=== PATIENT | female | born 1945 | race Caucasian/White ===

== ENCOUNTER 2019-12-20 15:28 | Outpatient (CLI) | payer MEDICARE, MEDICAID, SELFPAY ==
--- NOTE | ~2019-12-20 | MM_ITS ---
EXAMINATION: MM screening [facility] BI w michelle HISTORY: Screening mammogram TECHNIQUE: Craniocaudal and mediolateral oblique 3-D tomosynthesis images were obtained and synthetic 2-D images were generated. CAD analysis was submitted and interpreted. COMPARISON: 05/27/2016, 10/19/2014 BREAST PARENCHYMAL COMPOSITION: There are scattered areas of fibroglandular density. FINDINGS: Scattered benign-appearing calcifications are present. There is no evidence of suspicious m ass, calcification, or architectural distortion to suggest malignancy in either breast. There has bee n no suspicious interval change. IMPRESSION: 1. No mammographic evidence of malignancy. 2. Recommend routine screening mammography in one year. BI-RADS Category 2: Benign finding(s). Reviewed, dictated and finalized at location A. OR [employer]
== END 2019-12-20 15:29 | disposition home or self-care (01) ==
LOC: ANHIMG 15:38
DX: Z12.31 Encounter for screening mammogram for malignant neoplasm of breast (principal)
CPT/HCPCS: 77063; 77067

== ENCOUNTER 2020-06-29 12:50 | Outpatient (CLI) | payer MEDICARE, MEDICAID, SELFPAY ==
--- NOTE | ~2020-06-29 | XR_ITS ---
EXAMINATION: XR chest 2V DATE: 06/29/2020 13:16 INDICATION: Renal cell carcinoma. TECHNIQUE: Frontal and lateral views of the chest were obtained. COMPARISON: Chest 2 views 05/10/2019 FINDINGS: The chest demonstrates clear lungs without pneumonia, pleural effusion, or pneumothorax. Th e heart size is normal. IMPRESSION: 1. No evidence of metastatic disease. Reviewed, dictated and finalized at location B.
--- NOTE | ~2020-06-29 | CT_ITS ---
EXAMINATION: CT abdomen pelvis wo con DATE: 06/29/2020 13:23 INDICATION: Renal cell carcinoma TECHNIQUE: Computed tomography (CT) of the abdomen and pelvis was performed without intravenous contr ast. The dose-length product was 454.86 mGy-cm. Automated exposure control and iterative reconstructi on technique were employed. COMPARISON: CT dated 05/10/2019 FINDINGS: There is a calcified nodule right lower lobe consistent with chronic granulomatous disease. Otherwise, lung bases unremarkable. No significant pleural or pericardial effusion. Small hiatal her thomas. Heart size is normal. There is atherosclerosis. Stable 13 mm right adrenal nodule, consistent with adenoma. There are changes of partial right nephre ctomy. Stable left renal cyst. No renal stones or hydronephrosis. The liver, spleen, pancreas, left adrenal gland are unremarkable. Gallbladder is present. No lymphade nopathy. Small fat-containing umbilical hernia. Old healed right inferior pubic ramus fracture. Benig n bone islands of the femoral heads. Severe lumbar spondylosis. Grade 1 spondylolisthesis at L4-5. IMPRESSION: 1. No evidence for residual/recurrent or metastatic disease. Status post partial right nephrectomy. Reviewed, dictated and finalized at location A. IMPRESSION: 1. No evidence for residual/recurrent or metastatic disease. Status post partia l right nephrectomy.
== END 2020-06-29 12:51 | disposition home or self-care (01) ==
PROVIDERS: PCP Nurse Practitioner Family; Visit Provider Urology
DX: C64.9 Malignant neoplasm of unspecified kidney, except renal pelvis (principal); Z90.5 Acquired absence of kidney
CPT/HCPCS: 71046; 74176

== ENCOUNTER 2021-01-11 11:13 | Outpatient (CLI) | payer MEDICARE, MEDICAID, SELFPAY ==
[2021-01-11 11:55] LABS: Basophils Percent Auto 0.4 % (0.2-1.2); Eosinophils Absolute Auto 0.1 K/mm3 (0-0.3); Eosinophils Percent Auto 1.7 % (0-4.4); Hematocrit 34.9 % (37.0-47.0); Hemoglobin 11.4 g/dL (12.0-15.0); Immature Granulocyte Absolute 0.03 K/mm3 (0.00-0.031); Immature Granulocyte Percent A 0.4 % (0-0.5); Lymphocytes Absolute Auto 1.52 K/mm3 (0.9-3.2); Lymphocytes Percent Auto 21.8 % (18.3-44.2); Mean Corpuscular HGB Conc 32.7 g/dl (32-36); Mean Corpuscular Hemoglobin 29.2 pg (26-34); Mean Corpuscular Volume 89.5 fl (80-100); Mean Platelet Volume 9.7 fl (7.4-10.4); Monocytes Absolute Auto 0.4 K/mm3 (0.1-0.6); Monocytes Percent Auto 5.7 % (2.6-8.5); Neutrophils Absolute Auto 4.9 K/mm3 (1.3-6.7); Platelet Count Result 213 k/mm3 (150-375); Red Cell Distribution Width 12.9 % (11.5-14.5)
[2021-01-11 12:09] LABS: Potassium 4.2 mmol/L (3.4-5.0)
[2021-01-11 12:13] LABS: Alanine Aminotransferase 18 U/L (4-35); Albumin Level 4.3 g/dL (3.5-5.1); Alkaline Phosphatase 174 U/L (38-126); Anion Gap 8 mmol/L (8-16); Aspartate Amino Transferase 22 U/L (14-36); Bilirubin,Total 0.3 mg/dL (0.2-1.3); Blood Urea Nitrogen 21 mg/dL (7-17); Carbon Dioxide 26 mmol/L (22-30); Chloride 105 mmol/L (98-107); Cholesterol 190 mg/dL (0-200); Estimated Glomerular Filt Rate 49; Glucose 150 mg/dL (65-105); HDL Direct 51 mg/dL; Sodium 139 mmol/L (137-145); Triglycerides 289 mg/dL (<150)
[2021-01-11 12:21] LABS: LDL Cholesterol Direct 78 mg/dL
[2021-01-11 12:52] LABS: Thyroid Stimulating Hormone Reflex 0.525 uIU/mL (0.465-4.68)
== END 2021-01-11 11:14 | disposition home or self-care (01) ==
LOC: ANHLAB 11:20
PROVIDERS: PCP Nurse Practitioner Family; Visit Provider Nurse Practitioner Family
DX: E78.5 Hyperlipidemia, unspecified (principal); E03.9 Hypothyroidism, unspecified; E11.9 Type 2 diabetes mellitus without complications
CPT/HCPCS: 36415; 80053; 80061; 83036; 84443; 85025

== ENCOUNTER 2022-05-21 13:10 | Outpatient (CLI) | payer MEDICARE, MEDICAID, SELFPAY ==
[2022-05-21 14:02] LABS: Basophils Absolute Auto 0.1 K/mm3 (0.0-0.1); Basophils Percent Auto 0.8 % (0.2-1.2); Eosinophils Absolute Auto 0.1 K/mm3 (0-0.3); Eosinophils Percent Auto 1.6 % (0-4.4); Hematocrit 38.6 % (37.0-47.0); Hemoglobin 12.2 g/dL (12.0-15.0); Immature Granulocyte Absolute 0.03 K/mm3 (0.00-0.031); Immature Granulocyte Percent A 0.4 % (0-0.5); Lymphocytes Absolute Auto 1.91 K/mm3 (0.9-3.2); Mean Corpuscular HGB Conc 31.6 g/dl (32-36); Mean Corpuscular Hemoglobin 28.8 pg (26-34); Mean Platelet Volume 10.1 fl (7.4-10.4); Monocytes Absolute Auto 0.4 K/mm3 (0.1-0.6); Monocytes Percent Auto 5.5 % (2.6-8.5); Neutrophils Absolute Auto 5.1 K/mm3 (1.3-6.7); Neutrophils Percent Auto 66.7 % (45.5-73.1); Platelet Count Result 224 k/mm3 (150-375); Red Blood Count 4.24 M/mm3 (4.2-5.4); Red Cell Distribution Width 13.1 % (11.5-14.5); White Blood Count 7.6 K/mm3 (4.5-10.0)
[2022-05-21 14:13] LABS: Anion Gap 6 mmol/L (8-16); Blood Urea Nitrogen 18 mg/dL (7-17); Calcium 8.7 mg/dL (8.4-10.2); Carbon Dioxide 27 mmol/L (22-30); Chloride 102 mmol/L (98-107); Cholesterol 210 mg/dL (0-200); Estimated Glomerular Filt Rate 48; Glucose 188 mg/dL (65-110); HDL Direct 50 mg/dL; Potassium 3.9 mmol/L (3.4-5.0); Sodium 135 mmol/L (137-145); Triglycerides 255 mg/dL (<150)
[2022-05-21 14:25] LABS: Hemoglobin A1C 6.4 % (<5.7); LDL Cholesterol Direct 80 mg/dL
[2022-05-21 14:55] LABS: Creatinine Urine 284.4 mg/dL
[2022-05-21 15:00] LABS: MALB Creatinine Ratio 13.3 mg/g (0-30); Microalbumin Urine Random 37.9 mg/L (0-16.7)
== END 2022-05-21 13:11 | disposition home or self-care (01) ==
LOC: ANHLAB 13:15
PROVIDERS: PCP Nurse Practitioner Family; Visit Provider Nurse Practitioner Family
DX: E11.9 Type 2 diabetes mellitus without complications (principal); I10 Essential (primary) hypertension; Z79.899 Other long term (current) drug therapy; E03.9 Hypothyroidism, unspecified
CPT/HCPCS: 36415; 80048; 80061; 80156; 82043; 83036; 84443; 85025

== ENCOUNTER 2022-11-24 09:48 | Outpatient (CLI) | payer MEDICARE, MEDICAID, SELFPAY ==
[2022-11-24 10:46] LABS: Anion Gap 8 mmol/L (8-16); Blood Urea Nitrogen 15 mg/dL (7-17); Calcium 8.6 mg/dL (8.4-10.2); Carbon Dioxide 25 mmol/L (22-30); Chloride 104 mmol/L (98-107); Cholesterol 210 mg/dL (0-200); Estimated Glomerular Filt Rate 54; Glucose 156 mg/dL (65-110); HDL Direct 52 mg/dL; Sodium 137 mmol/L (137-145); Triglycerides 240 mg/dL (<150)
[2022-11-24 10:49] LABS: Basophils Percent Auto 0.6 % (0.2-1.2); Eosinophils Absolute Auto 0.1 K/mm3 (0-0.3); Eosinophils Percent Auto 1.9 % (0-4.4); Hematocrit 37.3 % (37.0-47.0); Hemoglobin 12.1 g/dL (12.0-15.0); Immature Granulocyte Absolute 0.03 K/mm3 (0.00-0.031); Immature Granulocyte Percent A 0.5 % (0-0.5); Lymphocytes Percent Auto 31.7 % (18.3-44.2); Mean Corpuscular HGB Conc 32.4 g/dl (32-36); Mean Corpuscular Hemoglobin 29.4 pg (26-34); Mean Corpuscular Volume 90.5 fl (80-100); Mean Platelet Volume 10.3 fl (7.4-10.4); Monocytes Absolute Auto 0.4 K/mm3 (0.1-0.6); Monocytes Percent Auto 6.8 % (2.6-8.5); Neutrophils Absolute Auto 3.7 K/mm3 (1.3-6.7); Neutrophils Percent Auto 58.5 % (45.5-73.1); Platelet Count Result 211 k/mm3 (150-375); Red Blood Count 4.12 M/mm3 (4.2-5.4); Red Cell Distribution Width 13.2 % (11.5-14.5); White Blood Count 6.3 K/mm3 (4.5-10.0)
[2022-11-24 10:57] LABS: LDL Cholesterol Direct 84 mg/dL
[2022-11-24 11:07] LABS: Hemoglobin A1C 6.5 % (<5.7)
[2022-11-24 11:21] LABS: Creatinine Urine 213.5 mg/dL
[2022-11-24 11:25] LABS: MALB Creatinine Ratio 6.3 mg/g (0-30); Microalbumin Urine Random 13.5 mg/L (0-16.7)
[2022-11-27 09:25] LABS: Carbamazepine Tegretol 9.1 mcg/mL (4.0-12.0)
== END 2022-11-24 09:49 | disposition home or self-care (01) ==
PROVIDERS: PCP Nurse Practitioner Family; Visit Provider Nurse Practitioner Family
DX: E11.9 Type 2 diabetes mellitus without complications (principal); E03.9 Hypothyroidism, unspecified; Z79.899 Other long term (current) drug therapy; I10 Essential (primary) hypertension
CPT/HCPCS: 36415; 80048; 80061; 80156; 82043; 83036; 84443; 85025

== ENCOUNTER 2023-02-14 11:28 | Outpatient (CLI) | payer MEDICARE, MEDICAID, SELFPAY ==
--- NOTE | ~2023-02-14 | MM_ITS ---
EXAMINATION: MM screening [facility] BI w michelle HISTORY: Screening mammogram TECHNIQUE: Craniocaudal and mediolateral oblique 3-D tomosynthesis images were obtained and synthetic 2-D images were generated. CAD analysis was submitted and interpreted. COMPARISON: December 20, 2019, May 27, 2016, October 19, 2014 bilateral screening mammogram examina tions BREAST PARENCHYMAL COMPOSITION: There are scattered areas of fibroglandular density. FINDINGS: There is no evidence of suspicious mass, calcification, or architectural distortion to sugg est malignancy in either breast. There has been no suspicious interval change. IMPRESSION: 1. No mammographic evidence of malignancy. 2. Recommend routine screening mammography in one year. BI-RADS Category 1: Negative Reviewed, dictated and finalized at location B.
== END 2023-02-14 11:29 | disposition home or self-care (01) ==
PROVIDERS: PCP Nurse Practitioner Family; Visit Provider Nurse Practitioner Family
DX: Z12.31 Encounter for screening mammogram for malignant neoplasm of breast (principal)
CPT/HCPCS: 77063; 77067

== ENCOUNTER 2023-06-22 13:56 | Outpatient (CLI) | payer MEDICARE, MEDICAID, SELFPAY ==
--- NOTE | ~2023-06-22 | XR_ITS ---
EXAMINATION:XR_[id number]_CR DATE: 06/22/2023 14:40 INDICATION: Neck pain TECHNIQUE: AP, lateral, and odontoid views of the cervical spine are provided. COMPARISON: None FINDINGS: Alignment is normal. The odontoid process is intact. No fracture is identified. There is se fan loss of intervertebral disc space height at C5-6. There is multilevel severe facet and uncoverte bral joint osteoarthritis. There appears to be mild vertebral body height loss at C6. Prevertebral so ft tissues are normal. IMPRESSION: 1. Severe cervical spondylosis with possible mild loss of vertebral body height at C6. Reviewed, dictated and finalized at location A.
--- NOTE | ~2023-06-22 | CT_ITS ---
EXAMINATION: CT brain wo con DATE: 06/22/2023 14:44 INDICATION: Seizure. Loss of consciousness. TECHNIQUE: Computed tomography (CT) of the head was performed without intravenous contrast. The mA wa s adjusted according to patient size. Iterative reconstruction technique was employed. The dose-lengt h product was 681.00 mGy-cm. COMPARISON: None FINDINGS: There is no intracranial hemorrhage, acute infarction, or abnormal intracranial mass lesion . There are scattered areas of low attenuation in the cerebral white matter. There is no intracranial hemorrhage, acute infarction, or abnormal intracranial mass lesion. The ventricles are normal in siz e. The paranasal sinuses are clear. There are likely changes of ocular lens replacement surgeries. Th e mastoid air cells are normal. IMPRESSION: 1. Mild nonspecific cerebral white matter disease, which likely represents chronic small vessel ische obi disease. Reviewed, dictated and finalized at location A. IMPRESSION: 1. 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
[2023-06-22 16:31] LABS: Basophils Absolute Auto 0.1 K/mm3 (0.0-0.1); Basophils Percent Auto 0.6 % (0.2-1.2); Eosinophils Absolute Auto 0.1 K/mm3 (0-0.3); Hematocrit 37.8 % (37.0-47.0); Immature Granulocyte Absolute 0.04 K/mm3 (0.00-0.031); Immature Granulocyte Percent A 0.5 % (0-0.5); Lymphocytes Absolute Auto 1.79 K/mm3 (0.9-3.2); Lymphocytes Percent Auto 22.4 % (18.3-44.2); Mean Corpuscular HGB Conc 31.7 g/dl (32-36); Mean Corpuscular Hemoglobin 29.4 pg (26-34); Mean Corpuscular Volume 92.6 fl (80-100); Mean Platelet Volume 11.2 fl (7.4-10.4); Monocytes Absolute Auto 0.5 K/mm3 (0.1-0.6); Monocytes Percent Auto 6.1 % (2.6-8.5); Neutrophils Absolute Auto 5.5 K/mm3 (1.3-6.7); Neutrophils Percent Auto 69.4 % (45.5-73.1); Platelet Count Result 187 k/mm3 (150-375); Red Blood Count 4.08 M/mm3 (4.2-5.4); Red Cell Distribution Width 13.1 % (11.5-14.5)
[2023-06-22 17:09] LABS: Alanine Aminotransferase 24 U/L (6-35); Albumin Level 4.4 g/dL (3.5-5.1); Alkaline Phosphatase 206 U/L (38-126); Anion Gap 8 mmol/L (8-16); Aspartate Amino Transferase 25 U/L (14-36); Bilirubin,Total 0.4 mg/dL (0.2-1.3); Blood Urea Nitrogen 15 mg/dL (7-17); Calcium 8.9 mg/dL (8.4-10.2); Carbon Dioxide 25 mmol/L (22-30); Chloride 101 mmol/L (98-107); Estimated Glomerular Filt Rate 54; Glucose 198 mg/dL (65-110); Potassium 4.7 mmol/L (3.4-5.0); Sodium 134 mmol/L (137-145)
[2023-06-26 15:39] LABS: Carbamazepine Tegretol 8.1 mcg/mL (4.0-12.0)
== END 2023-06-22 13:57 | disposition home or self-care (01) ==
PROVIDERS: PCP Nurse Practitioner Family; Visit Provider Nurse Practitioner Family
DX: G40.209 Localization-related (focal) (partial) symptomatic epilepsy and epileptic syndromes with complex partial seizures, not intractable, without status epilepticus (principal); S09.90XA Unspecified injury of head, initial encounter; X58.XXXA Exposure to other specified factors, initial encounter; M47.892 Other spondylosis, cervical region; R93.0 Abnormal findings on diagnostic imaging of skull and head, not elsewhere classified
CPT/HCPCS: 36415; 70450; 72040; 80053; 80156; 85025

== ENCOUNTER 2024-01-26 14:51 | Outpatient (CLI) | payer MEDICARE, MEDICAID, SELFPAY ==
--- NOTE | ~2024-01-26 | CT_ITS ---
EXAMINATION: CT abdomen pelvis wo con DATE: 01/26/2024 15:26 INDICATION: Left flank pain TECHNIQUE: Computed tomography (CT) of the abdomen and pelvis was performed without intravenous contr ast. The dose-length product (DLP) was 171.66 mGy-cm. Automated exposure control and iterative recons truction technique were employed. COMPARISON: 06/29/2020 FINDINGS: A calcified nodule in the medial right lower lobe is consistent with old granulomatous dise ase. Stones are present in the nondistended gallbladder. The liver, spleen, pancreas, and left adrena l gland are normal. There is a stable 1.3 cm low density mass of the right adrenal gland, consistent with an adenoma. Changes of right partial nephrectomy are noted. There is a 2 mm nonobstructing stone of the left kidney lower pole. Cysts of the left kidney measure up to 2.9 cm. There is calcified ath erosclerosis of the aorta and many of the other arteries. No pathologically enlarged abdominal or pel brian lymph nodes are identified. No free intraperitoneal gas or evidence of bowel obstruction. A large volume of colonic stool is present. There is severe lower lumbar spondylosis. There is a small umbil ical hernia containing fat. IMPRESSION: 1. No CT correlate for the patient's symptoms. Reviewed, dictated and finalized at location F.
== END 2024-01-26 14:52 | disposition home or self-care (01) ==
PROVIDERS: PCP Nurse Practitioner Family; Visit Provider Physician Assistant
DX: R10.9 Unspecified abdominal pain (principal)
CPT/HCPCS: 74176

== ENCOUNTER 2024-02-03 14:56 | Emergency (ER) | payer MEDICARE, MEDICAID, SELFPAY ==
[2024-02-03 15:32] VITALS: BP 170/69; PULSE 91; RESP 16; TEMP 36.3; O2SAT 97
--- NOTE | 2024-02-03 16:15 | ED.HEATRA ---
HPI - Head Injury General Chief complaint: Wound/Laceration Stated complaint: Facial pain Time Seen by Provider: 02/03/24 15:48 Source: patient, family (Sister) and RN notes reviewed Mode of arrival: ambulatory Limitations: no limitations History of Present Illness HPI Narrative: Patient presents today complaining right-sided facial pain and bruising. Patient had a seizure 2 nights ago that was unwitnessed. Believes she fell in her kitchen striking her face against the kitchen floor. She has of right-sided black eye, bruising to her forehead and mild residual headache. Denies vision changes, lightheadedness or dizziness, nausea vomiting, neck pain. Patient does have history of seizure disorder for which she takes Tegretol. Last seizure was 6-9 months ago. She has been taking aspirin for her pain at home. Related Data Home Medications Medication Instructions Recorded Confirmed atenolol 100 mg tablet mg 02/03/24 atorvastatin 40 mg tablet mg 02/03/24 carbamazepine 200 mg mg PO 02/03/24 capsule,extended release [id number] desvenlafaxine succinate 50 mg mg PO 02/03/24 tablet,extended release 24 hr esomeprazole magnesium 40 mg mg 02/03/24 capsule,delayed release famotidine 40 mg tablet mg 02/03/24 glimepiride 4 mg tablet mg 02/03/24 levothyroxine 100 mcg tablet mcg 02/03/24 lisinopril 40 mg tablet mg 02/03/24 mecobalamin (vitamin B12) 5,000 5,000 mcg PO DAILY 02/03/24 02/03/24 mcg chewable tablet topiramate 100 mg tablet mg 02/03/24 trazodone 50 mg tablet mg 02/03/24 Allergies Allergy/AdvReac Type Severity Reaction Status Date / Time benzonatate Allergy Severe DIFF Unverified 02/03/24 15:42 BREATHING honey Allergy Unknown Unknown Verified 02/03/24 15:42 latex Allergy Unknown Unknown Verified 02/03/24 15:42 milk Allergy Unknown Unknown Verified 02/03/24 15:42 peanut Allergy Unknown Unknown Verified 02/03/24 15:42 tree nut Allergy Unknown Unknown Verified 02/03/24 15:42 venom-honey bee Allergy Unknown ANAPHYLAXIS Verified 02/03/24 15:42 COCONUT Allergy Severe THROAT Uncoded 02/03/24 15:42 CLOSES HONEY,WOOL,ALL NUTS,MILK Allergy Severe VARYING Uncoded 02/03/24 15:42 DEGREES OF REACTIVITY Review of Systems Review of Systems: CONSTITUTIONAL: Denies body aches, fever, chills, or sweats. EYES: Denies visual changes, redness, or discharge. ENT: Denies rhinorrhea, congestion, sore throat, or otalgia. CARDIOVASCULAR: Denies chest pain, palpitations, or edema. RESPIRATORY: Denies cough or dyspnea. GASTROINTESTINAL: Denies abdominal pain, nausea, vomiting, or diarrhea. GENITOURINARY: Denies dysuria or hematuria. SKIN: Denies rash, itching, or wounds. MUSCULOSKELETAL: Denies back pain, joint pain, or myalgia.+ facial pain and bruising NEUROLOGIC: Denies numbness, tingling, or weakness.+ headache PSYCH: Denies depression or anxiety. [facility] Past Medical History Medical History (Updated 02/03/24 @ 16:46 by Yamileth Loredo, ALINING INSPECTOR, ) Seizure disorder Family History Family History Sibling Family history of lung cancer Grandparent Family history of malignant neoplasm of breast Exam Narrative: GENERAL: Well-appearing, well-nourished, and in no acute distress. HEAD: Normocephalic. Mild bruising to the right forehead without swelling. Tender to palpation. No deformity or crepitus noted. EYES: EOMI. PERRL. No nystagmus. Mild to moderate ecchymosis to the medial portion of the right orbit. Tenderness to the entire right orbit area. No crepitus. Patient denies feelings of pulling with eye movements. ENT: Mucous membranes pink and moist. Nares clear. No rhinorrhea. NECK: Normal AROM. Supple. No lymphadenopathy. CHEST: No respiratory distress. EXTREMITIES: Normal range of motion. No edema. SKIN: Warm, dry, no rash. Capillary refill normal. Normal skin turgor. NEURO: No focal deficits. Alert and oriented x3.
== END 2024-02-03 16:18 | disposition home or self-care (01) ==
PROVIDERS: Emergency Provider Nurse Practitioner; PCP Nurse Practitioner Family
DX: S00.83XA Contusion of other part of head, initial encounter (principal); S05.91XA Unspecified injury of right eye and orbit, initial encounter; W19.XXXA Unspecified fall, initial encounter; G40.909 Epilepsy, unspecified, not intractable, without status epilepticus
CPT/HCPCS: 99212; G0463

== ENCOUNTER 2024-02-09 14:11 | Outpatient (CLI) | payer MEDICARE, MEDICAID, SELFPAY ==
--- NOTE | ~2024-02-09 | CT_ITS ---
CT Facial Bones Clinical Indication: Contusion Technique: Contiguous axial scans were obtained through the facial bones followed by coronal and sagi ttal reconstructions. Dose reduction technique was used on this scan by utilizing automated exposure control and iterative reconstruction technique. The dose-length product (DLP) was 303.17 mGy-cm. Findings: No fractures are identified. The visualized paranasal sinuses are clear. Intraorbital soft tissues appear normal. Impression: No fracture identified. Reviewed, dictated and finalized at location . Impression: No fracture identified.
== END 2024-02-09 14:12 | disposition home or self-care (01) ==
LOC: ANHIMG 14:13
PROVIDERS: PCP Nurse Practitioner Family; Visit Provider Nurse Practitioner Family
DX: S00.83XA Contusion of other part of head, initial encounter (principal); X58.XXXA Exposure to other specified factors, initial encounter
CPT/HCPCS: 70486

== ENCOUNTER 2024-02-22 12:37 | Outpatient (CLI) | payer MEDICARE, MEDICAID, SELFPAY ==
[2024-02-22 14:21] LABS: Appearance Urine Clear (Clear); Bacteria Urine None Seen /hpf; Bilirubin Urine Negative (Negative); Blood Urine Negative (Negative); Color Urine Dark Yellow (Yellow); Glucose Urine UA Negative (Negative); Ketones Urine Trace mg/dL (Negative); Leukocyte Esterase Ur Negative LEU/UL (Negative); Nitrate Urine Negative (Negative); Non Pathogenic Casts 0-2; Protein Urine Trace mg/dL (Negative); RBC Urine 0-2 /hpf (0-2); Specific Grav Ur 1.025 (1.001-1.035); Squamous Epithelial Cell Urine Moderate /hpf (Few); WBC Urine 0-5 /hpf (0-3)
[2024-02-22 14:27] LABS: Alanine Aminotransferase 16 U/L (6-35); Albumin Level 4.7 g/dL (3.5-5.1); Alkaline Phosphatase 217 U/L (38-126); Anion Gap 9 mmol/L (4-12); Aspartate Amino Transferase 20 U/L (14-36); Bilirubin,Total 0.6 mg/dL (0.2-1.3); Blood Urea Nitrogen 14 mg/dL (7-17); Calcium 9.4 mg/dL (8.4-10.2); Carbon Dioxide 24 mmol/L (22-30); Chloride 111 mmol/L (98-107); Cholesterol 201 mg/dL (0-200); Estimated Glomerular Filt Rate 54; Glucose 166 mg/dL (65-110); HDL Direct 57 mg/dL; Potassium 4.4 mmol/L (3.4-5.0); Sodium 144 mmol/L (137-145); Triglycerides 221 mg/dL (<150)
[2024-02-22 14:32] LABS: Add Urine Microscopic? YES
[2024-02-22 14:38] LABS: LDL Cholesterol Direct 92 mg/dL
[2024-02-22 14:47] LABS: Creatinine Urine 271.9 mg/dL
[2024-02-22 14:51] LABS: MALB Creatinine Ratio 14.4 mg/g (0-30); Microalbumin Urine Random 39.1 mg/L (0-16.7)
[2024-02-22 15:43] LABS: Hemoglobin A1C 5.8 % (<5.7)
== END 2024-02-22 12:38 | disposition home or self-care (01) ==
PROVIDERS: PCP Nurse Practitioner Family; Visit Provider Nurse Practitioner Family
DX: R30.0 Dysuria (principal); E11.9 Type 2 diabetes mellitus without complications
CPT/HCPCS: 36415; 80053; 80061; 81001; 82043; 83036; 84443; 87086; 87088

== ENCOUNTER 2024-07-05 13:56 | Outpatient (CLI) | payer MEDICARE, MEDICAID, SELFPAY ==
--- NOTE | ~2024-07-05 | CT_ITS ---
EXAMINATION: CT brain wo con DATE: 07/05/2024 14:21 INDICATION: Closed head injury. TECHNIQUE: Computed tomography (CT) of the head was performed without intravenous contrast. The mA wa s adjusted according to patient size. Iterative reconstruction technique was employed. The dose-lengt h product was 605.33 mGy-cm. COMPARISON: Head CT 06/22/2023 FINDINGS: There is no intracranial hemorrhage, acute infarction, or abnormal intracranial mass lesion . There are scattered areas of low attenuation in the cerebral white matter. The ventricles are germaine l in size. There are likely changes of ocular lens replacement surgeries. There is mild mucosal thick ening in the ethmoid sinuses. The mastoid air cells are normal. IMPRESSION: 1. Stable mild nonspecific cerebral white matter disease, which likely represents chronic small vesse l ischemic disease. Reviewed, dictated and finalized at location A. IMPRESSION: 1. Stable mild nonspecific cerebral white matter disease, which likely represen ts chronic small vessel ischemic disease.
== END 2024-07-05 13:57 | disposition home or self-care (01) ==
PROVIDERS: PCP Nurse Practitioner Family; Visit Provider Nurse Practitioner Family
DX: Z87.828 Personal history of other (healed) physical injury and trauma (principal)
CPT/HCPCS: 70450

== ENCOUNTER 2025-02-02 09:27 | Emergency (ER) | payer MEDICARE, MEDICAID, SELFPAY ==
[2025-02-02] VITALS (25 sets, daily range): BP systolic 100–143; BP diastolic 62–74; PULSE 43–60; RESP 11–22; TEMP 36.4; O2SAT 92–100
--- NOTE | ~2025-02-02 | CT_ITS ---
EXAMINATION: CT abdomen pelvis wo con DATE: 02/02/2025 10:39 INDICATION: Abdominal pain, nausea, vomiting and diarrhea. TECHNIQUE: Computed tomography (CT) of the abdomen and pelvis was performed without intravenous contr ast. Automated exposure control and iterative reconstruction technique were employed. The dose-length product was 351.21 mGy-cm. COMPARISON: 02/02/2025 and 06/21/2018 FINDINGS: Calcified right lower lobe nodule. Heart size is normal. No pericardial or pleural effusion. Small sl iding-type hiatal hernia. Liver, spleen, pancreas and left adrenal gland are normal. 1.5 cm low-atten uation adrenal adenoma which remained unchanged since 06/21/2018. Subtle calcific density along the de pendent wall of the otherwise normal gallbladder likely representing minute gallstones. Stable appear ance of chronic postoperative changes at the upper pole the right kidney likely related to prior part ial right nephrectomy. 2.5 cm left renal cyst. 2 mm nonobstructing stone at a lower pole calyx of the left kidney. There are few diverticula along the sigmoid colon without adjacent from trace stranding to suggest diverticulitis. No bowel obstruction. The appendix is not visualized. No pericecal inflam matory change to suggest acute appendicitis. Bladder is normal. The uterus is not identified and has likely been surgically resected. No free intraperitoneal gas or fluid. No pathologically enlarged abd ominal or pelvic lymphadenopathy. Mild thoracolumbar levoscoliosis with severe lumbar and moderate th oracic spondylosis. IMPRESSION: 1. No acute intra-abdominal/pelvic process. 2. 2 mm nonobstructing left renal stone. 3. Tiny gallstones in the otherwise normal gallbladder. 4. Small sliding-type hiatal hernia. Reviewed, dictated and finalized at location A.
--- NOTE | ~2025-02-02 | CT_ITS ---
Non-contrast Head CT History: Seizure activity, status post fall COMPARISON: 07/05/2024 Technique: Axial non-contrast imaging of the brain was performed. Dose reduction technique was used on this scan by utilizing automated exposure control and iterative reconstruction technique. The dose -length product (DLP) was 605.33 mGy-cm. Findings: There is no evidence of intracranial hemorrhage, mass lesion, or acute infarct. Brain par enchyma appears normal. The ventricles and subarachnoid spaces are normal in size. The calvarium ap pears normal. The visualized paranasal sinuses and mastoid air cells are clear. Impression: No significant abnormality seen. Reviewed, dictated and finalized at location . Impression: No significant abnormality seen.
--- NOTE | ~2025-02-02 | XR_ITS ---
Clinical Indication: Seizure-like activity AP and lateral views of the chest: Comparison: 06/29/2020 Findings: The lungs are clear, without evidence of focal consolidation or pleural effusion. Cardiome diastinal silhouette is within normal limits. Bones and soft tissues are unremarkable. Impression: Clear lungs. Reviewed, dictated and finalized at [facility]. Impression: Clear lungs.
--- NOTE | 2025-02-02 09:29 | ECG_ITS ---
Test Date: 2025-02-02 09:40:04 Measurements Intervals [place] Rate: 46 P: 57 OK: 318 QRS: 7 QRSD: 109 T: 132 QT: 486 QTc: 426 Interpretive Statements SINUS BRADYCARDIA WITH SINUS ARRHYTHMIA WITH MARKED FIRST DEGREE AV BLOCK LEFT VENTRICULAR HYPERTROPHY AND ST-T CHANGE BORDERLINE ST-T WAVE ABNORMALITY- ANTEROLAT/INF LEADS BASELINE ARTIFACT- I, II, III, AVR, AVL, AVF, V1-V3 ABNORMAL ECG No previous ECG available for comparison Electronically Signed On 02-02-2025 09:42:39 CDT by Stanislav Gramajo D.O.
[2025-02-02 09:51] LABS: Basophils Percent Auto 0.4 % (0.2-1.2); Eosinophils Absolute Auto 0.1 K/mm3 (0-0.3); Eosinophils Percent Auto 1.5 % (0-4.4); Hematocrit 33.6 % (37.0-47.0); Hemoglobin 10.9 g/dL (12.0-15.0); Immature Granulocyte Absolute 0.02 K/mm3 (0.00-0.031); Immature Granulocyte Percent A 0.3 % (0-0.5); Lymphocytes Absolute Auto 1.94 K/mm3 (0.9-3.2); Lymphocytes Percent Auto 28.3 % (18.3-44.2); Mean Corpuscular HGB Conc 32.4 g/dl (32-36); Mean Corpuscular Hemoglobin 29.5 pg (26-34); Mean Corpuscular Volume 90.8 fl (80-100); Mean Platelet Volume 9.9 fl (7.4-10.4); Monocytes Absolute Auto 0.5 K/mm3 (0.1-0.6); Monocytes Percent Auto 6.9 % (2.6-8.5); Neutrophils Absolute Auto 4.3 K/mm3 (1.3-6.7); Neutrophils Percent Auto 62.6 % (45.5-73.1); Platelet Count Result 190 k/mm3 (150-375); Red Cell Distribution Width 12.7 % (11.5-14.5); White Blood Count 6.9 K/mm3 (4.5-10.0)
[2025-02-02 10:04] LABS: Lactic Acid Reflex 1.2 mmol/L (0.7-2.0)
--- NOTE | 2025-02-02 10:04 | ED.SEIZURE ---
HPI - Seizure General Chief Complaint: Seizure Stated Complaint: possible seizure on toilet Time Seen by Provider: 02/02/25 09:32 Source: patient and family Mode of arrival: EMS Limitations: no limitations History of Present Illness HPI Narrative: Patient is a 79-year-old female, with PMH of HTN, GERD, seizure disorder, who presents to the ED via EMS with concern for seizure like activity. Patient states she began feeling unwell this morning and developed nausea, vomiting, diarrhea. Went to the bathroom to have a bowel movement and at some point ended up on the floor. Family found patient on the floor and appeared to have some shaking activity. She notes patient's seizures are not typically tonic/clonic and patient is usually able to speak throughout the episodes. Denied tonic/clonic activity today. Family had difficulty getting the patient up off the ground due to weakness, at which point EMS was called. She she states this weakness is fairly typical of when she has seizures. Last had a seizure around 1 year ago. Is on carbamazepine and topiramate. Denies any missed doses. Patient reports feeling mildly nauseous currently, denies lightheadedness, dizziness, headache, vision changes, focal numbness or weakness, abdominal pain, cough, chest pain, shortness of breath. Patient sees Dr. Kebede with Neurology in [place]. Seizure History: Yes Related Data Home Medications ?Medication ?Instructions ?Recorded ?Confirmed ?Last Taken ?Type atenolol 100 mg tablet mg 02/03/24 Unknown History atorvastatin 40 mg tablet mg 02/03/24 Unknown History carbamazepine 200 mg mg PO 02/03/24 Unknown History capsule,extended release [id number] desvenlafaxine succinate 50 mg mg PO 02/03/24 Unknown History tablet,extended release 24 hr esomeprazole magnesium 40 mg mg 02/03/24 Unknown History capsule,delayed release famotidine 40 mg tablet mg 02/03/24 Unknown History glimepiride 4 mg tablet mg 02/03/24 Unknown History levothyroxine 100 mcg tablet mcg 02/03/24 Unknown History lisinopril 40 mg tablet mg 02/03/24 Unknown History mecobalamin (vitamin B12) 5,000 5,000 mcg PO DAILY 02/03/24 02/03/24 Unknown History mcg chewable tablet topiramate 100 mg tablet mg 02/03/24 Unknown History trazodone 50 mg tablet mg 02/03/24 Unknown History Allergies Allergy/AdvReac Type Severity Reaction Status Date / Time benzonatate Allergy Severe DIFF Verified 02/02/25 10:28 BREATHING coconut Allergy Severe Swelling Verified 02/02/25 10:28 of Lip/Tongue/Throat honey Allergy Unknown Unknown Verified 02/02/25 10:28 latex Allergy Unknown Unknown Verified 02/02/25 10:28 milk Allergy Unknown Unknown Verified 02/02/25 10:28 peanut Allergy Unknown Unknown Verified 02/02/25 10:28 tree nut Allergy Unknown Unknown Verified 02/02/25 10:28 venom-honey bee Allergy Unknown ANAPHYLAXIS Verified 02/02/25 10:28 Iodinated Contrast Media Allergy Rash Verified 02/02/25 10:28 HONEY,WOOL,ALL NUTS,MILK Allergy Severe VARYING Uncoded 02/02/25 10:28 DEGREES OF REACTIVITY Review of Systems Review of Systems: All systems reviewed & are unremarkable except as noted in HPI. All systems reviewed & are unremarkable except as noted in HPI and below PMFSH Past Medical History Medical History Seizure disorder Family History Family History Sibling Family history of lung cancer Grandparent Family history of malignant neoplasm of breast Exam Narrative: GENERAL: Elderly, non-toxic, in no acute distress. HEAD: Normocephalic, atraumatic. EYES: PERRL/EOMI, conjunctivae clear bilaterally. No nystagmus. NECK: Supple. No meningeal signs. RESPIRATORY: Airway patent, respirations nonlabored. Clear to auscultation bilaterally, no rales, rhonchi, wheezing. CARDIOVASCULAR: Regular rate and rhythm without murmurs, rubs, or gallops. Peripheral pulses 2+ and equal bilaterally. ABDOMINAL: Soft, no significant focal tenderness throughout abdomen. Normoactive BS. MUSCULOSKELETAL: Moves all extremities. No gross deformities. SKIN: Warm, dry, normal color. No rashes. NEURO: A&O X3. Speech clear. Follows commands. CN II-XII intact. Sensation grossly intact. No ataxic movements. Strength 5/5 in upper and lower extremities bilaterally. No pronator drift. Equal superintendent sales strength bilaterally. PSYCHIATRIC: Appropriate mood and affect. Normal interaction. Course Vital Signs Vital signs: Vital Signs Temperature 97.6 F 02/02/25 09:25 Pulse Rate 43 L 02/02/25 09:25 Respiratory Rate 16 02/02/25 09:25 Blood Pressure 122/67 02/02/25 09:25 Pulse Oximetry 95 02/02/25 09:25 Temperature 97.6 F 02/02/25 09:25 Pulse Rate 54 L 02/02/25 14:19 Respiratory Rate 18 02/02/25 14:19 Blood Pressure 124/73 02/02/25 14:19 Pulse Oximetry 99 02/02/25 14:19 Oxygen Delivery Room Air 02/02/25 10:41 MDM - Seizure MDM Narrative Medical decision making narrative: Patient presented to ED with possible seizure-like activity, nausea, vomiting, diarrhea. History of seizure disorder, on carbamazepine, topiramate. Compliant with medications. Vital signs are stable upon arrival. Patient was noted to be bradycardic into the mid 40s. She does not know if this is normal for her or not. She is on atenolol 100 mg daily. Denying any dizziness or lightheadedness currently. Patient given loading g of Keppra. Upon my evaluation, she is neurologically intact. I do not appreciate any focal deficits. She is alert oriented x4, able to provide all information. EKG showing sinus George, no significant ST changes. Baseline troponin is undetectable. Cbc without leukocytosis. Very mild anemia noted at 10.9, no recent records to compare to. Electrolytes are within normal range on CMP. Kidney function is stable. Lactic acid was within normal range at 1.2. Viral swabs negative. UA w/o evidence of infection. CT of the brain was obtained and unremarkable. Chest x-ray is clear. CT scan of abdomen/pelvis also without acute surgical findings. Overall workup is reassuring. Patient has been resting comfortably throughout ED stay. She has not had any further seizure-like activity or N/V. She states she feels at her baseline. Has been ambulatory in the ED without issue, no ongoing weakness. She is asymptomatic regarding bradycardia. She would like to go home at this time. I discussed that I have a call out to her neurologist to discuss symptoms and events of today, however have not heard back from the office. Patient reports that she has a follow-up appointment with him in 2 weeks. She would like to be discharged. She does not want to be admitted for any further workup. She feels comfortable going home with family. Again feels back to baseline. Discussed possibility of gastroenteritis. Discussed very strict return precautions. Patient in agreement with plan. Also advised close follow-up with PCP for bradycardia. Discharged in stable condition. Medical Records Attestation: I reviewed the patient's medical records. Lab Data Attestation: I reviewed the patient's lab results. 02/02/25 09:40 02/02/25 09:40 Labs: Lab Results 02/02/25 02/02/25 02/02/25 Range/Units 09:40 09:40 09:40 WBC 6.9 (4.5-10.0) K/mm3 RBC 3.70 L (4.2-5.4) M/mm3 Hgb 10.9 L (12.0-15.0) g/dL Hct 33.6 L (37.0-47.0) % MCV 90.8 (80-100) fl MCH 29.5 (26-34) pg MCHC 32.4 (32-36) g/dl RDW 12.7 (11.5-14.5) % Plt Count 190 (150-375) k/mm3 MPV 9.9 (7.4-10.4) fl Immature Gran % (Auto) 0.3 (0-0.5) % Neut % (Auto) 62.6 (45.5-73.1) % Lymph % (Auto) 28.3 (18.3-44.2) % [place] % (Auto) 6.9 (2.6-8.5) % Eos % (Auto) 1.5 (0-4.4) % Baso % (Auto) 0.4 (0.2-1.2) % Lymph # (Auto) 1.94 (0.9-3.2) K/mm3 [place] # (Auto) 0.5 (0.1-0.6) K/mm3 Eos # (Auto) 0.1 (0-0.3) K/mm3 Baso # (Auto) 0.0 (0.0-0.1) K/mm3 Abs Immat Gran (auto) 0.02 (0.00-0.031) K/mm3 Absolute Neuts (auto) 4.3 (1.3-6.7) K/mm3 Absolute Nucleated RBC 0.000 (0.0-0.012) K/mm3 Nucleated RBC % 0.0 (0.0-0.2) % Sodium Cancelled 135 L Potassium Cancelled 3.8 Chloride Cancelled Carbon Dioxide Anion Gap BUN Creatinine Estim Creat Clear Calc Estimated GFR Glucose Lactic Acid (0.7-2.0) mmol/L Calcium Magnesium (1.6-2.3) mg/dL Total Bilirubin AST ALT Alkaline Phosphatase Troponin I (0.000-0.034) ng/mL Total Protein Albumin Urine Color (Yellow) Urine Appearance (Clear) Urine pH (5.0-9.0) Ur Specific [place] (1.001-1.035) Urine Protein (Negative) mg/dL Urine Glucose (UA) (Negative) mg/dL Urine Ketones (Negative) mg/dL Ur Blood (Man) (Negative) Urine Nitrate (Negative) Urine Bilirubin (Negative) Urine Urobilinogen (<2.0) mg/dL Leukocyte Esterase Rfl (Negative) GIANLUCA/UL Influenza A (RT-PCR) (Negative) Influenza B (RT-PCR) (Negative) RSV (RT-PCR) (Negative) SARS-CoV-2 RNA (RT-PCR) (Negative) 02/02/25 02/02/25 02/02/25 Range/Units 09:40 09:40 09:40 WBC (4.5-10.0) K/mm3 RBC (4.2-5.4) M/mm3 Hgb (12.0-15.0) g/dL Hct (37.0-47.0) % MCV (80-100) fl MCH (26-34) pg MCHC (32-36) g/dl RDW (11.5-14.5) % Plt Count (150-375) k/mm3 MPV (7.4-10.4) fl Immature Gran % (Auto) (0-0.5) % Neut % (Auto) (45.5-73.1) % Lymph % (Auto) (18.3-44.2) % [place] % (Auto) (2.6-8.5) % Eos % (Auto) (0-4.4) % Baso % (Auto) (0.2-1.2) % Lymph # (Auto) (0.9-3.2) K/mm3 [place] # (Auto) (0.1-0.6) K/mm3 Eos # (Auto) (0-0.3) K/mm3 Baso # (Auto) (0.0-0.1) K/mm3 Abs Immat Gran (auto) (0.00-0.031) K/mm3 Absolute Neuts (auto) (1.3-6.7) K/mm3 Absolute Nucleated RBC (0.0-0.012) K/mm3 Nucleated RBC % (0.0-0.2) % Sodium Potassium Chloride 104 Carbon Dioxide Cancelled 22 Anion Gap Cancelled 9 BUN Cancelled Creatinine Estim Creat Clear Calc Estimated GFR Glucose Lactic Acid (0.7-2.0) mmol/L Calcium Magnesium (1.6-2.3) mg/dL Total Bilirubin AST ALT Alkaline Phosphatase Troponin I (0.000-0.034) ng/mL Total Protein Albumin Urine Color (Yellow) Urine Appearance (Clear) Urine pH (5.0-9.0) Ur Specific [place] (1.001-1.035) Urine Protein (Negative) mg/dL Urine Glucose (UA) (Negative) mg/dL Urine Ketones (Negative) mg/dL Ur Blood (Man) (Negative) Urine Nitrate (Negative) Urine Bilirubin (Negative) Urine Urobilinogen (<2.0) mg/dL Leukocyte Esterase Rfl (Negative) GIANLUCA/UL Influenza A (RT-PCR) (Negative) Influenza B (RT-PCR) (Negative) RSV (RT-PCR) (Negative) SARS-CoV-2 RNA (RT-PCR) (Negative) 02/02/25 02/02/25 02/02/25 Range/Units 09:40 09:40 09:40 WBC (4.5-10.0) K/mm3 RBC (4.2-5.4) M/mm3 Hgb (12.0-15.0) g/dL Hct (37.0-47.0) % MCV (80-100) fl MCH (26-34) pg MCHC (32-36) g/dl RDW (11.5-14.5) % Plt Count (150-375) k/mm3 MPV (7.4-10.4) fl Immature Gran % (Auto) (0-0.5) % Neut % (Auto) (45.5-73.1) % Lymph % (Auto) (18.3-44.2) % [place] % (Auto) (2.6-8.5) % Eos % (Auto) (0-4.4) % Baso % (Auto) (0.2-1.2) % Lymph # (Auto) (0.9-3.2) K/mm3 [place] # (Auto) (0.1-0.6) K/mm3 Eos # (Auto) (0-0.3) K/mm3 Baso # (Auto) (0.0-0.1) K/mm3 Abs Immat Gran (auto) (0.00-0.031) K/mm3 Absolute Neuts (auto) (1.3-6.7) K/mm3 Absolute Nucleated RBC (0.0-0.012) K/mm3 Nucleated RBC % (0.0-0.2) % Sodium Potassium Chloride Carbon Dioxide Anion Gap BUN 14 Creatinine Cancelled 0.86 Estim Creat Clear Calc Cancelled 41 Estimated GFR Cancelled Glucose Lactic Acid (0.7-2.0) mmol/L Calcium Magnesium (1.6-2.3) mg/dL Total Bilirubin AST ALT Alkaline Phosphatase Troponin I (0.000-0.034) ng/mL Total Protein Albumin Urine Color (Yellow) Urine Appearance (Clear) Urine pH (5.0-9.0) Ur Specific [place] (1.001-1.035) Urine Protein (Negative) mg/dL Urine Glucose (UA) (Negative) mg/dL Urine Ketones (Negative) mg/dL Ur Blood (Man) (Negative) Urine Nitrate (Negative) Urine Bilirubin (Negative) Urine Urobilinogen (<2.0) mg/dL Leukocyte Esterase Rfl (Negative) GIANLUCA/UL Influenza A (RT-PCR) (Negative) Influenza B (RT-PCR) (Negative) RSV (RT-PCR) (Negative) SARS-CoV-2 RNA (RT-PCR) (Negative) 02/02/25 02/02/25 02/02/25 Range/Units 09:40 09:40 09:40 WBC (4.5-10.0) K/mm3 RBC (4.2-5.4) M/mm3 Hgb (12.0-15.0) g/dL Hct (37.0-47.0) % MCV (80-100) fl MCH (26-34) pg MCHC (32-36) g/dl RDW (11.5-14.5) % Plt Count (150-375) k/mm3 MPV (7.4-10.4) fl Immature Gran % (Auto) (0-0.5) % Neut % (Auto) (45.5-73.1) % Lymph % (Auto) (18.3-44.2) % [place] % (Auto) (2.6-8.5) % Eos % (Auto) (0-4.4) % Baso % (Auto) (0.2-1.2) % Lymph # (Auto) (0.9-3.2) K/mm3 [place] # (Auto) (0.1-0.6) K/mm3 Eos # (Auto) (0-0.3) K/mm3 Baso # (Auto) (0.0-0.1) K/mm3 Abs Immat Gran (auto) (0.00-0.031) K/mm3 Absolute Neuts (auto) (1.3-6.7) K/mm3 Absolute Nucleated RBC (0.0-0.012) K/mm3 Nucleated RBC % (0.0-0.2) % Sodium Potassium Chloride Carbon Dioxide Anion Gap BUN Creatinine Estim Creat Clear Calc Estimated GFR > 60 Glucose Cancelled 216 H Lactic Acid 1.2 (0.7-2.0) mmol/L Calcium Cancelled 8.2 L Magnesium 2.0 (1.6-2.3) mg/dL Total Bilirubin Cancelled AST ALT Alkaline Phosphatase Troponin I (0.000-0.034) ng/mL Total Protein Albumin Urine Color (Yellow) Urine Appearance (Clear) Urine pH (5.0-9.0) Ur Specific [place] (1.001-1.035) Urine Protein (Negative) mg/dL Urine Glucose (UA) (Negative) mg/dL Urine Ketones (Negative) mg/dL Ur Blood (Man) (Negative) Urine Nitrate (Negative) Urine Bilirubin (Negative) Urine Urobilinogen (<2.0) mg/dL Leukocyte Esterase Rfl (Negative) GIANLUCA/UL Influenza A (RT-PCR) (Negative) Influenza B (RT-PCR) (Negative) RSV (RT-PCR) (Negative) SARS-CoV-2 RNA (RT-PCR) (Negative) 02/02/25 02/02/25 02/02/25 Range/Units 09:40 09:40 09:40 WBC (4.5-10.0) K/mm3 RBC (4.2-5.4) M/mm3 Hgb (12.0-15.0) g/dL Hct (37.0-47.0) % MCV (80-100) fl MCH (26-34) pg MCHC (32-36) g/dl RDW (11.5-14.5) % Plt Count (150-375) k/mm3 MPV (7.4-10.4) fl Immature Gran % (Auto) (0-0.5) % Neut % (Auto) (45.5-73.1) % Lymph % (Auto) (18.3-44.2) % [place] % (Auto) (2.6-8.5) % Eos % (Auto) (0-4.4) % Baso % (Auto) (0.2-1.2) % Lymph # (Auto) (0.9-3.2) K/mm3 [place] # (Auto) (0.1-0.6) K/mm3 Eos # (Auto) (0-0.3) K/mm3 Baso # (Auto) (0.0-0.1) K/mm3 Abs Immat Gran (auto) (0.00-0.031) K/mm3 Absolute Neuts (auto) (1.3-6.7) K/mm3 Absolute Nucleated RBC (0.0-0.012) K/mm3 Nucleated RBC % (0.0-0.2) % Sodium Potassium Chloride Carbon Dioxide Anion Gap BUN Creatinine Estim Creat Clear Calc Estimated GFR Glucose Lactic Acid (0.7-2.0) mmol/L Calcium Magnesium (1.6-2.3) mg/dL Total Bilirubin 0.4 AST Cancelled 18 ALT Cancelled 17 Alkaline Phosphatase Cancelled Troponin I (0.000-0.034) ng/mL Total Protein Albumin Urine Color (Yellow) Urine Appearance (Clear) Urine pH (5.0-9.0) Ur Specific [place] (1.001-1.035) Urine Protein (Negative) mg/dL Urine Glucose (UA) (Negative) mg/dL Urine Ketones (Negative) mg/dL Ur Blood (Man) (Negative) Urine Nitrate (Negative) Urine Bilirubin (Negative) Urine Urobilinogen (<2.0) mg/dL Leukocyte Esterase Rfl (Negative) GIANLUCA/UL Influenza A (RT-PCR) (Negative) Influenza B (RT-PCR) (Negative) RSV (RT-PCR) (Negative) SARS-CoV-2 RNA (RT-PCR) (Negative) 02/02/25 02/02/25 02/02/25 Range/Units 09:40 09:40 09:40 WBC (4.5-10.0) K/mm3 RBC (4.2-5.4) M/mm3 Hgb (12.0-15.0) g/dL Hct (37.0-47.0) % MCV (80-100) fl MCH (26-34) pg MCHC (32-36) g/dl RDW (11.5-14.5) % Plt Count (150-375) k/mm3 MPV (7.4-10.4) fl Immature Gran % (Auto) (0-0.5) % Neut % (Auto) (45.5-73.1) % Lymph % (Auto) (18.3-44.2) % [place] % (Auto) (2.6-8.5) % Eos % (Auto) (0-4.4) % Baso % (Auto) (0.2-1.2) % Lymph # (Auto) (0.9-3.2) K/mm3 [place] # (Auto) (0.1-0.6) K/mm3 Eos # (Auto) (0-0.3) K/mm3 Baso # (Auto) (0.0-0.1) K/mm3 Abs Immat Gran (auto) (0.00-0.031) K/mm3 Absolute Neuts (auto) (1.3-6.7) K/mm3 Absolute Nucleated RBC (0.0-0.012) K/mm3 Nucleated RBC % (0.0-0.2) % Sodium Potassium Chloride Carbon Dioxide Anion Gap BUN Creatinine Estim Creat Clear Calc Estimated GFR Glucose Lactic Acid (0.7-2.0) mmol/L Calcium Magnesium (1.6-2.3) mg/dL Total Bilirubin AST ALT Alkaline Phosphatase 189 H Troponin I < 0.012 (0.000-0.034) ng/mL Total Protein Cancelled 6.0 L Albumin Cancelled 3.9 Urine Color (Yellow) Urine Appearance (Clear) Urine pH (5.0-9.0) Ur Specific [place] (1.001-1.035) Urine Protein (Negative) mg/dL Urine Glucose (UA) (Negative) mg/dL Urine Ketones (Negative) mg/dL Ur Blood (Man) (Negative) Urine Nitrate (Negative) Urine Bilirubin (Negative) Urine Urobilinogen (<2.0) mg/dL Leukocyte Esterase Rfl (Negative) GIANLUCA/UL Influenza A (RT-PCR) (Negative) Influenza B (RT-PCR) (Negative) RSV (RT-PCR) (Negative) SARS-CoV-2 RNA (RT-PCR) (Negative) 02/02/25 02/02/25 Range/Units 10:42 12:00 WBC (4.5-10.0) K/mm3 RBC (4.2-5.4) M/mm3 Hgb (12.0-15.0) g/dL Hct (37.0-47.0) % MCV (80-100) fl MCH (26-34) pg MCHC (32-36) g/dl RDW (11.5-14.5) % Plt Count (150-375) k/mm3 MPV (7.4-10.4) fl Immature Gran % (Auto) (0-0.5) % Neut % (Auto) (45.5-73.1) % Lymph % (Auto) (18.3-44.2) % [place] % (Auto) (2.6-8.5) % Eos % (Auto) (0-4.4) % Baso % (Auto) (0.2-1.2) % Lymph # (Auto) (0.9-3.2) K/mm3 [place] # (Auto) (0.1-0.6) K/mm3 Eos # (Auto) (0-0.3) K/mm3 Baso # (Auto) (0.0-0.1) K/mm3 Abs Immat Gran (auto) (0.00-0.031) K/mm3 Absolute Neuts (auto) (1.3-6.7) K/mm3 Absolute Nucleated RBC (0.0-0.012) K/mm3 Nucleated RBC % (0.0-0.2) % Sodium Potassium Chloride Carbon Dioxide Anion Gap BUN Creatinine Estim Creat Clear Calc Estimated GFR Glucose Lactic Acid (0.7-2.0) mmol/L Calcium Magnesium (1.6-2.3) mg/dL Total Bilirubin AST ALT Alkaline Phosphatase Troponin I (0.000-0.034) ng/mL Total Protein Albumin Urine Color Yellow (Yellow) Urine Appearance Clear (Clear) Urine pH 7.0 (5.0-9.0) Ur Specific [place] 1.013 (1.001-1.035) Urine Protein Negative (Negative) mg/dL Urine Glucose (UA) Trace H (Negative) mg/dL Urine Ketones Negative (Negative) mg/dL Ur Blood (Man) Negative (Negative) Urine Nitrate Negative (Negative) Urine Bilirubin Negative (Negative) Urine Urobilinogen 0.2 (<2.0) mg/dL Leukocyte Esterase Rfl Negative (Negative) GIANLUCA/UL Influenza A (RT-PCR) Negative (Negative) Influenza B (RT-PCR) Negative (Negative) RSV (RT-PCR) Negative (Negative) SARS-CoV-2 RNA (RT-PCR) Negative (Negative) Imaging Data Attestation: I personally reviewed and interpreted this imaging study as follows: Radiologist's impression: ITS Impressions Chest X-Ray 02/02/25 09:52 Impression: Clear lungs. Head CT 02/02/25 10:39 Impression: No significant abnormality seen. Abdomen/Pelvis CT 02/02/25 10:53 IMPRESSION: 1. No acute intra-abdominal/pelvic process. 2. 2 mm nonobstructing left renal stone. 3. Tiny gallstones in the otherwise normal gallbladder. 4. Small sliding-type hiatal hernia. ECG Data EKG #1: Attestation: I personally reviewed and interpreted this ECG as follows: ECG completion date: 02/02/25 ECG completion time: 09:40 EKG Interpretation: bradycardia (46), sinus rhythm (With sinus arrhythmia and first-degree AV block), non-specific ST changes and other (Baseline artifact) Discharge Plan Discharge Clinical Impression: Breakthrough seizure, Bradycardia, Gastroenteritis Patient Disposition: Home, Self-Care Condition: Stable Instructions: Antibiotic Form, Gastroenteritis (ED), Bradycardia (ED), Recurrent Seizures in Adults (ED) Additional Instructions: Continue home medications as prescribed. Follow-up closely with your primary care doctor and neurologist for further evaluation. Your heart rate was noted to be slightly low today. Follow-up closely with your PCP for this. Continue to monitor heart rate at home. Utilize zofran as needed for further nausea. Increase fluid intake. Recommend electrolyte rich fluids, gatorade, pedialyte, body armour. Recommend clear liquids or bland diet until symptoms improve, such as bananas, rice, applesauce, toast, or crackers. Return to the ED if you experience worsening or severe symptoms, recurrent seizure-like activity, severe dizziness or lightheadedness, passing out, chest pain, shortness of breath, unable to keep down food or drink, severe pain, fevers, rectal bleeding, vomiting blood, or any other symptoms of concern. Patient Language: Citizen Of [place] Prescriptions: New ondansetron 4 mg tablet,disintegrating 4 mg PO Q8H PRN (Reason: nausea and vomiting) Qty: 10 0RF No Action atorvastatin 40 mg tablet trazodone 50 mg tablet atenolol 100 mg tablet famotidine 40 mg tablet levothyroxine 100 mcg tablet esomeprazole magnesium 40 mg capsule,delayed release(DR/EC) glimepiride 4 mg tablet lisinopril 40 mg tablet topiramate 100 mg tablet carbamazepine 200 mg capsule, ER multiphase 12 hr PO desvenlafaxine succinate 50 mg tablet extended release 24 hr PO mecobalamin (vitamin B12) 5,000 mcg Tablet,Chewable 5,000 mcg PO DAILY Follow-up/Referrals: Michael,Moni Warner APN [Primary Care Provider] - Time of Disposition: 13:47
--- OUTSIDE RECORDS SUMMARY | 2025-02-02 10:09 | XMS_ITS | Encounter Summary ---
Author Organization [facility] Address [address] [place] [address] Phone Care Team Providers Care Press Assistant And Feeder Name Role Phone Ronnie Kebede MD Unavailable [phone] Moni Rodriguez APRN, CNP Primary Care Provider [phone] Reason for Visit * Reason Comments Medication Refill Encounter Details Date Type Department Care Team (Late Contact Info) Description 11/15/2020 Refill [facility] Neurology [facility] [address] [facility] [place] [id number] Ronnie Kebede MD [address] [place] [address] Medication Refill Social History Tobacco Use Types Packs/Day Years Used Date Smoking Tobacco: Never Smokeless Tobacco: Never Alcohol Use Standard Drinks/Week Comments No 0 (1 standard drink = 0.6 oz pur e alcohol) Hasn't in a long time Comments No Sex and Gender Information Value Date Recorded Sex Assigned at Not on file Legal Sex Female 11:10 PM CDT Gender Identity Not on file Sexual Orientation Not on file documented as of this encounter Plan of Treatment Upcoming Encounters Date Type Department Care Team (Late Contact Info) Description 02/16/2025 2:15 PM CDT Office Visit [facility] Neurology [facility] [address] [place] [phone] Ronnie Kebede MD [address] [place] [address] documented as of this encounter Visit Diagnoses Diagnosis Partial symptomatic epilepsy with complex partial seizures, not intractable, without status epilepticus documented in this encounter Care Teams Press Assistant And Feeder Relationship Specialty Start Date End Date Moni Rodriguez APRN, CNP [address] [place] [address] PCP - General Family Medicine 05/06/17 Ronnie Kebede MD [address] [place] [phone] Consulting Physician Neurology 05/06/17 documented as of this encounter
--- OUTSIDE RECORDS SUMMARY | 2025-02-02 10:09 | XMS_ITS | Clinical Summary ---
Author Organization [facility] [employer] Address [address] [place] [address] Care Team Providers Care Varnish Inspector Name Role Phone Unavailable Primary Care Provider Unavailabl e Source Comments [facility] [employer],non-owned Affiliates and Associated Physician Practices is amultiple site organization consisting of ambulatory clinics and hospital sitesin [place], [place], [place] and [place]. This disclosure is being madepursuant to the Care Everywhere program and may not contain all information available regarding this patient. Last updated 18.[facility] [employer] Allergies Active Allergy Reactions Criticality Noted Date Comments Adhesive Sensitivity Swelling Medium 10/15/2011 Benzonatate 01/15/2012 Per outside records Topiramate 01/15/2012 Per outside records Medications Be aware that medications may not be up to date on this document. Always verify current medications with the patient. No known medications Active Problems Problem Noted Date Diagnosed Date Vitamin D deficiency 11/20/2011 Osteopenia 11/19/2011 Overview (01/15/2012): Tscore -2.2 11/18/11, -2.0 09/10 Pernicious anemia 11/19/2011 EDMAR (obstructive sleep apnea) on CPAP (Dr. Concepcion Chavira) 10/15/2011 IBS (irritable bowel syndrome) 10/15/2011 Physical exam 10/15/11 10/15/2011 Insomnia 10/15/2011 Chronic headaches 10/15/2011 Overview (10/15/2011): Dr. Joyce Anxiety 10/15/2011 Overview (10/15/2011): Advised see psych-- on very high dose valium GERD (gastroesophageal reflux disease) Overview (10/15/2011): hiatal hernia Concussion Seizures Overview (10/15/2011): Dr. Crystal Osei [facility]. Onset after concussion Hypothyroid Hyperlipidemia DM (diabetes mellitus) HTN (hypertension) Fibromyalgia GI bleed Colon polyps Overview (01/15/2012): Col. 07/18/10: 1 polyp, diverticulosis, internal hemorrhoids- next col 5 y Immunizations Name Administration Dates Next Due PNEUMOCOCCAL PPSV23 09/02/2011 Family History Medical History Relation Name Comments Cancer Brother 3 Cancer Mother colon CA Relation Name Status Comments Brother 1 brain and lung CA Brother 2 lung CA Brother 3 Father SD Mother SD Social History Tobacco Use Types Packs/Day Years Used Date Smoking Tobacco: Never Smokeless Tobacco: Never Alcohol Use Standard Drinks/Week Comments No 0 (1 standard drink = 0.6 oz pur e alcohol) Sex and Gender Information Value Date Recorded Sex Assigned at Not on file Gender Identity Not on file Sexual Orientation Not on file Last Filed Vital Signs Vital Sign Reading Time Taken Comments Blood Pressure 130/80 02/24/2012 10:27 AM CDT Pulse 86 02/24/2012 10:27 AM CDT Temperature 37.1 C (98.8 F) 11/19/2011 12:56 PM MACHINE FORMER Respiratory Rate - - Oxygen Saturation - - Inhaled Oxygen Concentration - - Weight 64.4 kg (142 lb) 02/24/2012 10:27 AM CDT Height 162.6 cm (5' 4 ) 02/24/2012 10:27 AM CDT Body Mass Index 24.37 02/24/2012 10:27 AM CDT Plan of Treatment Health Maintenance Due Date Last Done Comments MEDICARE AWV 12 MONTHS 1945 HEPATITIS C SCREENING 08/07/1964 DTAP/TDAP/TD VACCINES (1 - Tdap) 1965 DIABETES-STATIN 1986 ZOSTER VACCINE (1 of 2) 1996 DIABETES RETINOPATHY SCREENING 02/24/2012 DIABETES-FOOT EXAM WITH MONOFILAMENT 02/24/2012 DIABETES-HGB A1C 08/25/2012 02/24/2012, 11/18/2011 PNEUMOCOCCAL VACCINE 50+ (2 of 2 - PCV) 09/02/2012 09/02/2011 DIABETES-SERUM CREATININE 11/18/2012 11/18/2011 Respiratory Syncytial Virus (RSV) Vaccine Pt: or over 60 yrs (1 - 1-dose 75+ series) 2021 COVID-19 VACCINE (2023-2 5 season) 2024 INFLUENZA VACCINE (#1) 2024 DEPRESSION SCREENING 11/02/2024 DIABETES - URINE PROTEIN SCREENING 11/02/2024 11/18/2011 BONE DENSITY TESTING Completed 11/18/2011, 11/18/2011 HEPATITIS B VACCINE Aged Out No longe r eligible based on patient's age to complete this topic HIB VACCINE Aged Out No longer eligi ble based on patient's age to complete this topic HPV VACCINE Aged Out No longer eligi ble based on patient's age to complete this topic MENINGOCOCCAL (Group B) VACCINE SHARED DECISION-MAKING Aged Out No longer eligible based on patient's age to complete this topic MENINGOCOCCAL GROUPS A/C/Y/W VACCINE Aged Out No longer eligible b ased on patient's age to complete this topic Procedures Procedure Name Priority Date/Time Associated Diagnosis Comments HEMOGLOBIN A1C Routine 02/24/2012 11:02 AM CDT DM (diabetes mellitus) DEXA BONE DENSITY 2 SITES Routine 11/18/2011 6:48 PM MACHINE FORMER Asymptomatic postmenopausal status (age-related) (natural) MICROALBUMIN URINE RANDOM Routine 11/18/2011 12:11 PM MACHINE FORMER DM (diabetes mellitus) COMPREHENSIVE METABOLIC PANEL Routine 11/18/2011 12:09 PM MACHINE FORMER Hyperlipidemia DM (diabetes mellitus) from Last 3 Months or Most Recently Relevant to Health Maintenance Results * (ABNORMAL) HEMOGLOBIN A1C (02/24/2012 11:02 AM CDT) Hemoglobin A1c 6.0(H) 4.8 - 5.6 % [facility] INSURANCE BILL Comment: . Increased risk for diabetes: 5.7 - 6.4 Diabetes: >6.4 Glycemic control for adults with diabetes: <7.0 Blood specimen (specimen) BLOOD SPECIMEN / Unknown 02/24/2012 11:02 AM CDT 02/24/2012 6:15 PM CDT Narrative Resulting Agency Comment [facility] [place] [id number] [facility] [id number] Nahomi Mcginnis MD LAB - CHEMISTRY RAJATNarayan MAHONEY [facility] INSURANCE BILL * DEXA BONE DENSITY 2 SITES (11/18/2011 6:48 PM MACHINE FORMER) Anatomical Region Laterality Modality Other Narrative 11/18/2011 6:48 PM MACHINE FORMER Jeremi Chauhan MD 11/18/2011 6:48 PM [facility] Medical group BONE DENSITY REPORT Pt. Name: Catrachita Rosa Gender: female : 1945 Test Date: 11/18/2011 Referring Physician: Nahomi Mcginnis MD Technologist: MALKA Montenegro A Central DXA was performed today using a [employer] QDR Discovery C horse riding coach or instructor. The images and data have been scanned. Images are of good technical quality. Areas studied: Spine -2.1; Lt. Hip -0.9; Rt. Hip -1.1; Lt. Fem Nec -1.9; Rt.Fem Nec -2.2; (with site T scores) Official T-score: --> -2.2 Interpretation: Low Bone Density (Osteopenia) Comments: Osteoporosis may be diagnosed in postmenopausal women and in men age 50 and older if the T-score of the lumbar spine, total hip or femoral neck is -2.5 or less. In certain circumstances the 33% radius may be utilized. A fragility fracture, regardless of T-score, should be considered diagnostic of osteoporosis (provided other causes of the fracture have been excluded). Recommendations: In general postmenopausal women should have a daily intake of 1,200 to 1,500 mg of calcium a day, and 800 IU of Vitamin D a day. A decision about when to add prescription therapy requires clinical correlation and may vary for any given individual patient. Fracture risk approximately doubles for every 1 SD decrease in BMD. The 2008 NOF suggests postmenopausal women and men age 50 and older presenting with the following should be considered for treatment: 1) A hip or vertebral (clinical or morphometric) fracture 2) Other prior fractures and low bone mass (T-score between -1 and -2.5 at the femoral neck, total hip or spine) 3) T-score < -2.5 at the femoral neck, total hip or spine after appropriate evaluation to exclude secondary causes 4) Low bone mass (T-score between -1.0 and -2.5 at the femoral neck, total hip or spine) and secondary causes associated with high risk of fracture (such as glucocorticoid use or total immobilization) 5) Low bone mass (T-score between -1.0 and -2.5 at the femoral neck, total hip or spine) and 10 year probability of hip fracture > 3% or a 10 year probability of any major osteoporosis-related fracture > 20% based on the [place] adapted WHO algorithm (available at www.shef.ac.uk/FRAX) 6) The FRAX analysis is not intended for use to monitor therapy, but rather to assist in the decision of whether to initiate therapy. Jeremi Chauhan MD 11/18/2011 6:48 PM Jeremi Chauhan MD Physician and Certified Clinical Test Engine Operator Procedure Note Elo Asher - 11/18/2011 4:08 PM CST [facility] Medical group BONE DENSITY REPORT Pt. Name: Catrachita Rosa Gender: female : 1945 Test Date: 11/18/2011 Referring Physician: Nahomi Mcginnis MD Technologist: MALKA Montenegro A Central DXA was performed today using a [employer] QDR Discovery C horse riding coach or instructor.The images and data have been scanned. Images are of good technicalquality. Areas studied: Spine -2.1; Lt. Hip -0.9; Rt. Hip-1.1; Lt. Fem Nec -1.9; Rt.Fem Nec -2.2; (with site T scores) Official T-score: --> -2.2 Interpretation: Low Bone Density (Osteopenia) Comments: Osteoporosis may be diagnosed in postmenopausal women and in men age 50and older if the T-score of the lumbar spine, total hip or femoral neck is-2.5 or less. In certain circumstances the 33% radius may be utilized. Afragility fracture, regardless of T-score, should be considered diagnosticof osteoporosis (provided other causes of the fracture have beenexcluded). Recommendations: In general postmenopausal women should have a dailyintake of 1,200 to 1,500 mg of calcium a day, and 800 IU of Vitamin D aday. A decision about when to add prescription therapy requires clinicalcorrelation and may vary for any given individual patient. Fracture riskapproximately doubles for every 1 SD decrease in BMD. The 2008 NOFsuggests postmenopausal women and men age 50 and older presenting with thefollowing should be considered for treatment: 1) A hip or vertebral (clinical or morphometric) fracture 2) Other prior fractures and low bone mass (T-score between -1 and -2.5 atthe femoral neck, total hip or spine) 3) T-score < -2.5 at the femoral neck, total hip or spine afterappropriate evaluation to exclude secondary causes 4) Low bone mass (T-score between -1.0 and -2.5 at the femoral neck,total hip or spine) and secondary causes associated with high risk offracture (such as glucocorticoid use or total immobilization) 5) Low bone mass (T-score between -1.0 and -2.5 at the femoral neck, totalhip or spine) and 10 year probability of hip fracture > 3% or a 10 yearprobability of any major osteoporosis-related fracture > 20% based on theU.S. adapted WHO algorithm (available at www.shef.ac.uk/FRAX) 6) The FRAX analysis is not intended for use to monitor therapy, butrather to assist in the decision of whether to initiate therapy. Jeremi Chauhan MD 11/18/2011 6:48 PM Jeremi Chauhan MD Physician and Certified Clinical Test Engine Operator Nahomi Mcginnis MD DEXA ORDERABLES * MICROALBUMIN URINE RANDOM (11/18/2011 12:11 PM MACHINE FORMER) Microalbumin Random Urine 10.4 0.0 - 17.0 ug/mL [facility] INSURANCE BILL URINE / Unknown 11/18/2011 1 2:11 PM MACHINE FORMER 11/18/2011 5:48 PM MACHINE FORMER Narrative Resulting Agency Comment [facility] [id number] Nahomi Mcginnis MD LAB - URINE CHEMISTR Y ORDERABLES [facility] INSURANCE BILL * (ABNORMAL) COMPREHENSIVE METABOLIC PANEL (11/18/2011 12:09 PM MACHINE FORMER) Glucose 100(H) 65 - 99 mg/dL [facility] INSURANCE BILL BUN 16 8 - 27 mg/dL [facility] INSURANCE BILL Creatinine 0.89 0.57 - 1.00 mg/dL [facility] INSURANCE BILL eGFR by MDRD 68 >59 mL/min/1.7 3 [facility] INSURANCE BILL eGFR by MDRD 79 >59 mL/min/1.7 3 [facility] INSURANCE BILL Comment: Note: A persistent eGFR <60 mL/min/1.73 m2 (3 months or more) may indicate chronic kidney disease. An eGFR >59 mL/min/1.73 m2 with an elevated urine protein also may indicate chronic kidney disease. Calculated using CKD-EPI formula. BUN/Creatinine Ratio 18 11 - 26 [facility] INSURANCE BILL Sodium 142 134 - 144 mmol/L [facility] INSURANCE BILL Comment:Please note refere nce interval change Potassium 4.0 3.5 - 5.2 mmol/L [facility] INSURANCE BILL Chloride 100 97 - 108 mmol/L [facility] INSURANCE BILL CO2 27 20 - 32 mmol/L [facility] INSURANCE BILL Calcium 9.5 8.6 - 10.2 mg/dL [facility] INSURANCE BILL Protein Total 6.9 6.0 - 8.5 g/dL [facility] INSURANCE BILL Albumin 4.6 3.6 - 4.8 g/dL [facility] INSURANCE BILL Globulin Total 2.3 1.5 - 4.5 g/dL [facility] INSURANCE BILL Albumin/Globulin Ratio 2.0 1.1 - 2.5 [facility] INSURANCE BILL Bilirubin Total 0.3 0.0 - 1.2 mg/dL [facility] INSURANCE BILL Alkaline Phosphatase 64 25 - 165 IU/L [facility] INSURANCE BILL AST 21 0 - 40 IU/L [facility] INSURANCE BILL ALT 19 0 - 40 IU/L [facility] INSURANCE BILL Blood specimen (specimen) BLOOD SPECIMEN / Unknown 11/18/2011 12:09 PM MACHINE FORMER 11/18/2011 5:58 PM MACHINE FORMER Narrative Resulting Agency Comment [facility] [address] [id number] Nahomi Mcginnis MD LAB - CHEMISTRY SCOTT MAHONEY [facility] INSURANCE BILL from Last 3 Months or Most Recently Relevant to Health Maintenance
--- OUTSIDE RECORDS SUMMARY | 2025-02-02 10:09 | XMS_ITS | Encounter Summary ---
Author Organization [facility] Address [address] [place] [address] Phone Care Team Providers Care Inspector Eyeglass Frames Name Role Phone Ronnie Kebede MD Unavailable [phone] Moni Rodriguez APRN, CNP Primary Care Provider [phone] Reason for Visit * Reason Comments Medication Refill Encounter Details Date Type Department Care Team (Late st Contact Info) Description 08/01/2023 Refill [facility] - Neurology - [place] [address] [place] [address] Ronnie Kebede MD [address] [place] [address] Medication Refill Social History Tobacco [...] on file documented as of this encounter Miscellaneous Notes * Telephone Encounter - Peg Brandt RN - 08/03/2023 8:14 AM CDT Medication failed the protocol, provider to review and approve the medication order if appropriate. Requested Prescriptions Pending Prescriptions Disp Refills Topiramate 50 MG Tablet [Pharmacy Med Name: TOPIRAMATE 50 MG TABLET] 180 Tablet 1 Sig: TAKE 1 TABLET BY MOUTH TWICE A DAY Not Delegated - Anticonvulsants Excluding Benzodiazepines Protocol Failed - 08/01/2023 8:04 AM Failed - This refill cannot be delegated Passed - Visit with relevant provider in past 12 months or upcoming 90 days Recent Visits No visits were found meeting these conditions. Showing recent visits within past 365 days and meeting all other requirements Future Appointments Date Type Provider Dept 08/10/23 Appointment [facility] Show[facility] future appointments within next 90 days and meeting all other requirements documented in this encounter Plan of Treatment Upcoming Encounters Date Type Department Care Team (Late st Contact Info) Description 02/16/2025 2:15 PM CDT [facility] [address] [place] [address] Ronnie Kebede MD [address] [place] [address] documented as of this encounter Visit Diagnoses Not on filedocumented in this encounter Care Teams Inspector Eyeglass Frames Relationship Specialty Start Date End Date Moni Rodriguez APRN, CNP [address] [place], [place] [id number] PCP - General Family Medicine 05/06/17 Ronnie Kebede MD [address] [place] [address] Consulting Physician Neurology 05/06/17 documented as of this encounter
--- OUTSIDE RECORDS SUMMARY | 2025-02-02 10:09 | XMS_ITS | Encounter Summary ---
Author Organization [facility] Address [address] [place] [address] Phone Care Team Providers Care Home Agent Name Role Phone Ronnie Kebede MD Unavailable [phone] Moni Rodriguez APRN, CNP Primary Care Provider [phone] Reason for Visit * Reason Comments Medication Refill Encounter Details Date Type Department Care Team (Late st Contact Info) Description 10/29/2023 Refill [facility] - Neurology - [place] [address] [place] [address] Ronnie Kebede MD [address] [place] [address] Medication Refill Social History Tobacco [...] Telephone Encounter - Peg Brandt RN - 10/29/2023 12:16 PM CST Medication failed the protocol, provider to review and approve the medication order if appropriate. Requested Prescriptions Pending Prescriptions Disp Refills carBAMazepine (CARBATROL) 200 MG CAPSULE SR 12 HR [Pharmacy Med Name: CARBAMAZEPINE ER 200 MG CAP] 180 Capsule 1 Sig: TAKE 1 CAPSULE BY MOUTH TWICE A DAY Not Delegated - Anticonvulsants Excluding Benzodiazepines Protocol Failed - 10/29/2023 12:52 AM Failed - This refill cannot be delegated Passed - Visit with relevant provider in past 12 months or upcoming 90 days Recent Visits Date Type Provider Dept 08/10/23 Office Visit Ronnie Kebede MD [facility] [place] [facility] Showing recent visits within past 365 days and meeting all other requirements Future Appointments Date Type Provider Dept 12/10/23 Appointment Ronnie Kebede MD [facility] [place] Showing future appointments within next 90 days and meeting all other requirements PING AND RECEIVING WEIGHER documented in this encounter Plan of Treatment Upcoming Encounters Date Type Department Care Team (Late st Contact Info) Description 02/16/2025 2:15 PM CDT [facility] [address] [place] [address] Ronnie Kebede MD [address] [place] [address] documented as of this encounter Visit Diagnoses Diagnosis Partial symptomatic epilepsy with complex partial seizures, not intractable, without status epilepticus documented in this encounter Care Teams Home Agent Relationship Specialty Start Date End Date Moni Rodriguez APRN, CNP [address] [place] [address] PCP - General Family Medicine 05/06/17 Ronnie Kebede MD [address] [place] [address] Consulting Physician Neurology 05/06/17 documented as of this encounter
--- OUTSIDE RECORDS SUMMARY | 2025-02-02 10:09 | XMS_ITS | Encounter Summary ---
Author Organization [facility] Address [address] [place] [address] Phone Care Team Providers Care Inspection Manager Name Role Phone Ronnie Kebede MD Unavailable [phone] Moni Rodriguez APRN, CNP Primary Care Provider [phone] Reason for Visit * Reason Comments Medication Refill Encounter Details Date Type Department Care Team (Late Contact Info) Description [facility] [address] [place] [phone] Ronnie Kebede MD [address] [place] [address] Medication Refill Social History Tobacco [...] Description 02/16/2025 2:15 PM CDT Office Visit [facility] [address] [place] [address] Ronnie Kebede MD [address] [place] [address] documented as of this encounter Visit Diagnoses Not on filedocumented in this encounter Care Teams Inspection Manager Relationship Specialty Start Date End Date Moni Rodriguez APRN, CNP [address] [place] [address] PCP - General Family Medicine 05/06/17 Ronnie Kebede MD [address] [place] [address] Consulting Physician Neurology 05/06/17 documented as of this encounter
--- OUTSIDE RECORDS SUMMARY | 2025-02-02 10:09 | XMS_ITS | Encounter Summary ---
Author Organization [facility] Address [address] [place] [address] Phone Care Team Providers Care Electrician Wiring Name Role Phone Ronnie Kebede MD Unavailable [phone] Moni Rodriguez APRN, CNP Primary Care Provider [phone] Reason for Visit * Reason Comments Medication Refill Encounter Details Date Type Department Care Team (Late Contact Info) Description [facility] [address] [place] [phone] Ronnie Kebede MD [address] [place] [address] Medication Refill Social History Tobacco [...] Description 02/16/2025 2:15 PM CDT Office Visit [facility] [address] [place] [address] Ronnie Kebede MD [address] [place] [address] documented as of this encounter Visit Diagnoses Not on filedocumented in this encounter Care Teams Electrician Wiring Relationship Specialty Start Date End Date Moni Rodriguez APRN, CNP [address] [place] [address] PCP - General Family Medicine 05/06/17 Ronnie Kebede MD [address] [place] [address] Consulting Physician Neurology 05/06/17 documented as of this encounter
--- OUTSIDE RECORDS SUMMARY | 2025-02-02 10:09 | XMS_ITS | Encounter Summary ---
Author Organization [facility] Address [address] [place] [address] Phone Care Team Providers Care Bilingual Medical Receptionist Name Role Phone Ronnie Kebede MD Unavailable [phone] Moni Rodriguez APRN, INSURANCE ADMINISTRATIVE ASSISTANT Primary Care Provider [phone] Reason for Visit * Reason Comments Medication Refill Encounter Details Date Type Department Care Team (Late Contact Info) Description 03/04/2021 Refill [facility] Neu[facility] [address] [facility] [place] [address] Geovanna Kelly APRN, SETTER HELPER [address] [place] [address] Medication Refill Social History Tobacco Use Types [...] Description 02/16/2025 2:15 PM CDT Office Visit [facility] Neurology [facility] [address] [place] [address] Ronnie Kebede MD [address] [place] [address] documented as of this encounter Visit Diagnoses Diagnosis Partial symptomatic epilepsy with complex partial seizures, not intractable, without status epilepticus documented in this encounter Care Teams Bilingual Medical Receptionist Relationship Specialty Start Date End Date Moni Rodriguez APRN, CNP [address] [place] [address] PCP - General Family Medicine 05/06/17 Ronnie Kebede MD [address] [place] [address] Consulting Physician Neurology 05/06/17 documented as of this encounter
--- OUTSIDE RECORDS SUMMARY | 2025-02-02 10:09 | XMS_ITS | Encounter Summary ---
Author Organization [facility] Address [address] [place] [address] Phone Care Team Providers Care Machine Bander And Cellophaner Name Role Phone Ronnie Kebede MD Unavailable [phone] Moni Rodriguez APRN, CNP Primary Care Provider [phone] Reason for Visit * Reason Comments Medication Refill Encounter Details Date Type Department Care Team (Late Contact Info) Description 11/22/2021 [facility]ill [facility] [address] [place] [phone] Ronnie Kebede MD [address] [place] [address] Medication Refill Social History Tobacco [...] Description 02/16/2025 2:15 PM CDT Office Visit [facility] [address] [place] [address] Ronnie Kebede MD [address] [place] [address] documented as of this encounter Visit Diagnoses Not on filedocumented in this encounter Care Teams Machine Bander And Cellophaner Relationship Specialty Start Date End Date Moni Rodriguez APRN, CNP [address] [place] [address] PCP - General Family Medicine 05/06/17 Ronnie Kebede MD [address] [place] [address] Consulting Physician Neurology 05/06/17 documented as of this encounter
--- OUTSIDE RECORDS SUMMARY | 2025-02-02 10:09 | XMS_ITS | CONTINUITY OF CARE DOCUMENT ---
Author Name anup hebert Address Unknown Organization [facility] Address [address] [place] [address] [address] [place] [address] Phone [phone] Care Team Providers Care Guide Visitor Name Role Phone Bentley MOODY, Min Unavailable [phone] INSURANCE PROVIDERS Payer name Policy type / Coverage type Christine red alliance party ID [place] Medicare [id number]
--- OUTSIDE RECORDS SUMMARY | 2025-02-02 10:09 | XMS_ITS | Encounter Summary ---
Author Organization [facility] Address [address] [place] [address] Phone Care Team Providers Care Core Layer Machine Operator Name Role Phone Ronnie Kebede MD Unavailable [phone] Moni Rodriguez APRN, CNP Primary Care Provider [phone] Reason for Visit * Reason Comments Medication Refill Encounter Details Date Type Department Care Team (Late Contact Info) Description 10/23/2020 Refill [facility] #1 [facility] [place] [address] Ronnie Kebede MD [address]2 [place] [address] Medication Refill Social History Tobacco [...] Description 02/16/2025 2:15 PM CDT Office Visit [facility] Neurology [facility] #2 [place] [address] Ronnie Kebede MD [address]2 [place] [address] documented as of this encounter Visit Diagnoses Not on filedocumented in this encounter Care Teams Core Layer Machine Operator Relationship Specialty Start Date End Date Moni Rodriguez APRN, CNP [address] [place] [address] PCP - General Family Medicine 05/06/17 Ronnie Kebede MD #2 [place] [address] Consulting Physician Neurology 05/06/17 documented as of this encounter
--- OUTSIDE RECORDS SUMMARY | 2025-02-02 10:09 | XMS_ITS | Encounter Summary ---
Author Organization [facility] Address [address] [place] [address] Phone Care Team Providers Care Electrolysis Engineer Name Role Phone Ronnie Kebede MD Unavailable [phone] Moni Rodriguez APRN, CNP Primary Care Provider [phone] Reason for Visit * Reason Comments Medication Refill Encounter Details Date Type Department Care Team (Late Contact Info) Description 02/27/2021 Refill [facility] Neurology [facility] #1 [facility] [place] [address] Ronnie Kebede MD [address]2 [place] [address] Medication Refill Social History Tobacco [...] 02/16/2025 2:15 PM CDT Office Visit [facility] Neurology [facility] #2 [place] [address] Ronnie Kebede MD [address] [place] [address] documented as of this encounter Visit Diagnoses Not on filedocumented in this encounter Care Teams Electrolysis Engineer Relationship Specialty Start Date End Date Moni Rodriguez APRN, CNP [address] [place] [address] PCP - General Family Medicine 05/06/17 Ronnie Kebede MD [address]2 [place] [address] Consulting Physician Neurology 05/06/17 documented as of this encounter
--- OUTSIDE RECORDS SUMMARY | 2025-02-02 10:09 | XMS_ITS | Encounter Summary ---
Author Organization [facility] Address [address] [place] [address] Phone Care Team Providers Care Oracle R12 Developer Name Role Phone Ronnie Kebede MD Unavailable [phone] Moni Rodriguez APRN, COMMERCIAL COLLECTIONS DRIVER Primary Care Provider [phone] Reason for Visit * Reason Comments Medication Refill Encounter Details Date Type Department Care Team (Late Contact Info) Description 10/28/2021 Refill [facility] #2 [place] [address] Geovanna Kelly APRN, WIRELINE OPERATOR #2 [place] [address] Medication Refill Social History Tobacco Use Types [...] Description 02/16/2025 2:15 PM CDT Office Visit [facility] Neurology [facility] #2 [place] [address] Ronnie Kebede MD #2 [place] [address] documented as of this encounter Visit Diagnoses Not on filedocumented in this encounter Care Teams Oracle R12 Developer Relationship Specialty Start Date End Date Moni Rodriguez APRN, CNP [address] [place] [address] PCP - General Family Medicine 05/06/17 Ronnie Kebede MD [address]2 [place] [address] Consulting Physician Neurology 05/06/17 documented as of this encounter
--- OUTSIDE RECORDS SUMMARY | 2025-02-02 10:09 | XMS_ITS | Encounter Summary ---
Author Organization [facility] Address [address] [place] [address] Phone Care Team Providers Care Counsel Name Role Phone Ronnie Kebede MD Unavailable [phone] Moni Rodriguez APRN, CNP Primary Care Provider [phone] Reason for Visit * Reason Comments Medication Refill Encounter Details Date Type Department Care Team (Late st Contact Info) Description 02/02/2023 [facility]ill [facility] [place] #2 [place] [address] Ronnie Kebede MD [address]2 [place] [address] Medication Refill Social History Tobacco [...] Telephone Encounter - Peg Brandt RN - 02/03/2023 8:05 AM CDT Medication failed the protocol, provider to review and approve the medication order if appropriate. Requested Prescriptions Pending Prescriptions Disp Refills Topiramate 50 MG Tablet [Pharmacy Med Name: TOPIRAMATE 50 MG TABLET] 180 Tablet 1 Sig: TAKE 1 TABLET BY MOUTH TWICE A DAY Not Delegated - Anticonvulsants Excluding Benzodiazepines Protocol Failed - 02/02/2023 9:46 PM Failed - This refill cannot be delegated Passed - Visit with relevant provider in past 12 months or upcoming 90 days Recent Visits Date Type Provider Dept 07/17/22 Office Visit Ronnie Kebede [facility] Showing recent visits within past 365 days and meeting all other requirements Future Appointments No visits were found meeting these conditions. Showing future appointments within next 90 days and meeting all other requirements documented in this encounter Plan of Treatment Upcoming Encounters Date Type Department Care Team (Late st Contact Info) Description 02/16/2025 2:15 PM CDT [facility] [address] [place] [address] Ronnie Kebede MD [address] [place] [address] documented as of this encounter Visit Diagnoses Not on filedocumented in this encounter Care Teams Counsel Relationship Specialty Start Date End Date Moni Rodriguez APRN, CNP [address] [place], [place] [id number] PCP - General Family Medicine 05/06/17 Ronnie Kebede MD [address] [place] [address] Consulting Physician Neurology 05/06/17 documented as of this encounter
--- OUTSIDE RECORDS SUMMARY | 2025-02-02 10:09 | XMS_ITS | Encounter Summary ---
Author Organization [facility] Address [address] [place] [address] Phone Care Team Providers Care Wine Steward Name Role Phone Ronnie Kebede MD Unavailable [phone] Moni Rodriguez APRN, PATTERN RULER Primary Care Provider [phone] Reason for Visit * Reason Comments Medication Refill Encounter Details Date Type Department Care Team (Late Contact Info) Description 02/06/2021 Refill [facility] Neurology [facility] #1 [facility] [place] [address] Geovanna Kelly APRN, [place] LINE ATTENDANT #2 [place] [address] Medication Refill Social History Tobacco Use Types [...] Description 02/16/2025 2:15 PM CDT Office Visit [facility] #2 [place] [address] Ronnie Kebede MD [address] [place] [address] documented as of this encounter Visit Diagnoses Diagnosis Partial symptomatic epilepsy with complex partial seizures, not intractable, without status epilepticus documented in this encounter Care Teams Wine Steward Relationship Specialty Start Date End Date Moni Rodriguez APRN, CNP [address] [place] [address] PCP - General Family Medicine 05/06/17 Ronnie Kebede MD [address] [place] [address] Consulting Physician Neurology 05/06/17 documented as of this encounter
--- OUTSIDE RECORDS SUMMARY | 2025-02-02 10:09 | XMS_ITS | Encounter Summary ---
Author Organization [facility] Address [address] [place] [address] Phone Care Team Providers Care Tab Cutting Machine Operator Name Role Phone Ronnie Kebede MD Unavailable [phone] Moni Rodriguez APRN, CNP Primary Care Provider [phone] Reason for Visit * Reason Comments Medication Refill Encounter Details Date Type Department Care Team (Late Contact Info) Description 02/06/2021 Refill [facility] #1 [facility] [place] [address] Ronnie Kebede MD #2 [place] [address] Medication Refill Social History Tobacco [...] Description 02/16/2025 2:15 PM CDT Office Visit [facility] Neurology [facility] #2 [place] [address] Ronnie Kebede MD [address]2 [place] [address] documented as of this encounter Visit Diagnoses Not on filedocumented in this encounter Care Teams Tab Cutting Machine Operator Relationship Specialty Start Date End Date Moni Rodriguez APRN, CNP [address] [place] [address] PCP - General Family Medicine 05/06/17 Ronnie Kebede MD [address]2 [place] [address] Consulting Physician Neurology 05/06/17 documented as of this encounter
--- OUTSIDE RECORDS SUMMARY | 2025-02-02 10:09 | XMS_ITS | Encounter Summary ---
Author Organization [facility] Address [address] [place] [address] Phone Care Team Providers Care Napper Runner Name Role Phone Ronnie Kebede MD Unavailable [phone] Moni Rodriguez APRN, CNP Primary Care Provider [phone] Reason for Visit * Reason Comments Medication Refill Encounter Details Date Type Department Care Team (Late st Contact Info) Description 02/21/2024 Refill [facility] - [place] #2 [place] [address] Ronnie Kebede MD #2 [place] [address] Medication Refill Social History Tobacco [...] Telephone Encounter - Peg Brandt RN - 02/22/2024 8:44 AM CDT Medication failed the protocol, provider to review and approve the medication order if appropriate. Requested Prescriptions Pending Prescriptions Disp Refills topiramate (TOPAMAX) 100 MG Tablet [Pharmacy Med Name: TOPIRAMATE 100 MG TABLET] 180 Tablet 1 Sig: TAKE 1 TABLET BY MOUTH TWICE A DAY Not Delegated - Anticonvulsants Excluding Benzodiazepines Protocol Failed - 02/21/2024 12:51 PM Failed - This refill cannot be delegated Passed - Visit with relevant provider in past 12 months or upcoming 90 days Recent Visits Date Type Provider Dept 12/10/23 Office Visit Ronnie Kebede MD [facility] Neurology [facility] 08/10/23 Office Visit Ronnie Kebede MD [facility] Neurology [facility] Showing recent visits within past 365 days and meeting all other requirements Future Appointments No visits were found meeting these conditions. Showing future appointments within next 90 days and meeting all other requirements documented in this encounter Plan of Treatment Upcoming Encounters Date Type Department Care Team (Late st Contact Info) Description 02/16/2025 2:15 PM CDT Office Visit [facility] #2 [place] [address] Ronnie Kebede MD #[address] [place] [address] documented as of this encounter Visit Diagnoses Not on filedocumented in this encounter Care Teams Napper Runner Relationship Specialty Start Date End Date Moni Rodriguez APRN, CNP [address] [place], [place] [id number] PCP - General Family Medicine 05/06/17 Ronnie Kebede MD #2 [place] [address] Consulting Physician Neurology 05/06/17 documented as of this encounter
--- OUTSIDE RECORDS SUMMARY | 2025-02-02 10:09 | XMS_ITS | Encounter Summary ---
Author Organization [facility] Address [address] [place] [address] Phone Care Team Providers Care Spout Worker Name Role Phone Ronnie Kebede MD Unavailable Moni Rodriguez APRN, CNP Primary Care Provider [phone] Reason for Visit * Reason Comments Medication Refill Encounter Details Date Type Department Care Team (Late Contact Info) Description 12/12/2022 Refill [facility] #2 [place] [address] Ronnie Kebede MD #2 [place] [address] Medication Refill Social History Tobacco [...] Description 02/16/2025 2:15 PM CDT Office Visit [facility] #2 [place] [address] Ronnie Kebede MD #2 [place] [address] documented as of this encounter Visit Diagnoses Not on filedocumented in this encounter Care Teams Spout Worker Relationship Specialty Start Date End Date Moni Rodriguez APRN, CNP [address] [place] [address] PCP - General Family Medicine 05/06/17 Ronnie Kebede MD [address] [place] [address] Consulting Physician Neurology 05/06/17 documented as of this encounter
--- OUTSIDE RECORDS SUMMARY | 2025-02-02 10:09 | XMS_ITS | Clinical Summary ---
Author Organization [facility] Address #[address] [facility] [place] [address] Phone Care Team Providers Care Appointment Specialist Name Role Phone Ronnie Kebede MD Unavailable [phone] Moni Rodriguez APRN, MAGNETIC PROSPECTING SUPERVISOR Primary Care Provider [phone] Allergies Active Allergy Reactions Criticality Noted Date Comments Adhesive Tape Anaphylaxis Medium 10/15/2011 Bee Venom Anaphylaxis 07/16/2017 Benzonatate Unknown 01/15/2012 Per outside records Coconut (Cocos Nucifera) Anaphylaxis 07/16/2017 Swelling and itching Iodine Swelling Medium 04/28/2017 Metoprolol Other (see Comments) Medications atenolol (TENORMIN) 100 MG Tablet take 1 tablet (100MG) by ORAL route every day 0 Active Desvenlafaxine Succinate 50 MG TABLET SR 24 HR 50 mg. 0 Active esomeprazole (NexIUM) 40 MG CAPSULE DELAYED RELEASE take 1 capsule (40MG) by ORAL route every day 0 Active glimepiride (AMARYL) 4 MG Tablet take 1 tablet (4MG) by ORAL route every day 0 Active hydroCHLOROthiaz apolonia 50 MG Tablet take 1 tablet (50MG) by ORAL route every day 0 Active levothyroxine (SYNTHROID) 150 MCG Tablet take 1 tablet (150MCG) by ORAL route every day 0 Active traZODone (DESYREL) 100 MG Tablet 50 mg. 3 07/28/201 7 Active lisinopril (PRINIVIL, ZESTRIL) 10 MG Tablet Take 40 mg by mouth daily. Active atorvastatin (LIPITOR) 40 MG Tablet Take 40 mg by mouth daily. Active Cyanocobalamin (VITAMIN B 12 PO) Take by mouth. Active aspirin EC 81 MG Tablet Delayed Response Take 81 mg by mouth daily. Active SUMAtriptan (IMITREX) 25 MG Tablet TAKE 1 TAB BY MOUTH ONCE NEEDED FOR MIGRAINE FOR UP TO 1 DOSE. USE DIRECTED. MAY REPEAT DOSE IN 2 HOURS IF HEADACHE RECURS. 9 Tablet 3 3 Active famotidine (PEPCID) 40 MG Tablet Take 40 mg by mouth daily. Active Apoaequorin (PREVAGEN PO) Take by mouth. Active carBAMazepine (CARBATROL) 200 MG CAPSULE SR 12 HRIndications:Pa rtial symptomatic epilepsy with complex partial seizures, not intractable, without status epilepticus TAKE 1 CAPSULE BY MOUTH TWICE A DAY 180 Capsule 1 4 Active Topiramate 50 MG TabletIndication s:Partial symptomatic epilepsy with complex partial seizures, not intractable, without status epilepticus TAKE 1 TABLET BY MOUTH TWICE A DAY 180 Tablet 1 5 Active Active Problems Problem Noted Date Diagnosed Date Partial symptomatic epilepsy with complex partial seizures, not intractable, without status epilepticus 04/29/2019 Encounters Date Type Department Care Team Description 12/04/2024 Refill [facility] #2 [place] [address] Ronnie Kebede MD Medication Refill from Last 3 Months Immunizations Immunization Administration Dates Next Due Covid-19, Mrna, Lnp-s, PF, 1 00 mcg/0.5 mL Dose (Moderna) 01/11/2021,12/14/2020 Influenza, High-dose, Quadrivalent 07/02/2022 Influenza, Quadrivalent, Adjuvanted 08/14/2023 Influenza, high-dose, trivalent, PF 09/09/2024 Family History Medical History Relation Name Comments Stroke Mother Diabetes Paternal Aunt Relation Name Status Comments Mother Paternal Aunt Social History Tobacco Use Types Packs/Day Years Used Date Smoking Tobacco: Never Smokeless Tobacco: Never Tobacco Cessation:Counseling Given: Not Answered Alcohol Use Standard Drinks/Week Comments No 0 [...] Sign Reading Time Taken Comments Blood Pressure 130/70 08/05/2024 2:00 PM CDT Pulse 64 08/05/2024 2:00 PM CDT Temperature 36.8 C (98.2 F) 08/05/2024 2:00 PM CDT Respiratory Rate 18 08/05/2024 2:00 PM CDT Oxygen Saturation 96% 08/05/2024 2:00 PM CDT Inhaled Oxygen Concentration - - Weight 64 kg (141 lb) 08/05/2024 2:00 PM CDT Height 154.9 cm (5' 1 ) 08/05/2024 2:00 PM CDT Body Mass Index 26.64 08/05/2024 2:00 PM CDT Plan of Treatment Upcoming Encounters Date Type Department Care Team (Late st Contact Info) Description 02/16/2025 2:15 PM CDT Office Visit [facility] #2 [place] [address] Ronnie Kebede MD #2 [place] [address] Health Maintenance Due Date Last Done Comments DEXA Bone Density 1945 Hepatitis C Virus (HCV) Screening 1945 Zoster Immunization (1 of 2) 1996 SARS-COV-2 Immunization ( season) 2025 09/09/2024, 08/14/2023, 07/24/2022, Additional history exists Colonoscopy High Risk Discontinued 11/23/2013 Colonoscopy Discontinued 11/23/2013 Colorectal Cancer Screening Discontinued DTaP/Tdap/Td Immunization Discontinued 01/14/2016 TdaP Immunization Completed 01/14/2016 Pneumococcal Immunization (50+ years) Completed 05/14/2022, 01/14/2016, 11/17/2013, Additional history exists Pneumococcal Immunization Combined Discontinued 05/14/2022, 01/14/2016, 11/17/2013, Additional history exists Influenza Immunization Completed 4, 08/14/2023, 07/02/2022, Additional history exists Respiratory Syncytial Virus (RSV) Immunization (Adult) Completed 11/14/2024 Cologuard Discontinued Hepatitis B Immunization Aged Out No longer eligible based on patient's age to complete this topic Immunochemical Fecal Occult Blood Discontinued Meningococcal Immunization (ACWY) Aged Out No longer eligible based on patient's age to complete this topic Rotavirus Immunization Aged Out No lo nger eligible based on patient's age to complete this topic Procedures Procedure Name Priority Date/Time Associated Diagnosis Comments COLONOSCOPY Routine 11/23/2013 from Last 3 Months or Most Recently Relevant to Health Maintenance Results * COLONOSCOPY (11/23/2013) Aguila Parekh MD PROCEDURE/MINOR SURGICAL ORDERAB LES Final Result from Last 3 Months or Most Recently Relevant to Health Maintenance Insurance MEDICAID [place] MEDICARE Care Teams Appointment Specialist Relationship Specialty Start Date End Date Moni Rodriguez APRN, MAGNETIC PROSPECTING SUPERVISOR [address] [place] [address] PCP - General Family Medicine 05/06/17 Ronnie Kebede MD #2 [place] [address] Consulting Physician Neurology 05/06/17
--- OUTSIDE RECORDS SUMMARY | 2025-02-02 10:09 | XMS_ITS | Encounter Summary ---
Author Organization [facility] Address [address] [place] [address] Phone Care Team Providers Care Sr. Pricing Analyst Name Role Phone Ronnie Kebede MD Unavailable [phone] Moni Rodriguez APRN, CNP Primary Care Provider [phone] Reason for Visit * Reason Comments Medication Refill Encounter Details Date Type Department Care Team (Late Contact Info) Description 01/12/2021 Refill [facility] Neurology [facility] #1 [facility] [place] [address] Ronnie Kebede MD #2 [place] [address] Medication Refill Social History Tobacco [...] 2:15 PM CDT Office Visit [facility] Neurology [facility] #2 [place] [address] Ronnie Kebede MD #2 [place] [address] documented as of this encounter Visit Diagnoses Diagnosis Partial symptomatic epilepsy with complex partial seizures, not intractable, without status epilepticus documented in this encounter Care Teams Sr. Pricing Analyst Relationship Specialty Start Date End Date Moni Rodriguez APRN, CNP [address] [place] [address] PCP - General Family Medicine 05/06/17 Ronnie Kebede MD #2 [place] [address] Consulting Physician Neurology 05/06/17 documented as of this encounter
--- OUTSIDE RECORDS SUMMARY | 2025-02-02 10:09 | XMS_ITS | Encounter Summary ---
Author Organization [facility] Address [address] [place] [address] Phone Care Team Providers Care Seed Yeast Operator Name Role Phone Ronnie Kebede MD Unavailable [phone] Moni Rodriguez APRN, CNP Primary Care Provider [phone] Reason for Visit * Reason Comments Medication Refill Encounter Details Date Type Department Care Team (Late st Contact Info) Description 10/12/2020 [facility]ill [facility] [place] #1 [facility] [place] [address] Ronnie Kebede MD #2 [place] [address] Medication Refill Social History Tobacco [...] encounter Miscellaneous Notes * Telephone Encounter - Ivy Vides RN - 10/12/2020 1:30 PM CST Requested Prescriptions Pending Prescriptions Disp Refills ??? topiramate (TOPAMAX) 25 MG Tablet 60 Tab 3 Sig: Take 1 Tab by mouth daily. Refused Prescriptions Disp Refills ??? Topiramate 50 MG Tablet [Pharmacy Med Name: TOPIRAMATE 50 MG TABLET] 60 Tab 3 Sig: TAKE 1 TABLET BY MOUTH TWICE A DAY Refused By: IVY VIDES Reason for Refusal: Other TESTER documented in this encounter Plan of Treatment Upcoming Encounters Date Type Department Care Team (Late st Contact Info) Description 02/16/2025 2:15 PM CDT [facility] #2 [place] [address] Ronnie Kebede MD #2 [place] [address] documented as of this encounter Visit Diagnoses Diagnosis Partial symptomatic epilepsy with complex partial seizures, not intractable, without status epilepticus documented in this encounter Care Teams Seed Yeast Operator Relationship Specialty Start Date End Date Moni Rodriguez APRN, DIAMOND [address] [place] [address] PCP - General Family Medicine 05/06/17 Ronnie Kebede MD #2 [place] [address] Consulting Physician Neurology 05/06/17 documented as of this encounter
--- OUTSIDE RECORDS SUMMARY | 2025-02-02 10:09 | XMS_ITS | Encounter Summary ---
Author Organization [facility] Address [address] [place] [address] Phone Care Team Providers Care Industrial Roof Plumber Name Role Phone Ronnie Kebede MD Unavailable [phone] Moni Rodriguez APRN, CNP Primary Care Provider [phone] Reason for Visit * Reason Comments Medication Refill Encounter Details Date Type Department Care Team (Late Contact Info) Description 03/09/2020 Refill [facility] Neurology [facility] #1 [facility] [place] [address] Ronnie Kebede MD #2 [place] [address] Medication Refill Social History Tobacco [...] Description 02/16/2025 2:15 PM CDT Office Visit [facility] Neurology [facility] #2 [place] [address] Ronnie Kebede MD #2 [place] [address] documented as of this encounter Visit Diagnoses Not on filedocumented in this encounter Care Teams Industrial Roof Plumber Relationship Specialty Start Date End Date Moni Rodriguez APRN, CNP [address] [place] [address] PCP - General Family Medicine 05/06/17 Ronnie Kebede MD #2 [place] [address] Consulting Physician Neurology 05/06/17 documented as of this encounter
--- OUTSIDE RECORDS SUMMARY | 2025-02-02 10:09 | XMS_ITS | Encounter Summary ---
Author Organization [facility] Address [address] [place] [address] Phone Care Team Providers Care Wood Furniture Assembler Name Role Phone Ronnie Kebede MD Unavailable [phone] Moni Rodriguez APRN, CNP Primary Care Provider [phone] Reason for Visit * Reason Comments Medication Refill Encounter Details Date Type Department Care Team (Late Contact Info) Description 04/07/2020 Refill [facility] Neurology [facility] #1 [facility] [place] [address] Ronnie Kebede MD #2 [place] [address] Medication Refill Social History Tobacco [...] 02/16/2025 2:15 PM CDT Office Visit [facility] Neurology [facility] #2 [place] [address] Ronnie Kebede MD #2 [place] [address] documented as of this encounter Visit Diagnoses Not on filedocumented in this encounter Care Teams Wood Furniture Assembler Relationship Specialty Start Date End Date Moni Rodriguez APRN, CNP [address] [place] [address] PCP - General Family Medicine 05/06/17 Ronnie Kebede MD #2 [place] [address] Consulting Physician Neurology 05/06/17 documented as of this encounter
[2025-02-02 10:13] LABS: Alanine Aminotransferase 17 U/L (6-35); Albumin Level 3.9 g/dL (3.5-5.1); Alkaline Phosphatase 189 U/L (38-126); Anion Gap 9 mmol/L (4-12); Aspartate Amino Transferase 18 U/L (14-36); Bilirubin,Total 0.4 mg/dL (0.2-1.3); Blood Urea Nitrogen 14 mg/dL (7-17); Carbon Dioxide 22 mmol/L (22-30); Chloride 104 mmol/L (98-107); Estimated CRCL calculation 41 ml/min; Estimated Glomerular Filt Rate > 60; Potassium 3.8 mmol/L (3.4-5.0); Sodium 135 mmol/L (137-145)
[2025-02-02 10:14] LABS: Calcium 8.2 mg/dL (8.4-10.2); Glucose 216 mg/dL (65-110)
[2025-02-02 10:22] LABS: Troponin I < 0.012 ng/mL (0.000-0.034)
[2025-02-02] MEDS: SODIUM CHLORIDE 0.9% IV 1,000 ML 999 ML IV CONT (10:41)
[2025-02-02] MEDS: levETIRAcetam 1000MG/NACL100ML 1,000 MG/100 ML BAG 400 MG IVPB (10:41)
[2025-02-02] MEDS: ONDANSETRON INJ 4 MG/2 ML VIAL IV PUSH (10:41)
[2025-02-02 11:23] LABS: Influenza A QL RT-PCR Negative (Negative); Influenza B QL RT-PCR Negative (Negative); RSV RNA, RT-PCR Negative (Negative); SARS-CoV-2 RNA PCR Negative (Negative)
[2025-02-02 12:05] LABS: Add Urine Microscopic? NO; Appearance Urine Clear (Clear); Bilirubin Urine Negative (Negative); Blood Urine Negative (Negative); Color Urine Yellow (Yellow); Glucose Urine UA Trace mg/dL (Negative); Ketones Urine Negative (Negative); Leukocyte Esterase Ur Negative LEU/UL (Negative); Nitrate Urine Negative (Negative); Protein Urine Negative (Negative); Specific Grav Ur 1.013 (1.001-1.035); Urobilinogen Urine 0.2 mg/dL (<2.0)
== END 2025-02-02 14:15 | disposition home or self-care (01) ==
PROVIDERS: Emergency Medicine; Emergency Provider Physician Assistant; PCP Nurse Practitioner Family
DX: G40.909 Epilepsy, unspecified, not intractable, without status epilepticus (principal); R00.1 Bradycardia, unspecified; K52.9 Noninfective gastroenteritis and colitis, unspecified; I10 Essential (primary) hypertension; Z20.822 Contact with and (suspected) exposure to COVID-19
CPT/HCPCS: 36415; 70450; 71046; 74176; 80053; 81003; 83605; 83735; 84484; 85025; 87637; 93005; 96365; 96375; 99284; J1953; J2405; J7030

== ENCOUNTER 2025-03-08 12:28 | Outpatient (CLI) | payer MEDICARE, MEDICAID, SELFPAY ==
--- OUTSIDE RECORDS SUMMARY | 2025-03-08 12:36 | XMS_ITS | Clinical Summary ---
Author Organization [facility] Address [address] [place] [address] Care Team Providers Care Counter Dish Carrier Name Role Phone Unavailable Primary Care Provider Unavailabl e Source Comments [facility],non-owned Affiliates and Associated Physician Practices is amultiple site organization consisting of ambulatory clinics and hospital sitesin [place], [place], [place] and [place]. This disclosure is being madepursuant to the Care Everywhere program and may not contain all information available regarding this patient. Last updated 18.[facility] Allergies Active Allergy Reactions Criticality Noted Date Comments Adhesive Sensitivity Swelling Medium 10/15/2011 Benzonatate 01/15/2012 Per outside records Topiramate 01/15/2012 Per outside records Medications * Be aware that medications may not be up to date on this document. Alwaysverify current medications with the patient. No known [...] Concussion Seizures Overview (10/15/2011): Dr. Crystal Osei [facility]. Onset after concussion Hypothyroid Hyperlipidemia DM (diabetes mellitus) HTN (hypertension) Fibromyalgia GI bleed Colon polyps Overview (01/15/2012): Col. 07/18/10: 1 polyp, diverticulosis, internal hemorrhoids- next col 5 y Immunizations Immunization Administration Dates Next Due PNEUMOCOCCAL PPSV23 09/02/2011 Family History Medical History Relation Name Comments Cancer Brother 3 Cancer Mother colon CA Relation Name Status Comments Brother 1 brain and lung CA Brother 2 lung CA Brother 3 Father LA Mother LA Social History Tobacco Use Types Packs/Day Years Used Date Smoking Tobacco: Never Smokeless Tobacco: Never Alcohol Use Standard Drinks/Week Comments No 0 (1 standard drink = 0.6 oz pur e alcohol) Comments No Sex and Gender Information Value Date Recorded Sex Assigned at Not on file Legal Sex Female 12:51 PM COOK HOUSE SUPERVISOR Gender Identity Not on file Sexual Orientation Not on file Last Filed Vital Signs Vital Sign Reading Time Taken Comments Blood Pressure 130/80 02/24/2012 10:27 AM CDT Pulse 86 02/24/2012 10:27 AM CDT Temperature 37.1 C (98.8 F) 11/19/2011 12:56 PM COOK HOUSE SUPERVISOR Respiratory Rate - - Oxygen Saturation - - Inhaled Oxygen Concentration - - Weight 64.4 kg (142 lb) 02/24/2012 10:27 AM CDT Height 162.6 cm (5' 4 ) 02/24/2012 10:27 AM CDT Body Mass Index 24.37 02/24/2012 10:27 AM CDT Plan of Treatment Health Maintenance Due Date Last Done Comments HEPATITIS C SCREENING 08/07/1963 DTAP/TDAP/TD VACCINES (1 - Tdap) 1965 DIABETES-STATIN 1986 ZOSTER VACCINE (1 of 2) 1996 DIABETES-FOOT EXAM WITH MONOFILAMENT 02/24/2012 DIABETES-HGB A1C 08/25/2012 02/24/2012, 11/18/2011 PNEUMOCOCCAL VACCINE 50+ (2 of 2 - PCV) 09/02/2012 09/02/2011 DIABETES-SERUM CREATININE 11/18/2012 11/18/2011 Respiratory Syncytial Virus (RSV) Vaccine Pt: or over 60 yrs (1 - 1-dose 75+ series) 2021 COVID-19 VACCINE (2023-2 5 season) 2024 DEPRESSION SCREENING 11/02/2024 DIABETES - URINE PROTEIN SCREENING 11/02/2024 11/18/2011 INFLUENZA VACCINE (Season Ended) 2025 BONE DENSITY TESTING Completed 11/18/2011, 11/18/2011 HEPATITIS [...] DENSITY 2 SITES Routine 11/18/2011 6:48 PM COOK HOUSE SUPERVISOR Asymptomatic postmenopausal status (age-related) (natural) MICROALBUMIN URINE RANDOM Routine 11/18/2011 12:11 PM COOK HOUSE SUPERVISOR DM (diabetes mellitus) COMPREHENSIVE METABOLIC PANEL Routine 11/18/2011 12:09 PM COOK HOUSE SUPERVISOR Hyperlipidemia DM (diabetes mellitus) from Last 3 [...] PM CDT Narrative Resulting Agency Comment [facility] [place] [address] [facility] [phone] us Nahomi Mcginnis MD LAB - CHEMISTRY ORDERABLES Final Result [facility] INSURANCE BILL [address] [place] [address] * DEXA BONE DENSITY 2 SITES (11/18/2011 6:48 PM COOK HOUSE SUPERVISOR) Anatomical Region Laterality Modality Other Narrative 11/18/2011 6:48 PM COOK HOUSE SUPERVISOR Jeremi Chauhan MD 11/18/2011 6:48 PM [facility] Medical group BONE DENSITY REPORT Pt. Name: Catrachita Rosa Gender: female : 1945 Test Date: 11/18/2011 Referring Physician: Nahomi Mcginnis MD Technologist: MALKA Montenegro A Central DXA was performed today using a [employer] C animal daycare provider. The images and data have been scanned. [...] Jeremi Chauhan MD Physician and Certified Clinical Poultry Trimmer Procedure Note Elo Asher - 11/18/2011 4:08 PM CST [facility] Medical group BONE DENSITY REPORT Pt. Name: Catrachita Rosa Gender: female : 1945 Test Date: 11/18/2011 Referring Physician: Nahomi Mcginnis MD Technologist: MALKA Montenegro A Central DXA was performed today using a [employer] Discovery C animal daycare provider.The images and data have been scanned. Images [...] Jeremi Chauhan MD Physician and Certified Clinical Poultry Trimmer Nahomi Mcginnis MD DEXA ORDERABLES Final Result * MICROALBUMIN URINE RANDOM (11/18/2011 12:11 PM COOK HOUSE SUPERVISOR) Microalbumin Random Urine 10.4 0.0 - 17.0 ug/mL [facility] INSURANCE BILL URINE / Unknown 11/18/2011 1 2:11 PM COOK HOUSE SUPERVISOR 11/18/2011 5:48 PM COOK HOUSE SUPERVISOR Narrative Resulting Agency Comment [facility] [address] [phone] Nahomi Mcginnis MD LAB - URINE CHEMISTRY ORDERABLES Final Result [facility] INSURANCE BILL [address] [place] [address] * (ABNORMAL) COMPREHENSIVE METABOLIC PANEL (11/18/2011 12:09 PM COOK HOUSE SUPERVISOR) Glucose 100(H) 65 - 99 mg/dL [facility] [...] BLOOD SPECIMEN / Unknown 11/18/2011 12:09 PM COOK HOUSE SUPERVISOR 11/18/2011 5:58 PM COOK HOUSE SUPERVISOR Narrative Resulting Agency Comment [facility] [place] [address] [facility] [phone] us Nahomi Mcginnis MD LAB - CHEMISTRY ORDERABLES Final Result [facility] INSURANCE BILL [address] [place] [address] from Last 3 Months or Most Recently Relevant to Health Maintenance Insurance MEDICAID - OUT OF STATE MEDICARE
--- OUTSIDE RECORDS SUMMARY | 2025-03-08 12:37 | XMS_ITS | Encounter Summary ---
Author Organization [facility] Address [address] [place] [address] Phone Care Team Providers Care Apartment Coordinator Name Role Phone Ronnie Kebede MD Unavailable [phone] Moni Rodriguez APRN, CNP Primary Care Provider [phone] Reason for Visit * Reason Comments Medication Refill Encounter Details Date Type Department Care Team (Late Contact Info) Description 10/23/2020 Refill [facility] - [place] #1 [facility] [address] Ronnie Kebede MD #2 [place] [address] Medication Refill Social History Tobacco [...] Department Care Team (Late Contact Info) Description 03/28/2025 2:30 PM CDT EEG [facility] 2 [place] [address] Ronnie Kebede MD #2 [place] [address] Discharge Disposition: Discharged to home or Selfcare 05/19/2025 2:00 PM CDT Office Visit [facility] - Neurology [facility] #2 [place] [address] Ronnie Kebede MD #2 [place] [address] documented as of this encounter Visit Diagnoses Not on filedocumented in this encounter Care Teams Apartment Coordinator Relationship Specialty Start Date End Date Moni Rodriguez APRN, DIAMOND [address] [place] [address] PCP - General Family Medicine 05/06/17 Ronnie Kebede MD #2 [place] [address] Consulting Physician Neurology 05/06/17 documented as of this encounter
--- OUTSIDE RECORDS SUMMARY | 2025-03-08 12:37 | XMS_ITS | Encounter Summary ---
Author Organization [facility] Address [address] [place] [address] Phone Care Team Providers Care Barrel Stave Inspector Name Role Phone Ronnie Kebede MD Unavailable [phone] Moni Rodriguez APRN, CNP Primary Care Provider [phone] Reason for Visit * Reason Comments Medication Refill Encounter Details Date Type Department Care Team (Late Contact Info) Description 05/11/2021 [facility] #2 [place] [address] Ronnie Kebede MD #2 [place] [address] Medication Refill Social History Tobacco [...] Info) Description 03/28/2025 2:30 PM CDT [facility] 2 [place] [address] Ronnie Kebede MD #2 [place] [address] Discharge Disposition: Discharged to home or Selfcare 05/19/2025 2:00 PM CDT Office Visit [facility] Neurology [facility] #2 [place] [address] Ronnie Kebede MD #2 [place] [address] documented as of this encounter Visit Diagnoses Not on filedocumented in this encounter Care Teams Barrel Stave Inspector Relationship Specialty Start Date End Date Moni Rodriguez APRN, DIAMOND [address] [place] [address] PCP - General Family Medicine 05/06/17 Ronnie Kebede MD #2 [place] [address] Consulting Physician Neurology 05/06/17 documented as of this encounter
--- OUTSIDE RECORDS SUMMARY | 2025-03-08 12:37 | XMS_ITS | Encounter Summary ---
Author Organization [facility] Address [address] [place] [address] Phone Care Team Providers Care Window Unit Air Conditioning Mechanic Name Role Phone Ronnie Kebede MD Unavailable [phone] Moni Rodriguez APRN, EMS EDUCATOR Primary Care Provider [phone] Reason for Visit * Reason Comments Medication Refill Encounter Details Date Type Department Care Team (Late Contact Info) Description 03/04/2021 Refill [facility] - [place] #1 [facility] [place] [address] Geovanna Kelly APRN, SONOSCOPE OPERATOR #2 [place] [address] Medication Refill Social History Tobacco Use Types [...] Description 03/28/2025 2:30 PM CDT EEG [facility] 2 [place] [address] Ronnie Kebede MD #2 [place] [address] Discharge Disposition: Discharged to home or Selfcare 05/19/2025 2:00 PM CDT Office Visit [facility] Neurology [facility] #2 [place] [address] Ronnie Kebede MD #2 [place] [address] documented as of this encounter Visit Diagnoses Diagnosis Partial symptomatic epilepsy with complex partial seizures, not intractable, without status epilepticus documented in this encounter Care Teams Window Unit Air Conditioning Mechanic Relationship Specialty Start Date End Date Moni Rodriguez APRN, CNP [address] [place] [address] PCP - General Family Medicine 05/06/17 Ronnie Kebede MD #2 [place] [address] Consulting Physician Neurology 05/06/17 documented as of this encounter
--- OUTSIDE RECORDS SUMMARY | 2025-03-08 12:37 | XMS_ITS | Encounter Summary ---
Author Organization [facility] Address [address] [place] [address] Phone Care Team Providers Care Windows Architect Name Role Phone Ronnie Kebede MD Unavailable [phone] Moni Rodriguez APRN, CNP Primary Care Provider [phone] Reason for Visit * Reason Comments Medication Refill Encounter Details Date Type Department Care Team (Late Contact Info) Description 03/09/2020 Refill [facility] - [place] #1 [facility] [place] [address] Ronnie Kebede MD #2 [place] [address] Medication Refill Social History Tobacco [...] Description 03/28/2025 2:30 PM CDT EEG [facility] 2 [place] [address] Ronnie Kebede MD #2 [place] [address] Discharge Disposition: Discharged to home or Selfcare 05/19/2025 2:00 PM CDT Office Visit [facility]rology [facility] #2 [place] [address] Ronnie Kebede MD #2 [place] [address] documented as of this encounter Visit Diagnoses Not on filedocumented in this encounter Care Teams Windows Architect Relationship Specialty Start Date End Date Moni Rodriguez APRN, DIAMOND [address] [place] [address] PCP - General Family Medicine 05/06/17 Ronnie Kebede MD #2 [place] [address] Consulting Physician Neurology 05/06/17 documented as of this encounter
--- OUTSIDE RECORDS SUMMARY | 2025-03-08 12:37 | XMS_ITS | Encounter Summary ---
Author Organization [facility] Address [address] [place] [address] Phone Care Team Providers Care Marketing Project Lead Name Role Phone Ronnie Kebede MD Unavailable [phone] Moni Rodriguez APRN, CNP Primary Care Provider [phone] Reason for Visit * Reason Comments Medication Refill Encounter Details Date Type Department Care Team (Late st Contact Info) Description 02/02/2023 [facility]ill [facility] - [place] #2 [place] [address] Ronnie Kebede MD #2 [place] [address] Medication Refill Social History Tobacco [...] Dept 07/17/22 Office Visit Ronnie Kebede MD [facility] Neurology [facility] Showing recent visits within past 365 days and meeting all other requirements Future Appointments No visits were found meeting these conditions. Showing future appointments within next 90 days and meeting all other requirements documented in this encounter Plan of Treatment Upcoming Encounters Date Type Department Care Team (Late st Contact Info) Description 03/28/2025 2:30 PM CDT EEG [facility] 2 [place] [address] Ronnie Kebede MD #2 [place] [address] Discharge Disposition: Discharged to home or Selfcare 05/19/2025 2:00 PM CDT Office Visit [facility] #2 [place] [address] Ronnie Kebede MD #2 [place] [address] documented as of this encounter Visit Diagnoses Not on filedocumented in this encounter Care Teams Marketing Project Lead Relationship Specialty Start Date End Date Moni Rodriguez APRN, CNP [address] [place] [address] PCP - General Family Medicine 05/06/17 Ronnie Kebede MD #2 [place] [address] Consulting Physician Neurology 05/06/17 documented as of this encounter
--- OUTSIDE RECORDS SUMMARY | 2025-03-08 12:37 | XMS_ITS | Encounter Summary ---
Author Organization [facility] Address [address] [place] [address] Phone Care Team Providers Care Medical Billing Associate Name Role Phone Ronnie Kebede MD Unavailable [phone] Moni Rodriguez APRN, CNP Primary Care Provider [phone] Reason for Visit * Reason Comments Medication Refill Encounter Details Date Type Department Care Team (Late Contact Info) Description 11/15/2020 Refill [facility] - [place] #1 [facility] [place] [address] Ronnie Kebede MD #2 [place] [address] Medication Refill Social History Tobacco [...] PM CDT EEG [facility] 2 [place] [address] Ronnie Kebede MD #2 [place] [address] Discharge Disposition: Discharged to home or Selfcare 05/19/2025 2:00 PM CDT Office Visit [facility] Neurology [facility] #2 [place] [address] Ronnie Kebede MD #2 [place] [address] documented as of this encounter Visit Diagnoses Diagnosis Partial symptomatic epilepsy with complex partial seizures, not intractable, without status epilepticus documented in this encounter Care Teams Medical Billing Associate Relationship Specialty Start Date End Date Moni Rodriguez APRN, CNP [address] [place] [address] PCP - General Family Medicine 05/06/17 Ronnie Kebede MD #2 [place] [address] Consulting Physician Neurology 05/06/17 documented as of this encounter
--- OUTSIDE RECORDS SUMMARY | 2025-03-08 12:37 | XMS_ITS | Encounter Summary ---
Author Organization [facility] Address [address] [place] [address] Phone Care Team Providers Care Newswriter Name Role Phone Ronnie Kebede MD Unavailable [phone] Moni Rodriguez APRN, CNP Primary Care Provider [phone] Reason for Visit * Reason Comments Medication Refill Encounter Details Date Type Department Care Team (Late st Contact Info) Description 10/12/2020 Refill [facility] - [place] #1 [facility] [place] [address] Ronnie Kebede MD #2 [place] [address] Medication Refill Social History Tobacco [...] By: IVY VIDES Reason for Refusal: Other [place] EVENT ASSISTANT documented in this encounter Plan of Treatment Upcoming Encounters Date Type Department Care Team (Late st Contact Info) Description 03/28/2025 2:30 PM CDT [facility] 2 [place] [address] Ronnie Kebede MD #2 [place] [address] Discharge Disposition: Discharged to home or Selfcare 05/19/2025 2:00 PM CDT Office Visit [facility] - Neurology [facility] #2 [place] [address] Ronnie Kebede MD #2 [place] [address] documented as of this encounter Visit Diagnoses Diagnosis Partial symptomatic epilepsy with complex partial seizures, not intractable, without status epilepticus documented in this encounter Care Teams Newswriter Relationship Specialty Start Date End Date Moni Rodriguez APRN, DIAMOND [address] [place] [address] PCP - General Family Medicine 05/06/17 Ronnie Kebede MD #2 [place] [address] Consulting Physician Neurology 05/06/17 documented as of this encounter
--- OUTSIDE RECORDS SUMMARY | 2025-03-08 12:37 | XMS_ITS | Encounter Summary ---
Author Organization [facility] Address [address] [place] [address] Phone Care Team Providers Care Comb Fixer Name Role Phone Ronnie Kebede MD Unavailable [phone] Moni Rodriguez APRN, CNP Primary Care Provider [phone] Reason for Visit * Reason Comments Medication Refill Encounter Details Date Type Department Care Team (Late st Contact Info) Description 10/29/2023 Refill [facility]rology - [place] #2 [place] [address] Ronnie Kebede MD #2 [place] [address] Medication Refill Social History Tobacco [...] Dept 08/10/23 Office Visit Ronnie Kebede MD [facility] Neurology [facility] Showing recent visits within past 365 days and meeting all other requirements Future Appointments Date Type Provider Dept 12/10/23 Appointment Ronnie Kebede MD [facility] Neurology [facility] Showing future appointments within next 90 days and meeting all other requirements ANALYST documented in this encounter Plan of Treatment Upcoming Encounters Date Type Department Care Team (Late st Contact Info) Description 03/28/2025 2:30 PM CDT [facility] [place] [address] Ronnie Kebede MD #2 [place] [address] Discharge Disposition: Discharged to home or Selfcare 05/19/2025 2:00 PM CDT [facility] [place] [address] Ronnie Kebede MD #2 [place] [address] documented as of this encounter Visit Diagnoses Diagnosis Partial symptomatic epilepsy with complex partial seizures, not intractable, without status epilepticus documented in this encounter Care Teams Comb Fixer Relationship Specialty Start Date End Date Moni Rodriguez APRN, DIAMOND [address] [place] [address] PCP - General Family Medicine 05/06/17 Ronnie Kebede MD [address]2 [place] [address] Consulting Physician Neurology 05/06/17 documented as of this encounter
--- OUTSIDE RECORDS SUMMARY | 2025-03-08 12:37 | XMS_ITS | Encounter Summary ---
Author Organization [facility] Address [address] [place] [address] Phone Care Team Providers Care Compensation Agent Name Role Phone Ronnie Kebede MD Unavailable [phone] Moni Rodriguez APRN, CNP Primary Care Provider [phone] Reason for Visit * Reason Comments Medication Refill Encounter Details Date Type Department Care Team (Late st Contact Info) Description 02/21/2024 Refill [facility] - [facility]rology - [place] [address]2 [place] [address] Ronnie Kebede MD #2 [place] [address] Medication Refill Social History Tobacco [...] Dept 12/10/23 Office Visit Ronnie Kebede MD [facility] Neurology [facility] 08/10/23 Office Visit Ronnie Kebede MD [facility] Neurology [facility] Showing recent visits within past 365 days and meeting all other requirements Future Appointments No visits were found meeting these conditions. Showing future appointments within next 90 days and meeting all other requirements documented in this encounter Plan of Treatment Upcoming Encounters Date Type Department Care Team (Late st Contact Info) Description 03/28/2025 2:30 PM CD[facility] 2 [place] [address] Ronnie Kebede MD [address] [place] [address] Discharge Disposition: Discharged to home or Selfcare 05/19/2025 2:00 PM CDT Office Visit [facility] - Neurology [facility] #2 [place] [address] Ronnie Kebede MD [address] [place] [address] documented as of this encounter Visit Diagnoses Not on filedocumented in this encounter Care Teams Compensation Agent Relationship Specialty Start Date End Date Moni Rodriguez APRN, DIAMOND [address] [place] [address] PCP - General Family Medicine 05/06/17 Ronnie Kebede MD [address] [place] [address] Consulting Physician Neurology 05/06/17 documented as of this encounter
--- OUTSIDE RECORDS SUMMARY | 2025-03-08 12:37 | XMS_ITS | Encounter Summary ---
Author Organization [facility] Address [address] [place] [address] Phone Care Team Providers Care Director Communications Name Role Phone Ronnie Kebede MD Unavailable [phone] Moni Rodriguez APRN, CNP Primary Care Provider [phone] Reason for Visit * Reason Comments Medication Refill Encounter Details Date Type Department Care Team (Late Contact Info) Description 03/[facility]2022 [facility] #2 [place] [address] Ronnie Kebede MD [address]2 [place] [address] Medication Refill Social History Tobacco [...] Info) Description 03/28/2025 2:30 PM CD[facility] 2 [place] [address] Ronnie Kebede MD [address]2 [place] [address] Discharge Disposition: Discharged to home or Selfcare 05/19/2025 2:00 PM CDT Office Visit [facility] - Neurology [facility] #2 [place] [address] Ronnie Kebede MD [address] [place] [address] documented as of this encounter Visit Diagnoses Not on filedocumented in this encounter Care Teams Director Communications Relationship Specialty Start Date End Date Moni Rodriguez APRN, DIAMOND [address] [place] [address] PCP - General Family Medicine 05/06/17 Ronnie Kebede MD [address]2 [place] [address] Consulting Physician Neurology 05/06/17 documented as of this encounter
--- OUTSIDE RECORDS SUMMARY | 2025-03-08 12:37 | XMS_ITS | CONTINUITY OF CARE DOCUMENT ---
Author Name anup hebert Address Unknown Organization [facility] Address [id number] [place] [address] [address] [place] [address] Phone [phone] Care Team Providers Care Environmental Health And Safety Manager Name Role Phone Bentley MOODY, Min Unavailable [phone] INSURANCE PROVIDERS Payer name Policy type / Coverage type Sharon red republican ID [place] Medicare [id number]
--- OUTSIDE RECORDS SUMMARY | 2025-03-08 12:37 | XMS_ITS | Encounter Summary ---
Author Organization [facility] Address [address] [place] [address] Phone Care Team Providers Care Hot Strip Mill Inspector Name Role Phone Ronnie Kebede MD Unavailable [phone] Moni Rodriguez APRN, CNP Primary Care Provider [phone] Reason for Visit * Reason Comments Medication Refill Encounter Details Date Type Department Care Team (Late Contact Info) Description 02/06/2021 Refill [facility] - [place] #1 [facility] [place] [address] Ronnie Kebeed MD #2 [place] [address] Medication Refill Social History Tobacco [...] 03/28/2025 2:30 PM CDT EEG [facility] 2 [place] [address] Ronnie Kebede MD #[address] [place] [address] Discharge Disposition: Discharged to home or Selfcare 05/19/2025 2:00 PM CDT Office Visit [facility] - Neurology [facility] #2 [place] [address] Ronnie Kebede MD [address] [place] [address] documented as of this encounter Visit Diagnoses Not on filedocumented in this encounter Care Teams Hot Strip Mill Inspector Relationship Specialty Start Date End Date Moni Rodriguez APRN, DIAMOND [address] [place] [address] PCP - General Family Medicine 05/06/17 Ronnie Kebede MD [address] [place] [address] Consulting Physician Neurology 05/06/17 documented as of this encounter
--- OUTSIDE RECORDS SUMMARY | 2025-03-08 12:37 | XMS_ITS | Encounter Summary ---
Author Organization [facility] Address [address] [place] [address] Phone Care Team Providers Care Tunnel Form Placing Supervisor Name Role Phone Ronnie Kebede MD Unavailable [phone] Moni Rodriguez APRN, CNP Primary Care Provider [phone] Reason for Visit * Reason Comments Medication Refill Encounter Details Date Type Department Care Team (Late Contact Info) Description 12/12/2022 [facility] #2 [place] [address] Ronnie Kebede MD #2 [place] [address] Medication Refill Social History Tobacco [...] Info) Description 03/28/2025 2:30 PM CDT [facility] 2 [place] [address] Ronnie Kebede MD #[address] [place] [address] Discharge Disposition: Discharged to home or Selfcare 05/19/2025 2:00 PM CDT Office Visit [facility] - Neurology [facility] #[address] [place] [address] Ronnie Kebede MD [address]2 [place] [address] documented as of this encounter Visit Diagnoses Not on filedocumented in this encounter Care Teams Tunnel Form Placing Supervisor Relationship Specialty Start Date End Date Moni Rodriguez APRN, DIAMOND [address] [place] [address] PCP - General Family Medicine 05/06/17 Ronnie Kebede MD [address] [place] [address] Consulting Physician Neurology 05/06/17 documented as of this encounter
--- OUTSIDE RECORDS SUMMARY | 2025-03-08 12:37 | XMS_ITS | Encounter Summary ---
Author Organization [facility] Address [address] [place] [address] Phone Care Team Providers Care Boring Mill Set Up Operator Name Role Phone Ronnie Kebede MD Unavailable Moni Rodriguez APRN, CNP Primary Care Provider [phone] Reason for Visit * Reason Comments Medication Refill Encounter Details Date Type Department Care Team (Late Contact Info) Description 01/12/2021 Refill [facility] - Neurology - [place] #1 [facility] [place] [address] Ronnie Kebede MD #2 [place] [address] Medication Refill Social History Tobacco [...] 03/28/2025 2:30 PM CDT EEG [facility] 2 [place] [address] Ronnie Kebede MD #2 [place] [address] Discharge Disposition: Discharged to home or Selfcare 05/19/2025 2:00 PM CDT Office Visit [facility] - Neurology [facility] #2 [place] [address] Ronnie Kebede MD #2 [place] [address] documented as of this encounter Visit Diagnoses Diagnosis Partial symptomatic epilepsy with complex partial seizures, not intractable, without status epilepticus documented in this encounter Care Teams Boring Mill Set Up Operator Relationship Specialty Start Date End Date Moni Rodriguez APRN, CNP [address] [place] [address] PCP - General Family Medicine 05/06/17 Ronnie Kebede MD #2 [place] [address] Consulting Physician Neurology 05/06/17 documented as of this encounter
--- OUTSIDE RECORDS SUMMARY | 2025-03-08 12:37 | XMS_ITS | Encounter Summary ---
Author Organization [facility] Address [address] [place] [address] Phone Care Team Providers Care Sole Rougher Name Role Phone Ronnie Kebede MD Unavailable [phone] Moni Rodriguez APRN, COMPLAINT CLERK Primary Care Provider [phone] Reason for Visit * Reason Comments Medication Refill Encounter Details Date Type Department Care Team (Late Contact Info) Description [facility] #2 [place] [address] Geovanna Kelly APRN, PATIENT SERVICES CLERK #2 [place] [address] Medication Refill Social History Tobacco Use Types [...] Info) Description 03/28/2025 2:30 PM CDT [facility] 2 [place] [address] Ronnie Kebede MD #2 [place] [address] Discharge Disposition: Discharged to home or Selfcare 05/19/2025 2:00 PM CDT Office Visit [facility] - Neurology [facility] #2 [place] [address] Ronnie Kebede MD #2 [place] [address] documented as of this encounter Visit Diagnoses Not on filedocumented in this encounter Care Teams Sole Rougher Relationship Specialty Start Date End Date Moni Rodriguez APRN, DIAMOND [address] [place] [address] PCP - General Family Medicine 05/06/17 Ronnie Kebede MD #2 [place] [address] Consulting Physician Neurology 05/06/17 documented as of this encounter
--- OUTSIDE RECORDS SUMMARY | 2025-03-08 12:37 | XMS_ITS | Encounter Summary ---
Author Organization [facility] Address [address] [place] [address] Phone Care Team Providers Care Disability Specialist Name Role Phone Ronnie Kebede MD Unavailable Moni Rodriguez APRN, COMMERCIAL FIELD INSPECTOR Primary Care Provider [phone] Reason for Visit * Reason Comments Medication Refill Encounter Details Date Type Department Care Team (Late Contact Info) Description 02/06/2021 Refill [facility] - Neurology - [place] #1 [place] [address] Geovanna Kelly APRN, NICU RN #2 [place] [address] Medication Refill Social History Tobacco Use Types [...] 03/28/2025 2:30 PM CDT EEG [facility] 2 [place] [address] Ronnie Kebede MD #2 [place] [address] Discharge Disposition: Discharged to home or Selfcare 05/19/2025 2:00 PM CDT Office Visit [facility] - Neurology [facility] #2 [place] [address] Ronnie Kebede MD #2 [place] [address] documented as of this encounter Visit Diagnoses Diagnosis Partial symptomatic epilepsy with complex partial seizures, not intractable, without status epilepticus documented in this encounter Care Teams Disability Specialist Relationship Specialty Start Date End Date Moni Rodriguez APRN, CNP [address] [place] [address] PCP - General Family Medicine 05/06/17 Ronnie Kebede MD #2 [place] [address] Consulting Physician Neurology 05/06/17 documented as of this encounter
--- OUTSIDE RECORDS SUMMARY | 2025-03-08 12:37 | XMS_ITS | Encounter Summary ---
Author Organization [facility] Address [address] [place] [address] Phone Care Team Providers Care Manager Intensive Care Name Role Phone Ronnie Kebede MD Unavailable [phone] Moni Rodriguez APRN, CNP Primary Care Provider [phone] Reason for Visit * Reason Comments Medication Refill Encounter Details Date Type Department Care Team (Late st Contact Info) Description 08/01/2023 Refill [facility] - Neurology - [place] #2 [place] [address] Ronnie Kebede MD #2 [place] [address] Medication Refill Social History Tobacco [...] Provider Dept 08/10/23 Appointment Ronnie Kebede MD [facility] Showing future appointments within next 90 days and meeting all other requirements documented in this encounter Plan of Treatment Upcoming Encounters Date Type Department Care Team (Late st Contact Info) Description 03/28/2025 2:30 PM CDT EEG [facility] 2 [place] [address] Ronnie Kebede MD #2 [place] [address] Discharge Disposition: Discharged to home or Selfcare 05/19/2025 2:00 PM CDT Office Visit [facility] Neurology [facility] #2 [place] [address] Ronnie Kebede MD #2 [place] [address] documented as of this encounter Visit Diagnoses Not on filedocumented in this encounter Care Teams Manager Intensive Care Relationship Specialty Start Date End Date Moni Rodriguez APRN, CNP [address] [place] [address] PCP - General Family Medicine 05/06/17 Ronnie Kebede MD #2 [place] [address] Consulting Physician Neurology 05/06/17 documented as of this encounter
--- OUTSIDE RECORDS SUMMARY | 2025-03-08 12:37 | XMS_ITS | Clinical Summary ---
Author Organization [facility] Address #1 [facility] [place] [address] Phone Care Team Providers Care Notcher Name Role Phone Ronnie Kebede MD Unavailable [phone] Moni Rodriguez APRN, [employer] SAL[employer] Primary Care Provider [phone] Allergies Active Allergy Reactions Criticality Noted Date Comments Adhesive Tape Anaphylaxis Medium 10/15/2011 Bee Venom Anaphylaxis 07/16/2017 Benzonatate Unknown 01/15/2012 Per outside records Coconut (Cocos Nucifera) Anaphylaxis 07/16/2017 Swelling and itching Iodine Swelling Medium 04/28/2017 Metoprolol Other (see Comments) Medications atenolol (TENORMIN) 100 MG Tablet 50 mg. 0 Active Desvenlafaxine Succinate 50 MG TABLET SR 24 HR 50 mg. 0 Active esomeprazole (NexIUM) 40 MG CAPSULE DELAYED RELEASE take 1 capsule (40MG) by ORAL route every day 0 Active glimepiride (AMARYL) 4 MG Tablet take 1 tablet (4MG) by ORAL route every day 0 Active hydroCHLOROthia zide 50 MG Tablet take 1 tablet (50MG) by ORAL route every day 0 Active levothyroxine (SYNTHROID) 150 MCG Tablet take 1 tablet (150MCG) by ORAL route every day 0 Active traZODone (DESYREL) 100 MG Tablet 50 mg. 3 7 Active lisinopril (PRINIVIL, ZESTRIL) 10 MG [...] carBAMazepine (CARBATROL) 200 MG CAPSULE SR 12 HRIndications:P artial symptomatic epilepsy with complex partial seizures, not intractable, without status epilepticus TAKE 1 CAPSULE BY MOUTH TWICE A DAY 180 Capsule 1 4 Active ondansetron (Zofran) 4 MG Tablet Take 4 mg by mouth every 8 hours as needed. Active levETIRAcetam (KEPPRA) 500 MG Tablet Take 1 Tablet by mouth 2 times daily. 60 Tablet 5 Active Midazolam (Nayzilam) 5 MG/0.1ML SolutionIndicat ions:Partial symptomatic epilepsy with complex partial seizures, not intractable, without status epilepticus 5 mg by Nasal route as needed for Other (prolonged seizure or clusters of seizures). 1 Each 5 Active Topiramate 50 MG TabletIndicatio ns:Partial symptomatic epilepsy with complex partial seizures, not intractable, without status epilepticus TAKE 1 TABLET BY MOUTH TWICE A DAY 180 Tablet 1 5 02/17/20 25 Discontinue d(Med List Clean Up) topiramate (TOPAMAX) 25 MG Tablet Take 1 Tablet by mouth 2 times daily for 5 days, THEN 1 Tablet daily for 5 days. Then stop 15 Tablet 5 02/27/20 25 Active Problems Problem Noted Date Diagnosed Date Partial symptomatic epilepsy with complex partial seizures, not intractable, without status epilepticus 04/29/2019 Encounters Date Type Department Care Team Description 02/22/2025 Telephone [facility] - Neurology [facility] #2 [place] [address] Ronnie Kebede MD 02/20/2025 Telephone [facility] Neurology [facility] #[address] [place] [address] Ronnie Kebede MD 02/20/2025 [facility] [place] [address] Ronnie Kebede MD 02/17/2025 Telephone [facility] [place] [address] Ronnie Kebede MD 02/16/2025 2:15 PM CDT Office Visit [facility] #2 [place] [address] Ronnie Kebede MD Partial symptomatic epilepsy with complex partial seizures, not intractable, without status epilepticus (Primary Dx) Discharge Disposition: Discharged to home or Selfcare 02/16/2025 Travel 02/06/2025 Telephone [facility] #[address] [place] [address] Ronnie Kebede MD from Last 3 Months Immunizations Immunization Administration [...] Sign Reading Time Taken Comments Blood Pressure 160/82 02/16/2025 2:08 PM CDT Pulse 60 02/16/2025 2:08 PM CDT Temperature 36.4 C (97.6 F) 02/16/2025 2:08 PM CDT Respiratory Rate 17 02/16/2025 2:08 PM CDT Oxygen Saturation 97% 02/16/2025 2:08 PM CDT Inhaled Oxygen Concentration - - Weight 64.5 kg (142 lb 3.2 oz) 02/16/2025 2:08 P M CDT Height 154.9 cm (5' 1 ) 02/16/2025 2:08 PM CDT Body Mass Index 26.87 02/16/2025 2:08 PM CDT Plan of Treatment Upcoming Encounters Date Type Department Care Team (Late st Contact Info) Description 03/28/2025 2:30 PM CDT EEG [facility] 2 [place] [address] Ronnie Kebede MD #2 [place] [address] Discharge Disposition: Discharged to home or Selfcare 05/19/2025 2:00 PM CDT Office Visit [facility] - Neurology [facility] #[address] [place] [address] Ronnie Kebede MD #2 [place] [address] Health Maintenance Due Date Last Done Comments [...] 11/17/2013, Additional history exists Influenza Immunization Completed , 08/14/2023, 07/02/2022, Additional history exists Respiratory Syncytial Virus (RSV) Immunization (Adult) Completed 11/14/2024 Cologuard Discontinued Hepatitis B Immunization Aged Out No longer eligible based on patient's age to complete this topic Human Papillomavirus (HPV) Immunization Aged Out No longer eligible based [...] to Health Maintenance Insurance MEDICAID [place] [employer] Care Teams Notcher Relationship Specialty Start Date End Date Rodriguez, ELEN Monten[place], SOLAR/RENEWABLE ENERGY SALES [address] [place] [address] PCP - General Family Medicine 05/06/17 Ronnie Kebede MD #2 [place] [address] Consulting Physician Neurology 05/06/17
--- OUTSIDE RECORDS SUMMARY | 2025-03-08 12:37 | XMS_ITS | Encounter Summary ---
Author Organization [facility] Address [address] [place] [address] Phone Care Team Providers Care Dust Collector Attendant Name Role Phone Ronnie Kebede MD Unavailable [phone] Moni Rodriguez APRN, CNP Primary Care Provider [phone] Reason for Visit * Reason Comments Medication Refill Encounter Details Date Type Department Care Team (Late Contact Info) Description 02/27/2021 Refill [facility] Neurology - [place] #1 [place] [address] Ronnie Kebede MD #2 [place] [address] Medication Refill Social History Tobacco [...] 03/28/2025 2:30 PM CDT EEG [facility] 2 [place] [address] Ronnie Kebede MD #2 [place] [address] Discharge Disposition: Discharged to home or Selfcare 05/19/2025 2:00 PM CDT [facility] #2 [place] [address] Ronnie Kebede MD #2 [place] [address] documented as of this encounter Visit Diagnoses Not on filedocumented in this encounter Care Teams Dust Collector Attendant Relationship Specialty Start Date End Date Moni Rodriguez APRN, DIAMOND [address] [place] [address] PCP - General Family Medicine 05/06/17 Ronnie Kebede MD #2 [place] [address] Consulting Physician Neurology 05/06/17 documented as of this encounter
--- OUTSIDE RECORDS SUMMARY | 2025-03-08 12:37 | XMS_ITS | Encounter Summary ---
Author Organization [facility] Address [address] [place] [address] Phone Care Team Providers Care Buyer Grain Name Role Phone Ronnie Kebede MD Unavailable [phone] Moni Rodriguez APRN, CNP Primary Care Provider [phone] Reason for Visit * Reason Comments Medication Refill Encounter Details Date Type Department Care Team (Late Contact Info) Description 04/07/2020 [facility]ill [facility] - [place] #1 [facility] [place] [address] Ronnie Kebede MD #2 [place] [address] Medication Refill Social History Tobacco [...] [facility] 2 [place] [address] Ronnie Kebede MD #2 [place] [address] Discharge Disposition: Discharged to home or Selfcare 05/19/2025 2:00 PM CDT Office Visit [facility] - [facility]rology [facility] #2 [place] [address] Ronnie Kebede MD #2 [place] [address] documented as of this encounter Visit Diagnoses Not on filedocumented in this encounter Care Teams Buyer Grain Relationship Specialty Start Date End Date Moni Rodriguez APRN, DIAMOND [address] [place] [address] PCP - General Family Medicine 05/06/17 Ronnie Kebede MD #2 [place] [address] Consulting Physician Neurology 05/06/17 documented as of this encounter
--- OUTSIDE RECORDS SUMMARY | 2025-03-08 12:37 | XMS_ITS | Encounter Summary ---
Author Organization [facility] Address [address] [place] [address] Phone Care Team Providers Care Journey Lineman Name Role Phone Ronnie Kebede MD Unavailable [phone] Moni Rodriguez APRN, CNP Primary Care Provider [phone] Reason for Visit * Reason Comments Medication Refill Encounter Details Date Type Department Care Team (Late Contact Info) Description [facility] #2 [place] [address] Ronnie Kebede MD #2 [place] [address] Medication Refill Social History Tobacco [...] Info) Description 03/28/2025 2:30 PM CDT [facility] 2 [place] [address] Ronnie Kebede MD #2 [place] [address] Discharge Disposition: Discharged to home or Selfcare 05/19/2025 2:00 PM CDT Office Visit [facility] - [facility]rology [facility] #2 [place] [address] Ronnie Kebede MD #2 [place] [address] documented as of this encounter Visit Diagnoses Not on filedocumented in this encounter Care Teams Journey Lineman Relationship Specialty Start Date End Date Moni Rodriguez APRN, DIAMOND [address] [place] [address] PCP - General Family Medicine 05/06/17 Ronnie Kebede MD #2 [place] [address] Consulting Physician Neurology 05/06/17 documented as of this encounter
[2025-03-08 13:46] LABS: Basophils Percent Auto 0.6 % (0.2-1.2); Eosinophils Absolute Auto 0.1 K/mm3 (0-0.3); Eosinophils Percent Auto 1.1 % (0-4.4); Hemoglobin 11.9 g/dL (12.0-15.0); Immature Granulocyte Absolute 0.03 K/mm3 (0.00-0.031); Immature Granulocyte Percent A 0.4 % (0-0.5); Lymphocytes Absolute Auto 1.14 K/mm3 (0.9-3.2); Lymphocytes Percent Auto 15.8 % (18.3-44.2); Mean Corpuscular HGB Conc 31.3 g/dl (32-36); Mean Corpuscular Hemoglobin 29.2 pg (26-34); Mean Corpuscular Volume 93.1 fl (80-100); Mean Platelet Volume 10.4 fl (7.4-10.4); Monocytes Absolute Auto 0.4 K/mm3 (0.1-0.6); Neutrophils Absolute Auto 5.5 K/mm3 (1.3-6.7); Neutrophils Percent Auto 76.1 % (45.5-73.1); Platelet Count Result 201 k/mm3 (150-375); Red Blood Count 4.08 M/mm3 (4.2-5.4); Red Cell Distribution Width 13.1 % (11.5-14.5); White Blood Count 7.2 K/mm3 (4.5-10.0)
[2025-03-08 14:02] LABS: Alanine Aminotransferase 24 U/L (6-35); Albumin Level 4.5 g/dL (3.5-5.1); Alkaline Phosphatase 225 U/L (38-126); Anion Gap 11 mmol/L (4-12); Aspartate Amino Transferase 22 U/L (14-36); Bilirubin,Total 0.4 mg/dL (0.2-1.3); Blood Urea Nitrogen 16 mg/dL (7-17); Calcium 8.8 mg/dL (8.4-10.2); Carbon Dioxide 28 mmol/L (22-30); Chloride 97 mmol/L (98-107); Cholesterol 212 mg/dL (0-200); Estimated Glomerular Filt Rate > 60; Glucose 213 mg/dL (65-110); HDL Direct 71 mg/dL; Potassium 4.2 mmol/L (3.4-5.0); Sodium 136 mmol/L (137-145); Triglycerides 203 mg/dL (<150)
[2025-03-08 14:13] LABS: LDL Cholesterol Direct 88 mg/dL
[2025-03-08 14:21] LABS: Creatinine Urine 129.4 mg/dL
[2025-03-08 14:26] LABS: Microalbumin Urine Random 16.8 mg/L (0-16.7)
[2025-03-08 18:00] LABS: Hemoglobin A1C 6.5 % (<5.7)
[2025-03-10 07:24] LABS: Levetiracetam Keppra 27.8 mcg/mL (6.0-46.0)
== END 2025-03-08 12:29 | disposition home or self-care (01) ==
LOC: ANHLAB 12:33
PROVIDERS: PCP Nurse Practitioner Family; Visit Provider Nurse Practitioner Family
DX: G40.909 Epilepsy, unspecified, not intractable, without status epilepticus (principal); I10 Essential (primary) hypertension; E78.5 Hyperlipidemia, unspecified; E03.9 Hypothyroidism, unspecified; E11.9 Type 2 diabetes mellitus without complications
CPT/HCPCS: 36415; 80053; 80061; 80177; 82043; 83036; 84443; 85025

== ENCOUNTER 2025-03-13 12:45 | Emergency (ER) | payer MEDICARE, MEDICAID, SELFPAY ==
[2025-03-13] VITALS (7 sets, daily range): BP systolic 165–198; BP diastolic 87–93; PULSE 62–76; RESP 16–22; TEMP 37; O2SAT 97–100
--- OUTSIDE RECORDS SUMMARY | 2025-03-13 12:47 | XMS_ITS | Encounter Summary ---
Author Organization [facility] Address [address] [place] [address] Phone Care Team Providers Care Radiation Control Health Physicist Name Role Phone Ronnie Kebede MD Unavailable Moni Rodriguez APRN, CNP Primary Care Provider [phone] Reason for Visit * Reason Comments Medication Refill Encounter Details Date Type Department Care Team (Late Contact Info) Description 04/07/2020 Refill [facility] - [place] #1 [facility] [place] [address] Ronnie Kebede MD #2 [place] [address] Medication Refill Social History Tobacco [...] 03/28/2025 2:30 PM CDT EEG [facility] 2 [place] [address] Ronnie Kebede MD #2 [place] [address] Discharge Disposition: Discharged to home or Selfcare 05/19/2025 2:00 PM CDT Office Visit [facility] - [facility]rology [facility] #2 [place] [address] Ronnie Kebede MD #2 [place] [address] documented as of this encounter Visit Diagnoses Not on filedocumented in this encounter Care Teams Radiation Control Health Physicist Relationship Specialty Start Date End Date Moni Rodriguez APRN, DIAMOND [address] [place] [address] PCP - General Family Medicine 05/06/17 Ronnie Kebede MD #2 [place] [address] Consulting Physician Neurology 05/06/17 documented as of this encounter
--- OUTSIDE RECORDS SUMMARY | 2025-03-13 12:47 | XMS_ITS | Clinical Summary ---
Author Organization [facility] Address [address] [place] [place] [address] Care Team Providers Care Learning Disabilities Specialist Name Role Phone Unavailable Primary Care Provider Unavailabl e Source Comments [facility],non-owned Affiliates and Associated Physician Practices is amultiple site organization consisting of ambulatory clinics and hospital sitesin [place], [place], [place] and [place]. This disclosure is being madepursuant to the Care Everywhere program and may not contain all information available regarding this patient. Last updated 18.[facility] Allergies Active Allergy Reactions Criticality Noted Date [...] Concussion Seizures Overview (10/15/2011): Dr. Crystal Osei [facility]. Onset after concussion Hypothyroid Hyperlipidemia DM (diabetes [...] Brother 2 lung CA Brother 3 Father PR Mother PR Social History Tobacco Use Types Packs/Day Years Used Date Smoking Tobacco: Never Smokeless Tobacco: Never Alcohol Use Standard Drinks/Week Comments No 0 (1 standard drink = 0.6 oz pur e alcohol) Comments No Sex and Gender Information Value Date Recorded Sex Assigned at Not on file Legal Sex Female 12:51 PM CLIENT LIAISON Gender Identity Not on file Sexual Orientation Not on file Last Filed Vital Signs Vital Sign Reading Time Taken Comments Blood Pressure 130/80 02/24/2012 10:27 AM CDT Pulse 86 02/24/2012 10:27 AM CDT Temperature 37.1 C (98.8 F) 11/19/2011 12:56 PM CLIENT LIAISON Respiratory Rate - - Oxygen Saturation - [...] DENSITY 2 SITES Routine 11/18/2011 6:48 PM CLIENT LIAISON Asymptomatic postmenopausal status (age-related) (natural) MICROALBUMIN URINE RANDOM Routine 11/18/2011 12:11 PM CLIENT LIAISON DM (diabetes mellitus) COMPREHENSIVE METABOLIC PANEL Routine 11/18/2011 12:09 PM CLIENT LIAISON Hyperlipidemia DM (diabetes mellitus) from Last 3 [...] PM CDT Narrative Resulting Agency Comment [facility] [place] [address] [facility] [phone] us Nahomi Mcginnis MD LAB - CHEMISTRY ORDERABLES Final Result [facility] INSURANCE BILL [address] [place] [address] * DEXA BONE DENSITY 2 SITES (11/18/2011 6:48 PM CLIENT LIAISON) Anatomical Region Laterality Modality Other Narrative 11/18/2011 6:48 PM CLIENT LIAISON Jeremi Chauhan MD 11/18/2011 6:48 PM [facility] Medical group BONE DENSITY REPORT Pt. Name: Catrachita Rosa Gender: female : 1945 Test Date: 11/18/2011 Referring Physician: Nahomi Mcginnis MD Technologist: MALKA Montenegro A Central DXA was performed today using a [employer]DR [employer] C education manager. The images and data have been scanned. [...] Jeremi Chauhan MD Physician and Certified Clinical Sheet Metal Engineer Procedure Note Elo Asher - 11/18/2011 4:08 PM CST [facility] Medical group BONE DENSITY REPORT Pt. Name: Catrachita Rosa Gender: female : 1945 Test Date: 11/18/2011 Referring Physician: Nahomi Mcginnis MD Technologist: MALKA Montenegro A Central DXA was performed today using a [employer] QDR Discovery C education manager.The images and data have been scanned. Images [...] Jeremi Chauhan MD Physician and Certified Clinical Sheet Metal Engineer Nahomi Mcginnis MD DEXA ORDERABLES Final Result * MICROALBUMIN URINE RANDOM (11/18/2011 12:11 PM CLIENT LIAISON) Microalbumin Random Urine 10.4 0.0 - 17.0 ug/mL [facility] INSURANCE BILL URINE / Unknown 11/18/2011 1 2:11 PM CLIENT LIAISON 11/18/2011 5:48 PM CLIENT LIAISON Narrative Resulting Agency Comment [facility] [address] [phone] Nahomi Mcginnis MD LAB - URINE CHEMISTRY ORDERABLES Final Result [facility] INSURANCE BILL [address] [place] [address] * (ABNORMAL) COMPREHENSIVE METABOLIC PANEL (11/18/2011 12:09 PM CLIENT LIAISON) Glucose 100(H) 65 - 99 mg/dL [facility] [...] BLOOD SPECIMEN / Unknown 11/18/2011 12:09 PM CLIENT LIAISON 11/18/2011 5:58 PM CLIENT LIAISON Narrative Resulting Agency Comment [facility] [place] [address] [facility] [phone] us Nahomi Mcginnis MD LAB - CHEMISTRY ORDERABLES Final Result [facility] INSURANCE BILL [address] [place] [address] from Last 3 Months or Most Recently Relevant to Health Maintenance Insurance MEDICAID - OUT OF STATE MEDICARE
--- OUTSIDE RECORDS SUMMARY | 2025-03-13 12:47 | XMS_ITS | Clinical Summary ---
Author Organization [facility] Address #1 [facility] [place] [address] Phone Care Team Providers Care Corner Former Name Role Phone Ronnie Kebeed MD Unavailable [phone] Moni Rodriguez APRN, PRESSROOM SUPERVISOR Primary Care Provider [phone] Allergies Active Allergy Reactions Criticality Noted Date [...] Department Care Team Description 02/22/2025 Telephone [facility] - Neurology [facility] #2 [place] [address] Ronnie Kebede MD 02/20/2025 Telephone [facility] Neurology [facility] #2 [place] [address] Ronnie Kebede MD 02/20/2025 Telephone [facility]2 [place] [address] Ronnie Kebede MD 02/17/2025 Telephone [facility] #2 [place] [address] Ronnie Kebede MD 02/16/2025 2:15 PM CDT Office Visit [facility] #2 [place] [address] Ronnie Kebede MD Partial symptomatic epilepsy with complex partial seizures, not intractable, without status epilepticus (Primary Dx) Discharge Disposition: Discharged to home or Selfcare 02/16/2025 Travel 02/06/2025 Telephone [facility] #2 [place] [address] Ronnie Kebede MD from Last 3 Months [...] Description 03/28/2025 2:30 PM CDT EEG [facility] 2 [place] [address] Ronnie Kebede MD #2 [place] [address] Discharge Disposition: Discharged to home or Selfcare 05/19/2025 2:00 PM CDT Office Visit [facility] - Neurology [facility] #2 [place] [address] Ronnie Kebede MD #2 [place] [address] Health Maintenance Due Date Last Done Comments [...] MEDICAID [place]ICARE C AET[employer] Care Teams Corner Former Relationship Specialty Start Date End Date Rodriguez, ELEN Montenegro, PRESSROOM SUPERVISOR [address] [place] [address] PCP - General Family Medicine 05/06/17 Ronnie Kebede MD #2 [place] [address] Consulting Physician Neurology 05/06/17
--- OUTSIDE RECORDS SUMMARY | 2025-03-13 12:47 | XMS_ITS | Encounter Summary ---
Author Organization [facility] Address [address] 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 #2 [place] [address] Ronnie Kebede MD #2 [place] [address] documented as of this encounter Visit Diagnoses Diagnosis Partial symptomatic epilepsy with complex partial seizures, not intractable, without status epilepticus documented in this encounter Care Teams Oil Well Driller Relationship Specialty Start Date End Date Moni Rodriguez APRN, DIAMOND [address] [place] [address] PCP - General Family Medicine 05/06/17 Ronnie Kebede MD #2 [place] [address] Consulting Physician Neurology 05/06/17 documented as of this encounter
--- OUTSIDE RECORDS SUMMARY | 2025-03-13 12:47 | XMS_ITS | Encounter Summary ---
Author Organization [facility] Address [address] [place] [address] Phone Care Team Providers Care Compliance Field Technician Name Role Phone Ronnie Kebede MD Unavailable [phone] Moni Rodriguez APRN, CNP Primary Care Provider [phone] Reason for Visit * Reason Comments Medication Refill Encounter Details Date Type Department Care Team (Late Contact Info) Description 11/15/2020 Refill [facility] - [place] #1 [facility] [place] [address] Ronnie Kebede MD #2 [place] [address] Medication Refill Social History Tobacco [...] 03/28/2025 2:30 PM CDT EEG [facility] 2 [place] [address] Ronnie Kebede MD #2 [place] [address] Discharge Disposition: Discharged to home or Selfcare 05/19/2025 2:00 PM CDT Office Visit [facility] - Neurology [facility] #2 [place] [address] Ronnie Kebede MD #2 [place] [address] documented as of this encounter Visit Diagnoses Diagnosis Partial symptomatic epilepsy with complex partial seizures, not intractable, without status epilepticus documented in this encounter Care Teams Compliance Field Technician Relationship Specialty Start Date End Date Moni Rodriguez APRN, CNP [address] [place] [address] PCP - General Family Medicine 05/06/17 Ronnie Kebede MD #2 [place] [address] Consulting Physician Neurology 05/06/17 documented as of this encounter
--- OUTSIDE RECORDS SUMMARY | 2025-03-13 12:47 | XMS_ITS | Encounter Summary ---
Author Organization [facility] Address [address] [place] [address] Phone Care Team Providers Care Packaging Coordinator Name Role Phone Ronnie Kebede MD Unavailable [phone] Moni Rodriguez APRN, CNP Primary Care Provider [phone] Reason for Visit * Reason Comments Medication Refill Encounter Details Date Type Department Care Team (Late Contact Info) Description 10/23/2020 Refill [facility] - [place] #1 [facility] [place] [address] Ronnie Kebede MD #2 [place] [address] Medication Refill Social History Tobacco [...] Description 03/28/2025 2:30 PM CDT EEG [facility] 2 [place] [address] Ronnie Kebede MD #2 [place] [address] Discharge Disposition: Discharged to home or Selfcare 05/19/2025 2:00 PM CDT Office Visit [facility] - Neurology [facility] #2 [place] [address] Ronnie Kebede MD #2 [place] [address] documented as of this encounter Visit Diagnoses Not on filedocumented in this encounter Care Teams Packaging Coordinator Relationship Specialty Start Date End Date Moni Rodriguez APRN, DIAMOND [address] [place] [address] PCP - General Family Medicine 05/06/17 Ronnie Kebede MD #2 [place] [address] Consulting Physician Neurology 05/06/17 documented as of this encounter
--- OUTSIDE RECORDS SUMMARY | 2025-03-13 12:48 | XMS_ITS | Encounter Summary ---
Author Organization [facility] Address [address] [place] [address] Phone Care Team Providers Care Vp Biology Name Role Phone Ronnie Kebede MD Unavailable [phone] Moni Rodriguez APRN, CNP Primary Care Provider [phone] Reason for Visit * Reason Comments Medication Refill Encounter Details Date Type Department Care Team (Late st Contact Info) Description 08/01/2023 Refill [facility] - Neurology - [place] #2 [place] [address] Ronnie Kebede MD #2 [place] [address] Medication Refill Social History Tobacco [...] Provider Dept 08/10/23 Appointment Ronnie Kebede MD [facility] Neurology [facility] Showing future appointments within next 90 days and meeting all other requirements documented in this encounter Plan of Treatment Upcoming Encounters Date Type Department Care Team (Late st Contact Info) Description 03/28/2025 2:30 PM CDT EEG [facility] 2 [place] [address] Ronnie Kebede MD #2 [place] [address] Discharge Disposition: Discharged to home or Selfcare 05/19/2025 2:00 PM CDT Office Visit [facility] Neurology [facility] #2 [place] [address] Ronnie Kebede MD #2 [place] [address] documented as of this encounter Visit Diagnoses Not on filedocumented in this encounter Care Teams Vp Biology Relationship Specialty Start Date End Date Moni Rodriguez APRN, CNP [address] [place] [address] PCP - General Family Medicine 05/06/17 Ronnie Kebede MD #2 [place] [address] Consulting Physician Neurology 05/06/17 documented as of this encounter
--- OUTSIDE RECORDS SUMMARY | 2025-03-13 12:48 | XMS_ITS | Encounter Summary ---
Author Organization [facility] Address [address] [place] [address] Phone Care Team Providers Care Ferryboat Deckhand Name Role Phone Ronnie Kebede MD Unavailable [phone] Moni Rodriguez APRN, CNP Primary Care Provider [phone] Reason for Visit * Reason Comments Medication Refill Encounter Details Date Type Department Care Team (Late st Contact Info) Description 02/02/2023 Refill [facility] - Neurology - [place] #2 [place] [address] Ronnie Kebede MD #2 [place] [address] Medication Refill Social History Tobacco [...] Dept 07/17/22 Office Visit Ronnie Kebede MD [facility] Neurology [facility] Showing recent visits within past 365 days and meeting all other requirements Future Appointments No visits were found meeting these conditions. Showing future appointments within next 90 days and meeting all other requirements documented in this encounter Plan of Treatment Upcoming Encounters Date Type Department Care Team (Late st Contact Info) Description 03/28/2025 2:30 PM CDT EEG [facility] Neurosciences Clinic 2 [place] [address] Ronnie Kebede MD #2 [place] [address] Discharge Disposition: Discharged to home or Selfcare 05/19/2025 2:00 PM CDT Office Visit [facility] #2 [place] [address] Ronnie Kebede MD #2 [place] [address] documented as of this encounter Visit Diagnoses Not on filedocumented in this encounter Care Teams Ferryboat Deckhand Relationship Specialty Start Date End Date Moni Rodriguez APRN, CNP [address] [place] [address] PCP - General Family Medicine 05/06/17 Ronnie Kebede MD #2 [place] [address] Consulting Physician Neurology 05/06/17 documented as of this encounter
--- OUTSIDE RECORDS SUMMARY | 2025-03-13 12:48 | XMS_ITS | Encounter Summary ---
Author Organization [facility] Address [address] [place] [address] Phone Care Team Providers Care Package Designer Name Role Phone Ronnie Kebede MD Unavailable [phone] Moni Rodriguez APRN, CNP Primary Care Provider [phone] Reason for Visit * Reason Comments Medication Refill Encounter Details Date Type Department Care Team (Late st Contact Info) Description 02/21/2024 Refill [facility] - Neurology - [place] #2 [place] [address] Ronnie Kebede MD #2 [place] [address] Medication Refill Social History Tobacco [...] Dept 12/10/23 Office Visit Ronnie Kebede MD [facility] Neurology [facility] 08/10/23 Office Visit Ronnie Kebede MD [facility] Neurology [facility] Showing recent visits within past 365 [...] [facility] 2 [place] [address] Ronnie Kebede MD #[address] [place] [address] Discharge Disposition: Discharged to home or Selfcare 05/19/2025 2:00 PM CDT Office Visit [facility] - Neu[facility] #2 [place] [address] Ronnie Kebede MD #2 [place] [address] documented as of this encounter Visit Diagnoses Not on filedocumented in this encounter Care Teams Package Designer Relationship Specialty Start Date End Date Moni Rodriguez APRN, DIAMOND [address] [place] [address] PCP - General Family Medicine 05/06/17 Ronnie Kebede MD #2 [place] [address] Consulting Physician Neurology 05/06/17 documented as of this encounter
--- OUTSIDE RECORDS SUMMARY | 2025-03-13 12:48 | XMS_ITS | Encounter Summary ---
Author Organization [facility] Address [address] [place] [address] Phone Care Team Providers Care Web Support Engineer Name Role Phone Ronnie Kebede MD Unavailable [phone] Moni Rodriguez APRN, BRICKMASON APPRENTICE Primary Care Provider [phone] Reason for Visit * Reason Comments Medication Refill Encounter Details Date Type Department Care Team (Late Contact Info) Description 02/06/2021 Refill [facility] - [place] #1 [facility] [place] [address] Geovanna Kelly APRN, MOTOR POOL DRIVER #2 [place] [address] Medication Refill Social History Tobacco Use Types [...] 03/28/2025 2:30 PM CDT EEG [facility] 2 [place] [address] Ronnie Kebede MD #2 [place] [address] Discharge Disposition: Discharged to home or Selfcare 05/19/2025 2:00 PM CDT [facility] #2 [place] [address] Ronnie Kebede MD #2 [place] [address] documented as of this encounter Visit Diagnoses Diagnosis Partial symptomatic epilepsy with complex partial seizures, not intractable, without status epilepticus documented in this encounter Care Teams Web Support Engineer Relationship Specialty Start Date End Date Moni Rodriguez APRN, CNP [address] [place] [address] PCP - General Family Medicine 05/06/17 Ronnie Kebede MD #2 [place] [address] Consulting Physician Neurology 05/06/17 documented as of this encounter
--- OUTSIDE RECORDS SUMMARY | 2025-03-13 12:48 | XMS_ITS | Encounter Summary ---
Author Organization [facility] Address [address] [place] [address] Phone Care Team Providers Care Quotation Checker Name Role Phone Ronnie Kebdee MD Unavailable [phone] Moni Rodriguez APRN, CORRUGATOR OPERATOR HELPER Primary Care Provider [phone] Reason for Visit * Reason Comments Medication Refill Encounter Details Date Type Department Care Team (Late Contact Info) Description 03/04/2021 [facility]ill [facility] - [place] #1 [facility] [place] [address] Geovanna Kelly APRN, DETECTIVE INVESTIGATOR #2 [place] [address] Medication Refill Social History Tobacco Use Types [...] 03/28/2025 2:30 PM CDT EEG [facility] 2 [place] [address] Ronnie Kebede MD #2 [place] [address] Discharge Disposition: Discharged to home or Selfcare 05/19/2025 2:00 PM CDT Office Visit [facility] - Neurology [facility] #2 [place] [address] Ronnie Kebede MD #2 [place] [address] documented as of this encounter Visit Diagnoses Diagnosis Partial symptomatic epilepsy with complex partial seizures, not intractable, without status epilepticus documented in this encounter Care Teams Quotation Checker Relationship Specialty Start Date End Date Moni Rodriguez APRN, CNP [address] [place] [address] PCP - General Family Medicine 05/06/17 Ronnie Kebede MD #2 [place] [address] Consulting Physician Neurology 05/06/17 documented as of this encounter
--- OUTSIDE RECORDS SUMMARY | 2025-03-13 12:48 | XMS_ITS | Encounter Summary ---
Author Organization [facility] Address [address] [place] [address] Phone Care Team Providers Care Driver License Agent Name Role Phone Ronnie Kebede MD Unavailable [phone] Moni Rodriguez APRN, CNP Primary Care Provider [phone] Reason for Visit * Reason Comments Medication Refill Encounter Details Date Type Department Care Team (Late Contact Info) Description 01/12/2021 Refill [facility] - [place] #1 [place] [address] Ronnie Kebede MD #2 [place] [address] Medication Refill Social History Tobacco [...] 2:30 PM CDT EEG [facility] 2 [place] [address] Ronnie Kebede MD #2 [place] [address] Discharge Disposition: Discharged to home or Selfcare 05/19/2025 2:00 PM CDT Office Visit [facility] - Neurology [facility] #2 [place] [address] Ronnie Kebede MD #2 [place] [address] documented as of this encounter Visit Diagnoses Diagnosis Partial symptomatic epilepsy with complex partial seizures, not intractable, without status epilepticus documented in this encounter Care Teams Driver License Agent Relationship Specialty Start Date End Date Moni Rodriguez APRN, CNP [address] [place] [address] PCP - General Family Medicine 05/06/17 Ronnie Kebede MD #2 [place] [address] Consulting Physician Neurology 05/06/17 documented as of this encounter
--- OUTSIDE RECORDS SUMMARY | 2025-03-13 12:48 | XMS_ITS | Encounter Summary ---
Author Organization [facility] Address [address] [place] [address] Phone Care Team Providers Care Manager Actuarial Name Role Phone Ronnie Kebede MD Unavailable [phone] Moni Rodriguez APRN, CNP Primary Care Provider [phone] Reason for Visit * Reason Comments Medication Refill Encounter Details Date Type Department Care Team (Late Contact Info) Description [facility] #2 [place] [address] Ronnie Kebede MD #2 [place] [address] Medication Refill Social History Tobacco [...] Info) Description 03/28/2025 2:30 PM [facility] 2 [place] [address] Ronnie Kebede MD #2 [place] [address] Discharge Disposition: Discharged to home or Selfcare 05/19/2025 2:00 PM CDT Office Visit [facility] - Neurology [facility] #2 [place] [address] Ronnie Kebede MD #2 [place] [address] documented as of this encounter Visit Diagnoses Not on filedocumented in this encounter Care Teams Manager Actuarial Relationship Specialty Start Date End Date Moni Rodriguez APRN, DIAMOND [address] [place] [address] PCP - General Family Medicine 05/06/17 Ronnie Kebede MD #2 [place] [address] Consulting Physician Neurology 05/06/17 documented as of this encounter
--- OUTSIDE RECORDS SUMMARY | 2025-03-13 12:48 | XMS_ITS | Encounter Summary ---
Author Organization [facility] Address [address] [place] [address] Phone Care Team Providers Care Cnc Laser Operator Name Role Phone Ronnie Kebede MD Unavailable [phone] Moni Rodriguez APRN, CNP Primary Care Provider [phone] Reason for Visit * Reason Comments Medication Refill Encounter Details Date Type Department Care Team (Late Contact Info) Description [facility] #2 [place] [address] Ronnie Kebede MD #2 [place] [address] Medication Refill Social History Tobacco [...] [facility] 2 [place] [address] Ronnie Kebede MD #2 [place] [address] Discharge Disposition: Discharged to home or Selfcare 05/19/2025 2:00 PM CDT Office Visit [facility] - Neurology [facility] #2 [place] [address] Ronnie Kebede MD #2 [place] [address] documented as of this encounter Visit Diagnoses Not on filedocumented in this encounter Care Teams Cnc Laser Operator Relationship Specialty Start Date End Date Moni Rodriguez APRN, DIAMOND [address] [place] [address] PCP - General Family Medicine 05/06/17 Ronnie Kebede MD #2 [place] [address] Consulting Physician Neurology 05/06/17 documented as of this encounter
--- OUTSIDE RECORDS SUMMARY | 2025-03-13 12:48 | XMS_ITS | Encounter Summary ---
Author Organization [facility] Address [address] [place] [address] Phone Care Team Providers Care Junior Account Executive Name Role Phone Ronnie eKbede MD Unavailable [phone] Moni Rodriguez APRN, CNP Primary Care Provider [phone] Reason for Visit * Reason Comments Medication Refill Encounter Details Date Type Department Care Team (Late Contact Info) Description [facility] #2 [place] [address] Ronnie Kebede MD #2 [place] [address] Medication Refill Social History Tobacco [...] Info) Description 03/28/2025 2:30 PM CDT [facility] 2 [place] [address] Ronnie Kebede MD #2 [place] [address] Discharge Disposition: Discharged to home or Selfcare 05/19/2025 2:00 PM CDT Office Visit [facility] - Neurology [facility] #2 [place] [address] Ronnie Kebede MD #2 [place] [address] documented as of this encounter Visit Diagnoses Not on filedocumented in this encounter Care Teams Junior Account Executive Relationship Specialty Start Date End Date Moni Rodriguez APRN, DIAMOND [address] [place] [address] PCP - General Family Medicine 05/06/17 Ronnie Kebede MD #2 [place] [address] Consulting Physician Neurology 05/06/17 documented as of this encounter
--- OUTSIDE RECORDS SUMMARY | 2025-03-13 12:48 | XMS_ITS | Encounter Summary ---
Author Organization [facility] Address [address] [place] [address] Phone Care Team Providers Care Rn Neurosurgical Name Role Phone Ronnie Kebede MD Unavailable [phone] Moni Rodriguez APRN, CNP Primary Care Provider [phone] Reason for Visit * Reason Comments Medication Refill Encounter Details Date Type Department Care Team (Late Contact Info) Description 02/27/2021 Refill [facility] - [place] #1 [facility] [place] [address] Ronnie Kebede MD #2 [place] [address] Medication Refill Social History Tobacco [...] 2:30 PM CDT EEG [facility] 2 [place] [address] Ronnie Kebede MD #2 [place] [address] Discharge Disposition: Discharged to home or Selfcare 05/19/2025 2:00 PM CDT Office Visit [facility] - Neurology [facility] #2 [place] [address] Ronnie Kebede MD #2 [place] [address] documented as of this encounter Visit Diagnoses Not on filedocumented in this encounter Care Teams Rn Neurosurgical Relationship Specialty Start Date End Date Moni Rodriguez APRN, DIAMOND [address] [place] [address] PCP - General Family Medicine 05/06/17 Ronnie Kebede MD #2 [place] [address] Consulting Physician Neurology 05/06/17 documented as of this encounter
--- OUTSIDE RECORDS SUMMARY | 2025-03-13 12:48 | XMS_ITS | Encounter Summary ---
Author Organization [facility] Address [address] [place] [address] Phone Care Team Providers Care Home Care Physical Therapist Name Role Phone Ronnie Kebede MD Unavailable [phone] Moni Rodriguez APRN, CORPORATE SALES MANAGER Primary Care Provider [phone] Reason for Visit * Reason Comments Medication Refill Encounter Details Date Type Department Care Team (Late Contact Info) Description [facility] #2 [place] [address] Geovanna Kelly APRN, TIMBER SUPERVISOR #2 [place] [address] Medication Refill Social History Tobacco Use Types [...] Info) Description 03/28/2025 2:30 PM CDT [facility] 2 [place] [address] Ronnie Kebede MD #2 [place] [address] Discharge Disposition: Discharged to home or Selfcare 05/19/2025 2:00 PM CDT Office Visit [facility] - Neurology [facility] #2 [place] [address] Ronnie Kebede MD #2 [place] [address] documented as of this encounter Visit Diagnoses Not on filedocumented in this encounter Care Teams Home Care Physical Therapist Relationship Specialty Start Date End Date Moni Rodriguez APRN, DIAMOND [address] [place] [address] PCP - General Family Medicine 05/06/17 Ronnie Kebede MD #2 [place] [address] Consulting Physician Neurology 05/06/17 documented as of this encounter
--- OUTSIDE RECORDS SUMMARY | 2025-03-13 12:48 | XMS_ITS | CONTINUITY OF CARE DOCUMENT ---
Author Name anup hebert Address Unknown Organization [facility] Address [address] [place] [address] [address] [place] [address] Phone [phone] Care Team Providers Care Stamp Mounter Name Role Phone Bentley MOODY, Min Unavailable INSURANCE PROVIDERS Payer name Policy type / Coverage type [employer] red constitution party ID [place] [employer] Medicare [id number]
--- OUTSIDE RECORDS SUMMARY | 2025-03-13 12:48 | XMS_ITS | Encounter Summary ---
Author Organization [facility] Address [address] [place] [address] Phone Care Team Providers Care Locker Room Attendant Name Role Phone Ronnie Kebede MD Unavailable [phone] Moni Rodriguez APRN, CNP Primary Care Provider [phone] Reason for Visit * Reason Comments Medication Refill Encounter Details Date Type Department Care Team (Late Contact Info) Description 02/06/2021 Refill [facility] - [place] #[address] [place] [address] Ronnie Kebede MD #2 [place] [address] Medication Refill Social History Tobacco [...] 03/28/2025 2:30 PM CDT EEG [facility] 2 [place] [address] Ronnie Kebede MD #2 [place] [address] Discharge Disposition: Discharged to home or Selfcare 05/19/2025 2:00 PM CDT Office Visit [facility] - Neurology [facility] #2 [place] [address] Ronnie Kebede MD #2 [place] [address] documented as of this encounter Visit Diagnoses Not on filedocumented in this encounter Care Teams Locker Room Attendant Relationship Specialty Start Date End Date Moni Rodriguez APRN, DIAMOND [address] [place] [address] PCP - General Family Medicine 05/06/17 Ronnie Kebede MD #2 [place] [address] Consulting Physician Neurology 05/06/17 documented as of this encounter
--- OUTSIDE RECORDS SUMMARY | 2025-03-13 12:48 | XMS_ITS | Encounter Summary ---
Author Organization [facility] Address [address] [place] [address] Phone Care Team Providers Care Is Project Manager Name Role Phone Ronnie Kebede MD Unavailable [phone] Moni Rodriguez APRN, CNP Primary Care Provider [phone] Reason for Visit * Reason Comments Medication Refill Encounter Details Date Type Department Care Team (Late st Contact Info) Description 10/29/2023 Refill [facility] - [facility]rology - [place] #2 [place] [address] Ronnie Kebede MD #2 [place] [address] Medication Refill Social History Tobacco [...] Dept 08/10/23 Office Visit Ronnie Kebede MD [facility] Neurology [facility] Showing recent visits within past 365 days and meeting all other requirements Future Appointments Date Type Provider Dept 12/10/23 Appointment Ronnie Kebede MD [facility] Neurology [facility] Showing future appointments within next 90 days and meeting all other requirements NESS SOLUTIONS ANALYST documented in this encounter Plan of Treatment Upcoming Encounters Date Type Department Care Team (Late st Contact Info) Description 03/28/2025 2:30 PM CDT [facility] 2 [place] [address] Ronnie Kebede MD #2 [place] [address] Discharge Disposition: Discharged to home or Selfcare 05/19/2025 2:00 PM CDT [facility] #2 [place] [address] Ronnie Kebede MD #2 [place] [address] documented as of this encounter Visit Diagnoses Diagnosis Partial symptomatic epilepsy with complex partial seizures, not intractable, without status epilepticus documented in this encounter Care Teams Is Project Manager Relationship Specialty Start Date End Date Moni Rodriguez APRN, DIAMOND [address] [place] [address] PCP - General Family Medicine 05/06/17 Ronnie Kebede MD #2 [place] [address] Consulting Physician Neurology 05/06/17 documented as of this encounter
--- OUTSIDE RECORDS SUMMARY | 2025-03-13 12:48 | XMS_ITS | Encounter Summary ---
Author Organization [facility] Address [address] [place] [address] Phone Care Team Providers Care Garnetter Name Role Phone Ronnie Kebede MD Unavailable [phone] Moni Rodriguez APRN, CNP Primary Care Provider [phone] Reason for Visit * Reason Comments Medication Refill Encounter Details Date Type Department Care Team (Late Contact Info) Description [facility] #2 [place] [address] Ronnie Kebede MD #2 [place] [address] Medication Refill Social History Tobacco [...] [facility] 2 [place] [address] Ronnie Kebede MD #2 [place] [address] Discharge Disposition: Discharged to home or Selfcare 05/19/2025 2:00 PM CDT Office Visit [facility] - Neurology [facility] #2 [place] [address] Ronnie Kebede MD #2 [place] [address] documented as of this encounter Visit Diagnoses Not on filedocumented in this encounter Care Teams Garnetter Relationship Specialty Start Date End Date Moni Rodriguez APRN, DIAMOND [address] [place] [address] PCP - General Family Medicine 05/06/17 Ronnie Kebede MD #2 [place] [address] Consulting Physician Neurology 05/06/17 documented as of this encounter
[2025-03-13 12:55] LABS: Glucose Point of Care 219 mg/dl (65-105)
--- NOTE | 2025-03-13 13:53 | ECG_ITS ---
Test Date: 2025-03-13 14:00:03 Measurements Intervals [place] Rate: 68 P: 64 AK: 221 QRS: 0 QRSD: 94 T: 77 QT: 407 QTc: 434 Interpretive Statements SINUS RHYTHM WITH FIRST DEGREE AV BLOCK MODERATE VOLTAGE CRITERIA FOR LVH, CONSIDER NORMAL VARIANT [MEETS CRITERIA IN ONE OF: R(aVL), S(V1), R(V5), R(V5/V6)+S(V1)] LEFT VENTRICULAR HYPERTROPHY AND ST-T CHANGE Compared to ECG 02/02/2025 09:40:04 Sinus bradycardia no longer present Electronically Signed On 03-14-2025 14:46:57 CDT by Kelli Brannon M.D.
--- NOTE | 2025-03-13 13:54 | ED.GENADULT ---
HPI - General Adult General Chief complaint: Nausea/Vomiting/Diarrhea Stated complaint: chills, gi upset Time Seen by Provider: 03/13/25 13:46 History of Present Illness HPI narrative: 79-year-old female present to the emergency department for evaluation of nausea without vomiting and some left-sided chest pain that is been constant since Thursday. Patient also reports associated chills. Patient denies any prior cardiac history. Related Data Home Medications ?Medication ?Instructions ?Recorded ?Confirmed ?Last Taken ?Type atenolol 100 mg tablet mg 02/03/24 Unknown History atorvastatin 40 mg tablet mg 02/03/24 Unknown History carbamazepine 200 mg mg PO 02/03/24 Unknown History capsule,extended release [id number] desvenlafaxine succinate 50 mg mg PO 02/03/24 Unknown History tablet,extended release 24 hr esomeprazole magnesium 40 mg mg 02/03/24 Unknown History capsule,delayed release famotidine 40 mg tablet mg 02/03/24 Unknown History glimepiride 4 mg tablet mg 02/03/24 Unknown History levothyroxine 100 mcg tablet mcg 02/03/24 Unknown History lisinopril 40 mg tablet mg 02/03/24 Unknown History mecobalamin (vitamin B12) 5,000 5,000 mcg PO DAILY 02/03/24 02/03/24 Unknown History mcg chewable tablet topiramate 100 mg tablet mg 02/03/24 Unknown History trazodone 50 mg tablet mg 02/03/24 Unknown History Allergies Allergy/AdvReac Type Severity Reaction Status Date / Time benzonatate Allergy Severe DIFF Verified 03/13/25 14:03 BREATHING coconut Allergy Severe Swelling Verified 03/13/25 14:03 of Lip/Tongue/Throat venom-honey bee Allergy Severe ANAPHYLAXIS Verified 03/13/25 14:36 honey Allergy Unknown Unknown Verified 03/13/25 14:03 latex Allergy Unknown Unknown Verified 03/13/25 14:03 milk Allergy Unknown Unknown Verified 03/13/25 14:03 peanut Allergy Unknown Unknown Verified 03/13/25 14:03 tree nut Allergy Unknown Unknown Verified 03/13/25 14:03 Iodinated Contrast Media Allergy Rash Verified 03/13/25 14:03 HONEY,WOOL,ALL NUTS,MILK Allergy Severe VARYING Uncoded 03/13/25 14:03 DEGREES OF REACTIVITY Review of Systems Review of Systems: All systems reviewed & are unremarkable except as noted in HPI and below PMFSH Past Medical History Medical History Seizure disorder Family History Family History Sibling Family history of lung cancer Grandparent Family history of malignant neoplasm of breast Exam Narrative: APPEARANCE: Well appearing, no pain, no distress, well-nourished. HEAD: normocephalic, atraumatic. EYES: PERRLA/EOMI, conjunctivae clear. NOSE: Normal no drainage EARS:TMS clear with good light reflex. THROAT: Pharynx clear, no exudate. NECK: Supple. No adenopathy, no masses. RESPIRATORY: Airway patent, respirations nonlabored. Clear to auscultation bilaterally, no rales, rhonchi, wheezing. CARDIOVASCULAR: Regular rate and rhythm without murmurs rubs or gallops. ABDOMINAL: Soft, nontender, nondistended, normal bowel sounds MUSCULOSKELETAL: Moves all extremities. Strength/ROM intact, No edema, No calf tenderness. NEURO: Alert. Cranial nerves II through XII intact. Good gait. Good coordination SKIN: Warm, dry. Normal Color Course Vital Signs Vital signs: Vital Signs Temperature 98.6 F 03/13/25 12:52 Pulse Rate 69 03/13/25 12:52 Respiratory Rate 16 03/13/25 12:52 Blood Pressure 165/90 H 03/13/25 12:52 Pulse Oximetry 99 03/13/25 12:52 Temperature 98.6 F 03/13/25 12:52 Pulse Rate 76 03/13/25 18:05 Respiratory Rate 22 H 03/13/25 18:05 Blood Pressure 172/87 H 03/13/25 18:05 Pulse Oximetry 97 03/13/25 18:05 Medical Decision Making MDM Narrative Medical decision making narrative: 71-year-old female presented to the emergency department for evaluation for Vital Signs Vital Signs: Vital Signs Temperature 98.6 F 03/13/25 12:52 Pulse Rate 69 03/13/25 12:52 Respiratory Rate 16 03/13/25 12:52 Blood Pressure 165/90 H 03/13/25 12:52 Pulse Oximetry 99 03/13/25 12:52 Temperature 98.6 F 03/13/25 12:52 Pulse Rate 76 03/13/25 18:05 Respiratory Rate 22 H 03/13/25 18:05 Blood Pressure 172/87 H 03/13/25 18:05 Pulse Oximetry 97 03/13/25 18:05 Lab Data 03/13/25 14:05 03/13/25 14:05 Labs: Lab Results 03/13/25 03/13/25 03/13/25 Range/Units 12:51 14:05 15:32 WBC 9.3 (4.5-10.0) K/mm3 RBC 4.40 (4.2-5.4) M/mm3 Hgb 13.2 (12.0-15.0) g/dL Hct 39.9 (37.0-47.0) % MCV 90.7 (80-100) fl MCH 30.0 (26-34) pg MCHC 33.1 (32-36) g/dl RDW 12.9 (11.5-14.5) % Plt Count 252 (150-375) k/mm3 MPV 10.2 (7.4-10.4) fl Immature Gran % (Auto) 0.6 H (0-0.5) % Neut % (Auto) 75.2 H (45.5-73.1) % Lymph % (Auto) 16.8 L (18.3-44.2) % [place] % (Auto) 6.3 (2.6-8.5) % Eos % (Auto) 0.6 (0-4.4) % Baso % (Auto) 0.5 (0.2-1.2) % Lymph # (Auto) 1.56 (0.9-3.2) K/mm3 [place] # (Auto) 0.6 (0.1-0.6) K/mm3 Eos # (Auto) 0.1 (0-0.3) K/mm3 Baso # (Auto) 0.1 (0.0-0.1) K/mm3 Abs Immat Gran (auto) 0.06 H (0.00-0.031) K/mm3 Absolute Neuts (auto) 7.0 H (1.3-6.7) K/mm3 Absolute Nucleated RBC 0.000 (0.0-0.012) K/mm3 Nucleated RBC % 0.0 (0.0-0.2) % PT 12.9 (11.1-14.7) Seconds INR 0.9 APTT 29.0 (22.3-36.8) Seconds Sodium 136 L (137-145) mmol/L Potassium 4.2 (3.4-5.0) mmol/L Chloride 97 L (98-107) mmol/L Carbon Dioxide 28 (22-30) mmol/L Anion Gap 11 (4-12) mmol/L BUN 13 (7-17) mg/dL Creatinine 0.83 (0.7-1.0) mg/dL Estim Creat Clear Calc 42 ml/min Estimated GFR > 60 (59 - ) Glucose 216 H (65-110) mg/dL POC Capillary Glucose 219 H (65-105) mg/dl Lactic Acid 2.7 H (0.7-2.0) mmol/L Calcium 9.2 (8.4-10.2) mg/dL Total Bilirubin 0.5 (0.2-1.3) mg/dL AST 30 (14-36) U/L ALT 28 (6-35) U/L Alkaline Phosphatase 224 H (38-126) U/L Troponin I < 0.012 (0.000-0.034) ng/mL Total Protein 8.0 (6.3-8.2) g/dL Albumin 4.8 (3.5-5.1) g/dL Lipase 59 (23-300) U/L Urine Color Yellow (Yellow) Urine Appearance Clear (Clear) Urine pH 7.0 (5.0-9.0) Ur Specific [place] 1.018 (1.001-1.035) Urine Protein 1+ H (Negative) mg/dL Urine Glucose (UA) Trace H (Negative) mg/dL Urine Ketones Negative (Negative) mg/dL Ur Blood (Man) Negative (Negative) Urine Nitrate Negative (Negative) Urine Bilirubin Negative (Negative) Urine Urobilinogen 1.0 (<2.0) mg/dL Leukocyte Esterase Rfl Negative (Negative) GIANLUCA/UL Urine RBC 0-2 (0-2) /hpf Urine WBC 0-5 (0-3) /hpf Ur Squamous Epith Cells None seen (Few) /hpf Urine Bacteria None seen /hpf Urine Casts 0-2 Influenza A (RT-PCR) Negative (Negative) Influenza B (RT-PCR) Negative (Negative) RSV (RT-PCR) Negative (Negative) SARS-CoV-2 RNA (RT-PCR) Negative (Negative) 03/13/25 Range/Units 17:10 WBC (4.5-10.0) K/mm3 RBC (4.2-5.4) M/mm3 Hgb (12.0-15.0) g/dL Hct (37.0-47.0) % MCV (80-100) fl MCH (26-34) pg MCHC (32-36) g/dl RDW (11.5-14.5) % Plt Count (150-375) k/mm3 MPV (7.4-10.4) fl Immature Gran % (Auto) (0-0.5) % Neut % (Auto) (45.5-73.1) % Lymph % (Auto) (18.3-44.2) % [place] % (Auto) (2.6-8.5) % Eos % (Auto) (0-4.4) % Baso % (Auto) (0.2-1.2) % Lymph # (Auto) (0.9-3.2) K/mm3 [place] # (Auto) (0.1-0.6) K/mm3 Eos # (Auto) (0-0.3) K/mm3 Baso # (Auto) (0.0-0.1) K/mm3 Abs Immat Gran (auto) (0.00-0.031) K/mm3 Absolute Neuts (auto) (1.3-6.7) K/mm3 Absolute Nucleated RBC (0.0-0.012) K/mm3 Nucleated RBC % (0.0-0.2) % PT (11.1-14.7) Seconds INR APTT (22.3-36.8) Seconds Sodium (137-145) mmol/L Potassium (3.4-5.0) mmol/L Chloride (98-107) mmol/L Carbon Dioxide (22-30) mmol/L Anion Gap (4-12) mmol/L BUN (7-17) mg/dL Creatinine (0.7-1.0) mg/dL Estim Creat Clear Calc ml/min Estimated GFR (59 - ) Glucose (65-110) mg/dL POC Capillary Glucose (65-105) mg/dl Lactic Acid 1.8 (0.7-2.0) mmol/L Calcium (8.4-10.2) mg/dL Total Bilirubin (0.2-1.3) mg/dL AST (14-36) U/L ALT (6-35) U/L Alkaline Phosphatase (38-126) U/L Troponin I < 0.012 (0.000-0.034) ng/mL Total Protein (6.3-8.2) g/dL Albumin (3.5-5.1) g/dL Lipase (23-300) U/L Urine Color (Yellow) Urine Appearance (Clear) Urine pH (5.0-9.0) Ur Specific [place] (1.001-1.035) Urine Protein (Negative) mg/dL Urine Glucose (UA) (Negative) mg/dL Urine Ketones (Negative) mg/dL Ur Blood (Man) (Negative) Urine Nitrate (Negative) Urine Bilirubin (Negative) Urine Urobilinogen (<2.0) mg/dL Leukocyte Esterase Rfl (Negative) GIANLUCA/UL Urine RBC (0-2) /hpf Urine WBC (0-3) /hpf Ur Squamous Epith Cells (Few) /hpf Urine Bacteria /hpf Urine Casts Influenza A (RT-PCR) (Negative) Influenza B (RT-PCR) (Negative) RSV (RT-PCR) (Negative) SARS-CoV-2 RNA (RT-PCR) (Negative) Discharge Plan Discharge Clinical Impression: Chest pain Patient Disposition: Home Condition: Stable Instructions: Antibiotic Form, Viral Syndrome (ED), Chest Wall Pain (ED) Additional Instructions: Have close follow-up with your primary care physician for additional outpatient cardiac testing. Patient Language: Khmer Prescriptions: No Action atorvastatin 40 mg tablet trazodone 50 mg tablet atenolol 100 mg tablet famotidine 40 mg tablet levothyroxine 100 mcg tablet esomeprazole magnesium 40 mg capsule,delayed release(DR/EC) glimepiride 4 mg tablet lisinopril 40 mg tablet topiramate 100 mg tablet carbamazepine 200 mg capsule, ER multiphase 12 hr PO desvenlafaxine succinate 50 mg tablet extended release 24 hr PO mecobalamin (vitamin B12) 5,000 mcg Tablet,Chewable 5,000 mcg PO DAILY ondansetron 4 mg tablet,disintegrating 4 mg PO Q8H PRN (Reason: nausea and vomiting) Qty: 10 0RF Follow-up/Referrals: Rodriguez,Moni Warner APN [Primary Care Provider] -
[2025-03-13] MEDS: ONDANSETRON INJ 4 MG/2 ML VIAL IV PUSH (14:06)
[2025-03-13 14:19] LABS: Basophils Absolute Auto 0.1 K/mm3 (0.0-0.1); Basophils Percent Auto 0.5 % (0.2-1.2); Eosinophils Absolute Auto 0.1 K/mm3 (0-0.3); Eosinophils Percent Auto 0.6 % (0-4.4); Hematocrit 39.9 % (37.0-47.0); Hemoglobin 13.2 g/dL (12.0-15.0); Immature Granulocyte Absolute 0.06 K/mm3 (0.00-0.031); Immature Granulocyte Percent A 0.6 % (0-0.5); Lymphocytes Absolute Auto 1.56 K/mm3 (0.9-3.2); Lymphocytes Percent Auto 16.8 % (18.3-44.2); Mean Corpuscular HGB Conc 33.1 g/dl (32-36); Mean Corpuscular Volume 90.7 fl (80-100); Mean Platelet Volume 10.2 fl (7.4-10.4); Monocytes Absolute Auto 0.6 K/mm3 (0.1-0.6); Monocytes Percent Auto 6.3 % (2.6-8.5); Neutrophils Percent Auto 75.2 % (45.5-73.1); Platelet Count Result 252 k/mm3 (150-375); Red Cell Distribution Width 12.9 % (11.5-14.5); White Blood Count 9.3 K/mm3 (4.5-10.0)
[2025-03-13 14:25] LABS: Alanine Aminotransferase 28 U/L (6-35); Albumin Level 4.8 g/dL (3.5-5.1); Alkaline Phosphatase 224 U/L (38-126); Anion Gap 11 mmol/L (4-12); Aspartate Amino Transferase 30 U/L (14-36); Bilirubin,Total 0.5 mg/dL (0.2-1.3); Blood Urea Nitrogen 13 mg/dL (7-17); Calcium 9.2 mg/dL (8.4-10.2); Carbon Dioxide 28 mmol/L (22-30); Chloride 97 mmol/L (98-107); Estimated CRCL calculation 42 ml/min; Estimated Glomerular Filt Rate > 60; Glucose 216 mg/dL (65-110); Lipase 59 U/L (23-300); Potassium 4.2 mmol/L (3.4-5.0); Sodium 136 mmol/L (137-145)
[2025-03-13 14:27] LABS: Lactic Acid Reflex 2.7 mmol/L (0.7-2.0)
[2025-03-13 14:33] LABS: INR 0.9; Prothrombin Time 12.9 Seconds (11.1-14.7)
--- OUTSIDE RECORDS SUMMARY | 2025-03-13 14:34 | XMS_ITS | Encounter Summary ---
Author Organization [facility] Address [address] [place] [address] Phone Care Team Providers Care Neck Fitter Name Role Phone Ronnie Kebede MD Unavailable Moni Rodriguez APRN, MECHATRONICS TECHNOLOGIST Primary Care Provider [phone] Reason for Visit * Reason Comments Medication Refill Encounter Details Date Type Department Care Team (Late Contact Info) Description 03/04/2021 [facility]ill [facility] - [place] #1 [facility] [place] [address] Geovanna Kelly APRN, NUTRITION ASSISTANT [address]2 [place] [address] Medication Refill Social History Tobacco Use Types [...] 03/28/2025 2:30 PM CDT EEG [facility] [address] [place] [address] Ronnie Kebede MD #[address] [place] [address] Discharge Disposition: Discharged to home or Selfcare 05/19/2025 2:00 PM CDT Office Visit [facility] - [facility] #2 [place] [address] Ronnie Kebede MD #[address] [place] [address] documented as of this encounter Visit Diagnoses Diagnosis Partial symptomatic epilepsy with complex partial seizures, not intractable, without status epilepticus documented in this encounter Care Teams Neck Fitter Relationship Specialty Start Date End Date Moni Rodriguez APRN, CNP [address] [place] [address] PCP - General Family Medicine 05/06/17 Ronnie Kebede MD [address] [place] [address] Consulting Physician Neurology 05/06/17 documented as of this encounter
--- OUTSIDE RECORDS SUMMARY | 2025-03-13 14:34 | XMS_ITS | Encounter Summary ---
Author Organization [facility] Address [address] [place] [address] Phone Care Team Providers Care Tool Sharpener Name Role Phone Ronnie Kebede MD Unavailable [phone] Moni Rodriguez APRN, CNP Primary Care Provider [phone] Reason for Visit * Reason Comments Medication Refill Encounter Details Date Type Department Care Team (Late st Contact Info) Description 02/02/2023 Refill [facility] - [facility]rology - [place] #2 [place] [address] Ronnie Kebede MD #2 [place] [address] Medication Refill Social History Tobacco [...] Dept 07/17/22 Office Visit Ronnie Kebede MD [facility] Neurology [facility] Showing recent visits within past 365 days and meeting all other requirements Future Appointments No visits were found meeting these conditions. Showing future appointments within next 90 days and meeting all other requirements documented in this encounter Plan of Treatment Upcoming Encounters Date Type Department Care Team (Late st Contact Info) Description 03/28/2025 2:30 PM CDT EEG [facility] [address] [place] [address] Ronnie Kebede MD [address] [place] [address] Discharge Disposition: Discharged to home or Selfcare 05/19/2025 2:00 PM CDT Office Visit [facility] - Neurology [facility] #2 [place] [address] Ronnie Kebede MD #[address] [place] [address] documented as of this encounter Visit Diagnoses Not on filedocumented in this encounter Care Teams Tool Sharpener Relationship Specialty Start Date End Date Moni Rodriguez APRN, CNP [address] [place] [address] PCP - General Family Medicine 05/06/17 Ronnie Kebede MD #2 [place] [address] Consulting Physician Neurology 05/06/17 documented as of this encounter
--- OUTSIDE RECORDS SUMMARY | 2025-03-13 14:34 | XMS_ITS | Encounter Summary ---
Author Organization [facility] Address [address] [place] [address] Phone Care Team Providers Care Engineering Supervisor Name Role Phone Ronnie Kebede MD Unavailable [phone] Moni Rodriguez APRN, CNP Primary Care Provider [phone] Reason for Visit * Reason Comments Medication Refill Encounter Details Date Type Department Care Team (Late Contact Info) Description [facility] #2 [place] [address] Ronnie Kebede MD #[address] [place] [address] Medication Refill Social History Tobacco [...] Description 03/28/2025 2:30 PM CDT [facility] 2 [place] [address] Ronnie Kebede MD #[address] [place] [address] Discharge Disposition: Discharged to home or Selfcare 05/19/2025 2:00 PM CDT Office Visit [facility] Neurology [facility] #2 [place] [address] Ronnie Kebede MD [address] [place] [address] documented as of this encounter Visit Diagnoses Not on filedocumented in this encounter Care Teams Engineering Supervisor Relationship Specialty Start Date End Date Moni Rodriguez APRN, DIAMOND [address] [place] [address] PCP - General Family Medicine 05/06/17 Ronnie Kebede MD [address] [place] [address] Consulting Physician Neurology 05/06/17 documented as of this encounter
--- OUTSIDE RECORDS SUMMARY | 2025-03-13 14:34 | XMS_ITS | Clinical Summary ---
Author Organization [facility] Address [address] [facility] [place] [address] Phone Care Team Providers Care Coil Tester Name Role Phone Ronnie Kebede MD Unavailable [phone] Moni Rodrgiuez APRN, MANAGER FINANCIAL PLANNING Primary Care Provider [phone] Allergies Active Allergy Reactions Criticality Noted Date [...] Department Care Team Description 02/22/2025 Telephone [facility] - Neurology [facility] #2 [place] [address] Ronnie Kebede MD 02/20/2025 Telephone [facility] Neurology [facility] #2 [place] [address] Ronnie Kebede MD 02/20/2025 [facility] [place] [address] Ronnie Kebede MD 02/17/2025 [facility]2 [place] [address] Ronnie Kebede MD 02/16/2025 2:15 PM CDT Office Visit [facility] #2 [place] [address] Ronnie Kebede MD Partial symptomatic epilepsy with complex partial seizures, not intractable, without status epilepticus (Primary Dx) Discharge Disposition: Discharged to home or Selfcare 02/16/2025 Travel 02/06/2025 Telephone [facility] #2 [place] [address] Ronnie Kebede MD from Last 3 Months [...] Description 03/28/2025 2:30 PM CDT EEG [facility] 2 [place] [address] Ronnie Kebede MD #2 [place] [address] Discharge Disposition: Discharged to home or Selfcare 05/19/2025 2:00 PM CDT Office Visit [facility] - Neurology [facility] #2 [place] [address] Ronnie Kebede MD #[address] [place] [address] Health Maintenance Due Date Last Done Comments [...] MEDICAID [place]ICARE C [employer]ET[employer] Care Teams Coil Tester Relationship Specialty Start Date End Date Rodriguez, ELEN Montenegro, MANAGER FINANCIAL PLANNING [address] [place] [address] PCP - General Family Medicine 05/06/17 Ronnie Kebede MD [address] [place] [address] Consulting Physician Neurology 05/06/17
--- OUTSIDE RECORDS SUMMARY | 2025-03-13 14:34 | XMS_ITS | Encounter Summary ---
Author Organization [facility] Address [address] [place] [address] Phone Care Team Providers Care Packaging Supervisor Name Role Phone Ronnie Kebede MD Unavailable [phone] Moni Rodriguez APRN, CNP Primary Care Provider [phone] Reason for Visit * Reason Comments Medication Refill Encounter Details Date Type Department Care Team (Late Contact Info) Description 12/12/2022 [facility] #2 [place] [address] Ronnie Kebede MD #[address] [place] [address] Medication Refill Social History Tobacco [...] Info) Description 03/28/2025 2:30 PM CDT [facility] 2 [place] [address] Ronnie Kebede MD #[address] [place] [address] Discharge Disposition: Discharged to home or Selfcare 05/19/2025 2:00 PM CDT Office Visit [facility] #2 [place] [address] Ronnie Kebede MD #[address] [place] [address] documented as of this encounter Visit Diagnoses Not on filedocumented in this encounter Care Teams Packaging Supervisor Relationship Specialty Start Date End Date Moni Rodriguez APRN, DIAMOND [address] [place] [address] PCP - General Family Medicine 05/06/17 Ronnie Kebede MD #[address] [place] [address] Consulting Physician Neurology 05/06/17 documented as of this encounter
--- OUTSIDE RECORDS SUMMARY | 2025-03-13 14:34 | XMS_ITS | Encounter Summary ---
Author Organization [facility] Address [address] [place] [address] Phone Care Team Providers Care Cutting Table Operator Name Role Phone Ronnie Kebede MD Unavailable [phone] Moni Rodriguez APRN, CNP Primary Care Provider [phone] Reason for Visit * Reason Comments Medication Refill Encounter Details Date Type Department Care Team (Late Contact Info) Description 04/07/2020 Refill [facility] - [place] #1 [facility] [place] [address] Ronnie Kebede MD #2 [place] [address] Medication Refill Social History [...] 03/28/2025 2:30 PM CDT EEG [facility] 2 [place] [address] Ronnie Kebede MD #2 [place] [address] Discharge Disposition: Discharged to home or Selfcare 05/19/2025 2:00 PM CDT Office Visit [facility] #2 [place] [address] Ronnie Kebede MD #[address] [place] [address] documented as of this encounter Visit Diagnoses Not on filedocumented in this encounter Care Teams Cutting Table Operator Relationship Specialty Start Date End Date Moni Rodriguez APRN, DIAMOND [address] [place] [address] PCP - General Family Medicine 05/06/17 Ronnie Kebede MD #[address] [place] [address] Consulting Physician Neurology 05/06/17 documented as of this encounter
--- OUTSIDE RECORDS SUMMARY | 2025-03-13 14:34 | XMS_ITS | Encounter Summary ---
Author Organization [facility] Address [address] [place] [address] Phone Care Team Providers Care House Painter Name Role Phone Ronnie Kebede MD Unavailable [phone] Moni Rodriguez APRN, CNP Primary Care Provider [phone] Reason for Visit * Reason Comments Medication Refill Encounter Details Date Type Department Care Team (Late st Contact Info) Description 10/12/2020 Refill [facility] - [place] #1 [facility] [place] [address] Ronnie Kebede MD #2 [place] [address] Medication Refill Social History Tobacco [...] By: IVY VIDES Reason for Refusal: Other RVISOR PLATE FORMING documented in this encounter Plan of Treatment Upcoming Encounters Date Type Department Care Team (Late st Contact Info) Description 03/28/2025 2:30 PM CD[facility] 2 [place] [address] Ronnie Kebede MD #2 [place] [address] Discharge Disposition: Discharged to home or Selfcare 05/19/2025 2:00 PM CDT Office Visit [facility] #2 [place] [address] Ronnie Kebede MD #[address] [place] [address] documented as of this encounter Visit Diagnoses Diagnosis Partial symptomatic epilepsy with complex partial seizures, not intractable, without status epilepticus documented in this encounter Care Teams House Painter Relationship Specialty Start Date End Date Moni Rodriguez APRN, DIAMOND [address] [place] [address] PCP - General Family Medicine 05/06/17 Ronnie Kebede MD #[address] [place] [address] Consulting Physician Neurology 05/06/17 documented as of this encounter
--- OUTSIDE RECORDS SUMMARY | 2025-03-13 14:34 | XMS_ITS | Encounter Summary ---
Author Organization [facility] Address [address] [place] [address] Phone Care Team Providers Care Puff Iron Operator Name Role Phone Ronnie Kebede MD Unavailable Moni Rodriguez APRN, CNP Primary Care Provider [phone] Reason for Visit * Reason Comments Medication Refill Encounter Details Date Type Department Care Team (Late Contact Info) Description 02/06/2021 Refill [facility] - [place] #1 [facility] [place] [address] Ronnie Kebede MD #2 [place] [address] Medication Refill Social History Tobacco [...] 03/28/2025 2:30 PM CDT EEG [facility] 2 [place] [address] Ronnie Kebede MD #2 [place] [address] Discharge Disposition: Discharged to home or Selfcare 05/19/2025 2:00 PM CDT Office Visit [facility] - Neurology [facility] #2 [place] [address] Ronnie Kebede MD #[address] [place] [address] documented as of this encounter Visit Diagnoses Not on filedocumented in this encounter Care Teams Puff Iron Operator Relationship Specialty Start Date End Date Moni Rodriguez APRN, DIAMOND [address] [place] [address] PCP - General Family Medicine 05/06/17 Ronnie Kebede MD #2 [place] [address] Consulting Physician Neurology 05/06/17 documented as of this encounter
--- OUTSIDE RECORDS SUMMARY | 2025-03-13 14:34 | XMS_ITS | Encounter Summary ---
Author Organization [facility] Address [address] [place] [address] Phone Care Team Providers Care Power Brake Rebuilder Name Role Phone Ronnie Kebede MD Unavailable [phone] Moni Rodriguez APRN, CNP Primary Care Provider [phone] Reason for Visit * Reason Comments Medication Refill Encounter Details Date Type Department Care Team (Late Contact Info) Description 11/15/2020 [facility]ill [facility] - [place] #1 [facility] [place] [address] Ronnie Kebede MD #2 [place] [address] Medication Refill Social History Tobacco [...] 2:30 PM CDT EEG [facility] 2 [place] [address] Ronnie Kebede MD #2 [place] [address] Discharge Disposition: Discharged to home or Selfcare 05/19/2025 2:00 PM CDT Office Visit [facility] - Neurology [facility] #2 [place] [address] Ronnie Kebede MD #2 [place] [address] documented as of this encounter Visit Diagnoses Diagnosis Partial symptomatic epilepsy with complex partial seizures, not intractable, without status epilepticus documented in this encounter Care Teams Power Brake Rebuilder Relationship Specialty Start Date End Date Moni Rodriguez APRN, CNP [address] [place] [address] PCP - General Family Medicine 05/06/17 Ronnie Kebede MD #2 [place] [address] Consulting Physician Neurology 05/06/17 documented as of this encounter
--- OUTSIDE RECORDS SUMMARY | 2025-03-13 14:34 | XMS_ITS | Encounter Summary ---
Author Organization [facility] Address [address] [place] [address] Phone Care Team Providers Care Wearing Apparel Shaker Name Role Phone Ronnie Kebede MD Unavailable [phone] Moni Rodriguez APRN, CNP Primary Care Provider [phone] Reason for Visit * Reason Comments Medication Refill Encounter Details Date Type Department Care Team (Late Contact Info) Description 02/27/2021 Refill [facility] [place] #1 [facility] [place] [address] Ronnie Kebede MD #2 [place] [address] Medication Refill Social History Tobacco [...] 03/28/2025 2:30 PM CDT EEG [facility] 2 [place] [address] Ronnie Kebede MD #2 [place] [address] Discharge Disposition: Discharged to home or Selfcare 05/19/2025 2:00 PM CDT Office Visit [facility] - Neurology [facility] #2 [place] [address] Ronnie Kebede MD #2 [place] [address] documented as of this encounter Visit Diagnoses Not on filedocumented in this encounter Care Teams Wearing Apparel Shaker Relationship Specialty Start Date End Date Moni Rodriguez APRN, DIAMOND [address] [place] [address] PCP - General Family Medicine 05/06/17 Ronnie Kebede MD #2 [place] [address] Consulting Physician Neurology 05/06/17 documented as of this encounter
--- OUTSIDE RECORDS SUMMARY | 2025-03-13 14:34 | XMS_ITS | Encounter Summary ---
Author Organization [facility] Address [address] [place] [address] Phone Care Team Providers Care Electroless Plater Name Role Phone Ronnie Kebede MD Unavailable [phone] Moni Rodriguez APRN, CNP Primary Care Provider [phone] Reason for Visit * Reason Comments Medication Refill Encounter Details Date Type Department Care Team (Late st Contact Info) Description 08/01/2023 Refill [facility] - Neurology - [place] #2 [place] [address] Ronnie Kebede MD #2 [place] [address] Medication Refill Social History Tobacco [...] Provider Dept 08/10/23 Appointment Ronnie Kebede MD [facility] Showing future appointments within next 90 days and meeting all other requirements documented in this encounter Plan of Treatment Upcoming Encounters Date Type Department Care Team (Late st Contact Info) Description 03/28/2025 2:30 PM CDT EEG [facility] 2 [place] [address] Ronnie Kebede MD #2 [place] [address] Discharge Disposition: Discharged to home or Selfcare 05/19/2025 2:00 PM CDT Office Visit [facility] #2 [place] [address] Ronnie Kebede MD #2 [place] [address] documented as of this encounter Visit Diagnoses Not on filedocumented in this encounter Care Teams Electroless Plater Relationship Specialty Start Date End Date Moni Rodriguez APRN, CNP [address] [place] [address] PCP - General Family Medicine 05/06/17 Ronnie Kebede MD #2 [place] [address] Consulting Physician Neurology 05/06/17 documented as of this encounter
--- OUTSIDE RECORDS SUMMARY | 2025-03-13 14:34 | XMS_ITS | Encounter Summary ---
Author Organization [facility] Address [address] [place] [address] Phone Care Team Providers Care Control System Computer Scientist Name Role Phone Ronnie Kebede MD Unavailable [phone] Moni Rodriguez APRN, KNUCKLER Primary Care Provider [phone] Reason for Visit * Reason Comments Medication Refill Encounter Details Date Type Department Care Team (Late Contact Info) Description 02/06/2021 Refill [facility] - [place] #1 [facility] [place] [address] Geovanna Kelly APRN, CRACKING AND FANNING MACHINE OPERATOR #2 [place] [address] Medication Refill Social History Tobacco Use Types [...] 03/28/2025 2:30 PM CDT EEG [facility] 2 [place] [address] Ronnie Kebede MD #2 [place] [address] Discharge Disposition: Discharged to home or Selfcare 05/19/2025 2:00 PM CDT Office Visit [facility] - Neurology [facility] #2 [place] [address] Ronnie Kebede MD #2 [place] [address] documented as of this encounter Visit Diagnoses Diagnosis Partial symptomatic epilepsy with complex partial seizures, not intractable, without status epilepticus documented in this encounter Care Teams Control System Computer Scientist Relationship Specialty Start Date End Date Moni Rodriguez APRN, CNP [address] [place] [address] PCP - General Family Medicine 05/06/17 Ronnie Kebede MD #2 [place] [address] Consulting Physician Neurology 05/06/17 documented as of this encounter
--- OUTSIDE RECORDS SUMMARY | 2025-03-13 14:34 | XMS_ITS | Clinical Summary ---
Author Organization [facility] Address [address] [place] [address] Care Team Providers Care Alligator Hunter Name Role Phone Unavailable Primary Care Provider Unavailabl e Source Comments [facility],non-owned Affiliates and Associated Physician Practices is amultiple site organization consisting of ambulatory clinics and hospital sitesin [place], [place], [place] and [place]. This disclosure is being madepursuant to the Care Everywhere program and may not contain all information available regarding this patient. Last updated 18.[facility] Allergies Active Allergy Reactions Criticality Noted Date [...] Concussion Seizures Overview (10/15/2011): Dr. Crystal Osei [facility]. Onset after concussion Hypothyroid Hyperlipidemia DM [...] Brother 2 lung CA Brother 3 Father [place] Mother [place] Social History Tobacco Use Types Packs/Day Years Used Date Smoking Tobacco: Never Smokeless Tobacco: Never Alcohol Use Standard Drinks/Week Comments No 0 (1 standard drink = 0.6 oz pur e alcohol) Comments No Sex and Gender Information Value Date Recorded Sex Assigned at Not on file Legal Sex Female 12:51 PM PAPERBOARD BOXES ESTIMATOR Gender Identity Not on file Sexual Orientation Not on file Last Filed Vital Signs Vital Sign Reading Time Taken Comments Blood Pressure 130/80 02/24/2012 10:27 AM CDT Pulse 86 02/24/2012 10:27 AM CDT Temperature 37.1 C (98.8 F) 11/19/2011 12:56 PM PAPERBOARD BOXES ESTIMATOR Respiratory Rate - - Oxygen Saturation - [...] DENSITY 2 SITES Routine 11/18/2011 6:48 PM PAPERBOARD BOXES ESTIMATOR Asymptomatic postmenopausal status (age-related) (natural) MICROALBUMIN URINE RANDOM Routine 11/18/2011 12:11 PM PAPERBOARD BOXES ESTIMATOR DM (diabetes mellitus) COMPREHENSIVE METABOLIC PANEL Routine 11/18/2011 12:09 PM PAPERBOARD BOXES ESTIMATOR Hyperlipidemia DM (diabetes mellitus) from Last 3 [...] Narrative Resulting Agency Comment [facility] [place] [address] [facility] [id number] us Nahomi Mcginnis MD LAB - CHEMISTRY ORDERABLES Final Result [facility] INSURANCE BILL [address] [place] [address] * DEXA BONE DENSITY 2 SITES (11/18/2011 6:48 PM PAPERBOARD BOXES ESTIMATOR) Anatomical Region Laterality Modality Other Narrative 11/18/2011 6:48 PM PAPERBOARD BOXES ESTIMATOR Jeremi Chauhan MD 11/18/2011 6:48 PM [facility] Medical group BONE DENSITY REPORT Pt. Name: Catrachita Rosa Gender: female : 1945 Test Date: 11/18/2011 Referring Physician: Nahomi Mcginnis MD Technologist: MALKA Montenegro A Central DXA was performed today using a [employer] QDR Discovery C emergency services director. The images and data have been scanned. [...] Jeremi Chauhan MD Physician and Certified Clinical Caster Investment Casting Procedure Note Elo Asher - 11/18/2011 4:08 PM CST [facility] Medical group BONE DENSITY REPORT Pt. Name: Catrachita Rosa Gender: female : 1945 Test Date: 11/18/2011 Referring Physician: Nahomi Mcginnis MD Technologist: MALKA Montenegro A Central DXA was performed today using a [employer] QDR Discovery C emergency services director.The images and data have been scanned. Images [...] Jeremi Chauhan MD Physician and Certified Clinical Caster Investment Casting Nahomi Mcginnis MD DEXA ORDERABLES Final Result * MICROALBUMIN URINE RANDOM (11/18/2011 12:11 PM PAPERBOARD BOXES ESTIMATOR) Microalbumin Random Urine 10.4 0.0 - 17.0 ug/mL [facility] INSURANCE BILL URINE / Unknown 11/18/2011 1 2:11 PM PAPERBOARD BOXES ESTIMATOR 11/18/2011 5:48 PM PAPERBOARD BOXES ESTIMATOR Narrative Resulting Agency Comment [facility] [address] [phone] Nahomi Mcginnis MD LAB - URINE CHEMISTRY ORDERABLES Final Result [facility] INSURANCE BILL [address] [place] [address] * (ABNORMAL) COMPREHENSIVE METABOLIC PANEL (11/18/2011 12:09 PM PAPERBOARD BOXES ESTIMATOR) Glucose 100(H) 65 - 99 mg/dL [facility] [...] BLOOD SPECIMEN / Unknown 11/18/2011 12:09 PM PAPERBOARD BOXES ESTIMATOR 11/18/2011 5:58 PM PAPERBOARD BOXES ESTIMATOR Narrative Resulting Agency Comment [facility] [place] [address] [facility] [id number] us Nahomi Mcginnis MD LAB - CHEMISTRY ORDERABLES Final Result [facility] INSURANCE BILL [address] [place] [address] from Last 3 Months or Most Recently Relevant to Health Maintenance Insurance MEDICAID - OUT OF STATE MEDICARE
--- OUTSIDE RECORDS SUMMARY | 2025-03-13 14:34 | XMS_ITS | Encounter Summary ---
Author Organization [facility] Address [address] [place] [address] Phone Care Team Providers Care Flight Engineer Manager Name Role Phone Ronnie Kebede MD Unavailable [phone] Moni Rodriguez APRN, CNP Primary Care Provider [phone] Reason for Visit * Reason Comments Medication Refill Encounter Details Date Type Department Care Team (Late Contact Info) Description [facility] #2 [place] [address] Ronnie Kebede MD #2 [place] [address] Medication Refill Social History [...] 03/28/2025 2:30 PM CDT [facility] 2 [place] [address] Ronnie Kebede MD #2 [place] [address] Discharge Disposition: Discharged to home or Selfcare 05/19/2025 2:00 PM CDT Office Visit [facility] - Neurology [facility] #2 [place] [address] Ronnie Kebede MD #2 [place] [address] documented as of this encounter Visit Diagnoses Not on filedocumented in this encounter Care Teams Flight Engineer Manager Relationship Specialty Start Date End Date Moni Rodriguez APRN, DIAMOND [address] [place] [address] PCP - General Family Medicine 05/06/17 Ronnie Kebede MD #2 [place] [address] Consulting Physician Neurology 05/06/17 documented as of this encounter
--- OUTSIDE RECORDS SUMMARY | 2025-03-13 14:34 | XMS_ITS | Encounter Summary ---
Author Organization [facility] Address [address] [place] [address] Phone Care Team Providers Care Manager Customer Service Name Role Phone Ronnie Kebede MD Unavailable [phone] Moni Rodriguez APRN, CNP Primary Care Provider [phone] Reason for Visit * Reason Comments Medication Refill Encounter Details Date Type Department Care Team (Late Contact Info) Description 10/23/2020 Refill [facility] - [place] #1 [facility] [place] [address] Ronnie Kebede MD #2 [place] [address] Medication Refill Social History Tobacco [...] 03/28/2025 2:30 PM CDT EEG [facility] 2 [place] [address] Ronnie Kebede MD #2 [place] [address] Discharge Disposition: Discharged to home or Selfcare 05/19/2025 2:00 PM CDT Office Visit [facility] - Neurology [facility] #2 [place] [address] Ronnie Kebede MD #2 [place] [address] documented as of this encounter Visit Diagnoses Not on filedocumented in this encounter Care Teams Manager Customer Service Relationship Specialty Start Date End Date Moni Rodriguez APRN, DIAMOND [address] [place] [address] PCP - General Family Medicine 05/06/17 Ronnie Kebede MD #2 [place] [address] Consulting Physician Neurology 05/06/17 documented as of this encounter
--- OUTSIDE RECORDS SUMMARY | 2025-03-13 14:34 | XMS_ITS | Encounter Summary ---
Author Organization [facility] Address [address] [place] [address] Phone Care Team Providers Care Health Sciences Department Chair Name Role Phone Ronnie Kebede MD Unavailable Moni Rodriguez APRN, CNP Primary Care Provider [phone] Reason for Visit * Reason Comments Medication Refill Encounter Details Date Type Department Care Team (Late Contact Info) Description [facility] #2 [place] [address] Ronnie Kebede MD #2 [place] [address] Medication Refill Social History Tobacco [...] Info) Description 03/28/2025 2:30 PM [facility] 2 [place] [address] Ronnie Kebede MD #2 [place] [address] Discharge Disposition: Discharged to home or Selfcare 05/19/2025 2:00 PM CDT Office Visit [facility] #2 [place] [address] Ronnie Kebede MD #2 [place] [address] documented as of this encounter Visit Diagnoses Not on filedocumented in this encounter Care Teams Health Sciences Department Chair Relationship Specialty Start Date End Date Moni Rodriguez APRN, DIAMOND [address] [place] [address] PCP - General Family Medicine 05/06/17 Ronnie Kebede MD #2 [place] [address] Consulting Physician Neurology 05/06/17 documented as of this encounter
--- OUTSIDE RECORDS SUMMARY | 2025-03-13 14:34 | XMS_ITS | Encounter Summary ---
Author Organization [facility] Address [address] [place] [address] Phone Care Team Providers Care Director Drug Safety Name Role Phone Ronnie Kebede MD Unavailable [phone] Moni Rodriguez APRN, PRODUCT PLANNER Primary Care Provider [phone] Reason for Visit * Reason Comments Medication Refill Encounter Details Date Type Department Care Team (Late Contact Info) Description [facility] #2 [place] [address] Geovanna Kelly APRN, DIRECT CARE PROVIDER #2 [place] [address] Medication Refill Social History Tobacco Use Types [...] 03/28/2025 2:30 PM CDT [facility] 2 [place] [address] Ronnie Kebede MD #2 [place] [address] Discharge Disposition: Discharged to home or Selfcare 05/19/2025 2:00 PM CDT Office Visit [facility] - Neurology [facility] #2 [place] [address] Ronnie Kebede MD #2 [place] [address] documented as of this encounter Visit Diagnoses Not on filedocumented in this encounter Care Teams Director Drug Safety Relationship Specialty Start Date End Date Moni Rodriguez APRN, DIAMOND [address] [place] [address] PCP - General Family Medicine 05/06/17 Ronnie Kebede MD #2 [place] [address] Consulting Physician Neurology 05/06/17 documented as of this encounter
--- OUTSIDE RECORDS SUMMARY | 2025-03-13 14:35 | XMS_ITS | Encounter Summary ---
Author Organization [facility] Address [address] [place] [address] Phone Care Team Providers Care Scenario Writer Name Role Phone Ronnie Kebede MD Unavailable [phone] Moni Rodriguez APRN, CNP Primary Care Provider [phone] Reason for Visit * Reason Comments Medication Refill Encounter Details Date Type Department Care Team (Late st Contact Info) Description 10/29/2023 Refill [facility] - Neurology - [place] #2 [place] [address] Ronnie Kebede MD #2 [place] [address] Medication Refill Social History Tobacco [...] Dept 08/10/23 Office Visit Ronnie Kebede MD [facility] Neurology [facility] Showing recent visits within past 365 days and meeting all other requirements Future Appointments Date Type Provider Dept 12/10/23 Appointment Ronnie Kebede MD [facility] Neurology [facility] Showing future appointments within next 90 days and meeting all other requirements TENDED GROUND SENSOR SPECIALIST documented in this encounter Plan of Treatment Upcoming Encounters Date Type Department Care Team (Late st Contact Info) Description 03/28/2025 2:30 PM CDT [facility] 2 [place] [address] Ronnie Kebede MD #2 [place] [address] Discharge Disposition: Discharged to home or Selfcare 05/19/2025 2:00 PM CDT [facility] #2 [place] [address] Ronnie Kebede MD #2 [place] [address] documented as of this encounter Visit Diagnoses Diagnosis Partial symptomatic epilepsy with complex partial seizures, not intractable, without status epilepticus documented in this encounter Care Teams Scenario Writer Relationship Specialty Start Date End Date Moni Rodriguez APRN, DIAMOND [address] [place] [address] PCP - General Family Medicine 05/06/17 Ronnie Kebede MD #2 [place] [address] Consulting Physician Neurology 05/06/17 documented as of this encounter
--- OUTSIDE RECORDS SUMMARY | 2025-03-13 14:35 | XMS_ITS | Encounter Summary ---
Author Organization [facility] Address [address] [place] [address] Phone Care Team Providers Care Data Processing Consultant Name Role Phone Ronnie Kebede MD Unavailable [phone] Moni Rodriguez APRN, CNP Primary Care Provider [phone] Reason for Visit * Reason Comments Medication Refill Encounter Details Date Type Department Care Team (Late st Contact Info) Description 02/21/2024 Refill [facility] - Neurology - [place] #2 [place] [address] Ronnie Kebede MD #2 [place] [address] Medication Refill Social History Tobacco [...] Dept 12/10/23 Office Visit Ronnie Kebede MD [facility] Neurology [facility] 08/10/23 Office Visit Ronnie Kebede MD [facility] Neurology [facility] Showing recent visits within past 365 days and meeting all other requirements Future Appointments No visits were found meeting these conditions. Showing future appointments within next 90 days and meeting all other requirements documented in this encounter Plan of Treatment Upcoming Encounters Date Type Department Care Team (Late st Contact Info) Description 03/28/2025 2:30 PM CD[facility] 2 [place] [address] Ronnie Kebede MD #2 [place] [address] Discharge Disposition: Discharged to home or Selfcare 05/19/2025 2:00 PM CDT Office Visit [facility] - Neurology [facility] #2 [place] [address] Ronnie Kebdee MD #2 [place] [address] documented as of this encounter Visit Diagnoses Not on filedocumented in this encounter Care Teams Data Processing Consultant Relationship Specialty Start Date End Date Moni Rodriguez APRN, DIAMOND [address] [place] [address] PCP - General Family Medicine 05/06/17 Ronnie Kebede MD #2 [place] [address] Consulting Physician Neurology 05/06/17 documented as of this encounter
--- OUTSIDE RECORDS SUMMARY | 2025-03-13 14:35 | XMS_ITS | Encounter Summary ---
Author Organization [facility] Address [address] [place] [address] Phone Care Team Providers Care Resistance Welder Name Role Phone Ronnie Kebede MD Unavailable [phone] Moni Rodriguez APRN, CNP Primary Care Provider [phone] Reason for Visit * Reason Comments Medication Refill Encounter Details Date Type Department Care Team (Late Contact Info) Description 01/12/2021 Refill [facility] - [place] #1 [facility] [place] [address] Ronnie Kebede MD #2 [place] [address] Medication Refill Social History Tobacco [...] [facility] 2 [place] [address] Ronnie Kebede MD #2 [place] [address] Discharge Disposition: Discharged to home or Selfcare 05/19/2025 2:00 PM CDT [facility] Neurology [facility] #2 [place] [address] Ronnie Kbeede MD #2 [place] [address] documented as of this encounter Visit Diagnoses Diagnosis Partial symptomatic epilepsy with complex partial seizures, not intractable, without status epilepticus documented in this encounter Care Teams Resistance Welder Relationship Specialty Start Date End Date Moni Rodriguez APRN, CNP [address] [place] [address] PCP - General Family Medicine 05/06/17 Ronnie Kebede MD #2 [place] [address] Consulting Physician Neurology 05/06/17 documented as of this encounter
--- OUTSIDE RECORDS SUMMARY | 2025-03-13 14:35 | XMS_ITS | CONTINUITY OF CARE DOCUMENT ---
Author Name anup hebert Address Unknown Organization [facility] Address [address] [place] [address] [address] [place] [address] Phone [phone] Care Team Providers Care Timber Estimator Name Role Phone Bentley MOODY, Min Unavailable INSURANCE PROVIDERS Payer name Policy type / Coverage type [place] red democrat ID [id number] MED[place] Medicare [id number]
[2025-03-13 14:38] LABS: Troponin I < 0.012 ng/mL (0.000-0.034)
[2025-03-13 14:53] LABS: Influenza A QL RT-PCR Negative (Negative); Influenza B QL RT-PCR Negative (Negative); RSV RNA, RT-PCR Negative (Negative); SARS-CoV-2 RNA PCR Negative (Negative)
--- NOTE | 2025-03-13 15:30 | PC.NURSE ---
patient ambulatory to bathroom with x1 SBA and was able to give a urine sample. patient taken back to bed and hooked up to monitor. Renetta Schaffer RN at bedside.
[2025-03-13] MEDS: LACTATED RINGERS 1,000 ML 999 ML IV CONT (15:33)
--- NOTE | 2025-03-13 15:35 | PC.NURSE ---
Dr. Sunshine notified of pt. htn. See MAR for intervention.
[2025-03-13 15:48] LABS: Add Urine Microscopic? YES; Appearance Urine Clear (Clear); Bacteria Urine None Seen /hpf; Bilirubin Urine Negative (Negative); Blood Urine Negative (Negative); Color Urine Yellow (Yellow); Glucose Urine UA Trace mg/dL (Negative); Ketones Urine Negative (Negative); Leukocyte Esterase Ur Negative LEU/UL (Negative); Nitrate Urine Negative (Negative); Non Pathogenic Casts 0-2; Protein Urine 1+ mg/dL (Negative); RBC Urine 0-2 /hpf (0-2); Specific Grav Ur 1.018 (1.001-1.035); Squamous Epithelial Cell Urine None Seen /hpf (Few); WBC Urine 0-5 /hpf (0-3)
[2025-03-13] MEDS: atenoloL 50 MG TABLET PO (16:00)
[2025-03-13 16:11] LABS: Reflex Lactic Acid Yes or No Add Lactic
[2025-03-13] MEDS: hydrALAZINE HCL 20 MG/ML VIAL 10 MG IV PUSH (16:23)
--- NOTE | 2025-03-13 16:58 | ECG_ITS ---
Test Date: 2025-03-13 17:18:40 Measurements Intervals Lindsay Rate: 69 P: 69 WA: 233 QRS: -1 QRSD: 92 T: 81 QT: 417 QTc: 449 Interpretive Statements SINUS RHYTHM WITH FIRST DEGREE AV BLOCK LEFT VENTRICULAR HYPERTROPHY AND ST-T CHANGE Compared to ECG 03/13/2025 14:00:03 NO SIGNIFICANT CHANGES Electronically Signed On 03-14-2025 14:48:59 CDT by Kelli Brannon M.D.
[2025-03-13 17:41] LABS: Lactic Acid 1.8 mmol/L (0.7-2.0)
[2025-03-13 17:53] LABS: Troponin I < 0.012 ng/mL (0.000-0.034)
== END 2025-03-13 18:29 | disposition home or self-care (01) ==
PROVIDERS: Emergency Provider Emergency Medicine; PCP Nurse Practitioner Family
DX: R07.9 Chest pain, unspecified (principal); Z20.822 Contact with and (suspected) exposure to COVID-19; G40.909 Epilepsy, unspecified, not intractable, without status epilepticus; Z79.899 Other long term (current) drug therapy; Z79.84 Long term (current) use of oral hypoglycemic drugs; I44.0 Atrioventricular block, first degree; I51.7 Cardiomegaly
CPT/HCPCS: 36415; 80053; 81001; 82948; 83605; 83690; 84484; 85025; 85610; 85730; 87637; 93005; 96361; 96374; 96375; 99284; A9270; J0360; J2405; J7120

== ENCOUNTER 2025-03-23 09:29 | Emergency (ER) | payer MEDICARE, MEDICAID, SELFPAY ==
[2025-03-23] VITALS (8 sets, daily range): BP systolic 143–174; BP diastolic 63–79; PULSE 49–69; RESP 16–18; TEMP 36.5; O2SAT 98–100
--- NOTE | ~2025-03-23 | CT_ITS ---
EXAMINATION: CT abdomen pelvis wo con DATE: 03/23/2025 12:09 INDICATION: Abnormal pain and constipation. Syncope. TECHNIQUE: Computed tomography (CT) of the abdomen and pelvis was performed without intravenous contr ast. Automated exposure control and iterative reconstruction technique were employed. The dose-length product was 343.22 mGy-cm. COMPARISON: 06/21/2018 and 02/02/2025 FINDINGS: Calcified right lower lobe nodule consistent with old granulomatous disease. Heart size is normal. At herosclerotic coronary artery calcific location and aortic valve calcific lesion. No pericardial effu gerda. Multiple tiny high attenuation gallstones along the dependent wall of the normal appearing gall bladder. No intra or extra hepatic biliary ductal dilation. Liver, spleen, pancreas and left adrenal gland are normal. No significant interval change since 2018 in a 1.6 cm right adrenal adenoma. Postop erative change at the upper pole the right kidney consistent with partial nephrectomy for reported pr ior renal cell carcinoma. 2.4 cm and 1.4 cm exophytic cyst at the upper pole of the left kidney. Blad nedra is normal. There is moderate colonic diverticulosis with a sigmoid predominance. There is no adj acent inflammatory change to suggest diverticulitis. Moderate amount of stool throughout the colon wi th 6 cm diameter ball of stool at the rectum consistent with provided history of constipation. No bow el obstruction. The appendix is not visualized. No pericecal inflammatory change to suggest acute vladimir endicitis. The uterus is not identified and has likely been surgically resected. No free intraperiton eal gas or fluid. No pathologically enlarged abdominal or pelvic lymphadenopathy. Lumbar levoscoliosi s with severe lower lumbar spondylosis. IMPRESSION: 1. Moderate amount of colonic stool with 6 similar diameter ball of stool the rectum consistent with provided history of constipation. No other acute intra-abdominal/pelvic process. Reviewed, dictated and finalized at location A. IMPRESSION: 1. Moderate amount of colonic stool with 6 similar diameter ball of stool the r ectum consistent with provided history of constipation. No other acute intra-ab dominal/pelvic process.
--- NOTE | ~2025-03-23 | CT_ITS ---
EXAMINATION: CT brain wo con DATE: 03/23/2025 12:09 INDICATION: Seizure versus syncope TECHNIQUE: Computed tomography (CT) of the head was performed without intravenous contrast. Sagittal and coronal reconstructions were performed. The mA was adjusted according to patient size. Iterative reconstruction technique was employed. The dose-length product was 529.67 mGy-cm. COMPARISON: head CT dated 02/02/2025 FINDINGS: No acute intracranial hemorrhage, acute infarction or abnormal extra axial fluid collection. There is mild scattered white matter hypoattenuation consistent with chronic small vessel ischemic disease. S ymmetric prominence of the sulci consistent with mild age-appropriate diffuse cerebral volume loss. V entricles are normal and symmetric. No mass/mass effect. Changes of right intraocular lens replacemen t. The orbits, paranasal sinuses and mastoid air cells are normal. IMPRESSION: 1. Stable appearance of age-related changes including mild diffuse volume loss and mild scattered whi te matter hypoattenuation consistent with chronic small vessel ischemic disease. No acute intracrania l process. Reviewed, dictated and finalized at location A. IMPRESSION: 1. Stable appearance of age-related changes including mild diffuse volume loss and mild scattered white matter hypoattenuation consistent with chronic small v essel ischemic disease. No acute intracranial process.
--- OUTSIDE RECORDS SUMMARY | 2025-03-23 09:32 | XMS_ITS | Clinical Summary ---
Author Organization [facility] Address [address] [facility], [place] [address] Phone Care Team Providers Care Director Of Critical Care Name Role Phone Ronnie Kebede MD Unavailable [phone] Moni Rodriguez APRN, SEXUAL ABUSE COUNSELLOR Primary Care Provider [phone] Allergies Active Allergy Reactions Criticality Noted Date Comments Adhesive Tape Anaphylaxis Medium 10/15/2011 Bee Venom Anaphylaxis 07/16/2017 Benzonatate Unknown 01/15/2012 Per outside records Coconut (Cocos Nucifera) Anaphylaxis 07/16/2017 Swelling and itching Iodine Swelling Medium 04/28/2017 Metoprolol Other (see Comments) Medications atenolol (TENORMIN) 100 MG Tablet 50 mg. 04/22/20 10 Active Desvenlafaxine Succinate 50 MG TABLET SR 24 HR 50 mg. 10/14/20 10 Active esomeprazole (NexIUM) 40 MG CAPSULE DELAYED RELEASE take 1 capsule (40MG) by ORAL route every day 04/22/20 10 Active glimepiride (AMARYL) 4 MG Tablet take 1 tablet (4MG) by ORAL route every day 04/22/20 10 Active hydroCHLOROthia zide 50 MG Tablet take 1 tablet (50MG) by ORAL route every day 04/22/20 10 Active levothyroxine (SYNTHROID) 150 MCG Tablet take 1 tablet (150MCG) by ORAL route every day 04/22/20 10 Active traZODone (DESYREL) 100 MG Tablet 50 mg. 3 05/29/20 17 Active lisinopril (PRINIVIL, ZESTRIL) 10 MG Tablet [...] HOURS IF HEADACHE RECURS. 9 Tablet 3 12/12/19 23 Active famotidine (PEPCID) 40 MG Tablet Take 40 mg by mouth daily. Active Apoaequorin (PREVAGEN PO) Take by mouth. Active carBAMazepine (CARBATROL) 200 MG CAPSULE SR 12 HRIndications:P artial symptomatic epilepsy with complex partial seizures, not intractable, without status epilepticus TAKE 1 CAPSULE BY MOUTH TWICE A DAY 180 Capsule 1 10/24/20 24 Active ondansetron (Zofran) 4 MG Tablet Take 4 mg by mouth every 8 hours as needed. Active Midazolam (Nayzilam) 5 MG/0.1ML SolutionIndicat ions:Partial symptomatic epilepsy with complex partial seizures, not intractable, without status epilepticus 5 mg by Nasal route as needed for Other (prolonged seizure or clusters of seizures). 1 Each 02/17/20 25 Active levETIRAcetam (KEPPRA) 500 MG Tablet TAKE 1 TABLET BY MOUTH TWICE A DAY 60 Tablet 2 03/17/20 25 Active levETIRAcetam (KEPPRA) 500 MG Tablet Take 1 Tablet by mouth 2 times daily. 60 Tablet 02/17/20 25 025 Discontinued topiramate (TOPAMAX) 25 MG Tablet Take 1 Tablet by mouth 2 times daily for 5 days, THEN 1 Tablet daily for 5 days. Then stop 15 Tablet 02/17/20 25 025 Active Problems Problem Noted Date Diagnosed Date Partial symptomatic epilepsy with complex partial seizures, not intractable, without status epilepticus 04/29/2019 Encounters Date Type Department Care Team Description [facility] #2 [place] [address] Ronnie Kebede MD Medication Refill 03/14[facility] [place] [address] Ronnie Kebede MD 02/22/2025 Telephone [facility] - [place] #2 [place] [address] Ronnie Kebede MD 02/20/2025 [facility] [place] #2 [place] [address] Ronnie Kebede MD 02/20/2025 Telephone [facility] #2 [place] [address] Ronnie Kebede MD 02/17/2025 Telephone [facility] [place] #2 [place] [address] Ronnie Kebede MD 02/16/2025 2:15 PM CDT Office Visit [facility] Neurology - [place] #2 [place] [address] Ronnie Kebede MD Partial symptomatic epilepsy with complex partial seizures, not intractable, without status epilepticus (Primary Dx) Discharge Disposition: Discharged to home or Selfcare 02/16/2025 Travel 02/06/2025 Telephone [facility] [place] #2 [place] [address] Ronnie Kebede MD from Last 3 Months [...] Info) Description 03/28/2025 2:30 PM CDT [facility] 2 [place] [address] Ronnie Kebede MD #2 [place] [address] Discharge Disposition: Discharged to home or Selfcare 05/19/2025 2:00 PM CDT Office Visit [facility] - Neurology [facility] #2 [place] [address] Ronnie Kebede MD #2 [place] [address] Health Maintenance Due Date Last Done Comments [...] Most Recently Relevant to Health [place] [address] MEDICAID [place] MEDICARE C [employer] Care Teams Director Of Critical Care Relationship Specialty Start Date End Date Michael, ELEN Montenegro CNP [address] [place] [address] PCP - General Family Medicine 05/06/17 Ronnie Kebede MD [address]2 [place] [address] Consulting Physician Neurology 05/06/17
--- OUTSIDE RECORDS SUMMARY | 2025-03-23 09:32 | XMS_ITS | Encounter Summary ---
Author Organization [facility] Address [address] [place] [address] Phone Care Team Providers Care Bench Assembler Battery Name Role Phone Ronnie Kebede MD Unavailable [phone] Moni Rodriguez APRN, CNP Primary Care Provider [phone] Reason for Visit * Reason Comments Medication Refill Encounter Details Date Type Department Care Team (Late Contact Info) Description 10/23/2020 [facility]ill [facility] [place] #1 [facility] [place] [address] Ronnie Kebede MD #2 [place] [address] Medication Refill Social History Tobacco [...] 03/28/2025 2:30 PM CDT EEG [facility] 2 [place] [address] Ronnie Kebede MD #2 [place] [address] Discharge Disposition: Discharged to home or Selfcare 05/19/2025 2:00 PM CDT Office Visit [facility] #2 [place] [address] Ronnie Kebede MD #2 [place] [address] documented as of this encounter Visit Diagnoses Not on filedocumented in this encounter Care Teams Bench Assembler Battery Relationship Specialty Start Date End Date Moni Rodriguez APRN, DIAMOND [address] [place] [address] PCP - General Family Medicine 05/06/17 Ronnie Kebede MD #2 [place] [address] Consulting Physician Neurology 05/06/17 documented as of this encounter
--- OUTSIDE RECORDS SUMMARY | 2025-03-23 09:32 | XMS_ITS | Encounter Summary ---
Author Organization [facility] Address [address] [place] [address] Phone Care Team Providers Care Guest Service Manager Name Role Phone Ronnie Kebede MD Unavailable [phone] Moni Rodriguez APRN, CNP Primary Care Provider [phone] Reason for Visit * Reason Comments Medication Refill Encounter Details Date Type Department Care Team (Late Contact Info) Description 04/07/2020 Refill [facility] - [place] #1 [facility] [place] [address] Ronnie Kebede MD #2 [place] [address] Medication Refill Social History Tobacco [...] 03/28/2025 2:30 PM CDT EEG [facility] 2 [place] [address] Ronnie Kebede MD #2 [place] [address] Discharge Disposition: Discharged to home or Selfcare 05/19/2025 2:00 PM CDT Office Visit [facility]rology [facility] #2 [place] [address] Ronnie Kebede MD #2 [place] [address] documented as of this encounter Visit Diagnoses Not on filedocumented in this encounter Care Teams Guest Service Manager Relationship Specialty Start Date End Date Moni Rodriguez APRN, DIAMOND [address] [place] [address] PCP - General Family Medicine 05/06/17 Ronnie Kebede MD #2 [place] [address] Consulting Physician Neurology 05/06/17 documented as of this encounter
--- OUTSIDE RECORDS SUMMARY | 2025-03-23 09:32 | XMS_ITS | Encounter Summary ---
Author Organization [facility] Address [address] [place] [address] Phone Care Team Providers Care Take Out Waiter Name Role Phone Ronnie Kebede MD Unavailable [phone] Moni Rodriguez APRN, CNP Primary Care Provider [phone] Reason for Visit * Reason Comments Medication Refill Encounter Details Date Type Department Care Team (Late Contact Info) Description [facility]2022 [facility] #2 [place] [address] Ronnie Kebede MD #2 [place] [address] Medication Refill Social History Tobacco [...] [facility] 2 [place] [address] Ronnie Kebede MD #2 [place] [address] Discharge Disposition: Discharged to home or Selfcare 05/19/2025 2:00 PM CDT Office Visit [facility] Neurology [facility] #2 [place] [address] Ronnie Kebede MD #2 [place] [address] documented as of this encounter Visit Diagnoses Not on filedocumented in this encounter Care Teams Take Out Waiter Relationship Specialty Start Date End Date Moni Rodriguez APRN, DIAMOND [address] [place] [address] PCP - General Family Medicine 05/06/17 Ronnie Kebede MD #2 [place] [address] Consulting Physician Neurology 05/06/17 documented as of this encounter
--- OUTSIDE RECORDS SUMMARY | 2025-03-23 09:32 | XMS_ITS | Encounter Summary ---
Author Organization [facility] Address [address] [place] [address] Phone Care Team Providers Care Traveling Engineer Name Role Phone Ronnie Kebede MD Unavailable [phone] Moni Rodriguez APRN, BIOLOGY INTERN Primary Care Provider [phone] Reason for Visit * Reason Comments Medication Refill Encounter Details Date Type Department Care Team (Late Contact Info) Description 02/06/2021 Refill [facility] - [place] #1 [facility] [place] [address] Geovanna Kelly APRN, REFRIGERATION ENGINEERING TEACHER #2 [place] [address] Medication Refill Social History Tobacco Use Types [...] 03/28/2025 2:30 PM CDT EEG [facility] 2 [place] [address] Ronnie Kebede MD #2 [place] [address] Discharge Disposition: Discharged to home or Selfcare 05/19/2025 2:00 PM CDT Office Visit [facility] #2 [place] [address] Ronnie Kebede MD #2 [place] [address] documented as of this encounter Visit Diagnoses Diagnosis Partial symptomatic epilepsy with complex partial seizures, not intractable, without status epilepticus documented in this encounter Care Teams Traveling Engineer Relationship Specialty Start Date End Date Moni Rodriguez APRN, CNP [address] [place] [address] PCP - General Family Medicine 05/06/17 Ronnie Kebede MD #2 [place] [address] Consulting Physician Neurology 05/06/17 documented as of this encounter
--- OUTSIDE RECORDS SUMMARY | 2025-03-23 09:32 | XMS_ITS | Encounter Summary ---
Author Organization [facility] Address [address] [place] [address] Phone Care Team Providers Care Gas Torch Brazier Name Role Phone Ronnie Kebede MD Unavailable [phone] Moni Rodriguez APRN, CNP Primary Care Provider [phone] Reason for Visit * Reason Comments Medication Refill Encounter Details Date Type Department Care Team (Late Contact Info) Description [facility] #2 [place] [address] Ronnie Kebede MD #2 [place] [address] Medication Refill Social History Tobacco [...] Info) Description 03/28/2025 2:30 PM CDT [facility] 2 [place] [address] Ronnie Kebede MD #2 [place] [address] Discharge Disposition: Discharged to home or Selfcare 05/19/2025 2:00 PM CDT Office Visit [facility] #2 [place] [address] Ronnie Kebede MD #2 [place] [address] documented as of this encounter Visit Diagnoses Not on filedocumented in this encounter Care Teams Gas Torch Brazier Relationship Specialty Start Date End Date Moni Rodriguez APRN, DIAMOND [address] [place] [address] PCP - General Family Medicine 05/06/17 Ronnie Kebede MD #2 [place] [address] Consulting Physician Neurology 05/06/17 documented as of this encounter
--- OUTSIDE RECORDS SUMMARY | 2025-03-23 09:32 | XMS_ITS | Encounter Summary ---
Author Organization [facility] Address [address] [place] [address] Phone Care Team Providers Care Equipment Planner Name Role Phone Ronnie Kebede MD Unavailable [phone] Moni Rodriguez APRN, CNP Primary Care Provider [phone] Reason for Visit * Reason Comments Medication Refill Encounter Details Date Type Department Care Team (Late Contact Info) Description 12/12/2022 [facility] #2 [place] [address] Ronnie Kebede MD #2 [place] [address] Medication Refill Social History Tobacco [...] Info) Description 03/28/2025 2:30 PM CDT [facility] 2 [place] [address] Ronnie Kebede MD #2 [place] [address] Discharge Disposition: Discharged to home or Selfcare 05/19/2025 2:00 PM CDT Office Visit [facility] #2 [place] [address] Ronnie Kebede MD #2 [place] [address] documented as of this encounter Visit Diagnoses Not on filedocumented in this encounter Care Teams Equipment Planner Relationship Specialty Start Date End Date Moni Rodriguez APRN, DIAMOND [address] [place] [address] PCP - General Family Medicine 05/06/17 Ronnie Kebede MD #2 [place] [address] Consulting Physician Neurology 05/06/17 documented as of this encounter
--- OUTSIDE RECORDS SUMMARY | 2025-03-23 09:32 | XMS_ITS | Encounter Summary ---
Author Organization [facility] Address [address] [place] [address] Phone Care Team Providers Care Machine Ii Engraver Name Role Phone Ronnie Kebede MD Unavailable [phone] Moni Rodriguez APRN, DIRECTOR RADIATION ONCOLOGY Primary Care Provider [phone] Reason for Visit * Reason Comments Medication Refill Encounter Details Date Type Department Care Team (Late Contact Info) Description [facility]20[facility] #2 [place] [address] Geovanna Kelly APRN, [employer]IAL [employer] #2 [place] [address] Medication Refill Social History Tobacco Use Types [...] [facility] 2 [place] [address] Ronnie Kebede MD #2 [place] [address] Discharge Disposition: Discharged to home or Selfcare 05/19/2025 2:00 PM CDT Office Visit [facility] Neurology [facility] #2 [place] [address] Ronnie Kebede MD #2 [place] [address] documented as of this encounter Visit Diagnoses Not on filedocumented in this encounter Care Teams Machine Ii Engraver Relationship Specialty Start Date End Date Moni Rodriguez APRN, DIAMOND [address] [place] [address] PCP - General Family Medicine 05/06/17 Ronnie Kebede MD #2 [place] [address] Consulting Physician Neurology 05/06/17 documented as of this encounter
--- OUTSIDE RECORDS SUMMARY | 2025-03-23 09:32 | XMS_ITS | Encounter Summary ---
Author Organization [facility] Address [address] 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 documented in this encounter Plan of Treatment Upcoming Encounters Date Type Department Care Team (Late st Contact Info) Description 03/28/2025 2:30 PM CDT [facility] 2 [place] [address] Ronnie Kebede MD #2 [place] [address] Discharge Disposition: Discharged to home or Selfcare 05/19/2025 2:00 PM CDT Office [facility] - Neurology [facility] #2 [place] [address] Ronnie Kebede MD #2 [place] [address] documented as of this encounter Visit Diagnoses Diagnosis Partial symptomatic epilepsy with complex partial seizures, not intractable, without status epilepticus documented in this encounter Care Teams Medical Assistant Instructor Relationship Specialty Start Date End Date Moni Rodriguez APRN, DIAMOND [address] [place] [address] PCP - General Family Medicine 05/06/17 Ronnie Kebede MD #2 [place] [address] Consulting Physician Neurology 05/06/17 documented as of this encounter
--- OUTSIDE RECORDS SUMMARY | 2025-03-23 09:32 | XMS_ITS | Encounter Summary ---
Author Organization [facility] Address [address] [place] [address] Phone Care Team Providers Care Application Software Developer Name Role Phone Ronnie Kebede MD Unavailable [phone] Moni Rodriguez APRN, CNP Primary Care Provider [phone] Reason for Visit * Reason Comments Medication Refill Encounter Details Date Type Department Care Team (Late Contact Info) Description 11/15/2020 Refill [facility] - [place] #1 [facility] [place] [place] [address] Ronnie Kebede MD #2 [place] [address] Medication Refill Social History Tobacco [...] 2:30 PM CDT EEG [facility] Neuro[facility] 2 [place] [address] Ronnie Kebede MD #2 [place] [address] Discharge Disposition: Discharged to home or Selfcare 05/19/2025 2:00 PM CDT Office Visit [facility] - Neurology [facility] #2 [place] [address] Ronnie Kebede MD #2 [place] [address] documented as of this encounter Visit Diagnoses Diagnosis Partial symptomatic epilepsy with complex partial seizures, not intractable, without status epilepticus documented in this encounter Care Teams Application Software Developer Relationship Specialty Start Date End Date Moni Rodriguez APRN, CNP [address] [place] [address] PCP - General Family Medicine 05/06/17 Ronnie Kebede MD #2 [place] [address] Consulting Physician Neurology 05/06/17 documented as of this encounter
--- OUTSIDE RECORDS SUMMARY | 2025-03-23 09:32 | XMS_ITS | CONTINUITY OF CARE DOCUMENT ---
Author Name anup hebert Address Unknown Organization [facility] Address [id number] [place] [address] [address] [place] [address] Phone [phone] Care Team Providers Care Statistical Technician Name Role Phone Bentley MOODY, Min Unavailable [phone] INSURANCE PROVIDERS Payer name Policy type / Coverage type [place] red constitution party ID [place] MEDICARE Medicare [id number]
--- OUTSIDE RECORDS SUMMARY | 2025-03-23 09:32 | XMS_ITS | Encounter Summary ---
Author Organization [facility] Address [address] [place] [address] Phone Care Team Providers Care Service Administrator Name Role Phone Ronnie Kebede MD Unavailable [phone] Moni Rodriguez APRN, CNP Primary Care Provider [phone] Reason for Visit * Reason Comments Medication Refill Encounter Details Date Type Department Care Team (Late Contact Info) Description 01/12/2021 Refill [facility] - [place] #1 [facility] [place] [address] Ronnie Kebede MD #2 [place] [address] Medication Refill Social History Tobacco [...] 03/28/2025 2:30 PM CDT EEG [facility] 2 [place] [address] Ronnie Kebede MD #2 [place] [address] Discharge Disposition: Discharged to home or Selfcare 05/19/2025 2:00 PM CDT Office Visit [facility]rology [facility] #2 [place] [address] Ronnie Kebede MD #2 [place] [address] documented as of this encounter Visit Diagnoses Diagnosis Partial symptomatic epilepsy with complex partial seizures, not intractable, without status epilepticus documented in this encounter Care Teams Service Administrator Relationship Specialty Start Date End Date Moni Rodriguez APRN, CNP [address] [place] [address] PCP - General Family Medicine 05/06/17 Ronnie Kebede MD #2 [place] [address] Consulting Physician Neurology 05/06/17 documented as of this encounter
--- OUTSIDE RECORDS SUMMARY | 2025-03-23 09:32 | XMS_ITS | Encounter Summary ---
Author Organization [facility] Address [address] [place] [address] Phone Care Team Providers Care Astronomy Professor Name Role Phone Ronnie Kebede MD Unavailable [phone] Moni Rodriguez APRN, CNP Primary Care Provider [phone] Reason for Visit * Reason Comments Medication Refill Encounter Details Date Type Department Care Team (Late st Contact Info) Description 08/01/2023 Refill [facility]rology - [place] #2 [place] [address] Ronnie Kebede MD #2 [place] [address] Medication Refill Social History Tobacco [...] Dept 08/10/23 Appointment Ronnie Kebede MD [facility] Showing future appointments within next 90 days and meeting all other requirements documented in this encounter Plan of Treatment Upcoming Encounters Date Type Department Care Team (Late st Contact Info) Description 03/28/2025 2:30 PM CDT EEG [facility] 2 [place] [address] Ronnie Kebede MD #2 [place] [address] Discharge Disposition: Discharged to home or Selfcare 05/19/2025 2:00 PM CDT Office [facility] #2 [place] [address] Ronnie Kebede MD #2 [place] [address] documented as of this encounter Visit Diagnoses Not on filedocumented in this encounter Care Teams Astronomy Professor Relationship Specialty Start Date End Date Moni Rodriguez APRN, CNP [address] [place] [address] PCP - General Family Medicine 05/06/17 Ronnie Kebede MD #2 [place] [address] Consulting Physician Neurology 05/06/17 documented as of this encounter
--- OUTSIDE RECORDS SUMMARY | 2025-03-23 09:32 | XMS_ITS | Encounter Summary ---
Author Organization [facility] Address [address] [place] [address] Phone Care Team Providers Care Dual Rate Supervisor Name Role Phone Ronnie Kebede MD Unavailable [phone] Moni Rodriguez APRN, CNP Primary Care Provider [phone] Reason for Visit * Reason Comments Medication Refill Encounter Details Date Type Department Care Team (Late st Contact Info) Description 10/29/[address] [facility] - Neurology - [place] #2 [place] [address] Ronnie Kebede MD #2 [place] [address] Medication Refill Social History Tobacco [...] Dept 08/10/23 Office Visit Ronnie Kebede MD [facility] Neurology [facility] Showing recent visits within past 365 days and meeting all other requirements Future Appointments Date Type Provider Dept 12/10/23 Appointment Ronnie Kebede MD [facility] Neurology [facility] Showing future appointments within next 90 days and meeting all other requirements SSER OPERATOR documented in this encounter Plan of Treatment Upcoming Encounters Date Type Department Care Team (Late st Contact Info) Description 03/28/2025 2:30 PM CDT EEG [facility] 2 [place] [address] Ronnie Kebede MD #2 [place] [address] Discharge Disposition: Discharged to home or Selfcare 05/19/2025 2:00 PM CDT [facility] #2 [place] [address] Ronnie Kebede MD #2 [place] [address] documented as of this encounter Visit Diagnoses Diagnosis Partial symptomatic epilepsy with complex partial seizures, not intractable, without status epilepticus documented in this encounter Care Teams Dual Rate Supervisor Relationship Specialty Start Date End Date Moni Rodriguez APRN, DIAMOND [address] [place] [address] PCP - General Family Medicine 05/06/17 Ronnie Kebede MD #2 [place] [address] Consulting Physician Neurology 05/06/17 documented as of this encounter
--- OUTSIDE RECORDS SUMMARY | 2025-03-23 09:32 | XMS_ITS | Encounter Summary ---
Author Organization [facility] Address [address] [place] [address] Phone Care Team Providers Care Supervisor Coke Handling Name Role Phone Ronnie Kebede MD Unavailable [phone] Moni Rodriguez APRN, CNP Primary Care Provider [phone] Reason for Visit * Reason Comments Medication Refill Encounter Details Date Type Department Care Team (Late st Contact Info) Description 02/21/2024 Refill [facility] - Neurology - [place] #2 [place] [address] Ronnie Kebede MD #2 [place] [address] Medication Refill Social History Tobacco [...] Dept 12/10/23 Office Visit Ronnie Kebede MD [facility] Neurology [facility] 08/10/23 Office Visit Ronnie Kebede MD [facility] Neu[facility] Showing recent visits within past [...] [facility] 2 [place] [address] Ronnie Kebede MD [address]2 [place] [address] Discharge Disposition: Discharged to home or Selfcare 05/19/2025 2:00 PM CDT Office Visit [facility] - Neurology [facility] #2 [place] [address] Ronnie Kebede MD #2 [place] [address] documented as of this encounter Visit Diagnoses Not on filedocumented in this encounter Care Teams Supervisor Coke Handling Relationship Specialty Start Date End Date Moni Rodriguez APRN, DIAMOND [address] [place] [address] PCP - General Family Medicine 05/06/17 Ronnie Kebede MD [address]2 [place] [address] Consulting Physician Neurology 05/06/17 documented as of this encounter
--- OUTSIDE RECORDS SUMMARY | 2025-03-23 09:32 | XMS_ITS | Encounter Summary ---
Author Organization [facility] Address [address] [place] [address] Phone Care Team Providers Care Shank Threader Name Role Phone Ronnie Kebede MD Unavailable [phone] Moni Rodriguez APRN, CLOTH GRADER SUPERVISOR Primary Care Provider [phone] Reason for Visit * Reason Comments Medication Refill Encounter Details Date Type Department Care Team (Late Contact Info) Description 03/04/2021 Refill [facility] - [place] #1 [facility] [place] [address] Geovanna Kelly APRN, TOOL DRESSER #2 [place] [address] Medication Refill Social History Tobacco Use Types [...] [facility] 2 [place] [address] Ronnie Kebede MD #2 [place] [address] Discharge Disposition: Discharged to home or Selfcare 05/19/2025 2:00 PM CDT Office Visit [facility] - Neurology [facility] #2 [place] [address] Ronnie Kebede MD #2 [place] [address] documented as of this encounter Visit Diagnoses Diagnosis Partial symptomatic epilepsy with complex partial seizures, not intractable, without status epilepticus documented in this encounter Care Teams Shank Threader Relationship Specialty Start Date End Date Moni Rodriguez APRN, CNP [address] [place] [address] PCP - General Family Medicine 05/06/17 Ronnie Kebede MD #2 [place] [address] Consulting Physician Neurology 05/06/17 documented as of this encounter
--- OUTSIDE RECORDS SUMMARY | 2025-03-23 09:32 | XMS_ITS | Encounter Summary ---
Author Organization [facility] Address [address] [place] [address] Phone Care Team Providers Care Mixer Operator Name Role Phone Ronnie Kebede MD Unavailable [phone] Moni Rodriguez APRN, CNP Primary Care Provider [phone] Reason for Visit * Reason Comments Medication Refill Encounter Details Date Type Department Care Team (Late Contact Info) Description 02/06/2021 Refill [facility] - [place] #1 [facility] [place] [address] Ronnie Kebede MD #2 [place] [address] Medication Refill Social History Tobacco [...] 03/28/2025 2:30 PM CDT EEG [facility] 2 [place] [address] Ronnie Kebede MD #2 [place] [address] Discharge Disposition: Discharged to home or Selfcare 05/19/2025 2:00 PM CDT Office Visit [facility] #2 [place] [address] Ronnie Kebede MD #2 [place] [address] documented as of this encounter Visit Diagnoses Not on filedocumented in this encounter Care Teams Mixer Operator Relationship Specialty Start Date End Date Moni Rodriguez APRN, DIAMOND [address] [place] [address] PCP - General Family Medicine 05/06/17 Ronnie Kebede MD #2 [place] [address] Consulting Physician Neurology 05/06/17 documented as of this encounter
--- OUTSIDE RECORDS SUMMARY | 2025-03-23 09:32 | XMS_ITS | Encounter Summary ---
Author Organization [facility] Address [address] [place] [address] Phone Care Team Providers Care Facial Operator Name Role Phone Ronnie Kebede MD Unavailable [phone] Moni Rodriguez APRN, CNP Primary Care Provider [phone] Reason for Visit * Reason Comments Medication Refill Encounter Details Date Type Department Care Team (Late Contact Info) Description 02/27/2021 Refill [facility]rology - [place] #1 [facility] [address] Ronnie Kebede MD #2 [place] [address] Medication Refill Social History Tobacco [...] 03/28/2025 2:30 PM CDT EEG [facility] 2 [place] [address] Ronnie Kebede MD #2 [place] [address] Discharge Disposition: Discharged to home or Selfcare 05/19/2025 2:00 PM CDT Office Visit [facility] - Neurology [facility] #2 [place] [address] Ronnie Kebede MD #2 [place] [address] documented as of this encounter Visit Diagnoses Not on filedocumented in this encounter Care Teams Facial Operator Relationship Specialty Start Date End Date Moni Rodriguez APRN, DIAMOND [address] [place] [address] PCP - General Family Medicine 05/06/17 Ronnie Kebede MD #2 [place] [address] Consulting Physician Neurology 05/06/17 documented as of this encounter
--- OUTSIDE RECORDS SUMMARY | 2025-03-23 09:32 | XMS_ITS | Encounter Summary ---
Author Organization [facility] Address [address] [place] [address] Phone Care Team Providers Care Dietary Service Aide Name Role Phone Ronnie Kebede MD Unavailable [phone] Moni Rodriguez APRN, CNP Primary Care Provider [phone] Reason for Visit * Reason Comments Medication Refill Encounter Details Date Type Department Care Team (Late Contact Info) Description [facility] #2 [place] [address] Ronnie Kebede MD #2 [place] [address] Medication Refill Social History Tobacco [...] Info) Description 03/28/2025 2:30 PM CDT [facility] 2 [place] [address] Ronnie Kebede MD #2 [place] [address] Discharge Disposition: Discharged to home or Selfcare 05/19/2025 2:00 PM CDT Office Visit [facility] - Neurology [facility] #2 [place] [address] Ronnie Kebede MD #2 [place] [address] documented as of this encounter Visit Diagnoses Not on filedocumented in this encounter Care Teams Dietary Service Aide Relationship Specialty Start Date End Date Moni Rodriguez APRN, DIAMOND [address] [place] [address] PCP - General Family Medicine 05/06/17 Ronnie Kebede MD #2 [place] [address] Consulting Physician Neurology 05/06/17 documented as of this encounter
--- OUTSIDE RECORDS SUMMARY | 2025-03-23 09:32 | XMS_ITS | Encounter Summary ---
Author Organization [facility] Address [address] [place] [address] Phone Care Team Providers Care Bag Loader Name Role Phone Ronnie Kebede MD Unavailable [phone] Moni Rodriguez APRN, CNP Primary Care Provider [phone] Reason for Visit * Reason Comments Medication Refill Encounter Details Date Type Department Care Team (Late st Contact Info) Description 02/02/2023 [facility]ill [facility] - [place] #2 [place] [address] Ronnie Kebede MD #2 [place] [address] Medication Refill Social History Tobacco [...] Dept 07/17/22 Office Visit Ronnie Kebede MD [facility] Neurology [facility] Showing recent visits within past 365 days and meeting all other requirements Future Appointments No visits were found meeting these conditions. Showing future appointments within next 90 days and meeting all other requirements documented in this encounter Plan of Treatment Upcoming Encounters Date Type Department Care Team (Late st Contact Info) Description 03/28/2025 2:30 PM CDT EEG [facility] 2 [place] [address] Ronnie Kebede MD #2 [place] [address] Discharge Disposition: Discharged to home or Selfcare 05/19/2025 2:00 PM CDT Office Visit [facility] - Neurology [facility] #2 [place] [address] Ronnie Kebede MD #2 [place] [address] documented as of this encounter Visit Diagnoses Not on filedocumented in this encounter Care Teams Bag Loader Relationship Specialty Start Date End Date Moni Rodriguez APRN, CNP [address] [place] [address] PCP - General Family Medicine 05/06/17 Ronnie Kebede MD #2 [place] [address] Consulting Physician Neurology 05/06/17 documented as of this encounter
--- OUTSIDE RECORDS SUMMARY | 2025-03-23 09:32 | XMS_ITS | Clinical Summary ---
Author Organization [facility] Address [address] [place] [address] Care Team Providers Care Porter Luggage Name Role Phone Unavailable Primary Care Provider Unavailabl e Source Comments [facility],non-owned Affiliates and Associated Physician Practices is amultiple site organization consisting of ambulatory clinics and hospital sitesin [place], [place] and [place]. This disclosure is being madepursuant to the Care Everywhere program and may not contain all information available regarding this patient. Last updated 18.[facility] Allergies Active Allergy Reactions Criticality Noted Date [...] Brother 2 lung CA Brother 3 Father NV Mother NV Social History Tobacco Use Types Packs/Day Years Used Date Smoking Tobacco: Never Smokeless Tobacco: Never Alcohol Use Standard Drinks/Week Comments No 0 (1 standard drink = 0.6 oz pur e alcohol) Comments No Sex and Gender Information Value Date Recorded Sex Assigned at Not on file Legal Sex Female 12:51 PM DRUM MAKER Gender Identity Not on file Sexual Orientation Not on file Last Filed Vital Signs Vital Sign Reading Time Taken Comments Blood Pressure 130/80 02/24/2012 10:27 AM CDT Pulse 86 02/24/2012 10:27 AM CDT Temperature 37.1 C (98.8 F) 11/19/2011 12:56 PM DRUM MAKER Respiratory Rate - - Oxygen Saturation - [...] DENSITY 2 SITES Routine 11/18/2011 6:48 PM DRUM MAKER Asymptomatic postmenopausal status (age-related) (natural) MICROALBUMIN URINE RANDOM Routine 11/18/2011 12:11 PM DRUM MAKER DM (diabetes mellitus) COMPREHENSIVE METABOLIC PANEL Routine 11/18/2011 12:09 PM DRUM MAKER Hyperlipidemia DM (diabetes mellitus) from Last 3 [...] Resulting Agency Comment [facility] [place] [address] [facility] [phone] us Nahomi Mcginnis MD LAB - CHEMISTRY ORDERABLES Final Result [facility] INSURANCE BILL [address] [place] [address] * DEXA BONE DENSITY 2 SITES (11/18/2011 6:48 PM DRUM MAKER) Anatomical Region Laterality Modality Other Narrative 11/18/2011 6:48 PM DRUM MAKER Jeremi Chauhan MD 11/18/2011 6:48 PM [facility] Medical group BONE DENSITY REPORT Pt. Name: Catrachita Rosa Gender: female : 1945 Test Date: 11/18/2011 Referring Physician: Nahomi Mcginnis MD Technologist: MALKA Montenegro A Central DXA was performed today using a HoloRentMatch QDR Discovery C activities officer. The images and data have been scanned. [...] Jeremi Chauhan MD Physician and Certified Clinical Caption Writer Procedure Note Elo Asher - 11/18/2011 4:08 PM CST [facility] Medical group BONE DENSITY REPORT Pt. Name: Catrachita Rosa Gender: female : 1945 Test Date: 11/18/2011 Referring Physician: Nahomi Mcginnis MD Technologist: MALKA Montenegro A Central DXA was performed today using a Hologic QDR Discovery C activities officer.The images and data have been scanned. Images [...] Jeremi Chauhan MD Physician and Certified Clinical Caption Writer Nahomi Mcginnis MD DEXA ORDERABLES Final Result * MICROALBUMIN URINE RANDOM (11/18/2011 12:11 PM DRUM MAKER) Microalbumin Random Urine 10.4 0.0 - 17.0 ug/mL [facility] INSURANCE BILL URINE / Unknown 11/18/2011 1 2:11 PM DRUM MAKER 11/18/2011 5:48 PM DRUM MAKER Narrative Resulting Agency Comment [facility] [address] [id number] Nahomi Mcginnis MD LAB - URINE CHEMISTRY ORDERABLES Final Result [facility] INSURANCE BILL [address] [place] [address] * (ABNORMAL) COMPREHENSIVE METABOLIC PANEL (11/18/2011 12:09 PM DRUM MAKER) Glucose 100(H) 65 - 99 mg/dL [facility] [...] BLOOD SPECIMEN / Unknown 11/18/2011 12:09 PM DRUM MAKER 11/18/2011 5:58 PM DRUM MAKER Narrative Resulting Agency Comment [facility] [place] [address] [facility] [phone] us Nahomi Mcginnis MD LAB - CHEMISTRY ORDERABLES Final Result [facility] INSURANCE BILL [address] [place] [address] from Last 3 Months or Most Recently Relevant to Health Maintenance Insurance MEDICAID - OUT OF STATE MEDICARE
--- NOTE | 2025-03-23 09:42 | ECG_ITS ---
Test Date: 2025-03-23 09:45:08 Measurements Intervals [place]ane Rate: 48 P: 46 CT: 266 QRS: 2 QRSD: 89 T: 114 QT: 501 QTc: 449 Interpretive Statements SINUS BRADYCARDIA WITH FIRST DEGREE AV BLOCK LEFT VENTRICULAR HYPERTROPHY AND ST-T CHANGE [VOLTAGE CRITERIA PLUS ST/T ABNORMALITY] Compared to ECG 03/13/2025 17:18:40 Sinus rhythm no longer present ST (T wave) deviation still present Electronically Signed On 03-23-2025 14:09:08 CDT by Aquilino Hernández M.D.
--- OUTSIDE RECORDS SUMMARY | 2025-03-23 11:04 | XMS_ITS | Clinical Summary ---
Author Organization [facility] Address [address] [place] [address] Care Team Providers Care Dehydrogenation Operator Head Name Role Phone Unavailable Primary Care Provider Unavailabl e Source Comments [facility],non-owned Affiliates and Associated Physician Practices is amultiple site organization consisting of ambulatory clinics and hospital sitesin [place], [place], [place] and [place]. This disclosure is being madepursuant to the Care Everywhere program and may not contain all information available regarding this patient. Last updated 18.[facility] Allergies Active Allergy Reactions Criticality Noted Date [...] Concussion Seizures Overview (10/15/2011): Dr. Crystal Osei [facility]. Onset after concussion Hypothyroid Hyperlipidemia DM [...] Brother 2 lung CA Brother 3 Father AL Mother AL Social History Tobacco Use Types Packs/Day Years Used Date Smoking Tobacco: Never Smokeless Tobacco: Never Alcohol Use Standard Drinks/Week Comments No 0 (1 standard drink = 0.6 oz pur e alcohol) Comments No Sex and Gender Information Value Date Recorded Sex Assigned at Not on file Legal Sex Female 12:51 PM IMPORT/EXPORT ADMINISTRATOR Gender Identity Not on file Sexual Orientation Not on file Last Filed Vital Signs Vital Sign Reading Time Taken Comments Blood Pressure 130/80 02/24/2012 10:27 AM CDT Pulse 86 02/24/2012 10:27 AM CDT Temperature 37.1 C (98.8 F) 11/19/2011 12:56 PM IMPORT/EXPORT ADMINISTRATOR Respiratory Rate - - Oxygen Saturation - [...] DENSITY 2 SITES Routine 11/18/2011 6:48 PM IMPORT/EXPORT ADMINISTRATOR Asymptomatic postmenopausal status (age-related) (natural) MICROALBUMIN URINE RANDOM Routine 11/18/2011 12:11 PM IMPORT/EXPORT ADMINISTRATOR DM (diabetes mellitus) COMPREHENSIVE METABOLIC PANEL Routine 11/18/2011 12:09 PM IMPORT/EXPORT ADMINISTRATOR Hyperlipidemia DM (diabetes mellitus) from Last 3 [...] Narrative Resulting Agency Comment [facility] [place] [address] [facility] [phone] us Nahomi Mcginnis MD LAB - CHEMISTRY ORDERABLES Final Result [facility] INSURANCE BILL [address] [place] [address] * DEXA BONE DENSITY 2 SITES (11/18/2011 6:48 PM IMPORT/EXPORT ADMINISTRATOR) Anatomical Region Laterality Modality Other Narrative 11/18/2011 6:48 PM IMPORT/EXPORT ADMINISTRATOR Jeremi Chauhan MD 11/18/2011 6:48 PM [facility] Medical group BONE DENSITY REPORT Pt. Name: Catrachita Rosa Gender: female : 1945 Test Date: 11/18/2011 Referring Physician: Nahomi Mcginnis MD Technologist: MALKA Montenegro A Central DXA was performed today using a HoloGlimpse QDR Discovery C drill press hand. The images and data have been scanned. [...] Jeremi Chauhan MD Physician and Certified Clinical Edge Roller Procedure Note Elo Asher - 11/18/2011 4:08 PM CST [facility] Medical group BONE DENSITY REPORT Pt. Name: Catrachita Rosa Gender: female : 1945 Test Date: 11/18/2011 Referring Physician: Nahomi Mcginnis MD Technologist: MALKA Montenegro A Central DXA was performed today using a Hologic QDR Discovery C drill press hand.The images and data have been scanned. Images [...] Jeremi Chauhan MD Physician and Certified Clinical Edge Roller Nahomi Mcginnis MD DEXA ORDERABLES Final Result * MICROALBUMIN URINE RANDOM (11/18/2011 12:11 PM IMPORT/EXPORT ADMINISTRATOR) Microalbumin Random Urine 10.4 0.0 - 17.0 ug/mL [facility] INSURANCE BILL URINE / Unknown 11/18/2011 1 2:11 PM IMPORT/EXPORT ADMINISTRATOR 11/18/2011 5:48 PM IMPORT/EXPORT ADMINISTRATOR Narrative Resulting Agency Comment [facility] [address] [id number] Nahomi Mcginnis MD LAB - URINE CHEMISTRY ORDERABLES Final Result [facility] INSURANCE BILL [address] [place] [address] * (ABNORMAL) COMPREHENSIVE METABOLIC PANEL (11/18/2011 12:09 PM IMPORT/EXPORT ADMINISTRATOR) Glucose 100(H) 65 - 99 mg/dL [facility] [...] BLOOD SPECIMEN / Unknown 11/18/2011 12:09 PM IMPORT/EXPORT ADMINISTRATOR 11/18/2011 5:58 PM IMPORT/EXPORT ADMINISTRATOR Narrative Resulting Agency Comment [facility] [place] [address] [facility] [id number] us Nahomi Mcginnis MD LAB - CHEMISTRY ORDERABLES Final Result [facility] INSURANCE BILL [address] [place] [address] from Last 3 Months or Most Recently Relevant to Health Maintenance Insurance MEDICAID - OUT OF STATE MEDICARE
--- OUTSIDE RECORDS SUMMARY | 2025-03-23 11:05 | XMS_ITS | Encounter Summary ---
Author Organization [facility] Address [address] [place] [address] Phone Care Team Providers Care Director Business Name Role Phone Ronnie Kebede MD Unavailable [phone] Moni Rodriguez APRN, CNP Primary Care Provider [phone] Reason for Visit * Reason Comments Medication Refill Encounter Details Date Type Department Care Team (Late Contact Info) Description 12/12/2022 [facility]ill [facility]2 [place] [address] Ronnie Kebede MD #2 [place] [address] Medication Refill Social History Tobacco [...] [facility] 2 [place] [address] Ronnie Kebede MD #2 [place] [address] Discharge Disposition: Discharged to home or Selfcare 05/19/2025 2:00 PM CDT Office Visit [facility] - Neurology [facility] [place] [address] Ronnie Kebede MD #2 [place] [address] documented as of this encounter Visit Diagnoses Not on filedocumented in this encounter Care Teams Director Business Relationship Specialty Start Date End Date Moni Rodriguez APRN, DIAMOND [address] [place] [address] PCP - General Family Medicine 05/06/17 Ronnie Kebede MD #2 [place] [address] Consulting Physician Neurology 05/06/17 documented as of this encounter
--- OUTSIDE RECORDS SUMMARY | 2025-03-23 11:05 | XMS_ITS | Encounter Summary ---
Author Organization [facility] Address [address] [place] [address] Phone Care Team Providers Care Keyboard Instrument Repairer Name Role Phone Ronnie Kebede MD Unavailable [phone] Moni Rodriguez APRN, RETAIL EVENT COORDINATOR Primary Care Provider [phone] Reason for Visit * Reason Comments Medication Refill Encounter Details Date Type Department Care Team (Late Contact Info) Description 02/06/2021 Refill [facility] Neurology - [address] #1 [facility] [place] [address] Geovanna Kelly APRN, SEMICONDUCTOR PROCESSING GROUP LEADER #2 [place] [address] Medication Refill Social History Tobacco Use Types [...] 03/28/2025 2:30 PM CDT EEG [facility] 2 [place] [address] Ronnie Kebede MD #2 [place] [address] Discharge Disposition: Discharged to home or Selfcare 05/19/2025 2:00 PM CDT Office Visit [facility] - Neurology [facility] #2 [place] [address] Ronnie Kebede MD #2 [place] [address] documented as of this encounter Visit Diagnoses Diagnosis Partial symptomatic epilepsy with complex partial seizures, not intractable, without status epilepticus documented in this encounter Care Teams Keyboard Instrument Repairer Relationship Specialty Start Date End Date Moni Rodriguez APRN, CNP [address] [place] [address] PCP - General Family Medicine 05/06/17 Ronnie Kebede MD #2 [place] [address] Consulting Physician Neurology 05/06/17 documented as of this encounter
--- OUTSIDE RECORDS SUMMARY | 2025-03-23 11:05 | XMS_ITS | Encounter Summary ---
Author Organization [facility] Address [address] [place] [address] Phone Care Team Providers Care Filament Maker Name Role Phone Ronnie Kebede MD Unavailable [phone] Moni Rodriguez APRN, CNP Primary Care Provider [phone] Reason for Visit * Reason Comments Medication Refill Encounter Details Date Type Department Care Team (Late st Contact Info) Description 02/21/2024 Refill [facility] - [place] #2 [place] [address] Ronnie Kebede MD #2 [place] [address] Medication Refill Social History Tobacco [...] Dept 12/10/23 Office Visit Ronnie Kebede MD [facility] Neurology [facility] 08/10/23 Office Visit Ronnie Kebede MD [facility] Neurology [facility] Showing recent visits within past 365 days and meeting all other requirements Future Appointments No visits were found meeting these conditions. Showing future appointments within next 90 days and meeting all other requirements documented in this encounter Plan of Treatment Upcoming Encounters Date Type Department Care Team (Late st Contact Info) Description 03/28/2025 2:30 PM CDT [facility] 2 [place] [address] Ronnie Kebede MD #2 [place] [address] Discharge Disposition: Discharged to home or Selfcare 05/19/2025 2:00 PM CDT Office Visit [facility] - Neurology [facility] #2 [place] [address] Ronnie Kebede MD #2 [place] [address] documented as of this encounter Visit Diagnoses Not on filedocumented in this encounter Care Teams Filament Maker Relationship Specialty Start Date End Date Moni Rodriguez APRN, DIAMOND [address] [place] [address] PCP - General Family Medicine 05/06/17 Ronnie Kebede MD #2 [place] [address] Consulting Physician Neurology 05/06/17 documented as of this encounter
--- OUTSIDE RECORDS SUMMARY | 2025-03-23 11:05 | XMS_ITS | Encounter Summary ---
Author Organization [facility] Address [address] [place] [address] Phone Care Team Providers Care Mounted Police Name Role Phone Ronnie Kebede MD Unavailable [phone] Moni Rodriguez APRN, CNP Primary Care Provider [phone] Reason for Visit * Reason Comments Medication Refill Encounter Details Date Type Department Care Team (Late Contact Info) Description 02/06/2021 Refill [facility] - [place] #1 [facility] [place] [address] Ronnie Kebede MD #2 [place] [address] Medication Refill Social History Tobacco [...] 03/28/2025 2:30 PM CDT EEG [facility] 2 [place] [address] Ronnie Kebede MD #2 [place] [address] Discharge Disposition: Discharged to home or Selfcare 05/19/2025 2:00 PM CDT Office Visit [facility] - Neurology [facility] #2 [place] [address] Ronnie Kebede MD #2 [place] [address] documented as of this encounter Visit Diagnoses Not on filedocumented in this encounter Care Teams Mounted Police Relationship Specialty Start Date End Date Moni Rodriguez APRN, DIAMOND [address] [place] [address] PCP - General Family Medicine 05/06/17 Ronnie Kebede MD #2 [place] [address] Consulting Physician Neurology 05/06/17 documented as of this encounter
--- OUTSIDE RECORDS SUMMARY | 2025-03-23 11:05 | XMS_ITS | Encounter Summary ---
Author Organization [facility] Address [address] [place] [address] Phone Care Team Providers Care Insurance Marketing Specialist Name Role Phone Ronnie Kebede MD Unavailable [phone] Moni Rodriguez APRN, CNP Primary Care Provider [phone] Reason for Visit * Reason Comments Medication Refill Encounter Details Date Type Department Care Team (Late Contact Info) Description [facility] #2 [place] [address] Ronnie Kebede MD #2 [place] [address] Medication Refill Social History Tobacco [...] Info) Description 03/28/2025 2:30 PM CDT [facility] 2 [place] [address] Ronnie Kebede MD #2 [place] [address] Discharge Disposition: Discharged to home or Selfcare 05/19/2025 2:00 PM CDT Office Visit [facility] - Neurology [facility] #2 [place] [address] Ronnie eKbede MD #2 [place] [address] documented as of this encounter Visit Diagnoses Not on filedocumented in this encounter Care Teams Insurance Marketing Specialist Relationship Specialty Start Date End Date Moni Rodriguez APRN, DIAMOND [address] [place] [address] PCP - General Family Medicine 05/06/17 Ronnie Kebede MD [address]2 [place] [address] Consulting Physician Neurology 05/06/17 documented as of this encounter
--- OUTSIDE RECORDS SUMMARY | 2025-03-23 11:05 | XMS_ITS | Encounter Summary ---
Author Organization [facility] Address [address] [place] [address] Phone Care Team Providers Care Hr Advisor Name Role Phone Ronnie Kebede MD Unavailable [phone] Moni Rodriguez APRN, PRODUCT SAFETY AND STANDARDS ENGINEER Primary Care Provider [phone] Reason for Visit * Reason Comments Medication Refill Encounter Details Date Type Department Care Team (Late Contact Info) Description [facility] #2 [place] [address] Geovanna Kelly APRN, FLYING I INSTRUCTOR #2 [place] [address] Medication Refill Social History Tobacco Use Types [...] [facility] 2 [place] [address] Ronnie Kebede MD #2 [place] [address] Discharge Disposition: Discharged to home or Selfcare 05/19/2025 2:00 PM CDT Office Visit [facility] - Neurology [facility] #2 [place] [address] Ronnie Kebede MD #2 [place] [address] documented as of this encounter Visit Diagnoses Not on filedocumented in this encounter Care Teams Hr Advisor Relationship Specialty Start Date End Date Moni Rodriguez APRN, DIAMOND [address] [place] [address] PCP - General Family Medicine 05/06/17 Ronnie Kebede MD #2 [place] [address] Consulting Physician Neurology 05/06/17 documented as of this encounter
--- OUTSIDE RECORDS SUMMARY | 2025-03-23 11:05 | XMS_ITS | Encounter Summary ---
Author Organization [facility] Address [address] [place] [address] Phone Care Team Providers Care Dust Collector Attendant Name Role Phone Ronnie Kebede MD Unavailable Moni Rodriguez APRN, CNP Primary Care Provider [phone] Reason for Visit * Reason Comments Medication Refill Encounter Details Date Type Department Care Team (Late st Contact Info) Description 10/12/2020 Refill [facility] - [place] #1 [facility] [place] [address] Ronnie Kebede MD #2 [place] [address] Medication Refill Social History Tobacco [...] By: IVY VIDES Reason for Refusal: Other ICE DISMANTLER documented in this encounter Plan of Treatment Upcoming Encounters Date Type Department Care Team (Late st Contact Info) Description 03/28/2025 2:30 PM CDT [facility] 2 [place] [address] Ronnie Kebede MD #2 [place] [address] Discharge Disposition: Discharged to home or Selfcare 05/19/2025 2:00 PM CDT Office Visit [facility] - Neurology [facility] #2 [place] [address] Ronnie Kebede MD #2 [place] [address] documented as of this encounter Visit Diagnoses Diagnosis Partial symptomatic epilepsy with complex partial seizures, not intractable, without status epilepticus documented in this encounter Care Teams Dust Collector Attendant Relationship Specialty Start Date End Date Moni Rodriguez APRN, DIAMOND [address] [place] [address] PCP - General Family Medicine 05/06/17 Ronnie Kebede MD [address]2 [place] [address] Consulting Physician Neurology 05/06/17 documented as of this encounter
--- OUTSIDE RECORDS SUMMARY | 2025-03-23 11:05 | XMS_ITS | Encounter Summary ---
Author Organization [facility] Address [address] [place] [address] Phone Care Team Providers Care Lubricating Machine Tender Name Role Phone Ronnie Kebede MD Unavailable [phone] Moni Rodriguez APRN, CNP Primary Care Provider [phone] Reason for Visit * Reason Comments Medication Refill Encounter Details Date Type Department Care Team (Late Contact Info) Description [facility]20[facility] #2 [place] [address] Ronnie Kebede MD #2 [place] [address] Medication Refill Social History Tobacco [...] [facility] Neurosciences [facility] 2 [place] [address] Ronnie Kebede MD #2 [place] [address] Discharge Disposition: Discharged to home or Selfcare 05/19/2025 2:00 PM CDT Office Visit [facility] - Neurology [facility] #2 [place] [address] Ronnie Kebede MD #2 [place] [address] documented as of this encounter Visit Diagnoses Not on filedocumented in this encounter Care Teams Lubricating Machine Tender Relationship Specialty Start Date End Date Moni Rodriguez APRN, DIAMOND [address] [place] [address] PCP - General Family Medicine 05/06/17 Ronnie Kebede MD #2 [place] [address] Consulting Physician Neurology 05/06/17 documented as of this encounter
--- OUTSIDE RECORDS SUMMARY | 2025-03-23 11:05 | XMS_ITS | Encounter Summary ---
Author Organization [facility] Address [address] [place] [address] Phone Care Team Providers Care Pipe Fitter Welding Name Role Phone Ronnie Kebede MD Unavailable [phone] Moni Rodriguez APRN, CNP Primary Care Provider [phone] Reason for Visit * Reason Comments Medication Refill Encounter Details Date Type Department Care Team (Late Contact Info) Description 02/27/2021 Refill [facility] - [place] #1 [facility] [place] [address] Ronnie Kebede MD #2 [place] [address] Medication Refill Social History Tobacco [...] 03/28/2025 2:30 PM CDT EEG [facility] 2 [place] [address] Ronnie Kebede MD #2 [place] [address] Discharge Disposition: Discharged to home or Selfcare 05/19/2025 2:00 PM CDT Office Visit [facility] - Neurology [facility] #2 [place] [address] Ronnie Kebede MD #2 [place] [address] documented as of this encounter Visit Diagnoses Not on filedocumented in this encounter Care Teams Pipe Fitter Welding Relationship Specialty Start Date End Date Moni Rodriguez APRN, DIAMOND [address] [place] [address] PCP - General Family Medicine 05/06/17 Ronnie Kebede MD #2 [place] [address] Consulting Physician Neurology 05/06/17 documented as of this encounter
--- OUTSIDE RECORDS SUMMARY | 2025-03-23 11:05 | XMS_ITS | Encounter Summary ---
Author Organization [facility] Address [address] [place] [address] Phone Care Team Providers Care Aviation Warfare Systems Operator Name Role Phone Ronnie Kebede MD Unavailable [phone] Moni Rodriguez APRN, CNP Primary Care Provider [phone] Reason for Visit * Reason Comments Medication Refill Encounter Details Date Type Department Care Team (Late Contact Info) Description 10/23/2020 Refill [facility] - [place] #1 [facility] [place] [address] Ronnie Kebede MD #2 [place] [address] Medication Refill Social History Tobacco [...] Description 03/28/2025 2:30 PM CDT EEG [facility] 2 [place] [address] Ronnie Kebede MD #2 [place] [address] Discharge Disposition: Discharged to home or Selfcare 05/19/2025 2:00 PM CDT Office Visit [facility] - Neurology [facility] #2 [place] [address] Ronnie Kebede MD #2 [place] [address] documented as of this encounter Visit Diagnoses Not on filedocumented in this encounter Care Teams Aviation Warfare Systems Operator Relationship Specialty Start Date End Date Moni Rodriguez APRN, DIAMOND [address] [place] [address] PCP - General Family Medicine 05/06/17 Ronnie Kebede MD #2 [place] [address] Consulting Physician Neurology 05/06/17 documented as of this encounter
--- OUTSIDE RECORDS SUMMARY | 2025-03-23 11:05 | XMS_ITS | Encounter Summary ---
Author Organization [facility] Address [address] [place] [address] Phone Care Team Providers Care Fireworks Maker Name Role Phone Ronnie Kebede MD Unavailable [phone] Moni Rodriguez APRN, CNP Primary Care Provider [phone] Reason for Visit * Reason Comments Medication Refill Encounter Details Date Type Department Care Team (Late Contact Info) Description 04/07/2020 Refill [facility] - [place] #[address] [facility] [place] [address] Ronnie Kebede MD #2 [place], [place] [...] 03/28/2025 2:30 PM CDT EEG [facility] Neuro[facility] 2 [place] [address] Ronnie Kebede MD #2 [place] [address] Discharge Disposition: Discharged to home or Selfcare 05/19/2025 2:00 PM CDT Office Visit [facility] - Neurology [facility] #2 [place] [address] Ronnie Kebede MD #2 [place] [address] documented as of this encounter Visit Diagnoses Not on filedocumented in this encounter Care Teams Fireworks Maker Relationship Specialty Start Date End Date Moni Rodriguez APRN, DIAMOND [address] [place] [address] PCP - General Family Medicine 05/06/17 Ronnie Kebede MD #2 [place] [address] Consulting Physician Neurology 05/06/17 documented as of this encounter
--- OUTSIDE RECORDS SUMMARY | 2025-03-23 11:05 | XMS_ITS | Encounter Summary ---
Author Organization [facility] Address [address] [place] [address] Phone Care Team Providers Care Workers Compensation Claims Adjuster Name Role Phone Ronnie Kebede MD Unavailable [phone] Moni Rodriguez APRN, CNP Primary Care Provider [phone] Reason for Visit * Reason Comments Medication Refill Encounter Details Date Type Department Care Team (Late st Contact Info) Description 10/29/2023 Refill [facility] - Neurology - [place] #2 [place] [address] Ronnie Kebede MD #2 [place] [address] Medication Refill Social History Tobacco [...] Dept 08/10/23 Office Visit Ronnie Kebede MD [facility] Neurology [facility] Showing recent visits within past 365 days and meeting all other requirements Future Appointments Date Type Provider Dept 12/10/23 Appointment Ronnie Kebede MD [facility] Neurology [facility] Showing future appointments within next 90 days and meeting all other requirements ET DEVELOPER documented in this encounter Plan of Treatment Upcoming Encounters Date Type Department Care Team (Late st Contact Info) Description 03/28/2025 2:30 PM CDT [facility] 2 [place] [address] Ronnie Kebede MD #2 [place] [address] Discharge Disposition: Discharged to home or Selfcare 05/19/2025 2:00 PM CDT [facility] #2 [place] [address] Ronnie Kebede MD #2 [place] [address] documented as of this encounter Visit Diagnoses Diagnosis Partial symptomatic epilepsy with complex partial seizures, not intractable, without status epilepticus documented in this encounter Care Teams Workers Compensation Claims Adjuster Relationship Specialty Start Date End Date Moni Rodriguez APRN, DIAMOND [address] [place] [address] PCP - General Family Medicine 05/06/17 Ronnie Kebede MD #2 [place] [address] Consulting Physician Neurology 05/06/17 documented as of this encounter
--- OUTSIDE RECORDS SUMMARY | 2025-03-23 11:05 | XMS_ITS | CONTINUITY OF CARE DOCUMENT ---
Author Name anup hebert Address Unknown Organization [facility] Address [address] [place] [address] [address] [place] [address] Phone [phone] Care Team Providers Care Industrial Conveyor Belt Repairer Name Role Phone Bentley MOODY, Min Unavailable INSURANCE PROVIDERS Payer name Policy type / Coverage type [place] red green party ID [place] Medicare [id number]
--- OUTSIDE RECORDS SUMMARY | 2025-03-23 11:05 | XMS_ITS | Encounter Summary ---
Author Organization [facility] Address [address] [place] [address] Phone Care Team Providers Care Social Service Assistant Name Role Phone Ronnie Kebede MD Unavailable [phone] Moni Rodriguez APRN, CNP Primary Care Provider [phone] Reason for Visit * Reason Comments Medication Refill Encounter Details Date Type Department Care Team (Late st Contact Info) Description 02/02/2023 Refill [facility] - [place] #2 [place] [address] Ronnie Kebede MD #2 [place] [address] Medication Refill Social History Tobacco [...] Dept 07/17/22 Office Visit Ronnie Kebede MD [facility] Neurology [facility] Showing recent visits within past 365 days and meeting all other requirements Future Appointments No visits were found meeting these conditions. Showing future appointments within next 90 days and meeting all other requirements documented in this encounter Plan of Treatment Upcoming Encounters Date Type Department Care Team (Late st Contact Info) Description 03/28/2025 2:30 PM CDT EEG [facility] Neurosciences Clinic 2 [place] [address] Ronnie Kebede MD #2 [place] [address] Discharge Disposition: Discharged to home or Selfcare 05/19/2025 2:00 PM CDT Office Visit [facility] - Neurology [facility] #2 [place] [address] Ronnie Kebede MD #2 [place] [address] documented as of this encounter Visit Diagnoses Not on filedocumented in this encounter Care Teams Social Service Assistant Relationship Specialty Start Date End Date Moni Rodriguez APRN, CNP [address] [place] [address] PCP - General Family Medicine 05/06/17 Ronnie Kebede MD #2 [place] [address] Consulting Physician Neurology 05/06/17 documented as of this encounter
--- OUTSIDE RECORDS SUMMARY | 2025-03-23 11:05 | XMS_ITS | Clinical Summary ---
Author Organization [facility] Address #1 [facility] [place] [address] Phone Care Team Providers Care Wader Boot Top Assembler Name Role Phone Ronnie Kebede MD Unavailable [phone] Moni Rodriguez APRN, ADJUNCT INSTRUCTOR IN ECONOMICS Primary Care Provider [phone] Allergies Active Allergy Reactions Criticality Noted Date [...] Type Department Care Team Description [facility] #2 [place] [address] Ronnie Kebede MD Medication Refill 03/14/2025 [facility]2 [place] [address] Ronnie Kebede MD 02/22/2025 Telephone [facility] Neurology - [place] #2 [place] [address] Ronnie Kebede MD 02/20/2025 [facility]phone [facility] [place] #2 [place] [address] Ronnie Kebede MD 02/20/2025 Telephone [facility] #2 [place] [address] Ronnie Kebede MD 02/17/2025 Telephone [facility] [place] #2 [place] [address] Ronnie Kebede MD 02/16/2025 2:15 PM CDT Office Visit [facility] Neurology - [place] #2 [place] [address] Ronnie Kebede MD Partial symptomatic epilepsy with complex partial seizures, not intractable, without status epilepticus (Primary Dx) Discharge Disposition: Discharged to home or Selfcare 02/16/2025 Travel 02/06/2025 Telephone [facility] [place] [facility] #2 [place] [address] Ronnie Kebede MD from Last 3 Months [...] Info) Description 03/28/2025 2:30 PM CDT [facility] 2 [place] [address] Ronnie Kebede MD #2 [place] [address] Discharge Disposition: Discharged to home or Selfcare 05/19/2025 2:00 PM CDT Office Visit [facility] - Neu[facility] #2 [place] [address] Ronnie Kebede MD #2 [place] [address] Health Maintenance Due Date Last Done Comments [...] Recently Relevant to Health [place] [address] MEDICA[place] MEDICARE C [employer] Care Teams Wader Boot Top Assembler Relationship Specialty Start Date End Date Michael, ELEN Montenegro CNP [address] [place] [address] PCP - General Family Medicine 05/06/17 Ronnie Kebede MD #2 [place] [address] Consulting Physician Neurology 05/06/17
--- OUTSIDE RECORDS SUMMARY | 2025-03-23 11:05 | XMS_ITS | Encounter Summary ---
Author Organization [facility] Address [address] [place] [address] Phone Care Team Providers Care Network Desktop Support Specialist Name Role Phone Ronnie Kebede MD Unavailable [phone] Moni Rodriguez APRN, CNP Primary Care Provider [phone] Reason for Visit * Reason Comments Medication Refill Encounter Details Date Type Department Care Team (Late Contact Info) Description 03/23[facility]2022 [facility] #2 [place] [address] Ronnie Kebede MD #2 [place] [address] Medication Refill Social History Tobacco [...] [facility] 2 [place] [address] Ronnie Kebede MD #2 [place] [address] Discharge Disposition: Discharged to home or Selfcare 05/19/2025 2:00 PM CDT Office [facility] #2 [place] [address] Ronnie Kebede MD #2 [place] [address] documented as of this encounter Visit Diagnoses Not on filedocumented in this encounter Care Teams Network Desktop Support Specialist Relationship Specialty Start Date End Date Moni Rodriguez APRN, DIAMOND [address] [place] [address] PCP - General Family Medicine 05/06/17 Ronnie Kebede MD #2 [place] [address] Consulting Physician Neurology 05/06/17 documented as of this encounter
--- OUTSIDE RECORDS SUMMARY | 2025-03-23 11:05 | XMS_ITS | Encounter Summary ---
Author Organization [facility] Address [address] [place] [address] Phone Care Team Providers Care Loan Interviewer Mortgage Name Role Phone Ronnie Kebede MD Unavailable [phone] Moni Rodriguez APRN, CNP Primary Care Provider [phone] Reason for Visit * Reason Comments Medication Refill Encounter Details Date Type Department Care Team (Late Contact Info) Description 01/12/2021 Refill [facility] - [place] #[address] [facility] [place] [address] Ronnie Kebede MD #2 [place] [address] Medication Refill Social History [...] 03/28/2025 2:30 PM CDT EEG [facility] [address] [place] [address] Ronnie Kebede MD #2 [place] [address] Discharge Disposition: Discharged to home or Selfcare 05/19/2025 2:00 PM CDT Office Visit [facility] #2 [place] [address] Ronnie Kebede MD #2 [place] [address] documented as of this encounter Visit Diagnoses Diagnosis Partial symptomatic epilepsy with complex partial seizures, not intractable, without status epilepticus documented in this encounter Care Teams Loan Interviewer Mortgage Relationship Specialty Start Date End Date Moni Rodriguez APRN, CNP [address] [place] [address] PCP - General Family Medicine 05/06/17 Ronnie Kebede MD #2 [place] [address] Consulting Physician Neurology 05/06/17 documented as of this encounter
--- OUTSIDE RECORDS SUMMARY | 2025-03-23 11:05 | XMS_ITS | Encounter Summary ---
Author Organization [facility] Address [address] [place] [address] Phone Care Team Providers Care Glove Parts Cutter Name Role Phone Ronnie Kebede MD Unavailable [phone] Moni Rodriguez APRN, ELECTRIC WIRER Primary Care Provider [phone] Reason for Visit * Reason Comments Medication Refill Encounter Details Date Type Department Care Team (Late Contact Info) Description 03/04/2021 Refill [facility] - [place] #1 [facility] [place] [address] Geovanna Kelly APRN, DENTAL OFFICER #2 [place] [address] Medication Refill Social History Tobacco Use Types [...] 03/28/2025 2:30 PM CDT EEG [facility] 2 [place] [address] Ronnie Kebede MD #2 [place] [address] Discharge Disposition: Discharged to home or Selfcare 05/19/2025 2:00 PM CDT Office Visit [facility] #2 [place] [address] Ronnie Kebede MD #2 [place] [address] documented as of this encounter Visit Diagnoses Diagnosis Partial symptomatic epilepsy with complex partial seizures, not intractable, without status epilepticus documented in this encounter Care Teams Glove Parts Cutter Relationship Specialty Start Date End Date Moni Rodriguez APRN, CNP [address] [place] [address] PCP - General Family Medicine 05/06/17 Ronine Kebede MD #2 [place] [address] Consulting Physician Neurology 05/06/17 documented as of this encounter
--- OUTSIDE RECORDS SUMMARY | 2025-03-23 11:05 | XMS_ITS | Encounter Summary ---
Author Organization [facility] Address [address] [place] [address] Phone Care Team Providers Care Physical Therapy Assistant Name Role Phone Ronnie Kebede MD Unavailable [phone] Moni Rodriguez APRN, CNP Primary Care Provider [phone] Reason for Visit * Reason Comments Medication Refill Encounter Details Date Type Department Care Team (Late st Contact Info) Description 08/01/2023 Refill [facility]rology - [place] #2 [place] [address] Ronnie Kebede MD #2 [place] [address] Medication Refill Social History Tobacco [...] Provider Dept 08/10/23 Appointment Ronnie Kebede MD [facility] Showing future appointments within next 90 days and meeting all other requirements documented in this encounter Plan of Treatment Upcoming Encounters Date Type Department Care Team (Late st Contact Info) Description 03/28/2025 2:30 PM CDT EEG [facility] 2 [place] [address] Ronnie Kebede MD #[address] [place] [address] Discharge Disposition: Discharged to home or Selfcare 05/19/2025 2:00 PM CDT Office Visit [facility] #2 [place] [address] Ronnie Kebede MD #[address] [place] [address] documented as of this encounter Visit Diagnoses Not on filedocumented in this encounter Care Teams Physical Therapy Assistant Relationship Specialty Start Date End Date Moni Rodriguez APRN, CNP [address] [place] [address] PCP - General Family Medicine 05/06/17 Ronnie Kebede MD #[address] [place] [address] Consulting Physician Neurology 05/06/17 documented as of this encounter
--- OUTSIDE RECORDS SUMMARY | 2025-03-23 11:05 | XMS_ITS | Encounter Summary ---
Author Organization [facility] Address [address] [place] [address] Phone Care Team Providers Care Public Relations Assistant Name Role Phone Ronnie Kebede MD Unavailable [phone] Moni Rodriguez APRN, CNP Primary Care Provider [phone] Reason for Visit * Reason Comments Medication Refill Encounter Details Date Type Department Care Team (Late Contact Info) Description 11/15/2020 Refill [facility] - [place] #1 [facility] [place] [address] Ronnie Kebede MD #2 [place] [address] Medication Refill Social History Tobacco [...] 2:30 PM CDT EEG [facility] 2 [place] [address] Ronnie Kebede MD #2 [place] [address] Discharge Disposition: Discharged to home or Selfcare 05/19/2025 2:00 PM CDT Office Visit [facility] #2 [place] [address] Ronnie Kebede MD #2 [place] [address] documented as of this encounter Visit Diagnoses Diagnosis Partial symptomatic epilepsy with complex partial seizures, not intractable, without status epilepticus documented in this encounter Care Teams Public Relations Assistant Relationship Specialty Start Date End Date Moni Rodriguez APRN, CNP [address] [place] [address] PCP - General Family Medicine 05/06/17 Ronnie Kebede MD #2 [place] [address] Consulting Physician Neurology 05/06/17 documented as of this encounter
--- NOTE | 2025-03-23 11:11 | ED.SEIZURE ---
HPI - Seizure General Chief Complaint: Seizure Stated Complaint: seizure Time Seen by Provider: 03/23/25 10:51 Source: patient Mode of arrival: EMS Limitations: no limitations History of Present Illness HPI Narrative: Patient is a 79-year-old female who presents the ED via EMS from home with report of seizure. Patient reports she has history of abnormal seizures, which typically consist of her passing out. She had previously been on topiramate. Is also on carbamazepine. Sees Dr. Kebede with Neurology in [place]. States she was switched to Keppra from topiramate 1.5 months ago. Did not take her morning doses yet today. Last seizure was in January. She reports she woke up this morning and felt the need to have a bowel movement. She notes that she has been constipated for the past 1 week. She states she had a burning sensation in her abdomen. She attempted to go to the bathroom, but then had a seizure on the toilet. She states she passed out on the toilet. She states this is typically of her sz. She thinks she briefly lost consciousness. She did not fall off the toilet. She was able to get a hold of her family member that she lives with. They then contacted EMS. Patient states she feels back to her baseline currently. She does report having some abdominal pain lower abdomen. Denies nausea vomiting, chest pain shortness of breath, focal weakness or numbness, dizziness, lightheadedness. Seizure History: Yes Related Data Home Medications ?Medication ?Instructions ?Recorded ?Confirmed ?Last Taken ?Type atenolol 100 mg tablet mg 02/03/24 Unknown History atorvastatin 40 mg tablet mg 02/03/24 Unknown History carbamazepine 200 mg mg PO 02/03/24 Unknown History capsule,extended release [id number] desvenlafaxine succinate 50 mg mg PO 02/03/24 Unknown History tablet,extended release 24 hr esomeprazole magnesium 40 mg mg 02/03/24 Unknown History capsule,delayed release famotidine 40 mg tablet mg 02/03/24 Unknown History glimepiride 4 mg tablet mg 02/03/24 Unknown History levothyroxine 100 mcg tablet mcg 02/03/24 Unknown History lisinopril 40 mg tablet mg 02/03/24 Unknown History mecobalamin (vitamin B12) 5,000 5,000 mcg PO DAILY 02/03/24 02/03/24 Unknown History mcg chewable tablet topiramate 100 mg tablet mg 02/03/24 Unknown History trazodone 50 mg tablet mg 02/03/24 Unknown History Allergies Allergy/AdvReac Type Severity Reaction Status Date / Time benzonatate Allergy Severe DIFF Verified 03/13/25 14:03 BREATHING coconut Allergy Severe Swelling Verified 03/13/25 14:03 of Lip/Tongue/Throat venom-honey bee Allergy Severe ANAPHYLAXIS Verified 03/13/25 14:36 honey Allergy Unknown Unknown Verified 03/13/25 14:03 latex Allergy Unknown Unknown Verified 03/13/25 14:03 milk Allergy Unknown Unknown Verified 03/13/25 14:03 peanut Allergy Unknown Unknown Verified 03/13/25 14:03 tree nut Allergy Unknown Unknown Verified 03/13/25 14:03 Iodinated Contrast Media Allergy Rash Verified 03/13/25 14:03 hydralazine AdvReac Intermediate Redness of Verified 03/23/25 15:11 Skin HONEY,WOOL,ALL NUTS,MILK Allergy Severe VARYING Uncoded 03/13/25 14:03 DEGREES OF REACTIVITY Review of Systems Review of Systems: All systems reviewed & are unremarkable except as noted in HPI. All systems reviewed & are unremarkable except as noted in HPI and below PMFSH Past Medical History Medical History Seizure disorder Family History Family History Sibling Family history of lung cancer Grandparent Family history of malignant neoplasm of breast Exam Narrative: GENERAL: Elderly but well appearing, well-nourished, non-toxic, in no acute distress. HEAD: Normocephalic, atraumatic. EYES: PERRL/EOMI, conjunctivae clear bilaterally. No nystagmus. ENT: Edentulous. NECK: Supple. No meningeal signs. RESPIRATORY: Airway patent, respirations nonlabored. Clear to auscultation bilaterally, no rales, rhonchi, wheezing. CARDIOVASCULAR: Regular rate and rhythm without murmurs, rubs, or gallops. Peripheral pulses 2+ and equal bilaterally. ABDOMINAL: Soft, mild tenderness to palpation throughout lower abd, nondistended. Normoactive BS. MUSCULOSKELETAL: Moves all extremities. No gross deformities. SKIN: Warm, dry, normal color. No rashes. NEURO: A&O X3. Speech clear. Follows commands. CN II-XII intact. Sensation grossly intact. Steady gait. No ataxic movements. Strength 5/5 in upper and lower extremities bilaterally. Huev-hp-mbai and janxzn-pz-ancf testing intact bilaterally. No pronator drift. Equal pattern changer strength bilaterally. PSYCHIATRIC: Appropriate mood and affect. Normal interaction. Course Vital Signs Vital signs: Vital Signs Temperature 97.7 F 03/23/25 09:39 Pulse Rate 49 L 03/23/25 09:39 Respiratory Rate 16 03/23/25 09:39 Pulse Oximetry 100 03/23/25 09:39 Temperature 97.7 F 03/23/25 09:39 Pulse Rate 60 03/23/25 15:05 Respiratory Rate 16 03/23/25 15:05 Blood Pressure 151/79 H 03/23/25 15:05 Pulse Oximetry 98 03/23/25 15:05 Oxygen Delivery Room Air 03/23/25 10:20 MDM - Seizure MDM Narrative Medical decision making narrative: Patient presented to ED with seizure versus syncope this morning. Also reporting constipation for the past 1 week with abdominal pain. Patient does have history of seizure disorder. Is on Keppra and carbamazepine. Was switched to Keppra from topiramate last month. Reports compliance with medications although did not take her medications this morning. She was given loading dose of Keppra as well as her carbamazepine here. Follows with neurology. Vital signs are stable upon arrival. Patient is slightly bradycardic, which is normal for her per previous records. She is on atenolol. She is neurologically intact upon my evaluation. No appreciable focal deficits. CT brain was obtained and without acute findings. EKG with sinus bradycardia, nonspecific ST changes. Troponin undetectable. Basic laboratory studies with white blood cell count of 10.2. Stable electrolytes. Normal kidney function. Lactic acid within normal range. Magnesium within normal range. UA clear. CT scan of abdomen/pelvis showing moderate amount of colonic stool with stool ball present. MAYNOR performed to break up stool. Will give enema. Patient in agreement with this plan. Patient tolerated this well. She had large bowel movement after enema. Feeling much better. Discussed case with Dr. Kebede, patient's neurologist, have patient come to the office for f/u within the next 1-2 weeks. Okay with plan for D/C home. Patient in agreement with plan. Advised to take all medications as prescribed. Discussed constipation management. Discussed strict return precautions. She agrees with plan. Discharged in stable condition. Medical Records Attestation: I reviewed the patient's medical records. Lab Data Attestation: I reviewed the patient's lab results. 03/23/25 10:16 03/23/25 10:16 Labs: Lab Results 03/23/25 03/23/25 03/23/25 Range/Units 10:16 11:31 12:32 WBC 10.2 H (4.5-10.0) K/mm3 RBC 4.18 L (4.2-5.4) M/mm3 Hgb 12.2 (12.0-15.0) g/dL Hct 39.2 (37.0-47.0) % MCV 93.8 (80-100) fl MCH 29.2 (26-34) pg MCHC 31.1 L (32-36) g/dl RDW 13.2 (11.5-14.5) % Plt Count 227 (150-375) k/mm3 MPV 11.3 H (7.4-10.4) fl Immature Gran % (Auto) 0.5 (0-0.5) % Neut % (Auto) 76.8 H (45.5-73.1) % Lymph % (Auto) 14.9 L (18.3-44.2) % Potter % (Auto) 6.4 (2.6-8.5) % Eos % (Auto) 0.9 (0-4.4) % Baso % (Auto) 0.5 (0.2-1.2) % Lymph # (Auto) 1.52 (0.9-3.2) K/mm3 Potter # (Auto) 0.7 H (0.1-0.6) K/mm3 Eos # (Auto) 0.1 (0-0.3) K/mm3 Baso # (Auto) 0.1 (0.0-0.1) K/mm3 Abs Immat Gran (auto) 0.05 H (0.00-0.031) K/mm3 Absolute Neuts (auto) 7.9 H (1.3-6.7) K/mm3 Absolute Nucleated RBC 0.000 (0.0-0.012) K/mm3 Nucleated RBC % 0.0 (0.0-0.2) % PT 13.5 (11.1-14.7) Seconds INR 1.0 APTT 20.1 L (22.3-36.8) Seconds Sodium 136 L (137-145) mmol/L Potassium 3.8 (3.4-5.0) mmol/L Chloride 98 (98-107) mmol/L Carbon Dioxide 28 (22-30) mmol/L Anion Gap 10 (4-12) mmol/L BUN 17 (7-17) mg/dL Creatinine 0.82 (0.7-1.0) mg/dL Estim Creat Clear Calc 43 ml/min Estimated GFR > 60 (59 - ) Glucose 173 H (65-110) mg/dL Lactic Acid 1.5 (0.7-2.0) mmol/L Calcium 8.9 (8.4-10.2) mg/dL Magnesium 2.1 (1.6-2.3) mg/dL Total Bilirubin 0.6 (0.2-1.3) mg/dL AST 42 H (14-36) U/L ALT 24 (6-35) U/L Alkaline Phosphatase 204 H (38-126) U/L Troponin I < 0.012 (0.000-0.034) ng/mL Total Protein 7.0 (6.3-8.2) g/dL Albumin 4.5 (3.5-5.1) g/dL Lipase 131 (23-300) U/L Urine Color Yellow (Yellow) Urine Appearance Clear (Clear) Urine pH 6.0 (5.0-9.0) Ur Specific [place] 1.010 (1.001-1.035) Urine Protein Trace (Negative) mg/dL Urine Glucose (UA) Negative (Negative) mg/dL Urine Ketones Negative (Negative) mg/dL Ur Blood (Man) Negative (Negative) Urine Nitrate Negative (Negative) Urine Bilirubin Negative (Negative) Urine Urobilinogen 1.0 (<2.0) mg/dL Add Ur Microanalysis Reviewed Leukocyte Esterase Rfl Negative (Negative) GIANLUCA/UL Urine RBC 0-2 (0-2) /hpf Urine WBC 0-5 (0-3) /hpf Ur Squamous Epith Cells None seen (Few) /hpf Urine Bacteria None seen /hpf Urine Casts 6-10 Imaging Data Attestation: I personally reviewed and interpreted this imaging study as follows: Radiologist's impression: ITS Impressions Head CT 03/23/25 12:28 IMPRESSION: 1. Stable appearance of age-related changes including mild diffuse volume loss and mild scattered white matter hypoattenuation consistent with chronic small vessel ischemic disease. No acute intracranial process. Abdomen/Pelvis CT 03/23/25 12:30 IMPRESSION: 1. Moderate amount of colonic stool with 6 similar diameter ball of stool the rectum consistent with provided history of constipation. No other acute intra-abdominal/pelvic process. ECG Data EKG #1: Attestation: I personally reviewed and interpreted this ECG as follows: ECG completion date: 03/23/25 ECG completion time: 09:45 EKG Interpretation: bradycardia (48), sinus rhythm, non-specific ST changes and other (first degree AV block) Discharge Plan Discharge Clinical Impression: Seizure disorder Constipation Qualifiers: Constipation type: unspecified constipation type Qualified Code(s): K59.00 - Constipation, unspecified Patient Disposition: Home Condition: Stable Instructions: Antibiotic Form, Constipation (ED), High Fiber Diet (ED), Recurrent Seizures in Adults (ED) Additional Instructions: Recommend MiraLax and Dulcolax twice daily as needed for constipation. Stay well hydrated. Recommend high-fiber diet. Continue your seizure medications as prescribed. Follow-up closely with your neurologist for further evaluation. Call office make appointment within the next 1-2 weeks. He was made aware of your ED visit. Return to the ED for new or worsening concerns, recurrent seizure episodes, unable to keep down food or drink, chest pain, shortness breath, or any other symptoms of concern. Patient Language: Sammarinese Prescriptions: No Action atorvastatin 40 mg tablet trazodone 50 mg tablet atenolol 100 mg tablet famotidine 40 mg tablet levothyroxine 100 mcg tablet esomeprazole magnesium 40 mg capsule,delayed release(DR/EC) glimepiride 4 mg tablet lisinopril 40 mg tablet topiramate 100 mg tablet carbamazepine 200 mg capsule, ER multiphase 12 hr PO desvenlafaxine succinate 50 mg tablet extended release 24 hr PO mecobalamin (vitamin B12) 5,000 mcg Tablet,Chewable 5,000 mcg PO DAILY ondansetron 4 mg tablet,disintegrating 4 mg PO Q8H PRN (Reason: nausea and vomiting) Qty: 10 0RF Follow-up/Referrals: Rodriguez,Moni Warner APN [Primary Care Provider] - Time of Disposition: 14:34
[2025-03-23 11:25] LABS: Basophils Absolute Auto 0.1 K/mm3 (0.0-0.1); Basophils Percent Auto 0.5 % (0.2-1.2); Eosinophils Absolute Auto 0.1 K/mm3 (0-0.3); Eosinophils Percent Auto 0.9 % (0-4.4); Hematocrit 39.2 % (37.0-47.0); Hemoglobin 12.2 g/dL (12.0-15.0); Immature Granulocyte Absolute 0.05 K/mm3 (0.00-0.031); Immature Granulocyte Percent A 0.5 % (0-0.5); Lymphocytes Absolute Auto 1.52 K/mm3 (0.9-3.2); Lymphocytes Percent Auto 14.9 % (18.3-44.2); Mean Corpuscular HGB Conc 31.1 g/dl (32-36); Mean Corpuscular Hemoglobin 29.2 pg (26-34); Mean Corpuscular Volume 93.8 fl (80-100); Mean Platelet Volume 11.3 fl (7.4-10.4); Monocytes Absolute Auto 0.7 K/mm3 (0.1-0.6); Monocytes Percent Auto 6.4 % (2.6-8.5); Neutrophils Absolute Auto 7.9 K/mm3 (1.3-6.7); Neutrophils Percent Auto 76.8 % (45.5-73.1); Platelet Count Result 227 k/mm3 (150-375); Red Blood Count 4.18 M/mm3 (4.2-5.4); Red Cell Distribution Width 13.2 % (11.5-14.5); White Blood Count 10.2 K/mm3 (4.5-10.0)
[2025-03-23 11:32] LABS: Alanine Aminotransferase 24 U/L (6-35); Albumin Level 4.5 g/dL (3.5-5.1); Alkaline Phosphatase 204 U/L (38-126); Anion Gap 10 mmol/L (4-12); Aspartate Amino Transferase 42 U/L (14-36); Bilirubin,Total 0.6 mg/dL (0.2-1.3); Blood Urea Nitrogen 17 mg/dL (7-17); Calcium 8.9 mg/dL (8.4-10.2); Carbon Dioxide 28 mmol/L (22-30); Chloride 98 mmol/L (98-107); Estimated CRCL calculation 43 ml/min; Estimated Glomerular Filt Rate > 60; Glucose 173 mg/dL (65-110); Lipase 131 U/L (23-300); Magnesium 2.1 mg/dL (1.6-2.3); Potassium 3.8 mmol/L (3.4-5.0); Sodium 136 mmol/L (137-145)
[2025-03-23 11:37] LABS: Prothrombin Time 13.5 Seconds (11.1-14.7)
[2025-03-23 11:38] LABS: Partial Thromboplastin Time 20.1 Seconds (22.3-36.8)
[2025-03-23 11:44] LABS: Troponin I < 0.012 ng/mL (0.000-0.034)
[2025-03-23 11:49] LABS: Lactic Acid Reflex 1.5 mmol/L (0.7-2.0)
[2025-03-23] MEDS: levETIRAcetam 1500MG/NACL100ML 1,500 MG/100 ML BAG 400 MG IVPB (12:26)
[2025-03-23 13:22] LABS: Add Urine Microscopic? YES; Appearance Urine Clear (Clear); Bacteria Urine None Seen /hpf; Bilirubin Urine Negative (Negative); Blood Urine Negative (Negative); Color Urine Yellow (Yellow); Glucose Urine UA Negative (Negative); Ketones Urine Negative (Negative); Leukocyte Esterase Ur Negative LEU/UL (Negative); Need Manual Microscopic Reviewed; Nitrate Urine Negative (Negative); Protein Urine Trace mg/dL (Negative); RBC Urine 0-2 /hpf (0-2); Squamous Epithelial Cell Urine None Seen /hpf (Few); WBC Urine 0-5 /hpf (0-3)
[2025-03-23] MEDS: polyethylene glycoL 3350 17 GM POWD.PACK PO (13:59)
[2025-03-23] MEDS: carBAMazepine 200 MG TABLET PO (13:59)
[2025-03-23] MEDS: BISACODYL 5 MG TABLET EC PO (13:59)
== END 2025-03-23 15:05 | disposition home or self-care (01) ==
PROVIDERS: Emergency Provider Physician Assistant; PCP Nurse Practitioner Family
DX: G40.909 Epilepsy, unspecified, not intractable, without status epilepticus (principal); K59.00 Constipation, unspecified; R10.30 Lower abdominal pain, unspecified; Z79.899 Other long term (current) drug therapy; Z79.84 Long term (current) use of oral hypoglycemic drugs; R00.1 Bradycardia, unspecified; I44.0 Atrioventricular block, first degree; I51.7 Cardiomegaly
CPT/HCPCS: 36415; 70450; 74176; 80053; 81001; 83605; 83690; 83735; 84484; 85025; 85610; 85730; 93005; 96365; 99284; A9270; J1953

== ENCOUNTER 2025-03-24 12:17 | Outpatient (CLI) | payer MEDICARE, MEDICAID, SELFPAY ==
--- OUTSIDE RECORDS SUMMARY | 2025-03-24 12:21 | XMS_ITS | Encounter Summary ---
Author Organization [facility] Address [address] [place] [address] Phone Care Team Providers Care Financial Professional Name Role Phone Ronnie Kebede MD Unavailable [phone] Moni Rodriguez APRN, CNP Primary Care Provider [phone] Reason for Visit * Reason Comments Medication Refill Encounter Details Date Type Department Care Team (Late st Contact Info) Description 10/29/2023 Refill [facility] - [place] #2 [place] [address] Ronnie Kebede MD #2 [place] [address] Medication Refill Social History Tobacco [...] Dept 08/10/23 Office Visit Ronnie Kebede MD [facility] Neurology [facility] Showing recent visits within past 365 days and meeting all other requirements Future Appointments Date Type Provider Dept 12/10/23 Appointment Ronnie Kebede MD [facility] Neurology [facility] Showing future appointments within next 90 days and meeting all other requirements [facility] documented in this encounter Plan of Treatment Upcoming Encounters Date Type Department Care Team (Late st Contact Info) Description 03/28/2025 1:45 PM CDT Office Visit [facility] #2 [place] [address] Ronnie Kebede MD #[address] [place] [address] 05/19/2025 2:00 PM CDT Office Visit [facility] #[address] [place] [address] Ronnie Kebede MD #[address] [place] [address] documented as of this encounter Visit Diagnoses Diagnosis Partial symptomatic epilepsy with complex partial seizures, not intractable, without status epilepticus documented in this encounter Care Teams Financial Professional Relationship Specialty Start Date End Date Moni Rodriguez APRN, CNP [address] [place] [address] PCP - General Family Medicine 05/06/17 Ronnie Kebede MD [address]2 [place] [address] Consulting Physician Neurology 05/06/17 documented as of this encounter
--- OUTSIDE RECORDS SUMMARY | 2025-03-24 12:21 | XMS_ITS | Encounter Summary ---
Author Organization [facility] Address [address] [place] [address] Phone Care Team Providers Care Student Outreach Coordinator Name Role Phone Ronnie Kebede MD Unavailable [phone] Moni Rodriguez APRN, CNP Primary Care Provider [phone] Reason for Visit * Reason Comments Medication Refill Encounter Details Date Type Department Care Team (Late Contact Info) Description 11/15/2020 Refill [facility] Neurology [facility] #1 [facility] [place] [address] Ronnie Kebede MD #2 [place] [address] Medication Refill Social History Tobacco [...] Care Team (Late Contact Info) Description 03/28/2025 1:45 PM CDT Office Visit [facility] Neurology [facility] #2 [place] [address] Ronnie Kebede MD #2 [place] [address] 05/19/2025 2:00 PM CDT Office Visit [facility] #2 [facility] [address] Ronnie Kebede MD #2 [place] [address] documented as of this encounter Visit Diagnoses Diagnosis Partial symptomatic epilepsy with complex partial seizures, not intractable, without status epilepticus documented in this encounter Care Teams Student Outreach Coordinator Relationship Specialty Start Date End Date Moni Rodriguez APRN, CNP [address] [place] [address] PCP - General Family Medicine 05/06/17 Ronnie Kebede MD #2 [place] [address] Consulting Physician Neurology 05/06/17 documented as of this encounter
--- OUTSIDE RECORDS SUMMARY | 2025-03-24 12:21 | XMS_ITS | Encounter Summary ---
Author Organization [facility] Address [address] [place] [address] Phone Care Team Providers Care Reporting Process Consultant Name Role Phone Ronnie Kebede MD Unavailable [phone] Moni Rodriguez APRN, ECONOMICS FACULTY MEMBER Primary Care Provider [phone] Reason for Visit * Reason Comments Medication Refill Encounter Details Date Type Department Care Team (Late Contact Info) Description 02/06[facility]20[facility] #1 [facility] [place] [address] Geovanna Kelly APRN, REFRIGERATOR TESTER #2 [place] [address] Medication Refill Social History Tobacco Use Types [...] Description 03/28/2025 1:45 PM CDT Office Visit [facility]rology [facility] #2 [place] [address] Ronnie Kebede MD #2 [place] [address] 05/19/2025 2:00 PM CDT Office Visit [facility] #2 [facility] [place] [address] Ronnie Kebede MD #2 [place] [address] documented as of this encounter Visit Diagnoses Diagnosis Partial symptomatic epilepsy with complex partial seizures, not intractable, without status epilepticus documented in this encounter Care Teams Reporting Process Consultant Relationship Specialty Start Date End Date Moni Rodriguez APRN, CNP [address] [place] [address] PCP - General Family Medicine 05/06/17 Ronnie Kebede MD #2 [place] [address] Consulting Physician Neurology 05/06/17 documented as of this encounter
--- OUTSIDE RECORDS SUMMARY | 2025-03-24 12:21 | XMS_ITS | Encounter Summary ---
Author Organization [facility] Address [address] [place] [address] Phone Care Team Providers Care Porter Marina Name Role Phone Ronnie Kebede MD Unavailable [phone] Moni Rodriguez APRN, CNP Primary Care Provider [phone] Reason for Visit * Reason Comments Medication Refill Encounter Details Date Type Department Care Team (Late Contact Info) Description 12/[facility] #2 [place] [address] Ronnie Kebede MD #2 [place] [address] Medication Refill Social History Tobacco [...] Description 03/28/2025 1:45 PM CDT Office Visit [facility] #2 [place] [address] Ronnie Kebede MD #2 [place] [address] 05/19/2025 2:00 PM CDT [facility] Visit [facility] - [facility] #2 [place] [address] Ronnie Kebede MD #2 [place] [address] documented as of this encounter Visit Diagnoses Not on filedocumented in this encounter Care Teams Porter Marina Relationship Specialty Start Date End Date Moni Rodriguez APRN, CNP [address] [place] [address] PCP - General Family Medicine 05/06/17 Ronnie Kbeede MD #2 [place] [address] Consulting Physician Neurology 05/06/17 documented as of this encounter
--- OUTSIDE RECORDS SUMMARY | 2025-03-24 12:21 | XMS_ITS | CONTINUITY OF CARE DOCUMENT ---
Author Name anup hebert Address Unknown Organization [facility] Address [address] [place] [address] [address] [place] [address] Phone [phone] Care Team Providers Care Utility Accounts Director Name Role Phone Bentley MOODY, Min Unavailable INSURANCE PROVIDERS Payer name Policy type / Coverage type [place] red green party ID [place] Medicare [id number]
--- OUTSIDE RECORDS SUMMARY | 2025-03-24 12:21 | XMS_ITS | Encounter Summary ---
Author Organization [facility] Address [address] [place] [address] Phone Care Team Providers Care Music Executive Name Role Phone Ronnie Kebede MD Unavailable [phone] Moni Rodriguez APRN, KILN HAND Primary Care Provider [phone] Reason for Visit * Reason Comments Medication Refill Encounter Details Date Type Department Care Team (Late Contact Info) Description 03/04[facility] #1 [facility] [place] [address] Geovanna Kelly APRN, INTENSIVE CARE ANAESTHETIST #2 [place] [address] Medication Refill Social History Tobacco Use Types [...] Description 03/28/2025 1:45 PM CDT Office Visit [facility] #2 [place] [address] Ronnie Kebede MD #2 [place] [address] 05/19/2025 2:00 PM CDT Office [facility] #2 [place] [address] Ronnie Kebede MD #2 [place] [address] documented as of this encounter Visit Diagnoses Diagnosis Partial symptomatic epilepsy with complex partial seizures, not intractable, without status epilepticus documented in this encounter Care Teams Music Executive Relationship Specialty Start Date End Date Moni Rodriguez APRN, CNP [address] [place] [address] PCP - General Family Medicine 05/06/17 Ronnie Kebede MD #2 [place] [address] Consulting Physician Neurology 05/06/17 documented as of this encounter
--- OUTSIDE RECORDS SUMMARY | 2025-03-24 12:21 | XMS_ITS | Clinical Summary ---
Author Organization [facility] Address #1 [facility] [place] [address] Phone Care Team Providers Care Furniture Crater Name Role Phone Ronnie Kebede MD Unavailable Moni Rodriguez APRN, PAPER SORTER Primary Care Provider [phone] Allergies Active Allergy Reactions Criticality Noted Date [...] Department Care Team Description [facility] #2 [place] [address] Ronnie Kebede MD Medication Refill 03/14/[address] [facility] [place] [address] Ronnie Kebede MD 02/22/2025 Telephone [facility] - [place] #2 [place] [address] Ronnie Kebede MD 02/20/2025 [facility] [place] #2 [place] [address] Ronnie Kebede MD 02/20/[address] [facility] #2 [place] [address] Ronnie Kebede MD 02/17/2025 Telephone [facility] [place] #2 [place] [address] Ronnie Kebede MD 02/16/2025 2:15 PM CDT Office Visit [facility] [place] #2 [place] [address] Ronnie Kebede MD Partial symptomatic epilepsy with complex partial seizures, not intractable, without status epilepticus (Primary Dx) Discharge Disposition: Discharged to home or Selfcare 02/16/2025 Travel 02/06/2025 Telephone [facility] [place] #2 [place] [address] Ronnie Kebede MD from Last 3 Months [...] Description 03/28/2025 1:45 PM CDT Office Visit [facility] #2 [place] [address] Ronnie Kebede MD #2 [place] [address] 05/19/2025 2:00 PM CDT Office [facility] #2 [place] [address] Ronnie Kebede MD #2 [place] [address] Health Maintenance Due Date Last Done Comments [...] Recently Relevant to Health Maintenance Results * HM COLONOSCOPY (11/23/2013) Aguila Parekh MD PROCEDURE/MINOR SURGICAL ORDERAB LES Final Result from Last 3 Months or Most Recently Relevant to Health Maintenance Insurance MEDICAID [place] MEDICARE C [employer] Care Teams Furniture Crater Relationship Specialty Start Date End Date Moni Rodriguez APRN, DIAMOND [address] [place] [address] PCP - General Family Medicine 05/06/17 Ronnie Kebede MD #2 [place] [address] Consulting Physician Neurology 05/06/17
--- OUTSIDE RECORDS SUMMARY | 2025-03-24 12:21 | XMS_ITS | Encounter Summary ---
Author Organization [facility] Address [address] [place] [address] Phone Care Team Providers Care Lusterer Name Role Phone Ronnie Kebede MD Unavailable [phone] Moni Rodriguez APRN, CNP Primary Care Provider [phone] Reason for Visit * Reason Comments Medication Refill Encounter Details Date Type Department Care Team (Late Contact Info) Description 03/23[facility]20[facility] #2 [place] [address] Ronnie Kebede MD #2 [place] [address] Medication Refill Social History Tobacco [...] Description 03/28/2025 1:45 PM CDT Office Visit [facility] #2 [place] [address] Ronnie Kebede MD #2 [place] [address] 05/19/2025 2:00 PM CDT Office Visit [facility] Neurology [facility] #2 [place] [address] Ronnie Kebede MD #2 [place] [address] documented as of this encounter Visit Diagnoses Not on filedocumented in this encounter Care Teams Lusterer Relationship Specialty Start Date End Date Moni Rodriguez APRN, CNP [address] [place] [address] PCP - General Family Medicine 05/06/17 Ronnie Kebede MD #2 [place] [address] Consulting Physician Neurology 05/06/17 documented as of this encounter
--- OUTSIDE RECORDS SUMMARY | 2025-03-24 12:21 | XMS_ITS | Encounter Summary ---
Author Organization [facility] Address [address] [place] [address] Phone Care Team Providers Care Malthouse Laborer Name Role Phone Ronnie Kebede MD Unavailable [phone] Moni Rodriguez APRN, CNP Primary Care Provider [phone] Reason for Visit * Reason Comments Medication Refill Encounter Details Date Type Department Care Team (Late Contact Info) Description 02/27/2021 Refill [facility] Neurology [facility] #1 [facility] [place] [address] Ronnie Kebede MD #2 [place] [address] Medication Refill Social History Tobacco [...] Description 03/28/2025 1:45 PM CDT Office Visit [facility] #2 [place] [address] Ronnie Kebede MD #2 [place] [address] 05/19/2025 2:00 PM CDT Office Visit [facility] - [facility] #2 [place] [address] Ronnie Kebede MD #2 [place] [address] documented as of this encounter Visit Diagnoses Not on filedocumented in this encounter Care Teams Malthouse Laborer Relationship Specialty Start Date End Date Moni Rodriguez APRN, CNP [address] [place] [address] PCP - General Family Medicine 05/06/17 Ronnie Kebede MD #2 [place] [address] Consulting Physician Neurology 05/06/17 documented as of this encounter
--- OUTSIDE RECORDS SUMMARY | 2025-03-24 12:21 | XMS_ITS | Encounter Summary ---
Author Organization [facility] Address [address] [place] [address] Phone Care Team Providers Care Inside Sales Agent Name Role Phone Ronnie Kebede MD Unavailable [phone] Moni Rodriguez APRN, CNP Primary Care Provider [phone] Reason for Visit * Reason Comments Medication Refill Encounter Details Date Type Department Care Team (Late Contact Info) Description 11/[facility]20[facility] #2 [place] [address] Ronnie Kebede MD #2 [place] [address] Medication Refill Social History Tobacco [...] Description 03/28/2025 1:45 PM CDT Office Visit [facility] #2 [place] [address] Ronnie Kebede MD #2 [place] [address] 05/19/2025 2:00 PM CDT Office Visit [facility] - [facility] #2 [place] [address] Ronnie Kebede MD #2 [place] [address] documented as of this encounter Visit Diagnoses Not on filedocumented in this encounter Care Teams Inside Sales Agent Relationship Specialty Start Date End Date Moni Rodriguez APRN, CNP [address] [place] [address] PCP - General Family Medicine 05/06/17 Ronnie Kebede MD #2 [place] [address] Consulting Physician Neurology 05/06/17 documented as of this encounter
--- OUTSIDE RECORDS SUMMARY | 2025-03-24 12:21 | XMS_ITS | Encounter Summary ---
Author Organization [facility] Address [address] [place] [address] Phone Care Team Providers Care Tar Man Name Role Phone Ronnie Kebede MD Unavailable [phone] Moni Rodriguez APRN, CNP Primary Care Provider [phone] Reason for Visit * Reason Comments Medication Refill Encounter Details Date Type Department Care Team (Late Contact Info) Description [facility]/11/20[facility] #2 [place] [address] Ronnie Kebede MD #2 [place] [address] Medication Refill Social History Tobacco [...] Description 03/28/2025 1:45 PM CDT Office Visit [facility] #2 [place] [address] Ronnie Kebede MD #2 [place] [address] 05/19/2025 2:00 PM CDT Office Visit [facility] #2 [place] [address] Ronnie Kebede MD #2 [place] [address] documented as of this encounter Visit Diagnoses Not on filedocumented in this encounter Care Teams Tar Man Relationship Specialty Start Date End Date Moni Rodriguez APRN, CNP [address] [place] [address] PCP - General Family Medicine 05/06/17 Ronnie Kebede MD #2 [place] [address] Consulting Physician Neurology 05/06/17 documented as of this encounter
--- OUTSIDE RECORDS SUMMARY | 2025-03-24 12:21 | XMS_ITS | Clinical Summary ---
Author Organization [facility] Address [address] [place] [address] Care Team Providers Care Patient Svcs Mgr Name Role Phone Unavailable Primary Care Provider Unavailabl e Source Comments [facility],non-owned Affiliates and Associated Physician Practices is amultiple site organization consisting of ambulatory clinics and hospital sitesin [place], [place], [place] and [place]. This disclosure is being madepursuant to the Care Everywhere program and may not contain all information available regarding this patient. Last updated 18.[facility] Allergies Active Allergy Reactions Criticality Noted Date [...] Concussion Seizures Overview (10/15/2011): Dr. Crystal Osei [facility]. Onset after concussion Hypothyroid Hyperlipidemia DM (diabetes [...] Brother 2 lung CA Brother 3 Father CO Mother CO Social History Tobacco Use Types Packs/Day Years Used Date Smoking Tobacco: Never Smokeless Tobacco: Never Alcohol Use Standard Drinks/Week Comments No 0 (1 standard drink = 0.6 oz pur e alcohol) Comments No Sex and Gender Information Value Date Recorded Sex Assigned at Not on file Legal Sex Female 12:51 PM RUBBER EXTRUSION MACHINE OPERATOR Gender Identity Not on file Sexual Orientation Not on file Last Filed Vital Signs Vital Sign Reading Time Taken Comments Blood Pressure 130/80 02/24/2012 10:27 AM CDT Pulse 86 02/24/2012 10:27 AM CDT Temperature 37.1 C (98.8 F) 11/19/2011 12:56 PM RUBBER EXTRUSION MACHINE OPERATOR Respiratory Rate - - Oxygen Saturation - [...] DENSITY 2 SITES Routine 11/18/2011 6:48 PM RUBBER EXTRUSION MACHINE OPERATOR Asymptomatic postmenopausal status (age-related) (natural) MICROALBUMIN URINE RANDOM Routine 11/18/2011 12:11 PM RUBBER EXTRUSION MACHINE OPERATOR DM (diabetes mellitus) COMPREHENSIVE METABOLIC PANEL Routine 11/18/2011 12:09 PM RUBBER EXTRUSION MACHINE OPERATOR Hyperlipidemia DM (diabetes mellitus) from Last 3 [...] Narrative Resulting Agency Comment [facility] [place] [address] [id number] us Nahomi Mcginnis MD LAB - CHEMISTRY ORDERABLES Final Result [facility] INSURANCE BILL [address] [place] [address] * DEXA BONE DENSITY 2 SITES (11/18/2011 6:48 PM RUBBER EXTRUSION MACHINE OPERATOR) Anatomical Region Laterality Modality Other Narrative 11/18/2011 6:48 PM RUBBER EXTRUSION MACHINE OPERATOR Jeremi Chauhan MD 11/18/2011 6:48 PM [facility] BONE DENSITY REPORT Pt. Name: Catrachita Rosa Gender: female : 1945 Test Date: 11/18/2011 Referring Physician: Nahomi Mcginnis MD Technologist: MALKA Montenegro A Central DXA was performed today using a [employer] C law office manager. The images and data have been [...] Jeremi Chauhan MD Physician and Certified Clinical Voting Machine Mechanic Procedure Note Elo Asher - 11/18/2011 4:08 PM CST [facility] BONE DENSITY REPORT Pt. Name: Catrachita Rosa Gender: female : 1945 Test Date: 11/18/2011 Referring Physician: Nahomi Mcginnis MD Technologist: MALKA Montenegro A Central DXA was performed today using a [employer] C law office manager.The images and data have been scanned. [...] Jeremi Chauhan MD Physician and Certified Clinical Voting Machine Mechanic Nahomi Mcginnis MD DEXA ORDERABLES Final Result * MICROALBUMIN URINE RANDOM (11/18/2011 12:11 PM RUBBER EXTRUSION MACHINE OPERATOR) Microalbumin Random Urine 10.4 0.0 - 17.0 ug/mL [facility] INSURANCE BILL URINE / Unknown 11/18/2011 1 2:11 PM RUBBER EXTRUSION MACHINE OPERATOR 11/18/2011 5:48 PM RUBBER EXTRUSION MACHINE OPERATOR Narrative Resulting Agency Comment [facility] [address] [id number] Nahomi Mcginnis MD LAB - URINE CHEMISTRY ORDERABLES Final Result [facility] INSURANCE BILL [address] [place] [address] * (ABNORMAL) COMPREHENSIVE METABOLIC PANEL (11/18/2011 12:09 PM RUBBER EXTRUSION MACHINE OPERATOR) Glucose 100(H) 65 - 99 mg/dL [facility] [...] BLOOD SPECIMEN / Unknown 11/18/2011 12:09 PM RUBBER EXTRUSION MACHINE OPERATOR 11/18/2011 5:58 PM RUBBER EXTRUSION MACHINE OPERATOR Narrative Resulting Agency Comment [facility] [place] [address] [id number] us Nahomi Mcginnis MD LAB - CHEMISTRY ORDERABLES Final Result [facility] INSURANCE BILL [address] [place] [address] from Last 3 Months or Most Recently Relevant to Health Maintenance Insurance MEDICAID - OUT OF STATE MEDICARE
--- OUTSIDE RECORDS SUMMARY | 2025-03-24 12:21 | XMS_ITS | Encounter Summary ---
Author Organization [facility] Address [address] 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 documented in this encounter Plan of Treatment Upcoming Encounters Date Type Department Care Team (Late st Contact Info) Description 03/28/2025 1:45 PM CDT Office Visit [facility] #2 [place] [address] Ronnie Kebede MD #2 [place] [address] 05/19/2025 2:00 PM CDT Office Visit [facility] #2 [place] [address] Ronnie Kebede MD #2 [place] [address] documented as of this encounter Visit Diagnoses Diagnosis Partial symptomatic epilepsy with complex partial seizures, not intractable, without status epilepticus documented in this encounter Care Teams Beach Patrol Lieutenant Relationship Specialty Start Date End Date Moni Rodriguez APRN, CNP [address] [place], [place] [phone] PCP - General Family Medicine 05/06/17 Ronnie Kebede MD #2 [place] [address] Consulting Physician Neurology 05/06/17 documented as of this encounter
--- OUTSIDE RECORDS SUMMARY | 2025-03-24 12:21 | XMS_ITS | Encounter Summary ---
Author Organization [facility] Address [address] [place] [address] Phone Care Team Providers Care Renderer Name Role Phone Ronnie Kebede MD Unavailable [phone] Moni Rodriguez APRN, CNP Primary Care Provider [phone] Reason for Visit * Reason Comments Medication Refill Encounter Details Date Type Department Care Team (Late st Contact Info) Description 02/21/2024 Refill [facility] - [place] #2 [place] [address] Ronnie Kebede MD #2 [place] [address] Medication Refill Social History Tobacco [...] Dept 12/10/23 Office Visit Ronnie Kebede MD [facility] Neurology [facility] 08/10/23 Office Visit Ronnie Kebede MD [facility] Neurology [facility] Showing recent visits within past 365 days and meeting all other requirements Future Appointments No visits were found meeting these conditions. Showing future appointments within next 90 days and meeting all other requirements documented in this encounter Plan of Treatment Upcoming Encounters Date Type Department Care Team (Late st Contact Info) Description 03/28/2025 1:45 PM CDT Office Visit [facility] Neurology [facility] #2 [place] [address] Ronnie Kebede MD #2 [place] [address] 05/19/2025 2:00 PM CDT Office Visit [facility] #2 [place] [address] Ronnie Kebede MD #2 [place] [address] documented as of this encounter Visit Diagnoses Not on filedocumented in this encounter Care Teams Renderer Relationship Specialty Start Date End Date Moni Rodriguez APRN, CNP [address] [place], [place] [phone] PCP - General Family Medicine 05/06/17 Ronnie Kebede MD #2 [facility] [place] [address] Consulting Physician Neurology 05/06/17 documented as of this encounter
--- OUTSIDE RECORDS SUMMARY | 2025-03-24 12:21 | XMS_ITS | Encounter Summary ---
Author Organization [facility] Address [address] [place] [address] Phone Care Team Providers Care It Program Manager Name Role Phone Ronnie Kebede MD Unavailable Moni Rodriguez APRN, CDL TEAM TRUCK DRIVER Primary Care Provider [phone] Reason for Visit * Reason Comments Medication Refill Encounter Details Date Type Department Care Team (Late Contact Info) Description [facility] #2 [place] [address] Geovanna Kelly APRN, SCREW MACHINE REPAIRER #2 [place] [address] Medication Refill Social History Tobacco Use Types [...] Description 03/28/2025 1:45 PM CDT Office Visit [facility] Neurology [facility] #2 [place] [address] Ronnie Kebede MD #2 [place] [address] 05/19/2025 2:00 PM CDT Office Visit [facility] - [facility] #2 [place] [address] Ronnie Kebede MD #2 [place] [address] documented as of this encounter Visit Diagnoses Not on filedocumented in this encounter Care Teams It Program Manager Relationship Specialty Start Date End Date Moni Rodriguez APRN, CNP [address] [place] [address] PCP - General Family Medicine 05/06/17 Ronnie Kebede MD #2 [place] [address] Consulting Physician Neurology 05/06/17 documented as of this encounter
--- OUTSIDE RECORDS SUMMARY | 2025-03-24 12:21 | XMS_ITS | Encounter Summary ---
Author Organization [facility] Address [address] [place] [address] Phone Care Team Providers Care Dining Room Tables Set Up Attendant Name Role Phone Ronnie Kebede MD Unavailable [phone] Moni Rodriguez APRN, CNP Primary Care Provider [phone] Reason for Visit * Reason Comments Medication Refill Encounter Details Date Type Department Care Team (Late st Contact Info) Description 08/01/2023 Refill [facility] - Neurology - [employer] #2 [place] [address] Ronnie Kebede MD #2 [place] [address] Medication Refill Social History Tobacco [...] Provider Dept 08/10/23 Appointment Ronnie Kebede MD [facility] Neurology [facility] Showing future appointments within next 90 days and meeting all other requirements documented in this encounter Plan of Treatment Upcoming Encounters Date Type Department Care Team (Late st Contact Info) Description 03/28/2025 1:45 PM CDT Office Visit [facility] #2 [place] [address] Ronnie Kebede MD #2 [place] [address] 05/19/2025 2:00 PM CDT Office Visit [facility] #2 [place] [address] Ronnie Kebede MD #2 [place] [address] documented as of this encounter Visit Diagnoses Not on filedocumented in this encounter Care Teams Dining Room Tables Set Up Attendant Relationship Specialty Start Date End Date Moni Rodriguez APRN, CNP [address] [place] [address] PCP - General Family Medicine 05/06/17 Ronnie Kebede MD #2 [place] [address] Consulting Physician Neurology 05/06/17 documented as of this encounter
--- OUTSIDE RECORDS SUMMARY | 2025-03-24 12:21 | XMS_ITS | Encounter Summary ---
Author Organization [facility] Address [address] [place] [address] Phone Care Team Providers Care Animal Researcher Name Role Phone Ronnie Kebede MD Unavailable [phone] Moni Rodriguez APRN, CNP Primary Care Provider [phone] Reason for Visit * Reason Comments Medication Refill Encounter Details Date Type Department Care Team (Late Contact Info) Description 04/07/2020 Refill [facility] #1 [facility] [place] [address] Ronnie Kebede MD #2 [place] [address] Medication Refill Social History Tobacco [...] Office Visit [facility] Neurology [facility] #2 [place] [address] Ronnie Kebede MD #2 [place] [address] 05/19/2025 2:00 PM CDT Office Visit [facility] - Neurology [facility] #2 [place] [address] Ronnie Kebede MD #2 [place] [address] documented as of this encounter Visit Diagnoses Not on filedocumented in this encounter Care Teams Animal Researcher Relationship Specialty Start Date End Date Moni Rodriguez APRN, CNP [address] [place] [address] PCP - General Family Medicine 05/06/17 Ronnie Kebede MD #2 [place] [address] Consulting Physician Neurology 05/06/17 documented as of this encounter
--- OUTSIDE RECORDS SUMMARY | 2025-03-24 12:21 | XMS_ITS | Encounter Summary ---
Author Organization [facility] Address [address] [place] [address] Phone Care Team Providers Care License Registration Examiner Name Role Phone Ronnie Kebede MD Unavailable [phone] Moni Rodriguez APRN, CNP Primary Care Provider [phone] Reason for Visit * Reason Comments Medication Refill Encounter Details Date Type Department Care Team (Late Contact Info) Description 01/12/2021 Refill [facility] Neurology [facility] #1 [facility] [place] [address] Ronnie Kebede MD #2 [place] [address] Medication Refill Social History Tobacco [...] Description 03/28/2025 1:45 PM CDT Office Visit [facility] Neurology [facility] #2 [place] [address] Ronnie Kebede MD #2 [place] [address] 05/19/2025 2:00 PM CDT Office Visit [facility] - [facility]2 [facility] [place] [address] Ronnie Kebede MD #2 [place] [address] documented as of this encounter Visit Diagnoses Diagnosis Partial symptomatic epilepsy with complex partial seizures, not intractable, without status epilepticus documented in this encounter Care Teams License Registration Examiner Relationship Specialty Start Date End Date Moni Rodriguez APRN, CNP [address] [place] [address] PCP - General Family Medicine 05/06/17 Ronnie Kebede MD #2 [place] [address] Consulting Physician Neurology 05/06/17 documented as of this encounter
--- OUTSIDE RECORDS SUMMARY | 2025-03-24 12:21 | XMS_ITS | Encounter Summary ---
Author Organization [facility] Address [address] [place] [address] Phone Care Team Providers Care Manager Mail Name Role Phone Ronnie Kebede MD Unavailable Moni Rodriguez APRN, CNP Primary Care Provider [phone] Reason for Visit * Reason Comments Medication Refill Encounter Details Date Type Department Care Team (Late Contact Info) Description 02/06/2021 Refill [facility] Neurology [facility] #1 [facility] [place] [place] [address] Ronnie Kebede MD #2 [place] [address] Medication Refill Social History Tobacco [...] Description 03/28/2025 1:45 PM CDT Office Visit [facility] Neurology [facility] #2 [place] [address] Ronnie Kebede MD #2 [place] [address] 05/19/2025 2:00 PM CDT Office Visit [facility] - Neurology [facility] #2 [place] [address] Ronnie Kebede MD #2 [place] [address] documented as of this encounter Visit Diagnoses Not on filedocumented in this encounter Care Teams Manager Mail Relationship Specialty Start Date End Date Moni Rodriguez APRN, CNP [address] [place] [address] PCP - General Family Medicine 05/06/17 Ronnie Kebede MD #2 [place] [address] Consulting Physician Neurology 05/06/17 documented as of this encounter
--- OUTSIDE RECORDS SUMMARY | 2025-03-24 12:21 | XMS_ITS | Encounter Summary ---
Author Organization [facility] Address [address] [place] [address] Phone Care Team Providers Care Daycare Assistant Name Role Phone Ronnie Kebede MD Unavailable Moni Rodriguez APRN, CNP Primary Care Provider [phone] Reason for Visit * Reason Comments Medication Refill Encounter Details Date Type Department Care Team (Late Contact Info) Description 10/23/2020 Refill [facility] Neurology [facility] #1 [facility] [place] [address] Ronnie Kebede MD #2 [place] [address] Medication Refill Social History Tobacco [...] Description 03/28/2025 1:45 PM CDT Office Visit [facility] Neurology [facility] #2 [place] [address] Ronnie Kebede MD #2 [place] [address] 05/19/2025 2:00 PM CDT Office Visit [facility] - Neurology [facility] #2 [place] [address] Ronnie Kebede MD #2 [place] [address] documented as of this encounter Visit Diagnoses Not on filedocumented in this encounter Care Teams Daycare Assistant Relationship Specialty Start Date End Date Moni Rodriguez APRN, CNP [address] [place] [address] PCP - General Family Medicine 05/06/17 Ronnie Kebede MD #2 [place] [address] Consulting Physician Neurology 05/06/17 documented as of this encounter
--- OUTSIDE RECORDS SUMMARY | 2025-03-24 12:21 | XMS_ITS | Encounter Summary ---
Author Organization [facility] Address [address] [place] [address] Phone Care Team Providers Care Drywall Hanger Framer Name Role Phone Ronnie Kebede MD Unavailable [phone] Moni Rodriguez APRN, CNP Primary Care Provider [phone] Reason for Visit * Reason Comments Medication Refill Encounter Details Date Type Department Care Team (Late st Contact Info) Description 02/02/2023 [facility]ill [facility] - [place] #2 [place] [address] Ronnie Kebede MD #2 [place] [address] Medication Refill Social History [...] Dept 07/17/22 Office Visit Ronnie Kebede MD [facility] Neurology [facility] Showing recent visits within past 365 days and meeting all other requirements Future Appointments No visits were found meeting these conditions. Showing future appointments within next 90 days and meeting all other requirements documented in this encounter Plan of Treatment Upcoming Encounters Date Type Department Care Team (Late st Contact Info) Description 03/28/2025 1:45 PM CDT Office Visit [facility] #2 [place] [address] Ronnie Kebede MD #2 [place] [address] 05/19/2025 2:00 PM CDT Office Visit [facility] #2 [place] [address] Ronnie Kebede MD #2 [place] [address] documented as of this encounter Visit Diagnoses Not on filedocumented in this encounter Care Teams Drywall Hanger Framer Relationship Specialty Start Date End Date Moni Rodriguez APRN, DIAMOND [address] [place] [address] PCP - General Family Medicine 05/06/17 Ronnie Kebede MD #2 [place] [address] Consulting Physician Neurology 05/06/17 documented as of this encounter
[2025-03-24 14:25] LABS: Free T4 Free Thyroxine 1.26 ng/dL (0.78-2.19)
== END 2025-03-24 12:18 | disposition home or self-care (01) ==
LOC: ANHLAB 12:19
PROVIDERS: PCP Nurse Practitioner Family; Visit Provider Nurse Practitioner Family
DX: E03.9 Hypothyroidism, unspecified (principal)
CPT/HCPCS: 36415; 84439; 84443

== ENCOUNTER 2025-06-06 10:18 | Emergency (ER) | payer MEDICARE, MEDICAID, SELFPAY ==
--- NOTE | ~2025-06-06 | CT_ITS ---
EXAMINATION: CT brain wo con DATE: 06/06/2025 11:00 INDICATION: Status post fall. TECHNIQUE: Computed tomography (CT) of the head was performed without intravenous contrast. The dose- length product was 605.33 mGy-cm. Automated exposure control and iterative reconstruction technique w ere employed. COMPARISON: CT dated 03/23/2025 FINDINGS: Generalized atrophy. There are scattered moderate periventricular and subcortical white mat ter changes, most likely related to small vessel ischemic disease (microangiopathy). There is intracr anial atherosclerosis. No acute intracranial hemorrhage, infarction, mass or mass effect. No ventricu lomegaly or midline shift. Basilar cisterns are patent. IMPRESSION: 1. No acute intracranial abnormality. Reviewed, dictated and finalized at location A.
[2025-06-06 10:23] VITALS: BP 115/66; PULSE 58; RESP 17; O2SAT 100
[2025-06-06 10:32] VITALS: BP 115/76; PULSE 53; RESP 14; O2SAT 100; O2SAT 98
--- NOTE | 2025-06-06 10:44 | ECG_ITS ---
Test Date: 2025-06-06 11:20:10 Measurements Intervals [facility] Rate: 48 P: 77 WI: 265 QRS: -1 QRSD: 101 T: 66 QT: 518 QTc: 465 Interpretive Statements SINUS BRADYCARDIA WITH FIRST DEGREE AV BLOCK LEFT VENTRICULAR HYPERTROPHY WITH ST-T CHANGE MINIMAL Q WAVES- HIGH LATERAL LEADS ABNORMAL ECG Compared to ECG 03/23/2025 09:45:08 NO SIGNIFICANT CHANGE Electronically Signed On 06-06-2025 11:30:18 CDT by Stanislav Gramajo D.O.
--- NOTE | 2025-06-06 10:59 | PC.NURSE ---
patient in ct at this time
--- OUTSIDE RECORDS SUMMARY | 2025-06-06 11:05 | XMS_ITS | Encounter Summary ---
Author Organization [facility] Address [address] [place] [address] Phone Care Team Providers Care Production Team Manager Name Role Phone Ronnie Kebede MD Unavailable [phone] Moni Rodriguez APRN, CNP Primary Care Provider [phone] Devon Mtz MD Unavailable Reason for Visit * Reason Comments Medication Refill Encounter Details Date Type Department Care Team (Late Contact Info) Description 01/12/2021 [facility] #1 [facility] [place] [address] Ronnie Kebede MD #2 [place] [address] Medication Refill Social History Tobacco [...] Department Care Team (Late Contact Info) Description 11/23/2025 1:30 PM ASSET AVAILABILITY LEADER Office Visit [facility] Neurology [facility] #2 [place] [address] Ronnie Kebede MD #2 [place] [address] documented as of this encounter Visit Diagnoses Diagnosis Partial symptomatic epilepsy with complex partial seizures, not intractable, without status epilepticus documented in this encounter Care Teams Production Team Manager Relationship Specialty Start Date End Date Moni Rodriguez APRN, CNP [address] [place] [address] PCP - General Family Medicine 05/06/17 Ronnie Kebede MD #2 [place] [address] Consulting Physician Neurology 05/06/17 Devon Mtz MD [address] [place] [address] Consulting Physician Cardiovascular Disease - Cardiology 05/19/25 documented as of this encounter
--- OUTSIDE RECORDS SUMMARY | 2025-06-06 11:05 | XMS_ITS | Encounter Summary ---
Author Organization [facility] Address [address] [place] [address] Phone Care Team Providers Care Lens Inspector Name Role Phone Ronnie Kebede MD Unavailable [phone] Moni Rodriguez APRN, CNP Primary Care Provider [phone] Devon Mtz MD Unavailable Reason for Visit * Reason Comments Medication Refill Encounter Details Date Type Department Care Team (Late st Contact Info) Description 10/29/2023 Refill [facility] - Neurology - [place] #2 [place] [address] Ronnie Kebede MD #2 [place] [address] Medication Refill Social History Tobacco [...] Dept 08/10/23 Office Visit Ronnie Kebede MD [facility] Neurology [facility] Showing recent visits within past 365 days and meeting all other requirements Future Appointments Date Type Provider Dept 12/10/23 Appointment Ronnie Kebede MD [facility] Neurology [place] [facility] Showing future appointments within next 90 days and meeting all other requirements AL MEDIA DEVELOPER documented in this encounter Plan of Treatment Upcoming Encounters Date Type Department Care Team (Late st Contact Info) Description 11/23/2025 1:30 PM SOCIAL MEDIA DEVELOPER Office Visit [facility] - Neurology [facility] #2 [place] [address] Ronnie Kebede MD #[address] [place] [address] documented as of this encounter Visit Diagnoses Diagnosis Partial symptomatic epilepsy with complex partial seizures, not intractable, without status epilepticus documented in this encounter Care Teams Lens Inspector Relationship Specialty Start Date End Date Moni Rordiguez APRN, DIAMOND [address] [id number] PCP - General Family Medicine 05/06/17 Ronnie Kebede MD #[address] [place] [address] Consulting Physician Neurology 05/06/17 Devon Mtz MD [address] [place] [address] Consulting Physician Cardiovascular Disease - Cardiology 05/19/25 documented as of this encounter
--- OUTSIDE RECORDS SUMMARY | 2025-06-06 11:05 | XMS_ITS | Encounter Summary ---
Author Organization [facility] Address [address] [place] [address] Phone Care Team Providers Care Supervisor Photostat Name Role Phone Ronnie Kebede MD Unavailable [phone] Moni Rodriguez APRN, CNP Primary Care Provider [phone] Devon Mtz MD Unavailable Reason for Visit * Reason Comments Medication Refill Encounter Details Date Type Department Care Team (Late st Contact Info) Description 02/02/2023 Refill [facility] - Neurology - [place] #2 [place] [address] Ronnie Kebede MD #2 [place] [address] Medication Refill Social History Tobacco Use Types [...] Dept 07/17/22 Office Visit Ronnie K[facility]ede MD [facility] Showing recent visits within past 365 days and meeting all other requirements Future Appointments No visits were found meeting these conditions. Showing future appointments within next 90 days and meeting all other requirements documented in this encounter Plan of Treatment Upcoming Encounters Date Type Department Care Team (Late st Contact Info) Description 11/23/2025 1:30 PM REPAIR TABLE OPERATOR [facility] [place] [address] Ronnie Kebede MD #2 [place] [address] documented as of this encounter Visit Diagnoses Not on filedocumented in this encounter Care Teams Supervisor Photostat Relationship Specialty Start Date End Date Moni Rodriguez APRN, CNP [address] [place], [place] [id number] PCP - General Family Medicine 05/06/17 Ronnie Kebede MD #2 [place] [address] Consulting Physician Neurology 05/06/17 Devon Mtz MD [address] [place], [place] [address] Consulting Physician Cardiovascular Disease - Cardiology 05/19/25 documented as of this encounter
--- OUTSIDE RECORDS SUMMARY | 2025-06-06 11:05 | XMS_ITS | Encounter Summary ---
Author Organization [facility] Address [address] [place] [address] Phone Care Team Providers Care Gas Pit Worker Name Role Phone Ronnie Kebede MD Unavailable [phone] Moni Rodriguez APRN, CNP Primary Care Provider [phone] Devon Mtz MD Unavailable Reason for Visit * Reason Comments Medication Refill Encounter Details Date Type Department Care Team (Late Contact Info) Description 10/23/2020 [facility] #1 [place] [address] Ronnie Kebede MD #2 [place] [address] Medication Refill Social History Tobacco [...] (Late Contact Info) Description 11/23/2025 1:30 PM MAINTENANCE COORDINATOR [facility] #2 [place] [address] Ronnie Kebede MD #2 [place] [address] documented as of this encounter Visit Diagnoses Not on filedocumented in this encounter Care Teams Gas Pit Worker Relationship Specialty Start Date End Date Michael, ELEN Montenegro CNP [address] [place] [address] PCP - General Family Medicine 05/06/17 Ronnie Kebede MD #2 [place] [address] Consulting Physician Neurology 05/06/17 Devon Mtz MD [address] [place] [address] Consulting Physician Cardiovascular Disease - Cardiology 05/19/25 documented as of this encounter
--- OUTSIDE RECORDS SUMMARY | 2025-06-06 11:05 | XMS_ITS | Encounter Summary ---
Author Organization [facility] Address [address] [place] [address] Phone Care Team Providers Care Registrar Nurses' Registry Name Role Phone Ronnie Kebede MD Unavailable [phone] Moni Rodriguez APRN, CNP Primary Care Provider [phone] Devon Mtz MD Unavailable Reason for Visit * Reason Comments Medication Refill Encounter Details Date Type Department Care Team (Late Contact Info) Description [facility] [facility] #2 [place] [address] Ronnie Kebede MD #2 [place] [address] Medication Refill Social History Tobacco Use Types [...] (Late Contact Info) Description 11/23/2025 1:30 PM PAYROLL AUDITOR Office Visit [facility] Neurology [facility] #2 [place] [address] Ronnie Kebede MD #2 [place] [address] documented as of this encounter Visit Diagnoses Not on filedocumented in this encounter Care Teams Registrar Nurses' Registry Relationship Specialty Start Date End Date Michael, ELEN Montenegro CNP [address] [place] [address] PCP - General Family Medicine 05/06/17 Ronnie Kebede MD #2 [place] [address] Consulting Physician Neurology 05/06/17 Devon Mtz MD [address] [place] [address] Consulting Physician Cardiovascular Disease - Cardiology 05/19/25 documented as of this encounter
--- OUTSIDE RECORDS SUMMARY | 2025-06-06 11:05 | XMS_ITS | Encounter Summary ---
Author Organization [facility] Address [address] [place] [address] Phone Care Team Providers Care Car Worker Helper Name Role Phone Ronnie Kebede MD Unavailable [phone] Moni Rodriguez APRN, CNP Primary Care Provider [phone] Devon Mtz MD Unavailable Reason for Visit * Reason Comments Medication Refill Encounter Details Date Type Department Care Team (Late st Contact Info) Description 10/12/2020 [facility]ill [facility] - [place] #1 [place] [address] Ronnie Kebede MD #2 [place] [address] Medication Refill Social History Tobacco [...] BY MOUTH TWICE A DAY Refused By: IYV VIDES Reason for Refusal: Other AROUND PLANNER documented in this encounter Plan of Treatment Upcoming Encounters Date Type Department Care Team (Late st Contact Info) Description 11/23/2025 1:30 PM TURNAROUND PLANNER Office Visit [facility] - [facility] #2 [place] [address] Ronnie Kebede MD #2 [place] [address] documented as of this encounter Visit Diagnoses Diagnosis Partial symptomatic epilepsy with complex partial seizures, not intractable, without status epilepticus documented in this encounter Care Teams Car Worker Helper Relationship Specialty Start Date End Date Moni Rodriguez APRN, CNP [address] [place] [address] PCP - General Family Medicine 05/06/17 Ronnie Kebede MD #2 [place] [address] Consulting Physician Neurology 05/06/17 Devon Mtz MD [address] [place] [address] Consulting Physician Cardiovascular Disease - Cardiology 05/19/25 documented as of this encounter
--- OUTSIDE RECORDS SUMMARY | 2025-06-06 11:05 | XMS_ITS | Encounter Summary ---
Author Organization [facility] Address [address] [place] [address] Phone Care Team Providers Care Human Resources Project Manager Name Role Phone Ronnie Kebede MD Unavailable [phone] Moni Rodriguez APRN, CNP Primary Care Provider [phone] Devon Mtz MD Unavailable Reason for Visit * Reason Comments Medication Refill Encounter Details Date Type Department Care Team (Late st Contact Info) Description 02/21/2024 Refill [facility] - Neurology - [place] [address]2 [place] [address] Ronnie Kebede MD #2 [place] [phone] Medication Refill Social History Tobacco Use Types [...] Dept 12/10/23 Office Visit Ronnie Kebede MD [facility] Neurology [facility] 08/10/23 Office Visit Ronnie Kebede MD [facility] Neurology [facility] Showing recent visits within past 365 days and meeting all other requirements Future Appointments No visits were found meeting these conditions. Showing future appointments within next 90 days and meeting all other requirements documented in this encounter Plan of Treatment Upcoming Encounters Date Type Department Care Team (Late st Contact Info) Description 11/23/2025 1:30 PM PIGMENT PRESSER Office Visit [facility] - [facility] [address]2 [place] [address] Ronnie Kebede MD [address]2 [place] [address] documented as of this encounter Visit Diagnoses Not on filedocumented in this encounter Care Teams Human Resources Project Manager Relationship Specialty Start Date End Date Moni Rodriguez APRN, CHILD CARE WORKER [address] [place] [address] PCP - General Family Medicine 05/06/17 Ronnie Kebede MD [address]2 [place] [address] Consulting Physician Neurology 05/06/17 Devon Mtz MD [address] [place] [address] Consulting Physician Cardiovascular Disease - Cardiology 05/19/25 documented as of this encounter
--- OUTSIDE RECORDS SUMMARY | 2025-06-06 11:05 | XMS_ITS | Encounter Summary ---
Author Organization [facility] Address [address] [place] [address] Phone Care Team Providers Care Brilliandeer Lopper Name Role Phone Ronnie Kebede MD Unavailable [phone] Moni Rodriguez APRN, CNP Primary Care Provider [phone] Devon Mtz MD Unavailable Reason for Visit * Reason Comments Medication Refill Encounter Details Date Type Department Care Team (Late Contact Info) Description 02/06[facility] #1 [facility] [place] [address] Ronnie Kebede MD [address]2 [place] [address] Medication Refill Social History Tobacco [...] (Late Contact Info) Description 11/23/2025 1:30 PM ROTARY PEEL OVEN TENDER Office Visit [facility] Neurology [facility] #2 [place] [address] Ronnie Kebede MD [address]2 [place] [address] documented as of this encounter Visit Diagnoses Not on filedocumented in this encounter Care Teams Brilliandeer Lopper Relationship Specialty Start Date End Date Moni Rodriguez APRN, CNP [address] [place] [address] PCP - General Family Medicine 05/06/17 Ronnie Kebede MD [address]2 [place] [address] Consulting Physician Neurology 05/06/17 Devon Mtz MD [address] [place] [address] Consulting Physician Cardiovascular Disease - Cardiology 05/19/25 documented as of this encounter
--- OUTSIDE RECORDS SUMMARY | 2025-06-06 11:05 | XMS_ITS | Encounter Summary ---
Author Organization [facility] Address [address] [place] [address] Phone Care Team Providers Care Blending Operator Name Role Phone Ronnie Kebede MD Unavailable [phone] Moni Rodriguez APRN, CNP Primary Care Provider [phone] Devon Mtz MD Unavailable Reason for Visit * Reason Comments Medication Refill Encounter Details Date Type Department Care Team (Late Contact Info) Description [facility] #2 [place] [address] Ronnie Kebede MD [address]2 [place] [address] Medication Refill Social History Tobacco Use Types [...] (Late Contact Info) Description 11/23/2025 1:30 PM PRODUCTION RECORDER Office Visit [facility] Neurology [facility] #2 [place] [address] Ronnie Kebede MD [address]2 [place] [address] documented as of this encounter Visit Diagnoses Not on filedocumented in this encounter Care Teams Blending Operator Relationship Specialty Start Date End Date Michael, ELEN Montenegro CNP [address] [place] [address] PCP - General Family Medicine 05/06/17 Ronnie Kebede MD [address]2 [place] [address] Consulting Physician Neurology 05/06/17 Devon Mtz MD [address] [place] [address] Consulting Physician Cardiovascular Disease - Cardiology 05/19/25 documented as of this encounter
--- OUTSIDE RECORDS SUMMARY | 2025-06-06 11:05 | XMS_ITS | Encounter Summary ---
Author Organization [facility] Address [address] [place] [address] Phone Care Team Providers Care Brick Paving Checker Name Role Phone Ronnie Kebede MD Unavailable Moni Rodriguez APRN, CNP Primary Care Provider [phone] Devon Mtz MD Unavailable Reason for Visit * Reason Comments Medication Refill Encounter Details Date Type Department Care Team (Late st Contact Info) Description 08/01/2023 Refill [facility] - Neurology - [place] [address]2 [place] [address] Ronnie Kebede MD [address]2 [place] [address] Medication Refill Social History Tobacco Use Types [...] Provider Dept 08/10/23 Appointment Ronnie Kebede MD [facility] Neurology [facility] Showing future appointments within next 90 days and meeting all other requirements documented in this encounter Plan of Treatment Upcoming Encounters Date Type Department Care Team (Late st Contact Info) Description 11/23/2025 1:30 PM SELENIUM PLANT OPERATOR [facility] #2 [place] [address] Ronnie Kebede MD [address]2 [place] [address] documented as of this encounter Visit Diagnoses Not on filedocumented in this encounter Care Teams Brick Paving Checker Relationship Specialty Start Date End Date Moni Rodriguez APRN, CNP [address] [place], [place] [phone] PCP - General Family Medicine 05/06/17 Ronnie Kebede MD [address]2 [place] [address] Consulting Physician Neurology 05/06/17 Devon Mtz MD [address] [place], [place] [address] Consulting Physician Cardiovascular Disease - Cardiology 05/19/25 documented as of this encounter
--- OUTSIDE RECORDS SUMMARY | 2025-06-06 11:05 | XMS_ITS | Encounter Summary ---
Author Organization [facility] Address [address] [place] [address] Phone Care Team Providers Care Medical Records Analyst Name Role Phone Ronnie Kebede MD Unavailable [phone] Moni Rodriguez APRN, CNP Primary Care Provider [phone] Devon Mtz MD Unavailable Reason for Visit * Reason Comments Medication Refill Encounter Details Date Type Department Care Team (Late Contact Info) Description 11/15/2020 [facility] #1 [facility] [place] [address] Ronnie Kebede MD #2 [place] [address] Medication Refill Social History Tobacco [...] (Late Contact Info) Description 11/23/2025 1:30 PM CENTER MACHINE OPERATOR Office Visit [facility] Neurology [facility] #2 [place] [address] Ronnie Kebede MD [address] [place] [address] documented as of this encounter Visit Diagnoses Diagnosis Partial symptomatic epilepsy with complex partial seizures, not intractable, without status epilepticus documented in this encounter Care Teams Medical Records Analyst Relationship Specialty Start Date End Date Moni Rodriguez APRN, CNP [address] [place] [address] PCP - General Family Medicine 05/06/17 Ronnie Kebede MD [address] [place] [phone] Consulting Physician Neurology 05/06/17 Devon Mtz MD [address] [place] [address] Consulting Physician Cardiovascular Disease - Cardiology 05/19/25 documented as of this encounter
--- OUTSIDE RECORDS SUMMARY | 2025-06-06 11:05 | XMS_ITS | Referral Summary ---
Author Organization [facility] Building [address] Address [address] [place] [address] Care Team Providers Care Crester Name Role Phone Christofer Apodaca MD Primary Care Provider + Encounters Date Type Department Care Team Description 05/17/2025 11:15 AM CDT Ancillary Procedure [facility] Cardiology at [address] [place] [address] Abnormal electrocardiogram from Last 3 Months Allergies Active Allergy Reactions Criticality Noted Date Comments Adhesive Tape-Silicones Swelling Medium 10/15/2011 Benzonatate Unknown 01/15/2012 Per outside records Iodine Swelling Medium 04/28/2017 Metoprolol Dodge Simvastatin Topiramate Unknown 01/15/2012 Per outside records Venom-Honey Bee Swelling Medium Medications SUMAtriptan (IMITREX) 100 mg tablet 1 TABLET PO ONCE EARLY ONSET OF A MIGRAINE ATTACK;MAY REPEAT AFTER 2 HOURS IF HEADACHE RETURNS, NOT TO EXCEED 200MG IN 24HRS 9 3 3 Active desvenlafaxine ER (PRISTIQ) 50 mg 24 hr tablet 50 mg. 0 0 Active baclofen (LIORESAL) 10 mg tablet take 1 tablet (10MG) by ORAL route every evening prn 30 3 0 Active diazePAM (VALIUM) 10 mg tablet take 1 tablet (10MG) by oral route 3 times every day 0 2 Active PARoxetine (PAXIL) 40 mg tablet take 1 tablet (40MG) by oral route every day 0 2 Active fenofibrate nanocrystallized (TRICOR) 145 mg tablet take 1 tablet (145MG) by oral route every day 0 2 Active LORazepam (ATIVAN) 0.5 mg tablet take 1 tablet by oral route once a day as needed for anxiety 15 0 4 Active metFORMIN (GLUCOPHAGE) 1,000 mg tablet take 1 tablet (1000MG) by ORAL route 2 times every day with morning and evening meals 0 0 Active glimepiride (AMARYL) 4 mg tablet take 1 tablet (4MG) by ORAL route every day [address] (NexIUM) 40 mg capsule take 1 capsule (40MG) by ORAL route every day 0 0 Active hydroCHLOROthiazide (HYDRODIURIL) 50 mg tablet take 1 tablet (50MG) by ORAL route every day 0 0 Active atenolol (TENORMIN) 100 mg tablet take 1 tablet (100MG) by ORAL route every day 0 0 Active levothyroxine (SYNTHROID) 150 mcg tablet take 1 tablet (150MCG) by ORAL route every day 0 0 Active carBAMazepine ER (CARBATROL) 100 mg 12 hr capsuleIndications:P artial seizure with impaired consciousness (HCC) Take one capsule po three times a day 90 capsule 3 7 Active Active Problems Problem Noted Date Diagnosed Date Cervico-occipital neuralgia 05/09/2016 Overview (02/06/2017): Cervico-occipital neuralgia Partial seizure with impaired consciousness 06/2016 Overview (02/06/2017): Partial seizure with impaired consciousness Vitamin B12 deficiency without anemia 05/09/2016 Overview (02/06/2017): Vitamin B12 deficiency (non anemic) 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 Overview (02/05/2017): Vitamin B12 deficiency Numbness of lower extremity 01/21/2013 Overview (02/04/2017): Numbness of lower limb Seizure 01/21/2013 Overview (02/06/2017): Seizure Migraine without aura and wi thout status migrainosus, not intractable 01/21/2013 Overview (02/06/2017): Headache Tremor 01/21/2013 Overview (02/06/2017): Tremor Social History Tobacco Use Types Packs/Day Years Used Date Smoking Tobacco: Never Alcohol Use Standard Drinks/Week Comments No 0 (1 standard drink = 0.6 oz pur e alcohol) Comments Unknown Sex and Gender Information Value Date Recorded Sex Assigned at Not on file Legal Sex Female 11:21 AM 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 Gender Identity Not on file Sexual Orientation Not on file Last Filed Vital Signs Vital Sign Reading Time Taken Comments Blood Pressure 145/80 05/09/2016 10:39 AM CDT Pulse 57 05/09/2016 10:39 AM CDT Temperature - - Respiratory Rate - - Oxygen Saturation 100% 05/09/2016 10:39 AM CDT Inhaled Oxygen Concentration - - Weight 69.9 kg (154 lb) 04/28/2017 11:09 AM CDT Height 156.2 cm (5' 1.5) 04/28/2017 11:09 AM CD T Body Mass Index 28.63 04/28/2017 11:09 AM CDT Plan of Treatment Not on file Procedures Procedure Name Priority Date/Time Associated Diagnosis Comments TRANSTHORACIC ECHO (TTE) COMPLETE W DOPPLER/CF WO CONTRAST Routine 05/17/2025 11:32 AM CDT Abnormal electrocardiogram from Last 3 Months Results * TRANSTHORACIC ECHO (TTE) COMPLETE W DOPPLER/CF WO CONTRAST (05/17/2025 11:32 AM CDT) Estimated EF 60 % CONS SCIMAGE EF Mod BP 64 % CONS SCIMAGE Anatomical Region Laterality Modality Ultrasound 05/17/2025 11:0 4 AM CDT Narrative 05/17/2025 12:09 PM CDT [facility] Cardiology [address], [address], [place] [address] P:[phone] P:[phone] Echocardiographic Report Patient Name: CATRACHITA ROSALakisha : 1945 Study Date: 05/17/2025 11:04:29 AM Gender: F Indexer: NATALIE Location: [facility] Ref Provider: CHRISTOFER APODACA Height(Cm): 165 BSA: 1.79 Weight(Kg): 69.9 Heart Rate: 64 BP: 170 / 90 Quality: Good Order Provider: CHRISTOFER APODACA PROCEDURES: Echocardiographic Report: Transthoracic echocardiogram with complete 2D, M-Mode, and color Doppler examination. With Strain Analysis. INDICATIONS: R94.31 Abnormal electrocardiogram (ECG) (EKG). MEASUREMENTS: 2D/MM Value Range Doppler Value Range EF Mod BP 64 % [ 54 - 74 ] TUCKER Vmax 2.11 cm2 [ 2.00 - 4.00 ] EF Teich MM 51 % [ 54 - 74 ] AV Mean PG 5 mmHg Estimated EF 60 % AV Peak Aaron 1.65 m/s [ 1.00 - 1.70 ] LV GLS -19.16 % AV Peak PG 11 mmHg LVIDd 2D 4.41 cm [ 3.80 - 5.20 ] AV VTI 37.71 cm LVIDd MM 5.28 cm [ 3.80 - 5.20 ] LVOT Diam 2.00 cm [ 1.70 - 2.10 ] LVIDs 2D 2.86 cm [ 2.20 - 3.50 ] LVOT Peak Aaron 1.11 m/s [ 0.70 - 1.10 ] LVIDs MM 3.89 cm [ 2.20 - 3.50 ] LVOT VTI 25.76 cm LVPWd 2D 1.10 cm [ 0.60 - 0.90 ] MV E Peak Aaron 0.84 m/s [ 0.60 - 1.30 ] LVPWd MM 0.95 cm [ 0.60 - 0.90 ] MV A Peak Aaron 0.93 m/s [ 1.00 - 1.20 ] IVSd 2D 0.98 cm [ 0.60 - 0.90 ] MV Decel Time 176 msec [ 104 - 258 ] IVSd MM 1.01 cm [ 0.60 - 0.90 ] PV Peak Aaron 1.16 m/s [ 0.40 - 0.80 ] LA Dimension MM 3.60 cm [ 2.70 - 3.80 ] TR Peak Aaron 2.66 m/s [ 1.00 - 2.80 ] AoR Diam MM 3.49 cm [ 2.70 - 3.70 ] TR Peak PG 28 mmHg LA Volume 63.12 ml [ 22.00 - 52.00 ] RVSP 36.00 mmHg [ 10.00 - 36.00 ] LA Volume Index 35 cc/m2 [ 16 - 28 ] RV S` 0.11 m/s ACS MM 1.50 cm Lateral E` 0.07 m/s [ 0.10 - 0.15 ] RA Volume 16.70 ml Septal E` 0.05 m/s [ 0.08 - 0.15 ] E` 0.06 m/s E/E` 14 Tapse 2.16 cm [ 1.71 - 5.00 ] 2D/MM Value Range Doppler Value Range - FINDINGS: Interpretation Site: Exam was interpreted at [facility]. Left Ventricle: Normal left ventricular size. Normal global left ventricular systolic function. Normal left ventricular diastolic function. Ejection fraction is measured at 64 %. Ejection Fraction is visually estimated to be 60 %. Global Longitudinal Strain is -19 %. Right Ventricle: Normal right ventricular size. Left Atrium: There is mild enlargement of left atrium. Right Atrium: The right atrium is normal in size. Atrial Septum: Normal atrial septum. Mitral Valve: Normal appearance of the mitral valve. Trivial regurgitation of the mitral valve. Aortic Valve: Normal appearance of the aortic valve. Tricuspid Valve: Normal appearance of the tricuspid valve. Estimated peak RVSP is 36 mmHg. Mild tricuspid regurgitation. Pulmonic Valve: Normal appearance of the pulmonic valve. Mild pulmonic regurgitation. Pericardium: Normal pericardium with no significant pericardial effusion. Aorta: Normal aortic root. IVC: Normal size and normal respiratory collapse consistent with normal right atrial pressure (<5 mmHg). Pulmonary Artery: Normal pulmonary artery size. CONCLUSIONS: Normal left ventricular size. Normal global left ventricular systolic function. Normal left ventricular diastolic function. Ejection fraction is measured at 64 %. Ejection Fraction is visually estimated to be 60 %. Global Longitudinal Strain is -19 %. Very small amounts of mitral, tricuspid and pulmonic valve regurgitation none of which are clinically significant. Electronically Signed By: Justice Turner MD, [facility] 05/17/2025 12:09:30 PM CDT Procedure Note Justice Turner MD - 05/17/2025 [facility] Cardiology [address] [facility], [address], [place] [address] P:[phone] P:[phone] Echocardiographic Report Patient Name: CATRACHITA ROSA A : 1945 Study Date: 05/17/2025 11:04:29 AM Gender: F Indexer: Location: [facility]W Ref Provider: CHRISTOFER APODACA Height(Cm): 165 BSA: 1.79 Weight(Kg): 69.9 Heart Rate: 64 BP: 170 / 90 Quality: Good Order Provider: CHRISTOFER APODACA PROCEDURES: Echocardiographic Report: Transthoracic echocardiogram with complete 2D, M-Mode, and color Dopplerexamination. With Strain Analysis. INDICATIONS: R94.31 Abnormal electrocardiogram (ECG) (EKG). MEASUREMENTS: 2D/MM Value Range Doppler ValueRange EF Mod BP 64 % [ 54 - 74 ] TUCKER Vmax 2.11cm2 [ 2.00 - 4.00 ] EF Teich MM 51 % [ 54 - 74 ] AV Mean PG 5mmHg Estimated EF 60 % AV Peak Aaron 1.65m/s [ 1.00 - 1.70 ] LV GLS -19.16 % AV Peak PG 11mmHg LVIDd 2D 4.41 cm [ 3.80 - 5.20 ] AV VTI 37.71cm LVIDd MM 5.28 cm [ 3.80 - 5.20 ] LVOT Diam 2.00cm [ 1.70 - 2.10 ] LVIDs 2D 2.86 cm [ 2.20 - 3.50 ] LVOT Peak Aaron 1.11m/s [ 0.70 - 1.10 ] LVIDs MM 3.89 cm [ 2.20 - 3.50 ] LVOT VTI 25.76cm LVPWd 2D 1.10 cm [ 0.60 - 0.90 ] MV E Peak Aaron 0.84m/s [ 0.60 - 1.30 ] LVPWd MM 0.95 cm [ 0.60 - 0.90 ] MV A Peak Aaron 0.93m/s [ 1.00 - 1.20 ] IVSd 2D 0.98 cm [ 0.60 - 0.90 ] MV Decel Time 176msec [ 104 - 258 ] IVSd MM 1.01 cm [ 0.60 - 0.90 ] PV Peak Aaron 1.16m/s [ 0.40 - 0.80 ] LA Dimension MM 3.60 cm [ 2.70 - 3.80 ] TR Peak Aaron 2.66m/s [ 1.00 - 2.80 ] AoR Diam MM 3.49 cm [ 2.70 - 3.70 ] TR Peak PG 28mmHg LA Volume 63.12 ml [ 22.00 - 52.00 ] RVSP 36.00mmHg [ 10.00 - 36.00 ] LA Volume Index 35 cc/m2 [ 16 - 28 ] RV S` 0.11m/s ACS MM 1.50 cm Lateral E` 0.07m/s [ 0.10 - 0.15 ] RA Volume 16.70 ml Septal E` 0.05m/s [ 0.08 - 0.15 ] E` 0.06 m/s E/E` 14 Tapse 2.16 cm [ 1.71 - 5.00 ] 2D/MM Value Range Doppler ValueRange - FINDINGS: Interpretation Site: Exam was interpreted at [facility]. Left Ventricle: Normal left ventricular size. Normal global left ventricular systolicfunction. Normal left ventricular diastolic function. Ejection fraction is measured at 64%. Ejection Fraction is visually estimated to be 60 %. Global Longitudinal Strain is-19 %. Right Ventricle: Normal right ventricular size. Left Atrium: There is mild enlargement of left atrium. Right Atrium: The right atrium is normal in size. Atrial Septum: Normal atrial septum. Mitral Valve: Normal appearance of the mitral valve. Trivial regurgitation of the mitralvalve. Aortic Valve: Normal appearance of the aortic valve. Tricuspid Valve: Normal appearance of the tricuspid valve. Estimated peak RVSP is 36 mmHg.Mild tricuspid regurgitation. Pulmonic Valve: Normal appearance of the pulmonic valve. Mild pulmonic regurgitation. Pericardium: Normal pericardium with no significant pericardial effusion. Aorta: Normal aortic root. IVC: Normal size and normal respiratory collapse consistent with normal rightatrial pressure (<5 mmHg). Pulmonary Artery: Normal pulmonary artery size. CONCLUSIONS: Normal left ventricular size. Normal global left ventricular systolicfunction. Normal left ventricular diastolic function. Ejection fraction is measured at 64%. Ejection Fraction is visually estimated to be 60 %. Global Longitudinal Strain is-19 %. Very small amounts of mitral, tricuspid and pulmonic valve regurgitationnone of which are clinically significant. Electronically Signed By: Justice Turner MD, [facility] 05/17/2025 12:09:30 PM CDT Christofer Apodaca MD CV ECHO PROCEDURES Final Result from Last 3 Months Insurance [facility] Care Teams Crester Relationship Specialty Start Date End Date Christofer Apodaca MD [address] [place] [address] PCP - General 01/21/13
--- OUTSIDE RECORDS SUMMARY | 2025-06-06 11:05 | XMS_ITS | Encounter Summary ---
Author Organization [facility] Address [address] [place] [address] Phone Care Team Providers Care Refiner Operator Name Role Phone Ronnie Kebede MD Unavailable [phone] Moni Rodriguez APRN, CNP Primary Care Provider [phone] Devon Mtz MD Unavailable Reason for Visit * Reason Comments Medication Refill Encounter Details Date Type Department Care Team (Late Contact Info) Description 11/[facility] #2 [place] [address] Ronnie Kebede MD #2 [place] [address] Medication Refill Social History Tobacco Use Types [...] (Late Contact Info) Description 11/23/2025 1:30 PM MONUMENT ERECTOR Office Visit [facility] Neurology [facility] #[address] [place] [address] Ronnie Kebede MD #2 [place] [address] documented as of this encounter Visit Diagnoses Not on filedocumented in this encounter Care Teams Refiner Operator Relationship Specialty Start Date End Date Michael, ELEN Montenegro CNP [address] [place] [address] PCP - General Family Medicine 05/06/17 Ronnie Kebede MD [address]2 [place] [address] Consulting Physician Neurology 05/06/17 Devon Mtz MD [address] [place] [address] Consulting Physician Cardiovascular Disease - Cardiology 05/19/25 documented as of this encounter
--- OUTSIDE RECORDS SUMMARY | 2025-06-06 11:05 | XMS_ITS | Encounter Summary ---
Author Organization [facility] Address [address] [place] [address] Phone Care Team Providers Care Cooper Apprentice Name Role Phone Ronnie Kebede MD Unavailable [phone] Moni Rodriguez APRN, OIL PRODUCER Primary Care Provider [phone] Devon Mtz MD Unavailable Reason for Visit * Reason Comments Medication Refill Encounter Details Date Type Department Care Team (Late Contact Info) Description 03/04/2021 Refill [facility] - [facility] - [place] #1 [facility] [address] Geovanna Kelly APRN, POLYSOMNOGRAPHIC TECH [address]2 [place] [address] Medication Refill Social History Tobacco Use Types [...] (Late Contact Info) Description 11/23/2025 1:30 PM TUBE DISPATCHER [facility] [place] #2 [place] [address] Ronnie Kebede MD [address] [place] [address] documented as of this encounter Visit Diagnoses Diagnosis Partial symptomatic epilepsy with complex partial seizures, not intractable, without status epilepticus documented in this encounter Care Teams Cooper Apprentice Relationship Specialty Start Date End Date Moni Rodriguez APRN, CNP [address] [place] [address] PCP - General Family Medicine 05/06/17 Ronnie Kebede MD #2 [place] [address] Consulting Physician Neurology 05/06/17 Devon Mtz MD [address] [place] [address] Consulting Physician Cardiovascular Disease - Cardiology 05/19/25 documented as of this encounter
--- OUTSIDE RECORDS SUMMARY | 2025-06-06 11:05 | XMS_ITS | Encounter Summary ---
Author Organization [facility] Address [address] [place] [address] Phone Care Team Providers Care Staff Nurse Icu Resource Team Name Role Phone Ronnie Kebede MD Unavailable [phone] Moni Rodriguez APRN, CNP Primary Care Provider [phone] Devon Mtz MD Unavailable Reason for Visit * Reason Comments Medication Refill Encounter Details Date Type Department Care Team (Late Contact Info) Description 02/27/2021 Refill [facility] - [facility] [address] [facility] [address] Ronnie Kebede MD [address] [place] [address] [...] (Late Contact Info) Description 11/23/2025 1:30 PM SERVICE MECHANIC Office Visit [facility] Neurology [facility] [address] [place] [address] Ronnie Kebede MD [address] [place] [phone] documented as of this encounter Visit Diagnoses Not on filedocumented in this encounter Care Teams Staff Nurse Icu Resource Team Relationship Specialty Start Date End Date Moni Rodriguez APRN, CNP [address] [place] [address] PCP - General Family Medicine 05/06/17 Ronnie Kebede MD [address] [place] [address] Consulting Physician Neurology 05/06/17 Devon Mtz MD [address] [place] [address] Consulting Physician Cardiovascular Disease - Cardiology 05/19/25 documented as of this encounter
--- OUTSIDE RECORDS SUMMARY | 2025-06-06 11:05 | XMS_ITS | Encounter Summary ---
Author Organization [facility] Address [address] [place] [address] Phone Care Team Providers Care Brass Bobbin Winder Name Role Phone Ronnie Kebede MD Unavailable [phone] Moni Rodriguez APRN, DIRECTOR OF EXHIBIT DEVELOPMENT Primary Care Provider [phone] Devon Mtz MD Unavailable Reason for Visit * Reason Comments Medication Refill Encounter Details Date Type Department Care Team (Late Contact Info) Description 10/[facility] [place] [address] [place] [phone] Geovanna Kelly APRN, LOADING MACHINE TOOL SETTER [address] [place] [address] Medication Refill Social History Tobacco Use Types [...] (Late Contact Info) Description 11/23/2025 1:30 PM EMERGENCY DISPATCH OPERATOR Office Visit [facility] Neurology [facility] [address] [place] [phone] Ronnie Kebede MD [address] [place] [address] documented as of this encounter Visit Diagnoses Not on filedocumented in this encounter Care Teams Brass Bobbin Winder Relationship Specialty Start Date End Date Michael, ELEN Montenegro CNP [address] [place] [address] PCP - General Family Medicine 05/06/17 Ronnie Kebede MD [address] [place] [address] Consulting Physician Neurology 05/06/17 Devon Mtz MD [address] [place] [address] Consulting Physician Cardiovascular Disease - Cardiology 05/19/25 documented as of this encounter
--- OUTSIDE RECORDS SUMMARY | 2025-06-06 11:05 | XMS_ITS | Clinical Summary ---
Author Organization [facility] Medical Office Building [address] Address [address] [place] [address] Care Team Providers Care Farm Butcher Name Role Phone Christofer Apodaca MD Primary Care Provider + Allergies Active Allergy Reactions Criticality Noted Date Comments Adhesive Tape-Silicones Swelling Medium 10/15/2011 Benzonatate Unknown 01/15/2012 Per outside records Iodine Swelling Medium 04/28/2017 Metoprolol [place] Simvastatin Topiramate Unknown 01/15/2012 Per outside records [...] (02/06/2017): Headache Tremor 01/21/2013 Overview (02/06/2017): Tremor Encounters Date Type Department Care Team Description 05/17/2025 11:15 AM CDT Ancillary Procedure [facility] Cardiology at [address] [place] [address] Abnormal electrocardiogram from Last 3 Months Surgical History Surgery Date Site/Laterality Comments CARPAL TUNNEL RELEASE 2002 Carpal tunnel release Medical History Medical History Date Comments Hyperlipidemia Hyperlipidemia Diabetes mellitus (HCC) Diabetes Disorder of thyroid Thyroid dise ase Hypertension Hypertension Family History Medical History Relation Name Comments Cancer Mother Cancer, unknown ; Hypertension Mother Hypertension; Stroke Mother Stroke; Cancer Other Family history of Cancer, unknown; Relation Name Status Comments Mother Other Social History Tobacco Use Types Packs/Day Years Used Date Smoking Tobacco: Never Alcohol Use Standard Drinks/Week Comments No 0 (1 standard drink = 0.6 oz pur e alcohol) Comments Unknown Sex and Gender Information Value Date Recorded Sex Assigned at Not on file Legal Sex Female 11:21 AM TIRE BUFFER Gender Identity Not on file Sexual Orientation Not on file Obstetrics History Last Filed Vital Signs Vital Sign Reading [...] 04/28/2017 11:09 AM CDT Plan of Treatment Health Maintenance Due Date Last Done Comments Depression Screening 1945 Fall Risk Assessment 1945 Hepatitis C Screening 1945 Osteoporosis Screening-Bone Density Scan 1945 Hepatitis B Screening 1964 Zoster Vaccine (1 of 2) 1996 Well Visit 65+ 2011 Covid-19 Vaccine (2023-2 5 season) 2025 09/09/2024, 08/14/2023, 07/24/2022, Additional history exists Influenza Vaccine (#1) 2025 , 08/14/2023, 07/02/2022, Additional history exists DTaP/Tdap/Td Vaccine (2 - Td or Tdap) 01/13/2026 01/14/2016 Pneumococcal vaccine 65+ Completed 022, 01/14/2016, 11/17/2013, Additional history exists Procedures Procedure Name Priority Date/Time Associated Diagnosis [...] AM CDT Narrative 05/17/2025 12:09 PM CDT [facility] Cardiology [address], [address], [place] [address] P:[phone] P:[phone] Echocardiographic Report Patient Name: CATRACHITA ROSA A : 1945 Study Date: 05/17/2025 11:04:29 AM Gender: F Tangible Personal Property Appraiser: NATALIE Location: [facility] Ref Provider: CHRISTOFER APODACA [...] FINDINGS: Interpretation Site: Exam was interpreted at [facility]. Left Ventricle: Normal left ventricular size. Normal [...] significant. Electronically Signed By: Justice Turner MD, [facility] 05/17/2025 12:09:30 PM CDT Procedure Note Justice Turner MD - 05/17/2025 [facility] Cardiology [facility], [address], [place] [address] P:[phone] P:[phone] Echocardiographic Report Patient Name: CATRACHITA ROSA A : 1945 Study Date: 05/17/2025 11:04:29 AM Gender: F Tangible Personal Property Appraiser: NATALIE Location: [facility] Ref Provider: CHRISTOFER APODACA [...] FINDINGS: Interpretation Site: Exam was interpreted at [facility]. Left Ventricle: Normal left ventricular size. Normal [...] significant. Electronically Signed By: Justice Turner MD, [facility] 05/17/2025 12:09:30 PM CDT Christofer Apodaca MD CV ECHO PROCEDURES Final Result from Last 3 Months Insurance MEDICARE [facility] Care Teams Farm Butcher Relationship Specialty Start Date End Date Christofer Apodaca MD [address] [place] [address] PCP - General 01/21/13
--- OUTSIDE RECORDS SUMMARY | 2025-06-06 11:05 | XMS_ITS | Clinical Summary ---
Author Organization [facility] Address [address] [place] [address] Care Team Providers Care Inside Sales Recruiter Name Role Phone Unavailable Primary Care Provider Unavailabl e Source Comments [facility],non-owned Affiliates and Associated Physician Practices is amultiple site organization consisting of ambulatory clinics and hospital sitesin [place], [place], [place] and [place]. This disclosure is being madepursuant to the Care Everywhere program and may not contain all information available regarding this patient. Last updated 18.[facility] Allergies Active Allergy Reactions Criticality Noted Date [...] Concussion Seizures Overview (10/15/2011): Dr. Crystal Osei [facility]. Onset after concussion Hypothyroid Hyperlipidemia [...] Brother 2 lung CA Brother 3 Father IA Mother IA Social History Tobacco Use Types Packs/Day Years Used Date Smoking Tobacco: Never Smokeless Tobacco: Never Alcohol Use Standard Drinks/Week Comments No 0 (1 standard drink = 0.6 oz pur e alcohol) Comments No Sex and Gender Information Value Date Recorded Sex Assigned at Not on file Legal Sex Female 12:51 PM MATCHBOOK ASSEMBLER Gender Identity Not on file Sexual Orientation Not on file Last Filed Vital Signs Vital Sign Reading Time Taken Comments Blood Pressure 130/80 02/24/2012 10:27 AM CDT Pulse 86 02/24/2012 10:27 AM CDT Temperature 37.1 C (98.8 F) 11/19/2011 12:56 PM MATCHBOOK ASSEMBLER Respiratory Rate - - Oxygen Saturation - - Inhaled Oxygen Concentration - - Weight 64.4 kg (142 lb) 02/24/2012 10:27 AM CDT Height 162.6 cm (5' 4) 02/24/2012 10:27 AM CDT Body Mass Index [...] - 1-dose 75+ series) 2021 COVID-19 VACCINE ( - 2023-2 5 season) 2024 DEPRESSION SCREENING 11/02/2024 DIABETES - URINE PROTEIN SCREENING 11/02/2024 11/18/2011 INFLUENZA VACCINE (#1) 2025 BONE DENSITY TESTING Completed 11/18/2011, 11/18/2011 [...] DENSITY 2 SITES Routine 11/18/2011 6:48 PM MATCHBOOK ASSEMBLER Asymptomatic postmenopausal status (age-related) (natural) MICROALBUMIN URINE RANDOM Routine 11/18/2011 12:11 PM MATCHBOOK ASSEMBLER DM (diabetes mellitus) COMPREHENSIVE METABOLIC PANEL Routine 11/18/2011 12:09 PM MATCHBOOK ASSEMBLER Hyperlipidemia DM (diabetes mellitus) from Last 3 [...] Narrative Resulting Agency Comment [facility] [place] [address] [phone] us Nahomi Mcginnis MD LAB - CHEMISTRY ORDERABLES Final Result [facility] INSURANCE BILL [address] [place] [address] * DEXA BONE DENSITY 2 SITES (11/18/2011 6:48 PM MATCHBOOK ASSEMBLER) Anatomical Region Laterality Modality Other Narrative 11/18/2011 6:48 PM MATCHBOOK ASSEMBLER Jeremi Chauhan MD 11/18/2011 6:[address] [facility] BONE DENSITY REPORT Pt. Name: Catrachita Rosa Gender: female : 1945 Test Date: 11/18/2011 Referring Physician: Nahomi Mcginnis MD Technologist: MALKA Montenegro A Central DXA was performed today using a [employer] QDR Discovery C cell plasterer. The images and data have been scanned. [...] Jeremi Chauhan MD Physician and Certified Clinical Installers Mechanical Procedure Note Elo Asher - 11/18/2011 4:08 PM CST [facility] BONE DENSITY REPORT Pt. Name: Catrachita Rosa Gender: female : 1945 Test Date: 11/18/2011 Referring Physician: Nahomi Mcginnis MD Technologist: MALKA Montenegro A Central DXA was performed today using a [employer] QDR Discovery C cell plasterer.The images and data have been scanned. Images [...] Jeremi Chauhan MD Physician and Certified Clinical Installers Mechanical Nahomi Mcginnis MD DEXA ORDERABLES Final Result * MICROALBUMIN URINE RANDOM (11/18/2011 12:11 PM MATCHBOOK ASSEMBLER) Microalbumin Random Urine 10.4 0.0 - 17.0 ug/mL [facility] INSURANCE BILL URINE / Unknown 11/18/2011 1 2:11 PM MATCHBOOK ASSEMBLER 11/18/2011 5:48 PM MATCHBOOK ASSEMBLER Narrative Resulting Agency Comment [facility] [address] [phone] Nahomi Mcginnis MD LAB - URINE CHEMISTRY ORDERABLES Final Result [facility] INSURANCE BILL [address] [place] [address] * (ABNORMAL) COMPREHENSIVE METABOLIC PANEL (11/18/2011 12:09 PM MATCHBOOK ASSEMBLER) Glucose 100(H) 65 - 99 mg/dL [facility] [...] BLOOD SPECIMEN / Unknown 11/18/2011 12:09 PM MATCHBOOK ASSEMBLER 11/18/2011 5:58 PM MATCHBOOK ASSEMBLER Narrative Resulting Agency Comment [facility] [place] [address] [phone] us Nahomi Mcginnis MD LAB - CHEMISTRY ORDERABLES Final Result [facility] INSURANCE BILL [address] [place] [address] from Last 3 Months or Most Recently Relevant to Health Maintenance Insurance MEDICAID - OUT OF STATE MEDICARE
--- OUTSIDE RECORDS SUMMARY | 2025-06-06 11:05 | XMS_ITS | Clinical Summary ---
Author Organization [facility] Address [address] [facility] [place] [address] Phone Care Team Providers Care Freelance Displayer Name Role Phone Ronnie Kebede MD Unavailable [phone] Moni Rodriguez APRN, BALE SEWER Primary Care Provider [phone] Devon Mtz MD Unavailable Allergies Active Allergy Reactions Criticality Noted Date Comments Adhesive Tape Anaphylaxis Medium 10/15/2011 Bee Venom Anaphylaxis 07/16/2017 Benzonatate Unknown 01/15/2012 Per outside records Coconut (Cocos Nucifera) Anaphylaxis 07/16/2017 Swelling and itching Iodine Swelling Medium 04/28/2017 Metoprolol Other (see Comments) Medications atenolol (TENORMIN) 100 MG Tablet 50 mg. 04/22/20 10 Active Desvenlafaxine Succinate 50 MG TABLET SR 24 HR 50 mg. 10/14/20 10 Active hydroCHLOROthia zide 50 MG Tablet [...] RECURS. 9 Tablet 3 12/12/19 23 Active pantoprazole (PROTONIX) 40 MG Tablet Delayed Response Take 40 mg by mouth daily. Active LevETIRAcetam (Keppra) 1000 MG TabletIndicatio ns:Partial symptomatic epilepsy with complex partial seizures, not intractable, without status epilepticus Take 1 Tablet by mouth 2 times daily. 60 Tablet 2 03/29/20 25 Active carBAMazepine (CARBATROL) 200 MG CAPSULE SR 12 HRIndications:P artial symptomatic epilepsy with complex partial seizures, not intractable, without status epilepticus TAKE 1 CAPSULE BY MOUTH TWICE A DAY 180 Capsule 1 04/24/20 25 Active polyethylene glycol (MiraLax) 17 g Pack Take 17 g by mouth daily. Dissolve in 4-8 oz of liquid. Active Nayzilam 5 MG/0.1ML SolutionIndicat ions:Partial symptomatic epilepsy with complex partial seizures, not intractable, without status epilepticus SPRAY 5 MG BY NASAL ROUTE NEEDED FOR PROLONGED SEIZURE OR CLUSTERS OF SEIZURES. 2 Each 5 05/24/20 25 Active Midazolam (Nayzilam) 5 MG/0.1ML SolutionIndicat ions:Partial symptomatic epilepsy with complex partial seizures, not intractable, without status epilepticus 5 mg by Nasal route as needed for Other (prolonged seizure or clusters of seizures). 1 Each 02/17/20 25 025 Discontinued Active Problems Problem Noted Date Diagnosed Date Partial symptomatic epilepsy with complex partial seizures, not intractable, without status epilepticus 04/29/2019 Encounters Date Type Department Care Team Description 05/24/2025 Refill [facility] [place] [address] [place] [address] Ronnie Kebede MD Medication Refill 05/19/2025 2:00 PM CDT Office Visit [facility] [address]2 [place] [address] Ronnie Kebede MD Partial symptomatic epilepsy with complex partial seizures, not intractable, without status epilepticus (Primary Dx); Intractable migraine without aura and without status migrainosus; Primary hypertension Discharge Disposition: Discharged to home or Selfcare 05/19/2025 Travel 04/21/2025 Refill [facility] [address]2 [place] [address] Geovanna Kelly, WINERY CELLAR HAND, TURN SUPERVISOR Medication Refill 03/29/2025 Results Follow-Up [facility] [address] [place] [address] Ronnie Kebede MD LEVETIRACETAM, CMP (COMPREHENSIVE METABOLIC PANEL), TEGRETOL (CARBAMAZEPINE), CBC WITH AUTO DIFFERENTIAL 03/28/2025 1:45 PM CDT Office Visit [facility] [address] [place] [address] Ronnie Kebede MD Partial symptomatic epilepsy with complex partial seizures, not intractable, without status epilepticus (Primary Dx); Hot flashes Discharge Disposition: Discharged to home or Selfcare 03/28/2025 Travel 03/16/2025 Refill [facility] [address] [place] [address] Ronnie Kebede MD Medication Refill 03/14/2025 Telephone [facility] [address] [place] [address] Ronnie Kebede MD from Last 3 Months [...] Never Smokeless Tobacco: Never Tobacco Cessation:Counseling Given: No Alcohol Use Standard Drinks/Week Comments No 0 [...] Sign Reading Time Taken Comments Blood Pressure 120/70 05/19/2025 1:48 PM CDT Pulse 69 05/19/2025 1:48 PM CDT Temperature 36.1 C (96.9 F) 05/19/2025 1:48 PM CDT Respiratory Rate 14 05/19/2025 1:48 PM CDT Oxygen Saturation 96% 05/19/2025 1:48 PM CDT Inhaled Oxygen Concentration - - Weight 66.2 kg (145 lb 14.4 oz) 05/19/2025 1:48 PM CDT Height 154.9 cm (5' 1) 05/19/2025 1:48 PM CDT Body Mass Index 27.57 05/19/2025 1:48 PM CDT Plan of Treatment Upcoming Encounters Date Type Department Care Team (Late st Contact Info) Description 11/23/2025 1:30 PM HVAC RESIDENTIAL SERVICE TECHNICIAN Office Visit [facility] - Neurology [facility] [address] [place] [address] Ronnie Kebede MD [address] [place] [address] Health Maintenance Due Date Last Done Comments DEXA Bone Density 1945 Hepatitis C Virus (HCV) Screening 1945 Zoster Immunization (1 of 2) 1996 SARS-COV-2 Immunization ( season) 2025 09/09/2024, 08/14/2023, 07/24/2022, Additional history exists Influenza Immunization (#1) 2025 11/0 06/2024, 08/14/2023, 07/02/2022, Additional history exists Colonoscopy Discontinued 11/23/2013 Colorectal Cancer Screening Discontinued DTaP/Tdap/Td Immunization Discontinued 01/14/2016 TdaP Immunization Completed 01/14/2016 Pneumococcal Immunization (50+ years) Completed 05/14/2022, 01/14/2016, 11/17/2013, Additional history exists Pneumococcal Immunization Combined Discontinued 05/14/2022, 01/14/2016, 11/17/2013, Additional history exists Respiratory Syncytial Virus (RSV) [...] Procedure Name Priority Date/Time Associated Diagnosis Comments CBC WITH AUTO DIFFERENTIAL Routine 03/28/2025 2:55 PM CDT Partial symptomatic epilepsy with complex partial seizures, not intractable, without status epilepticus Intractable migraine without aura and without status migrainosus TEGRETOL (CARBAMAZEPINE) Routine 03/28/2025 2:55 PM CDT Partial symptomatic epilepsy with complex partial seizures, not intractable, without status epilepticus Intractable migraine without aura and without status migrainosus CMP (COMPREHENSIVE METABOLIC PANEL) Routine 03/28/2025 2:55 PM CDT Partial symptomatic epilepsy with complex partial seizures, not intractable, without status epilepticus Intractable migraine without aura and without status migrainosus COMPLETE BLOOD COUNT (CBC) WITH DIFF Routine 03/28/2025 2:55 PM CDT Partial symptomatic epilepsy with complex partial seizures, not intractable, without status epilepticus Intractable migraine without aura and without status migrainosus LEVETIRACETAM Routine 03/28/2025 2:55 PM CDT Partial symptomatic epilepsy with complex partial seizures, not intractable, without status epilepticus HM COLONOSCOPY Routine 11/23/2013 from Last 3 Months or Most Recently Relevant to Health Maintenance Results * LEVETIRACETAM (03/28/2025 2:55 PM CDT) LEVETIRACETAM 16.4 12 - 46 mcg/mL 03/28/2025 9:33 PM CDT [facility] Blood Venipuncture / Unknown 03/28/2025 2:55 PM CDT 03/28/2025 3:30 PM CDT us Ronnie Kebede MD LAB SEND OUTS Final Result [facility] [address] [place] [address], * (ABNORMAL) CBC WITH AUTO DIFFERENTIAL (03/28/2025 2:55 PM CDT) Pathologist [facility] WBC 9.80 4.00 - 12.00 10(3)/mcL 03/28/2025 3:37 PM CDT [facility] RBC 4.21 3.80 - 5.30 10(6)/mcL 03/28/2025 3:37 PM CDT [facility] HEMOGLOBIN (HGB) 12.6 12.0 - 15.8 g/dL 03/28/2025 3:37 PM CDT [facility] HEMATOCRIT (HCT) 38.2 36.0 - 47.0 % 03/28/2025 3:37 PM CDT [facility] MCV 90.7 82.0 - 96.0 fL 03/28/2025 3:37 PM CDT [facility] MCH 29.9 26.0 - 34.0 pg 03/28/2025 3:37 PM CDT [facility] MCHC 33.0 31.0 - 36.0 g/dL 03/28/2025 3:37 PM CDT [facility] PLATELET COUNT 251 140 - 440 10(3)/mcL 03/28/2025 3:37 PM CDT [facility] RDW 13.0 11.8 - 15.5 % 03/28/2025 3:37 PM CDT [facility] MPV 10.1 9.7 - 12.4 fL 03/28/2025 3:37 PM CDT [facility] NEUTROPHILS 76.7(H) 47.0 - 73.0 % 03/28/2025 3:37 PM CDT [facility] LYMPHOCYTES 16.1(L) 18.0 - 42.0 % 03/28/2025 3:37 PM CDT [facility] MONOCYTES 6.2 4.0 - 12.0 % 03/28/2025 3:37 PM CDT [facility] EOSINOPHILS 0.5 0.0 - 5.0 % 03/28/2025 3:37 PM CDT [facility] BASOPHILS 0.5 0.0 - 1.0 % 03/28/2025 3:37 PM CDT [facility] ABSOLUTE NEUTROPHILS 7.51 1.60 - 7.70 10(3)/[facility] 03/28/2025 3:37 PM CDT [facility] ABSOLUTE LYMPHOCYTES 1.58 1.30 - 3.20 10(3)/[facility] 03/28/2025 3:37 PM CDT [facility] ABSOLUTE MONOCYTES 0.61 0.20 - 1.00 10(3)/[facility] 03/28/2025 3:37 PM CDT [facility] ABSOLUTE EOSINOPHIL 0.05 0.00 - 0.40 10(3)/[facility] 03/28/2025 3:37 PM CDT [facility] ABSOLUTE BASOPHILS 0.05 0.00 - 0.10 10(3)/[facility] 03/28/2025 3:37 PM CDT [facility] NRBC PER 100 WBC 0 03/28/20 3:37 PM CDT [facility] Blood Venipuncture / Unknown 03/28/2025 2:55 PM CDT 03/28/2025 3:30 PM CDT us Ronnie Kebede MD HEMATOLOGY ORDERABLES Final Result [facility] [address] [place] [address] * TEGRETOL (CARBAMAZEPINE) (03/28/2025 2:55 PM CDT) TEGRETOL 8.4 8.0 - 12.0 mcg/mL 03/28/2025 9:53 PM CDT [facility] Blood Venipuncture / Unknown 03/28/2025 2:55 PM CDT 03/28/2025 3:30 PM CDT us Ronnie Kebede MD CHEMISTRY ORDERABLES Final R esult [facility] [address] [place] [address], * (ABNORMAL) CMP (COMPREHENSIVE METABOLIC PANEL) (03/28/2025 2:55 PM CDT) Pathologist [facility] SODIUM 136 136 - 145 mmol/L 03/28/2025 3:55 PM CDT [facility] POTASSIUM 4.2 3.5 - 5.1 mmol/L 03/28/2025 3:55 PM CDT [facility] CHLORIDE 98 98 - 107 mmol/L 03/28/2025 3:55 PM CDT [facility] CO2, VENOUS 27 22 - 30 mmol/L 03/28/2025 3:55 PM CDT [facility] ANION GAP 15.2 <18.0 mmol/L 03/28/2025 3:55 PM CDT [facility] GLUCOSE 183(H) 70 - 99 mg/dL 03/28/2025 3:55 PM CDT [facility] BUN 14 10 - 20 mg/dL 03/28/2025 3:55 PM CDT [facility] CREATININE, BLOOD 0.90 0.60 - 1.00 mg/dL 03/28/2025 3:55 PM CDT [facility] BUN/CREATININE RATIO 16 12 - 20 ratio 03/28/2025 3:55 PM CDT [facility] TOTAL PROTEIN 7.4 6.0 - 8.0 g/dL 03/28/2025 3:55 PM CDT [facility] ALBUMIN 4.6 3.5 - 5.0 g/dL 03/28/2025 3:55 PM CDT [facility] A/G RATIO 1.6 1.0 - 2.2 03/28/2025 3:55 PM CDT [facility] CALCIUM 9.1 8.7 - 10.5 mg/dL 03/28/2025 3:55 PM CDT [facility] T BILI 0.3 0.2 - 1.2 mg/dL 03/28/2025 3:55 PM CDT [facility] SGOT (AST) 23 <43 U/L 03/28/2025 3:55 PM CDT [facility] SGPT (ALT) 20 <56 U/L 03/28/2025 3:55 PM CDT [facility] ALKALINE PHOSPHATASE 203(H) 40 - 150 U/L 03/28/2025 3:55 PM CDT [facility] IS THE PATIENT REQUIRED TO BE FASTING? No 03/28/2025 3:55 PM CDT [facility] GFR, ESTIMATED >60 >=60 03/28/2025 3:55 PM T [facility] Comment: Creatinine Clearance is the preferred criteria for selecting drug dose adjustments in renally impaired patients. The GFR is provided as additional pertinent clinical information. GFR is reported in mL/min/1.73 sq m. Calculation based on the Chronic Kidney Disease Epidemiology Collaboration (CKD- EPI) equation refit without adjustment for race. GFR, EST. >60 >=60 025 3:55 PM CDT [facility] GFR, EST. NONAFRICAN >60 >=60 03/28/2025 3:55 PM [facility] Blood Venipuncture / Unknown 03/28/2025 2:55 PM CDT 03/28/2025 3:30 PM CDT us Ronnie Kebede MD CHEMISTRY ORDERABLES Final R esult [facility] [address] [place] [address] * HM COLONOSCOPY (11/23/2013) us Aguila Parekh MD PROCEDURE/MINOR SURGICAL ORDERAB LES Final Result from Last 3 Months or Most Recently Relevant to Health Maintenance Insurance MEDICARE C [employer] Care Teams Freelance Displayer Relationship Specialty Start Date End Date Moni Rodriguez APRN, BALE SEWER [address] [place] [address] PCP - General Family Medicine 05/06/17 Ronnie Kebede MD [address] [place] [address] Consulting Physician Neurology 05/06/17 Devon Mtz MD [address] [address] Consulting Physician Cardiovascular Disease - Cardiology 05/19/25
--- OUTSIDE RECORDS SUMMARY | 2025-06-06 11:05 | XMS_ITS | Encounter Summary ---
Author Organization [facility] Address [address] [place] [address] Phone Care Team Providers Care Peanut Butter Maker Name Role Phone Ronnie Kebede MD Unavailable [phone] Moni Rodriguez APRN, WORKERS COMPENSATION EXAMINER Primary Care Provider [phone] Devon Mtz MD Unavailable Reason for Visit * Reason Comments Medication Refill Encounter Details Date Type Department Care Team (Late Contact Info) Description 02/06/2021 [facility]ill [facility] [place] [address] [facility] [place] [address] Geovanna Kelly APRN, SENIOR RELIABILITY ENGINEER [address] [place] [address] Medication Refill Social History Tobacco Use Types [...] (Late Contact Info) Description 11/23/2025 1:30 PM FIELD ADJUSTER [facility] [place] [address] [place] [address] Ronnie Kebede MD [address] [place] [address] documented as of this encounter Visit Diagnoses Diagnosis Partial symptomatic epilepsy with complex partial seizures, not intractable, without status epilepticus documented in this encounter Care Teams Peanut Butter Maker Relationship Specialty Start Date End Date Moni Rodriguez APRN, CNP [address] [place] [address] PCP - General Family Medicine 05/06/17 Ronnie Kebede MD [address] [place] [phone] Consulting Physician Neurology 05/06/17 Devon Mtz MD [address] [place] [address] Consulting Physician Cardiovascular Disease - Cardiology 05/19/25 documented as of this encounter
--- OUTSIDE RECORDS SUMMARY | 2025-06-06 11:05 | XMS_ITS | Encounter Summary ---
Author Organization [facility] Address [address] [place] [address] Phone Care Team Providers Care Mortgage Broker Name Role Phone Ronnie Kebede MD Unavailable [phone] Moni Rodriguez APRN, CNP Primary Care Provider [phone] Devon Mtz MD Unavailable Reason for Visit * Reason Comments Medication Refill Encounter Details Date Type Department Care Team (Late Contact Info) Description [facility] [address] [place] [address] Ronnie Kebede MD [address] [place] [id number] Medication Refill Social History Tobacco Use Types [...] (Late Contact Info) Description 11/23/2025 1:30 PM DIRECTOR SHIP Office Visit [facility] [address] [place] [address] Ronnie Kebede MD [address] [place] [address] documented as of this encounter Visit Diagnoses Not on filedocumented in this encounter Care Teams Mortgage Broker Relationship Specialty Start Date End Date Michael, ELEN Montenegro CNP [address] [place] [address] PCP - General Family Medicine 05/06/17 Ronnie Kebede MD [address] [place] [address] Consulting Physician Neurology 05/06/17 Devon Mtz MD [address] [place] [address] Consulting Physician Cardiovascular Disease - Cardiology 05/19/25 documented as of this encounter
[2025-06-06 11:29] LABS: Hematocrit 35.2 % (37.0-47.0); Hemoglobin 11.4 g/dL (12.0-15.0); Immature Granulocyte Percent A 0.8 % (0-0.5); Lymphocytes Absolute Auto 0.95 K/mm3 (0.9-3.2); Mean Corpuscular HGB Conc 32.4 g/dl (32-36); Mean Corpuscular Hemoglobin 29.8 pg (26-34); Mean Corpuscular Volume 92.1 fl (80-100); Nucleated Red Blood Cells Absolute Auto 0.000 K/mm3 (0.0-0.012); Nucleated Red Blood Cells Perc 0.0 % (0.0-0.2); Platelet Count Result 225 k/mm3 (150-375); Red Blood Count 3.82 M/mm3 (4.2-5.4); White Blood Count 9.5 K/mm3 (4.5-10.0)
[2025-06-06 11:39] LABS: Alanine Aminotransferase 22 U/L (6-35); Albumin Level 4.2 g/dL (3.5-5.1); Alkaline Phosphatase 182 U/L (38-126); Anion Gap 9 mmol/L (4-12); Aspartate Amino Transferase 30 U/L (14-36); Bilirubin,Total 0.3 mg/dL (0.2-1.3); Blood Urea Nitrogen 15 mg/dL (7-17); Calcium 8.9 mg/dL (8.4-10.2); Carbon Dioxide 27 mmol/L (22-30); Chloride 99 mmol/L (98-107); Estimated CRCL calculation 39 ml/min; Estimated Glomerular Filt Rate > 60; Glucose 222 mg/dL (65-110); Potassium 4.3 mmol/L (3.4-5.0); Sodium 135 mmol/L (137-145); Total Protein 6.8 g/dL (6.3-8.2)
[2025-06-06] MEDS: ONDANSETRON INJ 4 MG/2 ML VIAL IV PUSH (12:35)
--- NOTE | 2025-06-06 12:36 | ED_ITS ---
HPI - Seizure General Chief Complaint: Seizure Stated Complaint: ?seizure, lethargic Time Seen by Provider: 06/06/25 10:35 Source: patient Mode of arrival: EMS Limitations: no limitations History of Present Illness HPI Narrative: 79-year-old with a history of seizure disorder was brought in by EMS from home with the complaints of having a seizure. Patient was found on the bathroom floor by her sister. She states that she has been taking all medication as prescribed. She denies having any headache or chest pain or shortness of breath. Endorses Dr. Kebede as her neurologist in [place]. MD complaint: seizure Onset (ago): unknown Seizure History: Yes Possible Precipitating Event: none Associated symptoms: denies other symptoms Treatments prior to arrival: none Related Data Home Medications ?Medication ?Instructions ?Recorded ?Confirmed ?Last Taken ?Type atenolol 100 mg tablet mg 02/03/24 Unknown History atorvastatin 40 mg tablet mg 02/03/24 Unknown History carbamazepine 200 mg mg PO 02/03/24 Unknown History capsule,extended release [id number] desvenlafaxine succinate 50 mg mg PO 02/03/24 Unknown History tablet,extended release 24 hr esomeprazole magnesium 40 mg mg 02/03/24 Unknown History capsule,delayed release famotidine 40 mg tablet mg 02/03/24 Unknown History glimepiride 4 mg tablet mg 02/03/24 Unknown History levothyroxine 100 mcg tablet mcg 02/03/24 Unknown History lisinopril 40 mg tablet mg 02/03/24 Unknown History mecobalamin (vitamin B12) 5,000 5,000 mcg PO DAILY 02/03/24 02/03/24 Unknown History mcg chewable tablet topiramate 100 mg tablet mg 02/03/24 Unknown History trazodone 50 mg tablet mg 02/03/24 Unknown History Allergies Allergy/AdvReac Type Severity Reaction Status Date / Time benzonatate Allergy Severe DIFF Verified 03/13/25 14:03 BREATHING coconut Allergy Severe Swelling Verified 03/13/25 14:03 of Lip/Tongue/Throat venom-honey bee Allergy Severe ANAPHYLAXIS Verified 03/13/25 14:36 honey Allergy Unknown Unknown Verified 03/13/25 14:03 latex Allergy Unknown Unknown Verified 03/13/25 14:03 milk Allergy Unknown Unknown Verified 03/13/25 14:03 peanut Allergy Unknown Unknown Verified 03/13/25 14:03 tree nut Allergy Unknown Unknown Verified 03/13/25 14:03 Iodinated Contrast Media Allergy Rash Verified 03/13/25 14:03 hydralazine AdvReac Intermediate Redness of Verified 03/23/25 15:11 Skin HONEY,WOOL,ALL NUTS,MILK Allergy Severe VARYING Uncoded 03/13/25 14:03 DEGREES OF REACTIVITY Review of Systems 2 Review of Systems: All systems reviewed & are unremarkable except as noted in HPI and below Constitutional: Constitutional: Reports no additional constitutional complaints Eyes: Eyes: Reports no additional eye complaints ENT: Reports system reviewed and no additional complaints, except as documented Cardiovascular: Cardiovascular: Reports no additional cardiovascular complaints Respiratory: Respiratory: Reports no additional respiratory complaints Gastrointestinal: Gastrointestinal: Reports no additional gastrointestinal complaints Musculoskeletal: Musculoskeletal: Reports no additional musculoskeletal complaints Neurologic: Reports as per HPI Psychiatric: Psychiatric: Reports no additional psychiatric complaints PMFSH Past Medical History Medical History Seizure disorder Family History Family History Sibling Family history of lung cancer Grandparent Family history of malignant neoplasm of breast Exam 2 Narrative: GENERAL: Well-appearing, well-nourished, and in no acute distress. HEAD: Normocephalic, atraumatic. EYES: PERRLA and EOMI. ENT: Nares clear, no rhinorrhea or epistaxis. Mucous membranes moist. NECK: Supple. CHEST: Clear to auscultation. No respiratory distress. HEART: Regular rate and rhythm. No murmur heard. Normal peripheral pulses. ABDOMEN: Soft, nontender, nondistended, normal active bowel sounds. EXTREMITIES: Normal range of motion. No edema. SKIN: Warm, dry, no rash. NEURO: No focal deficits. Alert and oriented x3. PSYCH: Normal mood and affect. Course Course Emergency Course: Patient comfortably resting on the bed. Informed her and the sister about the lab work, CT and EKG findings. Advised to continue home medication. Vital Signs Vital signs: Vital Signs Pulse Rate 58 L 06/06/25 10:23 Respiratory Rate 17 06/06/25 10:23 Blood Pressure 115/66 06/06/25 10:23 Pulse Oximetry 100 06/06/25 10:23 Oxygen Delivery Room Air 08/05/25 10:23 Pulse Rate 53 L 06/06/25 10:32 Respiratory Rate 14 06/06/25 10:32 Blood Pressure 115/76 06/06/25 10:32 Pulse Oximetry 98 06/06/25 10:32 Oxygen Delivery Room Air 06/06/25 10:32 MDM - Seizure Differential Diagnosis Differential diagnosis: Likely intractable seizure disorder and epileptic seizure Medical Records Attestation: I reviewed the patient's medical records. Lab Data Attestation: I reviewed the patient's lab results. 06/06/25 11:14 06/06/25 11:14 Labs: Lab Results 06/06/25 Range/Units 11:14 WBC 9.5 (4.5-10.0) K/mm3 RBC 3.82 L (4.2-5.4) M/mm3 Hgb 11.4 L (12.0-15.0) g/dL Hct 35.2 L (37.0-47.0) % MCV 92.1 (80-100) fl MCH 29.8 (26-34) pg MCHC 32.4 (32-36) g/dl RDW 12.6 (11.5-14.5) % Plt Count 225 (150-375) k/mm3 MPV 9.5 (7.4-10.4) fl Immature Gran % (Auto) 0.8 H (0-0.5) % Neut % (Auto) 83.2 H (45.5-73.1) % Lymph % (Auto) 10.0 L (18.3-44.2) % [place] % (Auto) 5.1 (2.6-8.5) % Eos % (Auto) 0.6 (0-4.4) % Baso % (Auto) 0.3 (0.2-1.2) % Lymph # (Auto) 0.95 (0.9-3.2) K/mm3 [place] # (Auto) 0.5 (0.1-0.6) K/mm3 Eos # (Auto) 0.1 (0-0.3) K/mm3 Baso # (Auto) 0.0 (0.0-0.1) K/mm3 Abs Immat Gran (auto) 0.08 H (0.00-0.031) K/mm3 Absolute Neuts (auto) 7.9 H (1.3-6.7) K/mm3 Absolute Nucleated RBC 0.000 (0.0-0.012) K/mm3 Nucleated RBC % 0.0 (0.0-0.2) % Sodium 135 L (137-145) mmol/L Potassium 4.3 (3.4-5.0) mmol/L Chloride 99 (98-107) mmol/L Carbon Dioxide 27 (22-30) mmol/L Anion Gap 9 (4-12) mmol/L BUN 15 (7-17) mg/dL Creatinine 0.90 (0.7-1.0) mg/dL Estim Creat Clear Calc 39 ml/min Estimated GFR > 60 (59 - ) Glucose 222 H (65-110) mg/dL Calcium 8.9 (8.4-10.2) mg/dL Total Bilirubin 0.3 (0.2-1.3) mg/dL AST 30 (14-36) U/L ALT 22 (6-35) U/L Alkaline Phosphatase 182 H (38-126) U/L Total Protein 6.8 (6.3-8.2) g/dL Albumin 4.2 (3.5-5.1) g/dL Carbamazepine Pending Levetiracetam Pending Imaging Data Attestation: I personally reviewed and interpreted this imaging study as follows: Radiologist's impression: ITS Impressions Head CT 06/06/25 11:17 IMPRESSION: 1. No acute intracranial abnormality. ECG Data EKG #1: ECG completion date: 06/06/25 ECG completion time: 11:20 EKG Interpretation: bradycardia (48), sinus rhythm, no ectopy, normal QRS and NL axis Discharge Plan Discharge Clinical Impression: Recurrent seizures Patient Disposition: Home Condition: Stable Instructions: Epilepsy (ED) Additional Instructions: Continue home medications, fall precautions, follow-up with your neurologist. Patient Language: Sierra Leonean Prescriptions: No Action atorvastatin 40 mg tablet trazodone 50 mg tablet atenolol 100 mg tablet famotidine 40 mg tablet levothyroxine 100 mcg tablet esomeprazole magnesium 40 mg capsule,delayed release(DR/EC) glimepiride 4 mg tablet lisinopril 40 mg tablet topiramate 100 mg tablet carbamazepine 200 mg capsule, ER multiphase 12 hr PO desvenlafaxine succinate 50 mg tablet extended release 24 hr PO mecobalamin (vitamin B12) 5,000 mcg Tablet,Chewable 5,000 mcg PO DAILY ondansetron 4 mg tablet,disintegrating 4 mg PO Q8H PRN (Reason: nausea and vomiting) Qty: 10 0RF Follow-up/Referrals: Rodriguez,Moni Warner APN [Primary Care Provider] - Time of Disposition: 12:38
[2025-06-06] MEDS: levETIRAcetam 1000MG/NACL100ML 1,000 MG/100 ML BAG 400 MG IVPB (12:46)
[2025-06-06 13:40] VITALS: BP 144/78; PULSE 58; RESP 15; O2SAT 100
== END 2025-06-06 13:42 | disposition home or self-care (01) ==
PROVIDERS: Emergency Provider Family Medicine; PCP Nurse Practitioner Family
DX: G40.909 Epilepsy, unspecified, not intractable, without status epilepticus (principal); R00.1 Bradycardia, unspecified; I44.0 Atrioventricular block, first degree; I51.7 Cardiomegaly
CPT/HCPCS: 36415; 70450; 80053; 80156; 80177; 85025; 93005; 96365; 96375; 99284; J1953; J2405